=== PATIENT | male | born 1970 | race Caucasian/White ===

== ENCOUNTER 2016-11-17 11:13 | Emergency (ER) | payer MEDICARE, OTHER ==
[~2016-11-17] VITALS: Ht 180.3 cm; Wt 111.0 kg
[~2016-11-17 11:13] MED LIST: AMIT50TA3 PO; CLIN1CAP6 PO; DOLO10TA PO; LACTTAB8 PO; LISI10TA3 PO; LYRI200C PO; NOVO7030P2 SQ; NOVORP2 SQ
[2016-11-17 11:15] VITALS: BP 178/89; PULSE 99; RESP 24; TEMP 98.8; O2SAT 100
[2016-11-17 13:11] VITALS: BP 186/113; PULSE 92; RESP 12; O2SAT 99
[2016-11-17 13:12] VITALS: O2SAT 99
--- NOTE | 2016-11-17 13:39 | PD ---
HPI Chief Complaint: Diabetic Time Seen by Provider: 13:00 Travel History International Travel<30 days: No Contact w/Intl Traveler<30days: No Traveled to known affect area: No History of Present Illness HPI Patient is a 46-year-old male presenting to emergency for evaluation of elevated blood sugars and low-grade fevers. 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 He reports low-grade fevers at the max temp of 100.2 as well as elevated blood glucose readings. Patient states his fasting blood sugar was 200 today he continued to rise over 500. He gave himself 10 units of regular insulin at 10:30 which brought his sugar down to 337 on arrival to the emergency department. Patient is normally on 70/30 twice daily with regular insulin sliding scale as needed. Patient states that he doesn't normally have pain in his stump, and wears a prosthetic leg. He has been unable to wear his prosthesis due to the pain. Patient also reports pain in a right foot ulcer, this is being followed by Dr. Salinas his diabetes trainer. He denies any chest pain, shortness of breath, headache, abdominal pain, nausea , vomiting. PFSH Past Medical History Arthritis: Yes Asthma: No Autoimmune Disease: No Blood Disorders: No Anxiety: No Depression: No Heart Rhythm Problems: No Cancer: No Cardiovascular Problems: No High Cholesterol: No Chemotherapy: No Chest Pain: No Congestive Heart Failure: No COPD: No Cerebrovascular Accident: No Diabetes: Yes (circulatory complication) Patient Takes Glucophage: No Diminished Hearing: No Gastrointestinal Disorders: No GERD: No Glaucoma: No Headaches: No Hepatitis: No Hiatal Hernia: No Heparin Induced Thrombocytopen: No Hypertension: Yes Immune Disorder: No Kidney Stones: No Neurologic: Yes (REFLEX SYMPATHETIC DYSTROPHY, NEUROPATHY) Psychiatric: No Reproductive: No Respiratory: No Integumentary: Yes (HX OF MRSA LEFT FOOT WOUND) Immunizations Current: No Migraines: No Myocardial Infarction: No Radiation Therapy: No Renal Failure: Yes (Acute from vancomycin/resolved) Seizures: No Sickle Cell Disease: No Sleep Apnea: No Thyroid Disease: No Ulcer: No Influenza Vaccination: No PNEUMOCCOCAL Vaccine (Year): 2 Past Surgical History Abdominal Surgery: No AICD: No Appendectomy: No Arteriovenous Shunt: No Body Medical Devices: PINS AND RODS TO LEFT LEG-HARDWARE REMOVED DUE TO MRSA INFECTION Cardiac Surgery: No Cholecystectomy: No Ear Surgery: No Endocrine Surgery: No Eye Surgery: No Genitourinary Surgery: No Gynecologic Surgery: No Insulin Pump: No Joint Replacement: No Neurologic Surgery: No Oral Surgery: No Pacemaker: No Thoracic Surgery: No Other Surgery: Yes (left BKA) Social History Alcohol Use: No Tobacco Use: No Substance Use: No Allergies-Medications (Allergen,Severity, Reaction): Coded Allergies: Vancomycin (Verified Allergy, Severe, ACUTE RENAL FAILURE, 11/17/16) Tigecycline (Verified Adverse Reaction, Severe, NAUSEA AND VOMITING, ) *MDRO Multi-Drug Resistant Organism (Verified Adverse Reaction, Unknown, MRSA, 11/17/16) MRSA (Blood & foot-11/2015); MRSA (foot-06/14/16) Uncoded Allergies: aquacel dressing (Allergy, Severe, Bleeding, 12/29/14) pain regranex (Allergy, Severe, Swelling, 12/29/14) pain on the skin Reported Meds & Prescriptions Reported Meds & Active Scripts Active Amitriptyline (Amitriptyline HCl) 50 Mg Tab 50 Mg PO HS Dolophine (Methadone HCl) 10 Mg Tab 70 Mg PO Q8HR Lyrica (Pregabalin) 200 Mg Cap 200 Mg PO BID Lisinopril 10 Mg Tab 10 Mg PO DAILY Reported Novolin R Inj (Insulin Human Regular) 1,000 Unit/10 Ml Vial 5-25 Units SQ ACHS Max dose at bedtime:(10)units; sugars less than 70,(0) units; sugars 150-199,(5)unit; sugars 200-249,(10)units; sugars 250-299,(15) units; sugars 300-349,(20)units; sugars greater than 349,(25)units Novolin 70-30 Inj (Insulin Human Isoph/Insulin Regular) 1,000 Unit/10 Ml Vial 1 Units SQ BID units in the morning and 16 units at night Review of Systems Except as stated in HPI: all other systems reviewed are Neg General / Constitutional: Positive: Fever HENT: No: Headaches Cardiovascular: No: Chest Pain or Discomfort Respiratory: No: Shortness of Breath Gastrointestinal: No: Nausea, Abdominal Pain Musculoskeletal: Positive: Myalgias, Edema, Pain Endocrine: Positive: Other (elevated blood glucose readings) Physical Exam Narrative GENERAL: Obese, well-developed, alert male. Resting comfortably in no acute distress. SKIN: Focused skin assessment warm/dry. Chronic ulceration to the plantar aspect of right foot, measuring 3 x 3.5 cm. No induration or erythema noted. There is a hyperpigmented, scaling rash to the dorsal aspect of the right foot HEAD: Atraumatic. Normocephalic. EYES: Pupils equal and round. No scleral icterus. No injection or drainage. ENT: No nasal bleeding or discharge. Mucous membranes pink and moist. NECK: Trachea midline. No JVD. CARDIOVASCULAR: Regular rate and rhythm. No murmur appreciated. RESPIRATORY: No accessory muscle use. Clear to auscultation. Breath sounds equal bilaterally. GASTROINTESTINAL: Abdomen soft, non-tender, nondistended. Hepatic and splenic margins not palpable. MUSCULOSKELETAL: Right foot deformity, left BKA. No clubbing. No cyanosis. Mild edema noted to some, no erythema noted. NEUROLOGICAL: Awake and alert. No obvious cranial nerve deficits. Motor grossly within normal limits. Normal speech. PSYCHIATRIC: Appropriate mood and affect; insight and judgment normal. Data Data Last Documented VS Vital Signs Date Time Temp Pulse Resp B/P Pulse Ox O2 Delivery O2 Flow Rate FiO2 11/17/16 17:17 85 16 136/92 99 11/17/16 13:22 Room Air 11/17/16 11:15 98.8 Orders Complete Blood Count With Diff (11/17/16 13:07) Comprehensive Metabolic Panel (11/17/16 13:07) Prothrombin Time / Inr (Pt) (11/17/16 13:07) Act Partial Throm Time (Ptt) (11/17/16 13:07) Lactic Acid Sepsis Protocol (11/17/16 13:07) Magnesium (Mg) (11/17/16 13:07) Urinalysis - C+S If Indicated (11/17/16 13:07) Blood Culture (11/17/16 13:07) Wound Culture And Gram Stain (11/17/16 13:07) Blood Glucose (11/17/16 13:07) Ecg Monitoring (11/17/16 13:07) Iv Access Insert/Monitor (11/17/16 13:07) Oximetry (11/17/16 13:07) Oxygen Administration (11/17/16 13:07) Tibia/Fibula (Ap/Lat) (11/17/16 ) Foot, Complete ([id number]) (11/17/16 ) Morphine Inj (Morphine Inj) (11/17/16 13:45) Urine Culture (11/17/16 14:00) Lactic Acid (11/17/16 15:53) Labs Laboratory Tests Test 11/17/16 11/17/16 11/17/16 11/17/16 13:15 14:00 16:00 16:27 White Blood Count 9.6 TH/MM3 Red Blood Count 4.69 MIL/MM3 Hemoglobin 14.2 GM/DL Hematocrit 40.8 % Mean Corpuscular Volume 86.8 FL Mean Corpuscular Hemoglobin 30.2 PG Mean Corpuscular Hemoglobin 34.8 % Concent Red Cell Distribution Width 14.5 % Platelet Count 182 TH/MM3 Mean Platelet Volume 9.0 FL Neutrophils (%) (Auto) 63.8 % Lymphocytes (%) (Auto) 27.9 % Monocytes (%) (Auto) 5.8 % Eosinophils (%) (Auto) 1.8 % Basophils (%) (Auto) 0.7 % Neutrophils # (Auto) 6.2 TH/MM3 Lymphocytes # (Auto) 2.7 TH/MM3 Monocytes # (Auto) 0.6 TH/MM3 Eosinophils # (Auto) 0.2 TH/MM3 Basophils # (Auto) 0.1 TH/MM3 CBC Comment DIFF FINAL Differential Comment Prothrombin Time 10.5 SEC Prothromb Time International 1.0 RATIO Ratio Activated Partial 25.2 SEC Thromboplast Time Sodium Level 133 MEQ/L Potassium Level 4.8 MEQ/L Chloride Level 97 MEQ/L Carbon Dioxide Level 27.6 MEQ/L Anion Gap 8 MEQ/L Blood Urea Nitrogen 7 MG/DL Creatinine 0.89 MG/DL Estimat Glomerular Filtration 92 ML/MIN Rate Random Glucose 326 MG/DL Lactic Acid Level 2.9 mmol/L 1.2 mmol/L 1.1 mmol/L Calcium Level 9.1 MG/DL Magnesium Level 2.0 MG/DL Total Bilirubin 0.3 MG/DL Aspartate Amino Transf 33 U/L (AST/SGOT) Alanine Aminotransferase 45 U/L (ALT/SGPT) Alkaline Phosphatase 172 U/L Total Protein 7.8 GM/DL Albumin 3.7 GM/DL Urine Color LIGHT-YELLOW Urine Turbidity CLEAR Urine pH 6.5 Urine Specific [place] 1.008 Urine Protein NEG mg/dL Urine Glucose (UA) 1000 mg/dL Urine Ketones NEG mg/dL Urine Occult Blood TRACE Urine Nitrite NEG Urine Bilirubin NEG Urine Urobilinogen LESS THAN 2.0 MG/DL Urine Leukocyte Esterase NEG Urine RBC 1 /hpf Urine WBC 4 /hpf Urine Squamous Epithelial <1 /hpf Cells Urine Bacteria RARE /hpf Microscopic Urinalysis Comment CATH-CULTURE IND MDM Medical Decision Making Medical Screen Exam Complete: Yes Emergency Medical Condition: Yes Medical Record Reviewed: Yes Interpretation(s) Laboratory Tests Test 11/17/16 11/17/16 11/17/16 11/17/16 13:15 14:00 16:00 16:27 White Blood Count 9.6 TH/MM3 Red Blood Count 4.69 MIL/MM3 Hemoglobin 14.2 GM/DL Hematocrit 40.8 % Mean Corpuscular Volume 86.8 FL Mean Corpuscular Hemoglobin 30.2 PG Mean Corpuscular Hemoglobin 34.8 % Concent Red Cell Distribution Width 14.5 % Platelet Count 182 TH/MM3 Mean Platelet Volume 9.0 FL Neutrophils (%) (Auto) 63.8 % Lymphocytes (%) (Auto) 27.9 % Monocytes (%) (Auto) 5.8 % Eosinophils (%) (Auto) 1.8 % Basophils (%) (Auto) 0.7 % Neutrophils # (Auto) 6.2 TH/MM3 Lymphocytes # (Auto) 2.7 TH/MM3 Monocytes # (Auto) 0.6 TH/MM3 Eosinophils # (Auto) 0.2 TH/MM3 Basophils # (Auto) 0.1 TH/MM3 CBC Comment DIFF FINAL Differential Comment Prothrombin Time 10.5 SEC Prothromb Time International 1.0 RATIO Ratio Activated Partial 25.2 SEC Thromboplast Time Sodium Level 133 MEQ/L Potassium Level 4.8 MEQ/L Chloride Level 97 MEQ/L Carbon Dioxide Level 27.6 MEQ/L Anion Gap 8 MEQ/L Blood Urea Nitrogen 7 MG/DL Creatinine 0.89 MG/DL Estimat Glomerular Filtration 92 ML/MIN Rate Random Glucose 326 MG/DL Lactic Acid Level 2.9 mmol/L 1.2 mmol/L 1.1 mmol/L Calcium Level 9.1 MG/DL Magnesium Level 2.0 MG/DL Total Bilirubin 0.3 MG/DL Aspartate Amino Transf 33 U/L (AST/SGOT) Alanine Aminotransferase 45 U/L (ALT/SGPT) Alkaline Phosphatase 172 U/L Total Protein 7.8 GM/DL Albumin 3.7 GM/DL Urine Color LIGHT-YELLOW Urine Turbidity CLEAR Urine pH 6.5 Urine Specific [place] 1.008 Urine Protein NEG mg/dL Urine Glucose (UA) 1000 mg/dL Urine Ketones NEG mg/dL Urine Occult Blood TRACE Urine Nitrite NEG Urine Bilirubin NEG Urine Urobilinogen LESS THAN 2.0 MG/DL Urine Leukocyte Esterase NEG Urine RBC 1 /hpf Urine WBC 4 /hpf Urine Squamous Epithelial <1 /hpf Cells Urine Bacteria RARE /hpf Microscopic Urinalysis Comment CATH-CULTURE IND Vital Signs Date Time Temp Pulse Resp B/P Pulse Ox O2 Delivery O2 Flow Rate FiO2 11/17/16 13:22 99 Room Air 11/17/16 13:12 99 11/17/16 13:11 92 12 186/113 99 Room Air 11/17/16 11:15 98.8 99 24 178/89 100 Room Air Differential Diagnosis Sepsis versus osteomyelitis versus uncontrolled diabetes versus hypertension versus other Narrative Course Patient is a 46-year-old male presenting to emergency Department for evaluation of elevated blood sugar readings and low-grade fevers. Patient is a history of MRSA infection, osteomyelitis. Labs and imaging ordered and pending. Patient is hypertensive on arrival. Patient reports taking his lisinopril 10 mg tablet this morning. Patient placed on telemetry monitoring, continuous pulse oximetry , IV access initiated. Pain medication ordered per my attending physician. CBC is unremarkable Chemistry with a glucose of 326 Initial lactic acid was 2.9, repeated was 1.2 Coags are unremarkable Urinalysis shows 1000 glucose, trace occult blood and rare bacteria, reflex culture pending. X-ray of the right foot shows postoperative changes which are stable. Imaging of the left thumb shows chronic bony changes, there is no acute area of fracture or bony destruction identified. Blood pressure normalized while in the emergency department area patient was encouraged to monitor blood pressure home. He was advised to watch his diet and monitor blood sugar closely. He was encouraged to use sliding scale insulin as needed to keep his blood sugars controlled. He will be placed on antibiotics empirically, he is encouraged to follow up with his primary doctor as well as his diabetes trainer. He is encouraged to return to emergency department for any new or worsening symptoms. Patient is stable for discharge. 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 status Additional Impressions: Stump pain Ulcer of foot Qualified Code: L97.519 - Ulcer of foot, right, with unspecified severity Referrals: Don Salinas DPM [employer] Primary Care Physician Patient Instructions: Diabetic Hyperglycemia (ED), General Instructions Additional Instructions: Follow-up with primary doctor Follow-up with your diabetes trainer Follow-up with paint preparer Monitor blood glucose at home, use sliding scale insulin as previously prescribed Complete full course of antibiotics as directed Return to emergency department for any new or worsening symptoms Med/Other Pt SpecificInfo: Prescription(s) given Scripts Cephalexin (Keflex)500 Mg Lvo385 Mg PO Q8H #30 CAP Ref 0 Prov:Ana Paiz 11/17/16 Disposition: 01 DISCHARGE HOME Condition: Stable Ana Paiz Nov 17, 2016 13:39
[2016-11-17 13:47] LABS: AUTOMATED NEUTROPHIL # 6.2 TH/MM3 (1.8-7.7); BASOPHIL # 0.1 TH/MM3 (0-0.2); BASOPHIL % 0.7 % (0.0-2.0); EOSINOPHIL # 0.2 TH/MM3 (0-0.4); EOSINOPHIL % 1.8 % (0.0-4.0); HEMATOCRIT 40.8 % (39.0-51.0); HEMO FLAGS DIFF FINAL; LYMPH % 27.9 % (9.0-44.0); LYMPHOCYTE # 2.7 TH/MM3 (1.0-4.8); MEAN CELL VOLUME 86.8 FL (80.0-100.0); MEAN CORPUSCULAR HEMOGLOBIN 30.2 PG (27.0-34.0); MEAN CORPUSCULAR HGB CONC 34.8 % (32.0-36.0); MONO % 5.8 % (0.0-8.0); NEUT % 63.8 % (16.0-70.0); PLATELET COUNT 182 TH/MM3 (150-450); RED BLOOD COUNT 4.69 MIL/MM3 (4.50-5.90); RED CELL DISTRIBUTION WIDTH 14.5 % (11.6-17.2); WHITE BLOOD COUNT 9.6 TH/MM3 (4.0-11.0)
[2016-11-17 13:56] LABS: APTT (PATIENT) 25.2 SEC (24.3-30.1); PROTHROMBIN TIME - PATIENT 10.5 SEC (9.8-11.6)
[2016-11-17 14:11] LABS: ALT (GPT) 45 U/L (12-78); ANION GAP 8 MEQ/L (5-15); AST (GOT) 33 U/L (15-37); BICARBONATE 27.6 MEQ/L (21.0-32.0); BLOOD UREA NITROGEN 7 MG/DL (7-18); CHLORIDE 97 MEQ/L (98-107); GLOMERULAR FILTRATION RATE 92 ML/MIN (>89); POTASSIUM 4.8 MEQ/L (3.5-5.1); SODIUM (NA) 133 MEQ/L (136-145)
[2016-11-17 14:13] LABS: ALKALINE PHOSPHATASE 172 U/L (45-117); TOTAL BILIRUBIN ADULT 0.3 MG/DL (0.2-1.0)
[2016-11-17 14:24] LABS: BACTERIA, URINE RARE /hpf; BLOOD, URINE TRACE (NEG); COMMENT (UR) CATH-CULTURE IND; CULTURE IF INDICATED CATH CULTURE IND; GLUCOSE,URINE 1000 mg/dL (NEG); KETONE, URINE NEG (NEG); NITRITE,URINE NEG (NEG); PH, URINE 6.5 (5.0-8.5); SQUAMOUS EPITHELIAL CELL URINE <1 /hpf (0-5); URINE COLOR LIGHT-YELLOW (YELLW/STRAW)
[2016-11-17 14:47] VITALS: BP 153/88; PULSE 90; RESP 16; O2SAT 99
--- NOTE | 2016-11-17 14:47 | RADRPT ---
EXAM DATE/TIME: 11/17/2016 13:35 [facility] COMPARISON: No previous studies available for comparison. INDICATIONS : Pain and inflammation. MEDICAL HISTORY : Diabetes mellitus type II. SURGICAL HISTORY : Mid shaft tib/fib amputation. ENCOUNTER: Initial ACUITY: 1 month PAIN SCORE: 7/10 LOCATION: Left Tib/Fib FINDINGS: The patient is status post below the knee amputation. There appears to be an old fracture deformity at the proximal tibial shaft and fibular shaft regions. These areas appear somewhat irregular. A de finite area of acute fracturing is not clearly seen. Acute appearing periosteal reaction is not seen. There is some chronic periosteal reaction present. There is narrowing of the knee joint, especially laterally. There does appear to be soft-tissue swe lling in the superficial distal aspect of the stump. CONCLUSION: Chronic bony change as described above. An acute area of fracturing or bony destruction is not clear ly identified. Juventino Ballard MD on November 17, 2016 at 14:34 Board Certified Radiologist. This report was verified electronically.
--- NOTE | 2016-11-17 14:50 | RADRPT ---
EXAM DATE/TIME: 11/17/2016 13:37 [facility] COMPARISON: FOOT RIGHT COMPLETE ([id number]), June 11, 2016, 8:59. INDICATIONS : Pain and inflammation. MEDICAL HISTORY : Diabetes mellitus type II. SURGICAL HISTORY : Right mid foot amputation. ENCOUNTER: Initial ACUITY: 1 month PAIN SCORE: 7/10 LOCATION: Right foot FINDINGS: There appears to be absence of the 2nd through 5th mid portions of the metatarsals. One of the middl e toes has been removed. There appear to be four toes remaining. There does appear to be medial and proximal displacement of the medial cuneiform bone and 1st metatarsal. There is medial and proximal subluxation of the 1st MTP joint. There is chronic hypertrophic change throughout the midfoot. The re is collapse of the plantar arch. When compared to the prior examination, significant change is no t clearly seen. An area of acute bony destruction is not seen. CONCLUSION: Postoperative change as described above. These changes appear stable. Some degree of a neuropathic foot needs to be considered, given the dislocation and chronic hypertrophic change at the midfoot. Juventino Ballard MD on November 17, 2016 at 14:35 Board Certified Radiologist. This report was verified electronically.
[2016-11-17 15:26] LABS: LACTIC ACID GHOST NOT REPORTABLE
[2016-11-17] MEDS: MORPHINE SULFATE 4 MG/ML INJ IV PUSH ONE ×2 (15:32→15:35)
[2016-11-17 16:20] VITALS: BP 136/91; PULSE 80; RESP 16; O2SAT 99
[2016-11-17 17:17] VITALS: BP 136/92; PULSE 85; RESP 16; O2SAT 99
[2016-11-17] MEDS ORDERED: CEPH-460 PO (17:31)
[2016-12-07] MEDS ORDERED: OXYC80TA9 PO (10:18)
[2016-12-07] MEDS ORDERED: PERC10TA27 PO (10:18)
[2016-12-10] MEDS ORDERED: OXYC80TA9 PO (10:42)
[2016-12-14] MEDS ORDERED: ZOFR4TAB3 SL (13:11)
[2016-12-20] MEDS ORDERED: METH10TA PO (11:02)
[2017-01-04] MEDS ORDERED: LISI10TA3 PO (10:22)
[2017-01-04] MEDS ORDERED: METH10TA PO (10:22)
[2017-01-16] MEDS ORDERED: METH10TA PO (10:46)
[2017-01-25] MEDS ORDERED: METH10TA PO (11:28)
== END 2016-11-17 17:54 | disposition home or self-care (01) ==
LOC: NEPE 11:13
DX: E11.65 Type 2 diabetes mellitus with hyperglycemia (principal); M79.662 Pain in left lower leg; L97.519 Non-pressure chronic ulcer of other part of right foot with unspecified severity; R82.99 Other abnormal findings in urine; B96.20 Unspecified Escherichia coli [E. coli] as the cause of diseases classified elsewhere; I10 Essential (primary) hypertension; Z79.4 Long term (current) use of insulin; Z89.512 Acquired absence of left leg below knee; Z87.39 Personal history of other diseases of the musculoskeletal system and connective tissue; Z86.69 Personal history of other diseases of the nervous system and sense organs; Z86.14 Personal history of Methicillin resistant Staphylococcus aureus infection
CPT/HCPCS: 73590; 73630; 80053; 81001; 83605; 83735; 85025; 85610; 85730; 86403; 87040; 87070; 87077; 87086; 87186; 96374; 99285; J2270; 87205

== ENCOUNTER → 2017-07-11 | Outpatient (CLI) | payer MEDICARE, OTHER ==
[~2017-07-11] MED LIST changes: +ASPI-516 CHEW; -CLIN1CAP6 PO; -DOLO10TA PO; -LACTTAB8 PO; +METH10TA PO; +NOVOLOGP2 SQ
[2017-07-11 09:08] LABS: AUTOMATED NEUTROPHIL # 7.4 TH/MM3 (1.8-7.7); BASOPHIL # 0.2 TH/MM3 (0-0.2); BASOPHIL % 1.1 % (0.0-2.0); EOSINOPHIL # 0.4 TH/MM3 (0-0.4); EOSINOPHIL % 2.9 % (0.0-4.0); HEMATOCRIT 45.3 % (39.0-51.0); HEMO FLAGS DIFF FINAL; LYMPH % 34.8 % (9.0-44.0); LYMPHOCYTE # 4.7 TH/MM3 (1.0-4.8); MEAN CELL VOLUME 89.2 FL (80.0-100.0); MEAN CORPUSCULAR HEMOGLOBIN 30.4 PG (27.0-34.0); MEAN CORPUSCULAR HGB CONC 34.2 % (32.0-36.0); MONO % 5.8 % (0.0-8.0); NEUT % 55.4 % (16.0-70.0); PLATELET COUNT 248 TH/MM3 (150-450); RED BLOOD COUNT 5.08 MIL/MM3 (4.50-5.90); WHITE BLOOD COUNT 13.4 TH/MM3 (4.0-11.0)
[2017-07-11 10:36] LABS: ALKALINE PHOSPHATASE 199 U/L (45-117); ALT (GPT) 35 U/L (12-78); ANION GAP 7 MEQ/L (5-15); AST (GOT) 39 U/L (15-37); BICARBONATE 27.6 MEQ/L (21.0-32.0); CHLORIDE 94 MEQ/L (98-107); GLOMERULAR FILTRATION RATE 69 ML/MIN (>89); HDL CHOLESTEROL 28.6 MG/DL (40.0-60.0); POTASSIUM 4.4 MEQ/L (3.5-5.1); SODIUM (NA) 129 MEQ/L (136-145); TOTAL BILIRUBIN ADULT 0.5 MG/DL (0.2-1.0)
[2017-07-11 10:39] LABS: BLOOD UREA NITROGEN 14 MG/DL (7-18)
[2017-07-11 10:43] LABS: GLUCOSE,FASTING 476 MG/DL (74-99)
== END ==
LOC: CLAB 08:38
PROVIDERS: ATTEND Physician Assistant Medical
DX: I10 Essential (primary) hypertension (principal); S88.112A Complete traumatic amputation at level between knee and ankle, left lower leg, initial encounter; X58.XXXA Exposure to other specified factors, initial encounter; G89.29 Other chronic pain; Z68.34 Body mass index [BMI] 34.0-34.9, adult
CPT/HCPCS: 36415; 80053; 80061; 82248; 84443; 85025

== ENCOUNTER 2017-09-18 15:38 | Inpatient (IN) | payer MEDICARE, OTHER ==
[~2017-09-18] VITALS: Ht 180.3 cm; Wt 108.8 kg
[~2017-09-18 15:38] MED LIST changes: -AMIT50TA3 PO; +LANTINJ SQ; +ROSU10 PO
[2017-09-18 15:40] VITALS: BP 172/112; PULSE 121; RESP 16; TEMP 98.2; O2SAT 99
[2017-09-18 16:53] LABS: AUTOMATED NEUTROPHIL # 15.7 TH/MM3 (1.8-7.7); BASOPHIL # 0.1 TH/MM3 (0-0.2); BASOPHIL % 0.5 % (0.0-2.0); EOSINOPHIL % 0.2 % (0.0-4.0); HEMATOCRIT 42.9 % (39.0-51.0); HEMOGLOBIN 14.8 GM/DL (13.0-17.0); LYMPH % 19.7 % (9.0-44.0); LYMPHOCYTE # 4.3 TH/MM3 (1.0-4.8); MEAN CELL VOLUME 85.9 FL (80.0-100.0); MEAN CORPUSCULAR HEMOGLOBIN 29.7 PG (27.0-34.0); MEAN CORPUSCULAR HGB CONC 34.6 % (32.0-36.0); MEAN PLATELET VOLUME 8.3 FL (7.0-11.0); MONO % 7.4 % (0.0-8.0); MONOCYTE # 1.6 TH/MM3 (0-0.9); NEUT % 72.2 % (16.0-70.0); PLATELET COUNT 281 TH/MM3 (150-450); RED CELL DISTRIBUTION WIDTH 14.1 % (11.6-17.2); WHITE BLOOD COUNT 21.8 TH/MM3 (4.0-11.0)
--- NOTE | 2017-09-18 16:57 | RADRPT ---
EXAM DATE/TIME: 09/18/2017 16:44 [facility] COMPARISON: FOOT RIGHT COMPLETE ([id number]), November 17, 2016, 13:37. INDICATIONS : Patient states ulcer on his right foot. MEDICAL HISTORY : Diabetes mellitus type II. SURGICAL HISTORY : Right mid foot amputation ENCOUNTER: Initial ACUITY: 2 weeks PAIN SCORE: 9/10 LOCATION: Right Foot FINDINGS: Marked deformity of the osseous structures of the forefoot and midfoot with distal tarsal fusion, izaiah gical removal of one of the toes, absent 2nd through 4th metatarsal bones, enlarged 1st metatarsus, l ateral cuneiform removal, collapse of the plantar arch, chronic hypertrophic changes, and diffuse ost eopenia. The overall appearance of these findings is unchanged when compared to conventional radiogr aphs performed 11/17/16. There is irregularity of the plantar soft tissues with a similar thickness o f the soft tissues were compared to prior conventional radiographs. No focal areas of new bony destr uction. CONCLUSION: Chronic deformity related to prior surgery and neuropathic changes, unchanged in appearance when comp ared to conventional radiographs 11/17/16. No focal areas of new bony destruction seen. Artem Mckeon MD on September 18, 2017 at 16:53 Board Certified Radiologist. This report was verified electronically.
[2017-09-18 17:13] LABS: BICARBONATE 27.1 MEQ/L (21.0-32.0); CALCIUM 9.2 MG/DL (8.5-10.1); CREATININE 0.91 MG/DL (0.60-1.30)
[2017-09-18] MEDS ORDERED: PIPERACIL-TAZO 3.375 GM PREMIX 50 ML IV ONE (18:15)
[2017-09-18] MEDS ORDERED: ONDANSETRON HCL 4 MG/2 ML VIAL IV PUSH ONE (18:15)
[2017-09-18] MEDS ORDERED: MORPHINE SULFATE 2 MG/ML INJ IV PUSH ONE (18:15)
[2017-09-18] MEDS ORDERED: SODIUM CHLORIDE 0.9% FLUSH 10 ML FLUSH IV FLUSH PRN (18:30)
[2017-09-18] MEDS ORDERED: NALOXONE HCL 0.4 MG/ML AMP IV PUSH PRN (18:30)
[2017-09-18] MEDS ORDERED: CLINDAMYCIN 600 MG/NS PREMIX 50 ML IV ONE (18:30)
[2017-09-18] MEDS ORDERED: DEXTROSE 50% IN WATER 50 ML VIAL(D50) IV PUSH PRN (18:45)
[2017-09-18] MEDS ORDERED: GLUCAGON 1 MG/ML VIAL OTHER PRN (18:45)
--- NOTE | 2017-09-18 18:58 | PD ---
HPI Chief Complaint: Injury Time Seen by Provider: 17:54 Travel History International Travel<30 days: No Contact w/Intl Traveler<30days: No Traveled to known affect area: No History of Present Illness HPI 47-year-old male that presents to the ED for evaluation of injury to his right foot. 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 Per patient he went to see his spooler operator automatic Dr. Salinas today for an ulcer that appears to be infected. He was started on Bactrim today and monitor him "per patient when he left the office he accidentally injured his right foot and he was told to come here to get evaluated. Labs and imaging were done in triage. Patient states that he has pain of his right foot. Per patient he has no body aches, fevers chills or sweats. His been having this ulcer for some time and he has wound care done by Dr. Salinas. No urinary or bowel movement issues. History of MRSA. Allergies to different antibiotics. Per patient he has not started the Bactrim as he just got it. He states that the pain of his foot is 8 out of 10. He was brought here to evaluate for possible bony injury. [facility] Past Medical History Arthritis: Yes Asthma: No Autoimmune Disease: No Blood Disorders: No Anxiety: No Depression: No Heart Rhythm Problems: No Cancer: No Cardiovascular Problems: No High Cholesterol: No Chemotherapy: No Chest Pain: No Congestive Heart Failure: No COPD: No Cerebrovascular Accident: No Diabetes: Yes Patient Takes Glucophage: No Diminished Hearing: No Endocrine: Yes (HX DM ) Gastrointestinal Disorders: No GERD: No Glaucoma: No Genitourinary: Yes (HX UTI) Headaches: No Hepatitis: No Hiatal Hernia: No Heparin Induced Thrombocytopen: No Hypertension: Yes Immune Disorder: No Implanted Vascular Access Dvce: Yes (PICC LINE IN PAST) Kidney Stones: No Medical other: Yes (HISTORY PSEDOMONIES) Musculoskeletal: Yes Neurologic: Yes (REFLEX SYMPATHETIC DYSTROPHY, NEUROPATHY) Psychiatric: No Reproductive: No Respiratory: No Integumentary: Yes (HX OF MRSA LEFT FOOT WOUND) Immunizations Current: No Migraines: No Myocardial Infarction: No Radiation Therapy: No Renal Failure: Yes (Acute from vancomycin/resolved) Seizures: No Sickle Cell Disease: No Sleep Apnea: No Thyroid Disease: No Ulcer: No PNEUMOCCOCAL Vaccine (Year): 2 Past Surgical History Abdominal Surgery: No AICD: No Appendectomy: No Arteriovenous Shunt: No Body Medical Devices: PINS AND RODS TO LEFT LEG-HARDWARE REMOVED DUE TO MRSA INFECTION Cardiac Surgery: No Cholecystectomy: No Ear Surgery: No Endocrine Surgery: No Eye Surgery: No Genitourinary Surgery: No Gynecologic Surgery: No Insulin Pump: No Joint Replacement: No Neurologic Surgery: No Oral Surgery: No Pacemaker: No Thoracic Surgery: No Other Surgery: Yes (left BKA) Social History Alcohol Use: No Tobacco Use: Yes Substance Use: No Allergies-Medications (Allergen,Severity, Reaction): Coded Allergies: vancomycin (Unverified Allergy, Severe, ACUTE RENAL FAILURE, 09/18/17) tigecycline (Unverified Adverse Reaction, Severe, NAUSEA AND VOMITING, ) *MDRO Multi-Drug Resistant Organism (Verified Adverse Reaction, Unknown, MRSA, 09/18/17) MRSA (Blood & foot-11/2015); MRSA (foot-06/14/16) Uncoded Allergies: aquacel dressing (Allergy, Severe, Bleeding, 12/29/14) pain regranex (Allergy, Severe, Swelling, 12/29/14) pain on the skin Reported Meds & Prescriptions Reported Meds & Active Scripts Active Crestor (Rosuvastatin Calcium) 10 Mg Tab 10 Mg PO DAILY Lantus Solostar Pen Inj (Insulin Glargine) 300 Unit/3 Ml Pen 10 Units SQ DAILY Lisinopril 10 Mg Tab 10 Mg PO DAILY Reported Lyrica (Pregabalin) 200 Mg Cap 200 Mg PO BID Aspirin 81 Mg Chew 81 Mg CHEW DAILY Review of Systems Except as stated in HPI: all other systems reviewed are Neg Physical Exam Narrative GENERAL: SKIN: Warm and dry. HEAD: Atraumatic. Normocephalic. EYES: Pupils equal and round. No scleral icterus. No injection or drainage. ENT: No nasal bleeding or discharge. Mucous membranes pink and moist. Tongue is midline. No uvula deviation. NECK: Trachea midline. No JVD. CARDIOVASCULAR: Regular rate and rhythm. RESPIRATORY: No accessory muscle use. Clear to auscultation. Breath sounds equal bilaterally. GASTROINTESTINAL: Abdomen soft, non-tender, nondistended. Hepatic and splenic margins not palpable. MUSCULOSKELETAL: Extremities without clubbing, cyanosis, or edema. No obvious deformities. Full range of motion of the upper and lower extremities. Patient has a [id number] amputation on the left lower extremity as well as an ulcer which is about 3 cm in diameter with some purulence and erythema noted on the borders of the ulcer which is about stage 2-3. NEUROLOGICAL: Awake and alert. No obvious cranial nerve deficits. Motor grossly within normal limits. Five out of 5 muscle strength in the arms and legs. Normal speech. PSYCHIATRIC: Appropriate mood and affect; insight and judgment normal. Data Data Last Documented VS Vital Signs Date Time Temp Pulse Resp B/P (MAP) Pulse Ox O2 Delivery O2 Flow Rate FiO2 09/18/17 15:40 98.2 121 16 172/112 (132) 99 Orders Orders Foot, Complete ([id number]) (09/18/17 ) Complete Blood Count With Diff (09/18/17 16:11) Basic Metabolic Panel (Bmp) (09/18/17 16:11) Blood Culture (09/18/17 16:11) C-Reactive Protein (Crp) (09/18/17 18:06) Westergren Sedimentation Rate (09/18/17 18:06) Piperacil-Tazo 3.375 Gm Premix (Zosyn 3. (09/18/17 18:15) Morphine Inj (Morphine Inj) (09/18/17 18:15) Ondansetron Inj (Zofran Inj) (09/18/17 18:15) Place In Observation (09/18/17 ) Vital Signs (Adult) Q4H (09/18/17 18:25) Activity Oob With Assistance (09/18/17 18:25) Computer Forensic Specialist / Telemetry .CONTINUOUS (09/18/17 18:25) Diet 1800 Ada Cons Carb (09/18/17 Dinner) Diet Heart Healthy (09/18/17 Dinner) Sodium Chloride 0.9% Flush (Ns Flush) (09/18/17 18:30) Sodium Chloride 0.9% Flush (Ns Flush) (09/18/17 21:00) Basic Metabolic Panel (Bmp) (09/19/17 06:00) Complete Blood Count With Diff (09/19/17 06:00) Pt Request For Service (09/18/17 18:25) Case Management Consult (09/18/17 18:25) Naloxone Inj (Narcan Inj) (09/18/17 18:30) Wound Culture And Gram Stain (09/18/17 18:26) Clindamycin 600 Mg/Ns Premix (Cleocin 60 (09/18/17 18:30) Admit Order (Ed Use Only) (09/18/17 18:30) Labs Laboratory Tests Test 09/18/17 16:35 White Blood Count 21.8 TH/MM3 Red Blood Count 5.00 MIL/MM3 Hemoglobin 14.8 GM/DL Hematocrit 42.9 % Mean Corpuscular Volume 85.9 FL Mean Corpuscular Hemoglobin 29.7 PG Mean Corpuscular Hemoglobin Concent 34.6 % Red Cell Distribution Width 14.1 % Platelet Count 281 TH/MM3 Mean Platelet Volume 8.3 FL Neutrophils (%) (Auto) 72.2 % Lymphocytes (%) (Auto) 19.7 % Monocytes (%) (Auto) 7.4 % Eosinophils (%) (Auto) 0.2 % Basophils (%) (Auto) 0.5 % Neutrophils # (Auto) 15.7 TH/MM3 Lymphocytes # (Auto) 4.3 TH/MM3 Monocytes # (Auto) 1.6 TH/MM3 Eosinophils # (Auto) 0.0 TH/MM3 Basophils # (Auto) 0.1 TH/MM3 CBC Comment DIFF FINAL Differential Comment Blood Urea Nitrogen 14 MG/DL Creatinine 0.91 MG/DL Random Glucose 329 MG/DL Calcium Level 9.2 MG/DL Sodium Level 130 MEQ/L Potassium Level 4.4 MEQ/L Chloride Level 97 MEQ/L Carbon Dioxide Level 27.1 MEQ/L Anion Gap 6 MEQ/L Estimat Glomerular Filtration Rate 89 ML/MIN C-Reactive Protein 1.80 MG/DL [facility] Medical Decision Making Medical Screen Exam Complete: Yes Emergency Medical Condition: Yes Medical Record Reviewed: Yes Interpretation(s) CBC & BMP Diagram 09/18/17 16:35 Calcium Level 9.2 Last Impressions Foot X-Ray 09/18/17 0000 Signed Impressions: Service Date/Time: Monday, September 18, 2017 16:44 - CONCLUSION: Chronic deformity related to prior surgery and neuropathic changes, unchanged in appearance when compared to conventional radiographs 11/17/16. No focal areas of new bony destruction seen. Artem Mckeon MD Differential Diagnosis Infected foot versus ulcer versus infected ulcer versus fracture versus sepsis Narrative Course 47-year-old male that presents to the ED for evaluation of right foot pain. Patient was properly examined and was found to have signs and symptoms consistent with appears to be infected foot. X-ray was done and did not show any sign of bony injury. Chronic changes noted. Patient did have an elevated white blood cell count of 21. No other source of infection at this time. Patient is diabetic a history of MRSA with significant surgical history of loss of extremities because of this. Recommendation this time is for admission for IV antibiotics. Patient understands and agrees with plan. Case discussed with water pollution control technician agrees to admission. Case was discussed with Dr. Salinas who is in agreement the patient is to be admitted for further eval. She recommends continuing soft and as well as clindamycin and urine culture of the wound. Sepsis Criteria SIRS Criteria (2 or more): Heart rate over 90, WBC > 95677, < 4000 or > 10% bands Sepsis Criteria (SIRS+source): Infect source susp/known Diagnosis Primary Impression: Foot ulcer, right Qualified Codes: L97.512 - Non-pressure chronic ulcer of other part of right foot with fat layer exposed Additional Impression: Sepsis Qualified Codes: A41.9 - Sepsis, unspecified organism Admitting Information Admitting Physician Requests: Admit Reymundo Barba Sep 18, 2017 18:58
[2017-09-18 19:19] VITALS: BP 132/80; PULSE 95; RESP 18; O2SAT 98
[2017-09-18 20:00] VITALS: BP 124/68; PULSE 104; RESP 18; TEMP 98.7; O2SAT 97
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
[2017-09-18] MEDS: PREGABALIN 100 MG CAP PO SCH (22:50)
[2017-09-18] MEDS: INSULIN ASPART SUPPLEMENTAL SCALE SQ SCH (23:02)
[2017-09-18] MEDS: SODIUM CHLORIDE 0.9% FLUSH 10 ML FLUSH IV FLUSH SCH (23:02)
[2017-09-18] MEDS: ACETAMINOPHEN/HYDROcodone 325 MG/5 MG TAB PO PRN (23:34)
[2017-09-19] VITALS (7 sets, daily range): BP systolic 120–161; BP diastolic 62–98; PULSE 76–105; RESP 16–19; TEMP 97–98.6; O2SAT 94–99
[2017-09-19] MEDS: CLINDAMYCIN 600 MG/NS PREMIX 50 ML IV SCH ×4 (00:28→17:40)
[2017-09-19] MEDS: PIPERACIL-TAZO 3.375 GM PREMIX 50 ML IV SCH ×5 (00:28→23:11)
[2017-09-19] MEDS: ACETAMINOPHEN/HYDROcodone 325 MG/5 MG TAB PO PRN ×4 (05:52→20:06)
[2017-09-19 07:23] LABS: AUTOMATED NEUTROPHIL # 9.7 TH/MM3 (1.8-7.7); BASOPHIL # 0.1 TH/MM3 (0-0.2); BASOPHIL % 0.8 % (0.0-2.0); EOSINOPHIL # 0.2 TH/MM3 (0-0.4); EOSINOPHIL % 1.5 % (0.0-4.0); HEMATOCRIT 42.4 % (39.0-51.0); HEMOGLOBIN 14.6 GM/DL (13.0-17.0); LYMPH % 23.5 % (9.0-44.0); LYMPHOCYTE # 3.4 TH/MM3 (1.0-4.8); MEAN CELL VOLUME 86.1 FL (80.0-100.0); MEAN CORPUSCULAR HEMOGLOBIN 29.7 PG (27.0-34.0); MEAN CORPUSCULAR HGB CONC 34.5 % (32.0-36.0); MEAN PLATELET VOLUME 8.4 FL (7.0-11.0); MONO % 6.2 % (0.0-8.0); MONOCYTE # 0.9 TH/MM3 (0-0.9); PLATELET COUNT 259 TH/MM3 (150-450); RED BLOOD COUNT 4.93 MIL/MM3 (4.50-5.90); RED CELL DISTRIBUTION WIDTH 14.2 % (11.6-17.2); WHITE BLOOD COUNT 14.3 TH/MM3 (4.0-11.0)
[2017-09-19 07:41] LABS: BICARBONATE 26.8 MEQ/L (21.0-32.0); CALCIUM 8.9 MG/DL (8.5-10.1); CREATININE 0.95 MG/DL (0.60-1.30)
[2017-09-19] MEDS: INSULIN ASPART SUPPLEMENTAL SCALE SQ SCH ×4 (08:26→20:06)
[2017-09-19] MEDS: ASPIRIN 81 MG CHEW TAB CHEW SCH (08:27)
[2017-09-19] MEDS: ATORVASTATIN 20 MG TAB PO SCH (08:28)
[2017-09-19] MEDS: PREGABALIN 100 MG CAP PO SCH ×2 (08:28→20:06)
[2017-09-19] MEDS: SODIUM CHLORIDE 0.9% FLUSH 10 ML FLUSH IV FLUSH SCH ×2 (08:28→20:08)
[2017-09-19] MEDS ORDERED: ZOLO25TA PO (08:33)
[2017-09-19] MEDS ORDERED: INSULIN DETEMIR 100 UNITS/ML VIAL SQ SCH (09:00)
[2017-09-19] MEDS ORDERED: LISINOPRIL 10 MG TAB PO SCH (09:00)
--- NOTE | 2017-09-19 14:54 | HHI.PR ---
Subjective Remarks c/o pain in foot. Afebrile Denies cp/sob Objective Vitals Vital Signs Date Time Temp Pulse Resp B/P (MAP) Pulse Ox O2 Delivery O2 Flow Rate FiO2 09/19/17 12:00 97.5 103 19 131/85 (100) 98 09/19/17 08:00 98.6 95 17 161/93 (115) 97 09/19/17 04:00 98.1 105 18 123/62 (82) 97 09/19/17 02:30 76 09/19/17 00:39 18 09/19/17 00:38 18 09/19/17 00:00 98.6 102 18 120/62 (81) 94 09/18/17 21:00 09/18/17 20:00 98.7 104 18 124/68 (86) 97 09/18/17 19:37 18 09/18/17 19:19 95 18 132/80 (97) 98 Room Air 09/18/17 15:40 98.2 121 16 172/112 (132) 99 I/O 09/18/17 09/18/17 09/18/17 09/19/17 09/19/17 09/19/17 07:00 15:00 23:00 07:00 15:00 23:00 Intake Total 320 ml 100 ml 100 ml Output Total 300 ml Balance 20 ml 100 ml 100 ml Intake Oral 320 ml 100 ml IV Total 100 ml Output Urine Total 300 ml # Voids 2 # Bowel Movements 0 Result Diagram: 09/19/17 0635 09/19/17 0635 Imaging Last Impressions Foot X-Ray 09/18/17 0000 Signed Impressions: Service Date/Time: Monday, September 18, 2017 16:44 - CONCLUSION: Chronic deformity related to prior surgery and neuropathic changes, unchanged in appearance when compared to conventional radiographs 11/17/16. No focal areas of new bony destruction seen. Artem Mckeon MD Objective Remarks GENERAL: Obese, male lying in bed SKIN: 3 x 3 cm ulceration on the plantar surface of the right foot. Surrounding erythema with purulent material. HEAD: Atraumatic. Normocephalic. No temporal or scalp tenderness. EYES: Pupils equal round and reactive. Extraocular motions intact. No scleral icterus. No injection or drainage. ENT: Nose without bleeding, purulent drainage or septal hematoma. Throat without erythema, tonsillar hypertrophy or exudate. Uvula midline. Airway patent. NECK: Trachea midline. No JVD or lymphadenopathy. Supple, nontender, no meningeal signs. CARDIOVASCULAR: Regular rate and rhythm without murmurs, gallops, or rubs. RESPIRATORY: Clear to auscultation. Breath sounds equal bilaterally. No wheezes , rales, or rhonchi. GASTROINTESTINAL: Abdomen soft, non-tender, nondistended. No hepato-splenomegaly , or palpable masses. No guarding. MUSCULOSKELETAL: Extremities without clubbing, cyanosis, or edema. No joint tenderness, effusion, or edema noted. No calf tenderness. Left BKA. NEUROLOGICAL: Awake and alert. Cranial nerves II through XII intact. Motor and sensory grossly within normal limits. Normal speech. Medications and IVs Current Medications Medications (Trade) Dose Ordered Sig/Gavin Route Start Time Stop Time Status Last Admin (NS Flush) 2 ml UNSCH PRN IV FLUSH 09/18/17 18:30 (NS Flush) 2 ml BID IV FLUSH 09/18/17 21:00 09/19/17 08:28 (Narcan Inj) 0.4 mg UNSCH PRN IV PUSH 09/18/17 18:30 (Aspirin Chew) 81 mg DAILY CHEW 09/19/17 09:00 09/19/17 08:27 (Lyrica) 200 mg BID PO 09/18/17 21:00 09/19/17 20:06 (Levemir Inj) 10 units DAILY SQ 09/19/17 09:00 09/19/17 08:27 (Lipitor) 20 mg DAILY PO 09/19/17 09:00 09/19/17 08:28 (D50w (Vial) Inj) 50 ml UNSCH PRN IV PUSH 09/18/17 18:45 (Glucagon Inj) 1 mg UNSCH PRN OTHER 09/18/17 18:45 (NovoLOG SUPPLEMENTAL SCALE) 1 ACHS SLIDING SCALE SQ 09/18/17 21:00 09/19/17 20:06 Clindamycin/ Sodium Chloride 50 ml @ 100 mls/hr Q6H IV 09/19/17 01:00 09/19/17 17:40 Piperacillin Sod/ Tazobactam Sod 50 ml @ 100 mls/hr Q6H IV 09/19/17 00:00 09/19/17 16:24 (Gleason 5-325 Mg) 1 tab Q4H PRN PO 09/18/17 23:30 09/19/17 20:06 (Prinivil) 10 mg BID PO 09/19/17 23:00 A/P Problem List: (1) Sepsis ICD Code: A41.9 - Sepsis, unspecified organism (2) Diabetic foot infection ICD Code: E11.69 - Type 2 diabetes mellitus with other specified complication; L08.9 - Local infection of the skin and subcutaneous tissue, unspecified (3) Diabetes mellitus with hyperglycemia ICD Code: E11.65 - Type 2 diabetes mellitus with hyperglycemia (4) HTN (hypertension) ICD Code: I10 - Essential (primary) hypertension Status: Chronic Assessment and Plan 1. Infected foot ulcer/sepsis Patient tachycardic with leukocytosis Clindamycin and Zosyn Podiatry consulted, appreciate recommendations Foot x-ray does not suggest osteomyelitis Blood, wound cultures pending Monitor for signs of shock 2. Diabetes mellitus Continue home Lantus SSI Monitor blood glucose 09/19 Blood sugars severely elevated. Will increase levemir to 10 units SQ BID. Continue SSI. Monitor accuchecks. 3. Hypertension/hyperlipidemia Continue home medications BP stable FEN Heart healthy diabetic diet Electrolytes: Monitor and replete when necessary Holding pharmacologic anticoagulation secondary to possible operative intervention Discharge Planning Pending podiatry consultation. Problem Qualifiers (1) HTN (hypertension): Qualified Codes: I10 - Essential (primary) hypertension Ruben Dean MD Sep 19, 2017 14:54
--- NOTE | 2017-09-19 19:28 | MB ---
cc: PETE BOSCH DPM DATE OF CONSULTATION 09/19/17 REASON FOR CONSULTATION Right foot Charcot of arthritis, rule out bone infection. HISTORY OF PRESENT ILLNESS This is a 47-year-old male who I have treated over the years. Actually, I just saw him in my office and he apparently had a hard step in my parking lot and was very concerned about his foot. I recommended he go to the emergency room due to his clinical presentation and workup. Subsequently, I am seeing the patient bedside. He is doing well, minimal pain. He is seen bedside with a friend. He has a history of a left [id number]-hgvj amputation. His right lower extremity has a significant rocker bottom foot type with obvious Charcot that appears to be in a coalesced state. The patient has a past medical history of opioid addiction and he has gone through a process of no longer taking opioids and he was in [place] for while. I have not seen the patient in months up until just yesterday. A deep culture was taken in the office and the wound was debrided and off loaded with the felt to foam pad. The patient is supposed to getting a new prosthesis for his left lower extremity allowing him to get off of his right lower extremity. PAST MEDICAL HISTORY 1. MRSA 2. Osteomyelitis, 3. Hypertension, 4. Hyperlipidemia, 5. Diabetes, 6. Left gmeys-kpd-[id number] amputation MEDICATIONS Outpatient medications. 1. I am not sure if he even took any of the Bactrim. 2. Crestor 3. Lantus 4. Lisinopril 5. Lyrica 6. Aspirin. Inpatient medications 1. Clindamycin 2. Zosyn. Please see complete med list in chart. ALLERGIES - COATED VANCOMYCIN TIGECYCLINE REGRANEX. AQUACEL PHYSICAL EXAMINATION VITAL SIGNS: Temperature 98.0, pulse rate 95, respiratory rate 16, blood pressure 135/87, satting 98% on room air. GENERAL: An alert, oriented man seen bedside exhibiting nonlabored respirations. Left lower extremity has a well-healed zubnd-zgt-neuo amputation. Right lower extremity has a shortened rocker bottom type foot with a borderline full thickness ulcer of the plantar aspect of the calcaneocuboid joint measuring approximately 6 cm x 4 cm with ranging 8-10 mm of depth. There is a mixed fibrotic granular tissue with minimal serosanguineous type drainage. There is no odor. There is no pus. There is no obvious instability of the hind foot or ankle. No soft tissue emphysema. Pulses are palpable. Sensation is decreased below the patient's knee to light touch and deep pressure. LABORATORY FINDINGS White blood cell 28.1, down to 14.3, hemoglobin and hematocrit 14 and 42, platelet count is 259, ESR 17. Chem-7 - sodium is 133, potassium 4.2, chloride 98, CO2 26.8, BUN is 16, creatinine 0.95, random glucose is 280. Microbial findings - blood culture no growth. I will order a wound culture. IMAGING STUDIES No obvious osteomyelitic findings, but there is noted to be collapse of the arch, removal of bones of the toes 1-4, absent second through fourth metatarsal bones, enlarged first metatarsus, large cuneiform removal, collapse of the plantar arch. No gas in tissue. No focal areas of bony destruction. ASSESSMENT/PLAN Right foot Charcot ulcer cellulitis, rule out osteomyelitis. Bone SPECT CT ordered before we recommend any further debridement or bone biopsy. I will order a culture from the nursing staff. Bandage was changed to an absorbent bandage. The patient is recommended bed rest at this point. I will advise pending the patient's clinical improvement versus the bone SPECT CT. JANET Headley/ /5:12 PM /6:57 PM
[2017-09-19] MEDS ORDERED: LISI10TA3 PO (22:12)
[2017-09-19] MEDS: LISINOPRIL 10 MG TAB PO SCH (23:11)
[2017-09-20] VITALS: BP 150/91; PULSE 94; RESP 17; TEMP 97.2; O2SAT 92
[2017-09-20] MEDS: CLINDAMYCIN 600 MG/NS PREMIX 50 ML IV SCH ×2 (00:51→06:16)
[2017-09-20] MEDS: ACETAMINOPHEN/HYDROcodone 325 MG/5 MG TAB PO PRN ×5 (03:23→22:33)
[2017-09-20 04:00] VITALS: BP 150/79; PULSE 82; RESP 17; TEMP 97.1; O2SAT 91
[2017-09-20] MEDS: PIPERACIL-TAZO 3.375 GM PREMIX 50 ML IV SCH ×3 (06:16→17:39)
[2017-09-20 08:00] VITALS: BP 178/104; PULSE 92; RESP 19; TEMP 98.2; O2SAT 98
[2017-09-20] MEDS: INSULIN ASPART SUPPLEMENTAL SCALE SQ SCH ×4 (09:00→22:29)
[2017-09-20] MEDS ORDERED: INSULIN DETEMIR 100 UNITS/ML VIAL SQ SCH (09:00)
[2017-09-20] MEDS: SODIUM CHLORIDE 0.9% FLUSH 10 ML FLUSH IV FLUSH SCH ×2 (09:01→22:34)
[2017-09-20] MEDS: ASPIRIN 81 MG CHEW TAB CHEW SCH (09:01)
[2017-09-20] MEDS: ATORVASTATIN 20 MG TAB PO SCH (09:01)
[2017-09-20] MEDS: LISINOPRIL 10 MG TAB PO SCH ×2 (09:02→22:30)
[2017-09-20] MEDS: PREGABALIN 100 MG CAP PO SCH ×2 (09:03→22:30)
[2017-09-20 13:08] VITALS: BP 179/82; PULSE 107; RESP 19; TEMP 99.3; O2SAT 98
[2017-09-20] MEDS: INSULIN ASPART 1,000 UNITS/10 ML VIAL SQ SCH ×2 (13:38→16:07)
--- NOTE | 2017-09-20 13:39 | RADRPT ---
EXAM DATE/TIME: 09/20/2017 08:14 [facility] COMPARISON: FOOT RIGHT COMPLETE ([id number]), June 11, 2016, 8:59. PRIOR BONE SCANS: Correlative bone scan(s) available for comparison;06/16/2014, 01/05/2015. INDICATIONS : Right foot infection. DOSE: 30.2 mCi Tc99m MDP IV IMAGING: SPECT/CT imaging with fusion was performed. RADIATION DOSE: 2.55 CTDIvol (mGy) MEDICAL HISTORY : Hypertension. Diabetes mellitus type 2. Methicillin-resistant Staphylococcus aureus. SURGICAL HISTORY : Left below the knee amputation. ENCOUNTER: Initial ACUITY: 1 week PAIN SCALE: 3/10 LOCATION: Right Foot. TECHNIQUE: Bone scan was performed in sagittal, axial and coronal planes. Attenuation correction was performed with computed tomography and both the attenuation correction and non-attenuation corrected data sets were reviewed. FINDINGS: There is pronounced MDP uptake at several sites in the right ankle and foot, including very intense u ptake in an os trigonum, and uptake in the region of the first metatarsal head. There is somewhat les s pronounced uptake involving portions of the plantar hindfoot. CONCLUSION: Multifocal abnormal bone tracer uptake in the right ankle and foot. Correlation with tagged white blo od cell scan may be useful to evaluate for active osteomyelitis Juventino Goodman MD on September 20, 2017 at 12:56 Board Certified Radiologist. This report was verified electronically.
[2017-09-20 16:00] VITALS: BP 124/96; PULSE 102; RESP 18; TEMP 97.5; O2SAT 100
[2017-09-20] MEDS ORDERED: ACETAMINOPHEN/HYDROcodone 325 MG/5 MG TAB PO PRN (18:15)
--- NOTE | 2017-09-20 18:24 | HHI.PR ---
Subjective Remarks Patient c/o pain in right foot - 12/05 Denies cp/sob. Afebrile. Denies nausea, vomiting or abdominal pain. Denies diarrhea. Objective Vitals Vital Signs Date Time Temp Pulse Resp B/P (MAP) Pulse Ox O2 Delivery O2 Flow Rate FiO2 09/20/17 16:00 97.5 102 18 124/96 (105) 100 09/20/17 13:08 99.3 107 19 179/82 (114) 98 09/20/17 08:00 98.2 92 19 178/104 (128) 98 09/20/17 04:28 20 09/20/17 04:00 97.1 82 17 150/79 (102) 91 09/20/17 00:00 97.2 94 17 150/91 (110) 92 09/19/17 21:06 18 09/19/17 20:00 97.0 95 17 155/98 (117) 99 I/O 09/19/17 09/19/17 09/19/17 09/20/17 09/20/17 09/20/17 07:00 15:00 23:00 07:00 15:00 23:00 Intake Total 100 ml 100 ml 915 ml 480 ml 100 ml Output Total 625 ml Balance 100 ml 100 ml 290 ml 480 ml 100 ml Intake Oral 100 ml 815 ml 480 ml IV Total 100 ml 100 ml 100 ml Output Urine Total 625 ml # Voids 2 3 2 # Bowel Movements 0 0 0 Result Diagram: 09/19/17 0635 09/19/17 0635 Imaging Last Impressions Bone Scan Nuclear Medicine 09/20/17 0000 Signed Impressions: Service Date/Time: Wednesday, September 20, 2017 08:14 - CONCLUSION: Multifocal abnormal bone tracer uptake in the right ankle and foot. Correlation with tagged white blood cell scan may be useful to evaluate for active osteomyelitis Juventino Goodman MD Foot X-Ray 09/18/17 0000 Signed Impressions: Service Date/Time: Monday, September 18, 2017 16:44 - CONCLUSION: Chronic deformity related to prior surgery and neuropathic changes, unchanged in appearance when compared to conventional radiographs 11/17/16. No focal areas of new bony destruction seen. Artem Mckeon MD Objective Remarks GENERAL: Obese, male lying in bed SKIN: 3 x 3 cm ulceration on the plantar surface of the right foot. Surrounding erythema with purulent material. HEAD: Atraumatic. Normocephalic. No temporal or scalp tenderness. EYES: Pupils equal round and reactive. Extraocular motions intact. No scleral icterus. No injection or drainage. ENT: Nose without bleeding, purulent drainage or septal hematoma. Throat without erythema, tonsillar hypertrophy or exudate. Uvula midline. Airway patent. NECK: Trachea midline. No JVD or lymphadenopathy. Supple, nontender, no meningeal signs. CARDIOVASCULAR: Regular rate and rhythm without murmurs, gallops, or rubs. RESPIRATORY: Clear to auscultation. Breath sounds equal bilaterally. No wheezes , rales, or rhonchi. GASTROINTESTINAL: Abdomen soft, non-tender, nondistended. No hepato-splenomegaly , or palpable masses. No guarding. MUSCULOSKELETAL: Extremities without clubbing, cyanosis, or edema. No joint tenderness, effusion, or edema noted. No calf tenderness. Left BKA. NEUROLOGICAL: Awake and alert. Cranial nerves II through XII intact. Motor and sensory grossly within normal limits. Normal speech. Medications and IVs Current Medications Medications (Trade) Dose Ordered Sig/Gavin Route Start Time Stop Time Status Last Admin (NS Flush) 2 ml UNSCH PRN IV FLUSH 09/18/17 18:30 (NS Flush) 2 ml BID IV FLUSH 09/18/17 21:00 09/20/17 09:01 (Narcan Inj) 0.4 mg UNSCH PRN IV PUSH 09/18/17 18:30 (Aspirin Chew) 81 mg DAILY CHEW 09/19/17 09:00 09/20/17 09:01 (Lyrica) 200 mg BID PO 09/18/17 21:00 09/20/17 09:03 (Lipitor) 20 mg DAILY PO 09/19/17 09:00 09/20/17 09:01 (D50w (Vial) Inj) 50 ml UNSCH PRN IV PUSH 09/18/17 18:45 (Glucagon Inj) 1 mg UNSCH PRN OTHER 09/18/17 18:45 Piperacillin Sod/ Tazobactam Sod 50 ml @ 100 mls/hr Q6H IV 09/19/17 00:00 09/20/17 17:39 ([place] 5-325 Mg) 1 tab Q4H PRN PO 2/21/18 23:30 09/20/17 17:39 (Prinivil) 10 mg BID PO 09/19/17 23:00 09/20/17 09:02 (Levemir Inj) 12 units BID SQ 09/20/17 21:00 (NovoLOG SUPPLEMENTAL SCALE) 1 ACHS SLIDING SCALE SQ 09/20/17 12:00 09/20/17 16:08 (NovoLOG INJ) 8 units TIDAC SQ 09/20/17 12:00 09/20/17 16:07 A/P Problem List: (1) Sepsis ICD Code: A41.9 - Sepsis, unspecified organism (2) Diabetic foot infection ICD Code: E11.69 - Type 2 diabetes mellitus with other specified complication; L08.9 - Local infection of the skin and subcutaneous tissue, unspecified (3) Diabetes mellitus with hyperglycemia ICD Code: E11.65 - Type 2 diabetes mellitus with hyperglycemia (4) HTN (hypertension) ICD Code: I10 - Essential (primary) hypertension Status: Chronic Assessment and Plan 1. Infected Diabetic foot ulcer/sepsis Patient tachycardic with leukocytosis Clindamycin and Zosyn Podiatry consulted, appreciate recommendations Foot x-ray does not suggest osteomyelitis Blood, wound cultures pending Monitor for signs of shock 09/20 DC IV Clindamycin, continue Zosyn, consult ID. Continue pain control with oral [place]. I will place the patient on IV morphine for breakthrough pain. Bone scan done today and shows multifocal abnormal bone tracer uptake in the right ankle and foot. With tagged white blood cell CAT scan was recommended by radiology. White blood cell tagged scan was ordered by Dr. Salinas. Case discussed with Dr. Smith. The patient may need bone biopsy. 2. Diabetes mellitus with hyperglycemia Continue home Lantus SSI Monitor blood glucose 09/19 Blood sugars severely elevated. Will increase levemir to 10 units SQ BID. Continue SSI. Monitor accuchecks. 09/20 blood sugars still severely uncontrolled in the 400s. I will increase Levemir to 12 units subcu twice daily, start prandial NovoLog 8 units 3 times daily before meals and continue SSI with insulin NovoLog but discontinue the low sliding scale and place on the high sliding scale. Continue to monitor Accu -Cheks. 3. Hypertension/hyperlipidemia Continue home medications 09/20 BP severely elevated this a.m. in the 170s. Improved after being started on lisinopril 10 mg p.o. twice daily. Continue to monitor vital signs. I will place on clonidine as needed for systolic blood pressure more than 160. FEN Heart healthy diabetic diet Electrolytes: Monitor and replete when necessary We will place on heparin subcutaneously for DVT prophylaxis. Discharge Planning Pending podiatry consultation. Problem Qualifiers (1) HTN (hypertension): Qualified Codes: I10 - Essential (primary) hypertension Ruben Dean MD Sep 20, 2017 18:24
[2017-09-20 18:47] LABS: AUTOMATED NEUTROPHIL # 9.8 TH/MM3 (1.8-7.7); BASOPHIL # 0.1 TH/MM3 (0-0.2); BASOPHIL % 0.7 % (0.0-2.0); EOSINOPHIL # 0.2 TH/MM3 (0-0.4); EOSINOPHIL % 1.2 % (0.0-4.0); HEMATOCRIT 40.4 % (39.0-51.0); HEMOGLOBIN 14.4 GM/DL (13.0-17.0); MEAN CELL VOLUME 84.7 FL (80.0-100.0); MEAN CORPUSCULAR HEMOGLOBIN 30.3 PG (27.0-34.0); MEAN CORPUSCULAR HGB CONC 35.7 % (32.0-36.0); MEAN PLATELET VOLUME 8.2 FL (7.0-11.0); MONO % 6.6 % (0.0-8.0); MONOCYTE # 1.1 TH/MM3 (0-0.9); NEUT % 60.5 % (16.0-70.0); PLATELET COUNT 283 TH/MM3 (150-450); RED BLOOD COUNT 4.76 MIL/MM3 (4.50-5.90); RED CELL DISTRIBUTION WIDTH 13.9 % (11.6-17.2); WHITE BLOOD COUNT 16.2 TH/MM3 (4.0-11.0)
[2017-09-20 19:06] LABS: ALBUMIN 3.5 GM/DL (3.4-5.0); ALT (GPT) 22 U/L (12-78); AST (GOT) 13 U/L (15-37); BICARBONATE 26.5 MEQ/L (21.0-32.0); BLOOD UREA NITROGEN 12 MG/DL (7-18); CALCIUM 9.4 MG/DL (8.5-10.1); CHLORIDE 98 MEQ/L (98-107); GLOMERULAR FILTRATION RATE 90 ML/MIN (>89); GLUCOSE,RANDOM 67 MG/DL (74-106); SODIUM (NA) 132 MEQ/L (136-145)
[2017-09-20 19:13] LABS: ALKALINE PHOSPHATASE 125 U/L (45-117); TOTAL BILIRUBIN ADULT 0.5 MG/DL (0.2-1.0); TOTAL PROTEIN 7.4 GM/DL (6.4-8.2)
[2017-09-20 20:00] VITALS: BP 156/97; PULSE 107; RESP 18; TEMP 97.9; O2SAT 98
[2017-09-20] MEDS: INSULIN DETEMIR 100 UNITS/ML VIAL SQ SCH (22:29)
[2017-09-21] VITALS: BP 150/92; PULSE 105; RESP 18; TEMP 98.6; O2SAT 92
[2017-09-21] MEDS: PIPERACIL-TAZO 3.375 GM PREMIX 50 ML IV SCH ×4 (00:59→17:38)
[2017-09-21 04:00] VITALS: BP 150/62; PULSE 100; RESP 18; TEMP 98.6; O2SAT 94
[2017-09-21] MEDS: ACETAMINOPHEN/HYDROcodone 325 MG/5 MG TAB PO PRN ×5 (04:47→21:56)
[2017-09-21 08:00] VITALS: BP 127/84; PULSE 99; RESP 19; TEMP 98.4; O2SAT 95
[2017-09-21] MEDS: ASPIRIN 81 MG CHEW TAB CHEW SCH (08:28)
[2017-09-21] MEDS: PREGABALIN 100 MG CAP PO SCH ×2 (08:29→20:26)
[2017-09-21] MEDS: LISINOPRIL 10 MG TAB PO SCH ×2 (08:29→20:26)
[2017-09-21] MEDS: ATORVASTATIN 20 MG TAB PO SCH (08:29)
[2017-09-21] MEDS: SODIUM CHLORIDE 0.9% FLUSH 10 ML FLUSH IV FLUSH SCH ×2 (08:30→20:25)
[2017-09-21] MEDS: INSULIN DETEMIR 100 UNITS/ML VIAL SQ SCH ×2 (08:30→20:26)
[2017-09-21] MEDS: INSULIN ASPART 1,000 UNITS/10 ML VIAL SQ SCH ×3 (08:40→17:34)
[2017-09-21] MEDS: INSULIN ASPART SUPPLEMENTAL SCALE SQ SCH ×4 (08:41→20:34)
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
[2017-09-21 12:00] VITALS: BP 159/96; PULSE 103; RESP 19; TEMP 95.5; O2SAT 98
[2017-09-21 14:37] LABS: HEMOGLOBIN A1C 9.9 % (4.3-6.0)
[2017-09-21 16:00] VITALS: BP 142/84; PULSE 90; RESP 17; TEMP 98.2; O2SAT 97
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
--- NOTE | 2017-09-21 19:38 | HHI.PR ---
Subjective Remarks Deferred entry, patient seen earlier at 11:30 AM. Patient states pain is controlled. Afebrile. Denies cp/sob. Objective Vitals Vital Signs Date Time Temp Pulse Resp B/P (MAP) Pulse Ox O2 Delivery O2 Flow Rate FiO2 09/21/17 16:00 98.2 90 17 142/84 (103) 97 09/21/17 12:00 95.5 103 19 159/96 (117) 98 09/21/17 08:00 98.4 99 19 127/84 (98) 95 09/21/17 04:00 98.6 100 18 150/62 (91) 94 09/21/17 00:00 98.6 105 18 150/92 (111) 92 09/20/17 20:00 97.9 107 18 156/97 (116) 98 I/O 09/20/17 09/20/17 09/20/17 09/21/17 09/21/17 09/21/17 07:00 15:00 23:00 07:00 15:00 23:00 Intake Total 480 ml 100 ml 1850 ml 550 ml 100 ml 1850 ml Balance 480 ml 100 ml 1850 ml 550 ml 100 ml 1850 ml Intake Oral 480 ml 1800 ml 500 ml 1800 ml IV Total 100 ml 50 ml 50 ml 100 ml 50 ml # Voids 2 4 3 4 # Bowel Movements 0 1 1 Result Diagram: 09/20/17 1800 09/20/17 1800 Imaging Last Impressions Bone Scan Nuclear Medicine 09/20/17 0000 Signed Impressions: Service Date/Time: Wednesday, September 20, 2017 08:14 - CONCLUSION: Multifocal abnormal bone tracer uptake in the right ankle and foot. Correlation with tagged white blood cell scan may be useful to evaluate for active osteomyelitis Juventino Goodman MD Foot X-Ray 09/18/17 0000 Signed Impressions: Service Date/Time: Monday, September 18, 2017 16:44 - CONCLUSION: Chronic deformity related to prior surgery and neuropathic changes, unchanged in appearance when compared to conventional radiographs 11/17/16. No focal areas of new bony destruction seen. Artem Mckeon MD Objective Remarks GENERAL: Obese, male lying in bed SKIN: 3 x 3 cm ulceration on the plantar surface of the right foot. Surrounding erythema with purulent material. HEAD: Atraumatic. Normocephalic. No temporal or scalp tenderness. EYES: Pupils equal round and reactive. Extraocular motions intact. No scleral icterus. No injection or drainage. ENT: Nose without bleeding, purulent drainage or septal hematoma. Throat without erythema, tonsillar hypertrophy or exudate. Uvula midline. Airway patent. NECK: Trachea midline. No JVD or lymphadenopathy. Supple, nontender, no meningeal signs. CARDIOVASCULAR: Regular rate and rhythm without murmurs, gallops, or rubs. RESPIRATORY: Clear to auscultation. Breath sounds equal bilaterally. No wheezes , rales, or rhonchi. GASTROINTESTINAL: Abdomen soft, non-tender, nondistended. No hepato-splenomegaly , or palpable masses. No guarding. MUSCULOSKELETAL: Extremities without clubbing, cyanosis, or edema. No joint tenderness, effusion, or edema noted. No calf tenderness. Left BKA. NEUROLOGICAL: Awake and alert. Cranial nerves II through XII intact. Motor and sensory grossly within normal limits. Normal speech. Medications and IVs Current Medications Medications (Trade) Dose Ordered Sig/[facility] Route Start Time Stop Time Status Last Admin (NS Flush) 2 ml UNSCH PRN IV FLUSH 09/18/17 18:30 09/21/17 00:59 (NS Flush) 2 ml BID IV FLUSH 09/18/17 21:00 09/21/17 08:30 (Narcan Inj) 0.4 mg UNSCH PRN IV PUSH 09/18/17 18:30 (Aspirin Chew) 81 mg DAILY CHEW 09/19/17 09:00 09/21/17 08:28 (Lyrica) 200 mg BID PO 09/18/17 21:00 09/21/17 08:29 (Lipitor) 20 mg DAILY PO 09/19/17 09:00 09/21/17 08:29 (D50w (Vial) Inj) 50 ml UNSCH PRN IV PUSH 09/18/17 18:45 (Glucagon Inj) 1 mg UNSCH PRN OTHER 09/18/17 18:45 Piperacillin Sod/ Tazobactam Sod 50 ml @ 100 mls/hr Q6H IV 09/19/17 00:00 09/21/17 17:38 (Prinivil) 10 mg BID PO 09/19/17 23:00 09/21/17 08:29 (Levemir Inj) 12 units BID SQ 09/20/17 21:00 09/21/17 08:30 (NovoLOG INJ) 8 units TIDAC SQ 09/20/17 12:00 09/21/17 17:34 ([place] 5-325 Mg) 1 tab Q4H PRN PO 09/20/17 18:15 ([place] 5-325 Mg) 2 tab Q4H PRN PO 09/20/17 18:15 09/21/17 17:34 (Morphine Inj) 4 mg Q3H PRN IV PUSH 09/20/17 18:15 (NovoLOG SUPPLEMENTAL SCALE) 1 ACHS SLIDING SCALE SQ 09/21/17 12:00 09/21/17 17:35 A/P Problem List: (1) Sepsis ICD Code: A41.9 - Sepsis, unspecified organism (2) Diabetic foot infection ICD Code: E11.69 - Type 2 diabetes mellitus with other specified complication; L08.9 - Local infection of the skin and subcutaneous tissue, unspecified (3) Diabetes mellitus with hyperglycemia ICD Code: E11.65 - Type 2 diabetes mellitus with hyperglycemia (4) HTN (hypertension) ICD Code: I10 - Essential (primary) hypertension Status: Chronic Assessment and Plan 1. Infected Diabetic foot ulcer/sepsis Patient tachycardic with leukocytosis Clindamycin and Zosyn Podiatry consulted, appreciate recommendations Foot x-ray does not suggest osteomyelitis Blood, wound cultures pending Monitor for signs of shock 09/20 DC IV Clindamycin, continue Zosyn, consult ID. Continue pain control with oral [place]. I will place the patient on IV morphine for breakthrough pain. Bone scan done today and shows multifocal abnormal bone tracer uptake in the right ankle and foot. With tagged white blood cell CAT scan was recommended by radiology. White blood cell tagged scan was ordered by Dr. Salinas. Case discussed with Dr. Ortega The patient may need bone biopsy. 09/21 discussed the case with orthopedic surgery. Dr. Salinas plans on a bedside debridement tomorrow. Awaiting repeat [facility] white blood cell labeled scan before proceeding with possible bone biopsies. 2. Diabetes mellitus with hyperglycemia Continue home Lantus SSI Monitor blood glucose 09/19 Blood sugars severely elevated. Will increase levemir to 10 units SQ BID. Continue SSI. Monitor accuchecks. 09/20 blood sugars still severely uncontrolled in the 400s. I will increase Levemir to 12 units subcu twice daily, start prandial NovoLog 8 units 3 times daily before meals and continue SSI with insulin NovoLog but discontinue the low sliding scale and place on the high sliding scale. Continue to monitor Accu -Cheks. 09/21 blood sugar control is still severely elevated in the mid 200s range. I will adjust the dose of the insulin Levemir and NovoLog and continue to monitor Accu-Cheks. 3. Hypertension/hyperlipidemia Continue home medications 09/20 BP severely elevated this a.m. in the 170s. Improved after being started on lisinopril 10 mg p.o. twice daily. Continue to monitor vital signs. I will place on clonidine as needed for systolic blood pressure more than 160. 09/21 for BP control much improved, however BP still elevated in the 150s. I will increase lisinopril dose from 10 mg by mouth daily to 20 mg by mouth daily. 4. Hyponatremia Plan treatment symptomatic chronic. Sodium stable in the 130s. Continue to monitor sodium. FEN Heart healthy diabetic diet Electrolytes: Monitor and replete when necessary We will place on heparin subcutaneously for DVT prophylaxis. Discharge Planning Pending podiatry consultation. Problem Qualifiers (1) HTN (hypertension): Qualified Codes: I10 - Essential (primary) hypertension Ruben Dean MD Sep 21, 2017 19:38
[2017-09-21 20:00] VITALS: BP 148/98; PULSE 95; RESP 20; TEMP 97.3; O2SAT 98
[2017-09-21] MEDS ORDERED: ZOLPIDEM TARTRATE 5 MG TAB PO ONE (21:45)
[2017-09-22] VITALS: BP 123/91; PULSE 89; RESP 18; TEMP 96.9; O2SAT 94
[2017-09-22] MEDS: PIPERACIL-TAZO 3.375 GM PREMIX 50 ML IV SCH ×5 (00:04→23:10)
[2017-09-22] MEDS: ACETAMINOPHEN/HYDROcodone 325 MG/5 MG TAB PO PRN ×5 (01:58→20:54)
[2017-09-22 06:01] LABS: AUTOMATED NEUTROPHIL # 5.9 TH/MM3 (1.8-7.7); BASOPHIL # 0.1 TH/MM3 (0-0.2); EOSINOPHIL # 0.2 TH/MM3 (0-0.4); HEMATOCRIT 39.5 % (39.0-51.0); HEMOGLOBIN 13.9 GM/DL (13.0-17.0); LYMPH % 36.8 % (9.0-44.0); MEAN CORPUSCULAR HEMOGLOBIN 29.9 PG (27.0-34.0); MEAN CORPUSCULAR HGB CONC 35.2 % (32.0-36.0); MEAN PLATELET VOLUME 7.8 FL (7.0-11.0); MONOCYTE # 0.7 TH/MM3 (0-0.9); NEUT % 54.2 % (16.0-70.0); PLATELET COUNT 222 TH/MM3 (150-450); RED BLOOD COUNT 4.65 MIL/MM3 (4.50-5.90); RED CELL DISTRIBUTION WIDTH 14.7 % (11.6-17.2)
[2017-09-22] MEDS ORDERED: MELO15TA20 PO (06:07)
[2017-09-22 06:31] LABS: BICARBONATE 27.4 MEQ/L (21.0-32.0); CREATININE 0.69 MG/DL (0.60-1.30)
[2017-09-22 08:00] VITALS: BP 152/85; PULSE 93; RESP 18; TEMP 99; O2SAT 98
[2017-09-22] MEDS: ASPIRIN 81 MG CHEW TAB CHEW SCH (08:06)
[2017-09-22] MEDS: LISINOPRIL 10 MG TAB PO SCH ×2 (08:06→20:54)
[2017-09-22] MEDS: INSULIN DETEMIR 100 UNITS/ML VIAL SQ SCH ×2 (08:07→20:55)
[2017-09-22] MEDS: ATORVASTATIN 20 MG TAB PO SCH (08:07)
[2017-09-22] MEDS: PREGABALIN 100 MG CAP PO SCH ×2 (08:07→20:54)
[2017-09-22] MEDS: SODIUM CHLORIDE 0.9% FLUSH 10 ML FLUSH IV FLUSH SCH ×2 (08:08→20:55)
[2017-09-22] MEDS: INSULIN ASPART 1,000 UNITS/10 ML VIAL SQ SCH ×3 (08:15→17:26)
[2017-09-22] MEDS: INSULIN ASPART SUPPLEMENTAL SCALE SQ SCH ×4 (08:16→20:55)
[2017-09-22 12:00] VITALS: BP 146/88; PULSE 99; RESP 18; TEMP 98.6; O2SAT 98
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
--- NOTE | 2017-09-22 13:43 | HHI.PR ---
Subjective Remarks Pain controlled. Denies chest pain or shortness of breath. Patient is afebrile. Objective Vitals Vital Signs Date Time Temp Pulse Resp B/P (MAP) Pulse Ox O2 Delivery O2 Flow Rate FiO2 09/22/17 12:00 98.6 99 18 146/88 (107) 98 09/22/17 08:00 99.0 93 18 152/85 (107) 98 09/22/17 00:00 96.9 89 18 123/91 (102) 94 09/21/17 20:00 97.3 95 20 148/98 (115) 98 09/21/17 16:00 98.2 90 17 142/84 (103) 97 I/O 09/21/17 09/21/17 09/21/17 09/22/17 09/22/17 09/22/17 07:00 15:00 23:00 07:00 15:00 23:00 Intake Total 550 ml 100 ml 1850 ml Balance 550 ml 100 ml 1850 ml Intake Oral 500 ml 1800 ml IV Total 50 ml 100 ml 50 ml # Voids 3 4 1 # Bowel Movements 1 Result Diagram: 09/22/17 0538 09/22/17 0538 Imaging Last Impressions Bone Scan Nuclear Medicine 09/20/17 0000 Signed Impressions: Service Date/Time: Wednesday, September 20, 2017 08:14 - CONCLUSION: Multifocal abnormal bone tracer uptake in the right ankle and foot. Correlation with tagged white blood cell scan may be useful to evaluate for active osteomyelitis Juventino Goodmna MD Foot X-Ray 09/18/17 0000 Signed Impressions: Service Date/Time: Monday, September 18, 2017 16:44 - CONCLUSION: Chronic deformity related to prior surgery and neuropathic changes, unchanged in appearance when compared to conventional radiographs 11/17/16. No focal areas of new bony destruction seen. Artem Mckeon MD Objective Remarks GENERAL: Obese, male lying in bed SKIN: 3 x 3 cm ulceration on the plantar surface of the right foot. Surrounding erythema with purulent material. HEAD: Atraumatic. Normocephalic. No temporal or scalp tenderness. EYES: Pupils equal round and reactive. Extraocular motions intact. No scleral icterus. No injection or drainage. ENT: Nose without bleeding, purulent drainage or septal hematoma. Throat without erythema, tonsillar hypertrophy or exudate. Uvula midline. Airway patent. NECK: Trachea midline. No JVD or lymphadenopathy. Supple, nontender, no meningeal signs. CARDIOVASCULAR: Regular rate and rhythm without murmurs, gallops, or rubs. RESPIRATORY: Clear to auscultation. Breath sounds equal bilaterally. No wheezes , rales, or rhonchi. GASTROINTESTINAL: Abdomen soft, non-tender, nondistended. No hepato-splenomegaly , or palpable masses. No guarding. MUSCULOSKELETAL: Extremities without clubbing, cyanosis, or edema. No joint tenderness, effusion, or edema noted. No calf tenderness. Left BKA. NEUROLOGICAL: Awake and alert. Cranial nerves II through XII intact. Motor and sensory grossly within normal limits. Normal speech. Medications and IVs Current Medications Medications (Trade) Dose Ordered Sig/Gavin Route Start Time Stop Time Status Last Admin (NS Flush) 2 ml UNSCH PRN IV FLUSH 09/18/17 18:30 09/21/17 00:59 (NS Flush) 2 ml BID IV FLUSH 09/18/17 21:00 09/22/17 08:08 (Narcan Inj) 0.4 mg UNSCH PRN IV PUSH 09/18/17 18:30 (Aspirin Chew) 81 mg DAILY CHEW 09/19/17 09:00 09/22/17 08:06 (Lyrica) 200 mg BID PO 09/18/17 21:00 09/22/17 08:07 (Lipitor) 20 mg DAILY PO 09/19/17 09:00 09/22/17 08:07 (D50w (Vial) Inj) 50 ml UNSCH PRN IV PUSH 09/18/17 18:45 (Glucagon Inj) 1 mg UNSCH PRN OTHER 09/18/17 18:45 Piperacillin Sod/ Tazobactam Sod 50 ml @ 100 mls/hr Q6H IV 09/19/17 00:00 09/22/17 11:28 (Coamo 5-325 Mg) 1 tab Q4H PRN PO 09/20/17 18:15 (Coamo 5-325 Mg) 2 tab Q4H PRN PO 09/20/17 18:15 09/22/17 11:22 (Morphine Inj) 4 mg Q3H PRN IV PUSH 09/20/17 18:15 (NovoLOG SUPPLEMENTAL SCALE) 1 ACHS SLIDING SCALE SQ 09/21/17 12:00 2/25/18 12:17 (NovoLOG INJ) 10 units TIDAC SQ 09/22/17 08:00 09/22/17 12:16 (Levemir Inj) 15 units BID SQ 09/21/17 21:00 09/22/17 08:07 (Prinivil) 20 mg BID PO 09/21/17 21:00 09/22/17 08:06 A/P Problem List: (1) Sepsis ICD Code: A41.9 - Sepsis, unspecified organism (2) Diabetic foot infection ICD Code: E11.69 - Type 2 diabetes mellitus with other specified complication; L08.9 - Local infection of the skin and subcutaneous tissue, unspecified (3) Diabetes mellitus with hyperglycemia ICD Code: E11.65 - Type 2 diabetes mellitus with hyperglycemia (4) HTN (hypertension) ICD Code: I10 - Essential (primary) hypertension Status: Chronic Assessment and Plan 1. Infected Diabetic foot ulcer/sepsis Patient tachycardic with leukocytosis Clindamycin and Zosyn Podiatry consulted, appreciate recommendations Foot x-ray does not suggest osteomyelitis Blood, wound cultures pending Monitor for signs of shock 09/20 DC IV Clindamycin, continue Zosyn, consult ID. Continue pain control with oral [place]. I will place the patient on IV morphine for breakthrough pain. Bone scan done today and shows multifocal abnormal bone tracer uptake in the right ankle and foot. With tagged white blood cell CAT scan was recommended by radiology. White blood cell tagged scan was ordered by Dr. Salinas. Case discussed with Dr. Ortega The patient may need bone biopsy. discussed the case with orthopedic surgery. Dr. Salinas plans on a bedside debridement tomorrow. Awaiting repeat [facility] white blood cell labeled scan before proceeding with possible bone biopsies. Wound cultures are growing Citrobacter koseri and group D enterococcus. Antibiotics as per ID. The patient currently on IV Zosyn. 2. Diabetes mellitus with hyperglycemia Continue home Lantus SSI Monitor blood glucose 09/19 Blood sugars severely elevated. Will increase levemir to 10 units SQ BID. Continue SSI. Monitor accuchecks. 09/20 blood sugars still severely uncontrolled in the 400s. I will increase Levemir to 12 units subcu twice daily, start prandial NovoLog 8 units 3 times daily before meals and continue SSI with insulin NovoLog but discontinue the low sliding scale and place on the high sliding scale. Continue to monitor Accu -Cheks. 09/21 blood sugar control is still severely elevated in the mid 200s range. 09/22 blood sugar still severely elevated in the 200-300 range. I will adjust the dose of the insulin Levemir and NovoLog and continue to monitor Accu-Cheks. BS goal <180. 3. Hypertension/hyperlipidemia Continue home medications 09/20 BP severely elevated this a.m. in the 170s. Improved after being started on lisinopril 10 mg p.o. twice daily. Continue to monitor vital signs. I will place on clonidine as needed for systolic blood pressure more than 160. 09/21 for BP control much improved, however BP still elevated in the 150s. I will increase lisinopril dose from 10 mg by mouth daily to 20 mg by mouth daily. 09/22 BP much improved. Continue lisinopril at same dose. 4. Hyponatremia Plan treatment symptomatic chronic. Sodium stable in the 130s. Continue to monitor sodium. 09/22 Sodium slightly better from 132 to 133. FEN Heart healthy diabetic diet Electrolytes: Monitor and replete when necessary We will place on heparin subcutaneously for DVT prophylaxis. Discharge Planning Awaiting Cerete study. Problem Qualifiers (1) HTN (hypertension): Qualified Codes: I10 - Essential (primary) hypertension Ruben Dean MD Sep 22, 2017 13:43
[2017-09-22 16:00] VITALS: BP 127/84; PULSE 92; RESP 18; TEMP 99.4; O2SAT 98
[2017-09-22] MEDS: HEPARIN SODIUM - SQ 10,000 UNITS/ML VIAL SQ SCH ×2 (16:30→23:09)
[2017-09-22 20:00] VITALS: BP 119/80; PULSE 89; RESP 18; TEMP 97; O2SAT 99
[2017-09-23] VITALS: BP 110/65; PULSE 80; RESP 18; TEMP 96.9; O2SAT 92
[2017-09-23] MEDS ORDERED: ZOLPIDEM TARTRATE 5 MG TAB PO ONE (00:45)
[2017-09-23] MEDS: PIPERACIL-TAZO 3.375 GM PREMIX 50 ML IV SCH ×4 (05:23→23:20)
[2017-09-23] MEDS: HEPARIN SODIUM - SQ 10,000 UNITS/ML VIAL SQ SCH ×3 (05:23→21:48)
[2017-09-23] MEDS: ACETAMINOPHEN/HYDROcodone 325 MG/5 MG TAB PO PRN ×4 (05:55→21:56)
[2017-09-23 08:00] VITALS: BP 141/107; PULSE 107; RESP 17; TEMP 97.8; O2SAT 99
[2017-09-23] MEDS: PREGABALIN 100 MG CAP PO SCH ×2 (10:23→21:46)
[2017-09-23] MEDS: SODIUM CHLORIDE 0.9% FLUSH 10 ML FLUSH IV FLUSH SCH ×2 (10:23→21:46)
[2017-09-23] MEDS: ATORVASTATIN 20 MG TAB PO SCH (10:23)
[2017-09-23] MEDS: ASPIRIN 81 MG CHEW TAB CHEW SCH (10:23)
[2017-09-23] MEDS: LISINOPRIL 10 MG TAB PO SCH ×2 (10:24→21:46)
[2017-09-23] MEDS: INSULIN ASPART 1,000 UNITS/10 ML VIAL SQ SCH ×3 (10:25→17:20)
[2017-09-23] MEDS: INSULIN ASPART SUPPLEMENTAL SCALE SQ SCH ×4 (10:25→21:00)
[2017-09-23] MEDS: INSULIN DETEMIR 100 UNITS/ML VIAL SQ SCH ×2 (10:25→21:00)
--- NOTE | 2017-09-23 10:40 | RADRPT ---
EXAM DATE/TIME: 09/22/2017 14:49 [place] COMPARISON: No previous studies available for comparison. INDICATIONS : Right foot abcess. DOSE: 21 mCi Tc99m Ceretec labeled white blood cells IV SPECT IMAGIN hrs, 20 hrs IMAGNG: SPECT/CT imaging with fusion was performed. RADIATION DOSE: 5.10 CTDIvol (mGy) ; Multiple Day Study MEDICAL HISTORY : Hypertension. Diabetes mellitus type 2. SURGICAL HISTORY : Left below the knee amputation. ENCOUNTER: Initial ACUITY: >1 yr PAIN SCALE: 0/10 LOCATION: Right foot, TECHNIQUE: Following the in vitro labeling of autologous white cells and reinjection, whole body scan was perfor med at the specified times. SPECT imaging was performed at the specified time in sagittal, axial and coronal planes. Attenuation correction was performed with the computed tomography and both the atten uation correction and non-attenuation corrected data sets were reviewed. FINDINGS: There is intense white cell accumulation correlating with an ulcer noted in the superficial soft tiss ues along the plantar aspect of the hindfoot. There is no significant accumulation of white cells in bony sites to suggest concomitant osteomyelitis. CONCLUSION: No evidence of osteomyelitis Juventino Goodman MD on September 23, 2017 at 10:37 Board Certified Radiologist. This report was verified electronically.
[2017-09-23] MEDS: MORPHINE SULFATE 4 MG/ML INJ IV PUSH PRN ×3 (11:55→23:20)
[2017-09-23 12:00] VITALS: BP 116/88; PULSE 116; RESP 17; TEMP 98.1; O2SAT 99
[2017-09-23] MEDS ORDERED: ZOLPIDEM TARTRATE 10 MG TAB PO PRN (12:00)
[2017-09-23 16:00] VITALS: BP 130/71; PULSE 99; RESP 17; TEMP 97.4; O2SAT 99
--- NOTE | 2017-09-23 18:48 | HHI.PR ---
Subjective Remarks Patient seen earlier at 11:45 AM. No major overnight events. Denies chest pain or shortness of breath. States has difficulty sleeping. Objective Vitals Vital Signs Date Time Temp Pulse Resp B/P (MAP) Pulse Ox O2 Delivery O2 Flow Rate FiO2 09/23/17 16:00 97.4 99 17 130/71 (90) 99 09/23/17 12:00 98.1 116 17 116/88 (97) 99 09/23/17 08:00 97.8 107 17 141/107 (118) 99 09/23/17 00:00 96.9 80 18 110/65 (80) 92 09/22/17 20:00 97.0 89 18 119/80 (93) 99 I/O 09/22/17 09/22/17 09/22/17 09/23/17 09/23/17 09/23/17 07:00 15:00 23:00 07:00 15:00 23:00 Intake Total 900 ml 100 ml 2000 ml Balance 900 ml 100 ml 2000 ml Intake Oral 900 ml 2000 ml IV Total 100 ml # Voids 1 4 1 4 # Bowel Movements 0 1 Result Diagram: 09/22/17 0538 09/22/17 0538 Imaging Last Impressions Tumor Localization 09/22/17 0000 Signed Impressions: Service Date/Time: Friday, September 22, 2017 14:49 - CONCLUSION: No evidence of osteomyelitis Juventino Goodman MD Bone Scan Nuclear Medicine 09/20/17 0000 Signed Impressions: Service Date/Time: Wednesday, September 20, 2017 08:14 - CONCLUSION: Multifocal abnormal bone tracer uptake in the right ankle and foot. Correlation with tagged white blood cell scan may be useful to evaluate for active osteomyelitis Juventino Goodman MD Foot X-Ray 09/18/17 0000 Signed Impressions: Service Date/Time: Monday, September 18, 2017 16:44 - CONCLUSION: Chronic deformity related to prior surgery and neuropathic changes, unchanged in appearance when compared to conventional radiographs 11/17/16. No focal areas of new bony destruction seen. Artem Mckeon MD Objective Remarks GENERAL: Obese, male lying in bed SKIN: 3 x 3 cm ulceration on the plantar surface of the right foot. Surrounding erythema with purulent material. HEAD: Atraumatic. Normocephalic. No temporal or scalp tenderness. EYES: Pupils equal round and reactive. Extraocular motions intact. No scleral icterus. No injection or drainage. ENT: Nose without bleeding, purulent drainage or septal hematoma. Throat without erythema, tonsillar hypertrophy or exudate. Uvula midline. Airway patent. NECK: Trachea midline. No JVD or lymphadenopathy. Supple, nontender, no meningeal signs. CARDIOVASCULAR: Regular rate and rhythm without murmurs, gallops, or rubs. RESPIRATORY: Clear to auscultation. Breath sounds equal bilaterally. No wheezes , rales, or rhonchi. GASTROINTESTINAL: Abdomen soft, non-tender, nondistended. No hepato-splenomegaly , or palpable masses. No guarding. MUSCULOSKELETAL: Extremities without clubbing, cyanosis, or edema. No joint tenderness, effusion, or edema noted. No calf tenderness. Left BKA. NEUROLOGICAL: Awake and alert. Cranial nerves II through XII intact. Motor and sensory grossly within normal limits. Normal speech. Medications and IVs Current Medications Medications (Trade) Dose Ordered Sig/Gavin Route Start Time Stop Time Status Last Admin (NS Flush) 2 ml UNSCH PRN IV FLUSH 09/18/17 18:30 09/21/17 00:59 (NS Flush) 2 ml BID IV FLUSH 09/18/17 21:00 09/23/17 10:23 (Narcan Inj) 0.4 mg UNSCH PRN IV PUSH 09/18/17 18:30 (Aspirin Chew) 81 mg DAILY CHEW 09/19/17 09:00 09/23/17 10:23 (Lyrica) 200 mg BID PO 09/18/17 21:00 09/23/17 10:23 (Lipitor) 20 mg DAILY PO 09/19/17 09:00 09/23/17 10:23 (D50w (Vial) Inj) 50 ml UNSCH PRN IV PUSH 09/18/17 18:45 (Glucagon Inj) 1 mg UNSCH PRN OTHER 09/18/17 18:45 Piperacillin Sod/ Tazobactam Sod 50 ml @ 100 mls/hr Q6H IV 09/19/17 00:00 09/23/17 17:19 (Hiram 5-325 Mg) 1 tab Q4H PRN PO 09/20/17 18:15 (Hiram 5-325 Mg) 2 tab Q4H PRN PO 09/20/17 18:15 09/23/17 17:19 (Morphine Inj) 4 mg Q3H PRN IV PUSH 09/20/17 18:15 09/23/17 18:30 (NovoLOG SUPPLEMENTAL SCALE) 1 ACHS SLIDING SCALE SQ 09/21/17 12:00 09/23/17 17:20 (Prinivil) 20 mg BID PO 09/21/17 21:00 09/23/17 10:24 (Heparin Inj) 5,000 units Q8HR SQ 09/22/17 14:00 09/23/17 11:55 (NovoLOG INJ) 15 units TIDAC SQ 09/22/17 17:00 09/23/17 17:20 (Levemir Inj) 20 units BID SQ 09/22/17 21:00 09/23/17 10:25 (Ambien) 10 mg HS PRN PO 09/23/17 12:00 A/P Problem List: (1) Sepsis ICD Code: A41.9 - Sepsis, unspecified organism (2) Diabetic foot infection ICD Code: E11.69 - Type 2 diabetes mellitus with other specified complication; L08.9 - Local infection of the skin and subcutaneous tissue, unspecified (3) Diabetes mellitus with hyperglycemia ICD Code: E11.65 - Type 2 diabetes mellitus with hyperglycemia (4) HTN (hypertension) ICD Code: I10 - Essential (primary) hypertension Status: Chronic (5) Insomnia ICD Code: G47.00 - Insomnia, unspecified Plan: Will Rx Ambien. Assessment and Plan 1. Infected Diabetic foot ulcer/sepsis Patient tachycardic with leukocytosis Clindamycin and Zosyn Podiatry consulted, appreciate recommendations Foot x-ray does not suggest osteomyelitis Blood, wound cultures pending Monitor for signs of shock 09/20 DC IV Clindamycin, continue Zosyn, consult ID. Continue pain control with oral [place]. I will place the patient on IV morphine for breakthrough pain. Bone scan done today and shows multifocal abnormal bone tracer uptake in the right ankle and foot. With tagged white blood cell CAT scan was recommended by radiology. White blood cell tagged scan was ordered by Dr. Salinas. Case discussed with Dr. Ortega The patient may need bone biopsy. discussed the case with orthopedic surgery. Dr. Salinas plans on a bedside debridement tomorrow. Awaiting repeat [facility] white blood cell labeled scan before proceeding with possible bone biopsies. Wound cultures are growing Citrobacter koseri and group D enterococcus. Antibiotics as per ID. The patient currently on IV Zosyn. 2. Diabetes mellitus with hyperglycemia Continue home Lantus SSI Monitor blood glucose 09/19 Blood sugars severely elevated. Will increase levemir to 10 units SQ BID. Continue SSI. Monitor accuchecks. 09/20 blood sugars still severely uncontrolled in the 400s. I will increase Levemir to 12 units subcu twice daily, start prandial NovoLog 8 units 3 times daily before meals and continue SSI with insulin NovoLog but discontinue the low sliding scale and place on the high sliding scale. Continue to monitor Accu -Cheks. 09/21 blood sugar control is still severely elevated in the mid 200s range. 09/23 blood sugar still severely elevated in the 200-300 range. I will adjust the dose of the insulin Levemir and NovoLog and continue to monitor Accu-Cheks. BS goal <180. 3. Hypertension/hyperlipidemia Continue home medications 09/20 BP severely elevated this a.m. in the 170s. Improved after being started on lisinopril 10 mg p.o. twice daily. Continue to monitor vital signs. I will place on clonidine as needed for systolic blood pressure more than 160. 09/21 for BP control much improved, however BP still elevated in the 150s. I will increase lisinopril dose from 10 mg by mouth daily to 20 mg by mouth daily. BP much improved. Continue lisinopril at same dose. 4. Hyponatremia Plan treatment symptomatic chronic. Sodium stable in the 130s. Continue to monitor sodium. odium slightly better from 132 to 133. FEN Heart healthy diabetic diet Electrolytes: Monitor and replete when necessary We will place on heparin subcutaneously for DVT prophylaxis. [facility] Problem Qualifiers (1) HTN (hypertension): Qualified Codes: I10 - Essential (primary) hypertension (2) Insomnia: Qualified Codes: F51.01 - Primary insomnia Ruben Dean MD Sep 23, 2017 18:48
[2017-09-23 20:00] VITALS: BP 113/67; PULSE 102; RESP 18; TEMP 96.6; O2SAT 98
[2017-09-24] VITALS: BP 117/74; PULSE 87; RESP 20; TEMP 96.1; O2SAT 98
[2017-09-24] MEDS: HEPARIN SODIUM - SQ 10,000 UNITS/ML VIAL SQ SCH ×3 (05:32→20:11)
[2017-09-24] MEDS: PIPERACIL-TAZO 3.375 GM PREMIX 50 ML IV SCH ×3 (05:32→16:50)
[2017-09-24] MEDS: ACETAMINOPHEN/HYDROcodone 325 MG/5 MG TAB PO PRN ×4 (05:32→21:32)
[2017-09-24] MEDS: MORPHINE SULFATE 4 MG/ML INJ IV PUSH PRN ×4 (06:18→22:50)
[2017-09-24 08:00] VITALS: BP 150/89; PULSE 94; RESP 18; TEMP 98.5; O2SAT 95
[2017-09-24] MEDS: LISINOPRIL 10 MG TAB PO SCH ×2 (08:51→21:33)
[2017-09-24] MEDS: PREGABALIN 100 MG CAP PO SCH ×2 (08:51→21:33)
[2017-09-24] MEDS: SODIUM CHLORIDE 0.9% FLUSH 10 ML FLUSH IV FLUSH SCH ×2 (08:52→21:00)
[2017-09-24] MEDS: INSULIN ASPART 1,000 UNITS/10 ML VIAL SQ SCH ×3 (08:52→16:49)
[2017-09-24] MEDS: ASPIRIN 81 MG CHEW TAB CHEW SCH (08:52)
[2017-09-24] MEDS: ATORVASTATIN 20 MG TAB PO SCH (08:52)
[2017-09-24] MEDS: INSULIN DETEMIR 100 UNITS/ML VIAL SQ SCH ×2 (08:53→21:00)
[2017-09-24] MEDS: INSULIN ASPART SUPPLEMENTAL SCALE SQ SCH ×4 (08:53→21:00)
[2017-09-24 12:00] VITALS: BP 104/74; PULSE 98; RESP 18; TEMP 97.3; O2SAT 96
--- NOTE | 2017-09-24 15:47 | HHI.PR ---
Subjective Remarks pain controlled patient afebrile states blood sugars are finally improving. Objective Vitals Vital Signs Date Time Temp Pulse Resp B/P (MAP) Pulse Ox O2 Delivery O2 Flow Rate FiO2 09/24/17 08:00 98.5 94 18 150/89 (109) 95 09/24/17 00:00 96.1 87 20 117/74 (88) 98 09/23/17 20:00 96.6 102 18 113/67 (82) 98 09/23/17 16:00 97.4 99 17 130/71 (90) 99 I/O 09/23/17 09/23/17 09/23/17 09/24/17 09/24/17 09/24/17 07:00 15:00 23:00 07:00 15:00 23:00 Intake Total 100 ml 2100 ml 760 ml Balance 100 ml 2100 ml 760 ml Intake Oral 2000 ml 760 ml IV Total 100 ml 100 ml # Voids 1 4 3 # Bowel Movements 1 Result Diagram: 09/22/17 0538 09/22/17 0538 Imaging Last Impressions Tumor Localization 09/22/17 0000 Signed Impressions: Service Date/Time: Friday, September 22, 2017 14:49 - CONCLUSION: No evidence of osteomyelitis Juventino Goodman MD Bone Scan Nuclear Medicine 09/20/17 0000 Signed Impressions: Service Date/Time: Wednesday, September 20, 2017 08:14 - CONCLUSION: Multifocal abnormal bone tracer uptake in the right ankle and foot. Correlation with tagged white blood cell scan may be useful to evaluate for active osteomyelitis Juventino Goodman MD Foot X-Ray 09/18/17 0000 Signed Impressions: Service Date/Time: Monday, September 18, 2017 16:44 - CONCLUSION: Chronic deformity related to prior surgery and neuropathic changes, unchanged in appearance when compared to conventional radiographs 11/17/16. No focal areas of new bony destruction seen. Artem Mckeon MD Objective Remarks GENERAL: Obese, male lying in bed SKIN: 3 x 3 cm ulceration on the plantar surface of the right foot. Surrounding erythema with purulent material. HEAD: Atraumatic. Normocephalic. No temporal or scalp tenderness. EYES: Pupils equal round and reactive. Extraocular motions intact. No scleral icterus. No injection or drainage. ENT: Nose without bleeding, purulent drainage or septal hematoma. Throat without erythema, tonsillar hypertrophy or exudate. Uvula midline. Airway patent. NECK: Trachea midline. No JVD or lymphadenopathy. Supple, nontender, no meningeal signs. CARDIOVASCULAR: Regular rate and rhythm without murmurs, gallops, or rubs. RESPIRATORY: Clear to auscultation. Breath sounds equal bilaterally. No wheezes , rales, or rhonchi. GASTROINTESTINAL: Abdomen soft, non-tender, nondistended. No hepato-splenomegaly , or palpable masses. No guarding. MUSCULOSKELETAL: Extremities without clubbing, cyanosis, or edema. No joint tenderness, effusion, or edema noted. No calf tenderness. Left BKA. NEUROLOGICAL: Awake and alert. Cranial nerves II through XII intact. Motor and sensory grossly within normal limits. Normal speech. A/P Problem List: (1) Sepsis ICD Code: A41.9 - Sepsis, unspecified organism (2) Diabetic foot infection ICD Code: E11.69 - Type 2 diabetes mellitus with other specified complication; L08.9 - Local infection of the skin and subcutaneous tissue, unspecified (3) Diabetes mellitus with hyperglycemia ICD Code: E11.65 - Type 2 diabetes mellitus with hyperglycemia (4) HTN (hypertension) ICD Code: I10 - Essential (primary) hypertension Status: Chronic (5) Insomnia ICD Code: G47.00 - Insomnia, unspecified Plan: On Ambien Assessment and Plan 1. Infected Diabetic foot ulcer/sepsis Patient tachycardic with leukocytosis Clindamycin and Zosyn Podiatry consulted, appreciate recommendations Foot x-ray does not suggest osteomyelitis Blood, wound cultures pending Monitor for signs of shock 09/20 DC IV Clindamycin, continue Zosyn, consult ID. Continue pain control with oral [place]. I will place the patient on IV morphine for breakthrough pain. Bone scan done today and shows multifocal abnormal bone tracer uptake in the right ankle and foot. With tagged white blood cell CAT scan was recommended by radiology. White blood cell tagged scan was ordered by Dr. Salinas. Case discussed with Dr. Ortega The patient may need bone biopsy. discussed the case with orthopedic surgery. Dr. Salinas plans on a bedside debridement tomorrow. Awaiting repeat Ceretec white blood cell labeled scan before proceeding with possible bone biopsies. Wound cultures are growing Citrobacter koseri and group D enterococcus. Antibiotics as per ID. The patient currently on IV Zosyn. 09/24 Ceretec without evidence of osteomyelitis. await podiatry recommendations. 2. Diabetes mellitus with hyperglycemia Continue home Lantus SSI Monitor blood glucose 09/19 Blood sugars severely elevated. Will increase levemir to 10 units SQ BID. Continue SSI. Monitor accuchecks. 09/20 blood sugars still severely uncontrolled in the 400s. I will increase Levemir to 12 units subcu twice daily, start prandial NovoLog 8 units 3 times daily before meals and continue SSI with insulin NovoLog but discontinue the low sliding scale and place on the high sliding scale. Continue to monitor Accu -Cheks. 09/21 blood sugar control is still severely elevated in the mid 200s range. 09/23 blood sugar still severely elevated in the 200-300 range. I will adjust the dose of the insulin Levemir and NovoLog and continue to monitor Accu-Cheks. BS goal <180. 09/24 Blood sugars improving. Continue management as above. 3. Hypertension/hyperlipidemia Continue home medications 09/20 BP severely elevated this a.m. in the 170s. Improved after being started on lisinopril 10 mg p.o. twice daily. Continue to monitor vital signs. I will place on clonidine as needed for systolic blood pressure more than 160. 09/21 for BP control much improved, however BP still elevated in the 150s. I will increase lisinopril dose from 10 mg by mouth daily to 20 mg by mouth daily. BP much improved. Continue lisinopril at same dose. 4. Hyponatremia Plan treatment symptomatic chronic. Sodium stable in the 130s. Continue to monitor sodium. Sodium slightly better from 132 to 133. 09/24 check bmp in am. FEN Heart healthy diabetic diet Electrolytes: Monitor and replete when necessary We will place on heparin subcutaneously for DVT prophylaxis. Discharge Planning Awaiting further podiatry recommendations - Dc pending podiatry clearance. Problem Qualifiers (1) HTN (hypertension): Qualified Codes: I10 - Essential (primary) hypertension (2) Insomnia: Qualified Codes: F51.01 - Primary insomnia Ruben Dean MD Sep 24, 2017 15:47
[2017-09-24 16:00] VITALS: BP 96/69; PULSE 94; RESP 18; TEMP 98.1; O2SAT 95
--- NOTE | 2017-09-24 19:42 | HHI.PR ---
Subjective Remarks Patient seen bedside this evening. Denies nausea, vomiting, fevers, or chills. Denies calf pain. Resting comfortably. Objective Vital Signs Date Time Temp Pulse Resp B/P (MAP) Pulse Ox O2 Delivery O2 Flow Rate FiO2 09/24/17 16:00 98.1 94 18 96/69 (78) 95 09/24/17 12:00 97.3 98 18 104/74 (84) 96 09/24/17 08:00 98.5 94 18 150/89 (109) 95 09/24/17 00:00 96.1 87 20 117/74 (88) 98 09/23/17 20:00 96.6 102 18 113/67 (82) 98 I/O 09/23/17 09/23/17 09/23/17 09/24/17 09/24/17 09/24/17 07:00 15:00 23:00 07:00 15:00 23:00 Intake Total 100 ml 2100 ml 760 ml 1060 ml Output Total 600 ml Balance 100 ml 2100 ml 760 ml 460 ml Intake Oral 2000 ml 760 ml 960 ml IV Total 100 ml 100 ml 100 ml Output Urine Total 600 ml # Voids 1 4 3 # Bowel Movements 1 1 Result Diagram: 09/22/17 0538 09/22/17 0538 Imaging Last Impressions Tumor Localization 09/22/17 0000 Signed Impressions: Service Date/Time: Friday, September 22, 2017 14:49 - CONCLUSION: No evidence of osteomyelitis Juventino Goodman MD Bone Scan Nuclear Medicine 09/20/17 0000 Signed Impressions: Service Date/Time: Wednesday, September 20, 2017 08:14 - CONCLUSION: Multifocal abnormal bone tracer uptake in the right ankle and foot. Correlation with tagged white blood cell scan may be useful to evaluate for active osteomyelitis Juventino Goodman MD Foot X-Ray 09/18/17 0000 Signed Impressions: Service Date/Time: Monday, September 18, 2017 16:44 - CONCLUSION: Chronic deformity related to prior surgery and neuropathic changes, unchanged in appearance when compared to conventional radiographs 11/17/16. No focal areas of new bony destruction seen. Artem Mckeon MD Other Results Microbiology Date/Time Source Procedure Growth Status 09/18/17 16:35 Blood Peripheral Aerobic Blood Culture - Final NO GROWTH IN 5 DAYS Complete 2/21/18 16:35 Blood Peripheral Anaerobic Blood Culture - Final NO GROWTH IN 5 DAYS Complete 09/20/17 15:00 Wound Foot Gram Stain - Final Complete 09/20/17 15:00 Wound Culture - Final Citrobacter Koseri Enterococcus Faecalis Complete Objective Remarks Lower extremity physical exam: Vascular: Dorsalis pedis palpable, posterior tibial diminished. Capillary refill time within normal limits to digits present to right foot. Edema present right foot and ankle Neuro: Gross sensation intact to bilateral lower extremity. Pinpoint sensation deep. No hyperalgesia noted to bilateral lower extremity Dermatology: Normal temperature and turgor to bilateral lower extremity. Plantar foot ulcer noted measuring approximately 4 cm x 3 cm with 1 cm of probing; tunneling deep to bone, malodor noted, hyperkeratotic wound edges, probe to bone, no purulent drainage upon compression, mild surrounding erythema. Musculoskeletal: Rocker-bottom deformity noted to right foot, left below the knee amputation noted. Medications and IVs Current Medications Medications (Trade) Dose Ordered Sig/Gavin Route Start Time Stop Time Status Last Admin (NS Flush) 2 ml UNSCH PRN IV FLUSH 09/18/17 18:30 09/21/17 00:59 (NS Flush) 2 ml BID IV FLUSH 09/18/17 21:00 09/24/17 08:52 (Narcan Inj) 0.4 mg UNSCH PRN IV PUSH 09/18/17 18:30 (Aspirin Chew) 81 mg DAILY CHEW 09/19/17 09:00 09/24/17 08:52 (Lyrica) 200 mg BID PO 09/18/17 21:00 09/24/17 08:51 (Lipitor) 20 mg DAILY PO 09/19/17 09:00 09/24/17 08:52 (D50w (Vial) Inj) 50 ml UNSCH PRN IV PUSH 09/18/17 18:45 (Glucagon Inj) 1 mg UNSCH PRN OTHER 09/18/17 18:45 Piperacillin Sod/ Tazobactam Sod 50 ml @ 100 mls/hr Q6H IV 09/19/17 00:00 09/24/17 16:50 ([place] 5-325 Mg) 1 tab Q4H PRN PO 09/20/17 18:15 ([place] 5-325 Mg) 2 tab Q4H PRN PO 09/20/17 18:15 09/24/17 16:49 (Morphine Inj) 4 mg Q3H PRN IV PUSH 09/20/17 18:15 09/24/17 18:22 (NovoLOG SUPPLEMENTAL SCALE) 1 ACHS SLIDING SCALE SQ 09/21/17 12:00 09/24/17 16:49 (Prinivil) 20 mg BID PO 09/21/17 21:00 09/24/17 08:51 (Heparin Inj) 5,000 units Q8HR SQ 09/22/17 14:00 09/24/17 13:02 (Ambien) 10 mg HS PRN PO 09/23/17 12:00 (NovoLOG INJ) 20 units TIDAC SQ 09/24/17 08:00 09/24/17 16:49 (Levemir Inj) 25 units BID SQ 09/23/17 21:00 09/24/17 08:53 Assessment and Plan Assessment and Plan 56-year-old male with right plantar ulcer Patient examined and evaluated with all questions answered Discussed WBC scan with radiologist, no evidence of osteomyelitis soft tissue infection noted Patient to OR tomorrow for debridement and irrigation of plantar foot wound and probable wound VAC placement N.p.o. after midnight, okay for clear liquids in a.m. for breakfast Will remove wound VAC in 48 hours and evaluate for possible discharge Heel weightbearing to right lower extremity Nitza Wesley DPM Sep 24, 2017 19:42
[2017-09-24 20:25] VITALS: BP 110/67; PULSE 76; RESP 20; TEMP 99.4; O2SAT 98
[2017-09-25] VITALS: BP 110/72; PULSE 82; RESP 18; TEMP 96.7; O2SAT 97
[2017-09-25] MEDS ORDERED: POVIDONE IODINE 5% (ANTISEPSIS KIT) 4 APPLICATIONS EACH NARE PRN (00:45)
[2017-09-25] MEDS ORDERED: LACTATED RINGER'S 1000 ML IV PRN (00:45)
[2017-09-25] MEDS ORDERED: CHLORHEXIDINE GLUCONATE 2 % 1 PACK (2 CLOTHS) TOPICAL PRN (00:45)
[2017-09-25] MEDS ORDERED: SODIUM CHLORID 0.9% 500 ML IV PRN (00:45)
[2017-09-25] MEDS: PIPERACIL-TAZO 3.375 GM PREMIX 50 ML IV SCH ×5 (00:46→23:17)
[2017-09-25] MEDS: ACETAMINOPHEN/HYDROcodone 325 MG/5 MG TAB PO PRN ×4 (05:30→21:50)
[2017-09-25] MEDS: MORPHINE SULFATE 4 MG/ML INJ IV PUSH PRN ×3 (06:27→23:17)
[2017-09-25 08:00] VITALS: BP 126/76; PULSE 97; RESP 15; TEMP 98.7; O2SAT 97
[2017-09-25] MEDS: INSULIN ASPART 1,000 UNITS/10 ML VIAL SQ SCH ×3 (08:00→16:22)
[2017-09-25] MEDS: INSULIN ASPART SUPPLEMENTAL SCALE SQ SCH ×4 (08:00→21:44)
[2017-09-25] MEDS: PREGABALIN 100 MG CAP PO SCH ×2 (08:47→21:31)
[2017-09-25] MEDS: ATORVASTATIN 20 MG TAB PO SCH (08:47)
[2017-09-25] MEDS: ASPIRIN 81 MG CHEW TAB CHEW SCH (08:47)
[2017-09-25] MEDS: LISINOPRIL 10 MG TAB PO SCH ×2 (08:47→21:30)
[2017-09-25] MEDS: SODIUM CHLORIDE 0.9% FLUSH 10 ML FLUSH IV FLUSH SCH ×2 (08:48→21:31)
[2017-09-25] MEDS: INSULIN DETEMIR 100 UNITS/ML VIAL SQ SCH ×2 (08:48→21:44)
[2017-09-25 12:00] VITALS: BP 132/93; PULSE 104; RESP 16; TEMP 97.9; O2SAT 98
[2017-09-25] MEDS ORDERED: ONDANSETRON HCL 4 MG/2 ML VIAL IV ONE (12:00)
[2017-09-25] MEDS ORDERED: LIDOCAINE HCL 1% PF 5 ML SYRINGE OTHER ONE (12:00)
[2017-09-25] MEDS ORDERED: PHENYLEPH/NS 1000 MCG/10 ML SYR IV ONE (12:00)
[2017-09-25] MEDS ORDERED: DEXAMETHASONE SOD PHOS 4 MG/ML VIAL IV ONE (12:00)
[2017-09-25] MEDS ORDERED: ePHEDrine/NS 25 MG/5 ML SYRINGE IV ONE (12:00)
[2017-09-25] MEDS ORDERED: PROPOFOL 200 MG/20 ML AMP IV ONE (12:00)
--- NOTE | 2017-09-25 12:28 | EKG ---
Date Performed: 09/25/2017 Time Performed: 07:23:47 PTAGE: 47 years EKG: Sinus rhythm NORMAL ECG PREVIOUS TRACING : 06/11/2016 21.37 Since the prior tracing, there has been no significant waite DOCTOR: Dimitry Talbert Interpretating Date/Time 09/25/2017 12:28:10
[2017-09-25] MEDS: HEPARIN SODIUM - SQ 10,000 UNITS/ML VIAL SQ SCH ×2 (14:00→21:31)
[2017-09-25 16:00] VITALS: BP 114/73; PULSE 96; RESP 15; TEMP 97; O2SAT 97
--- NOTE | 2017-09-25 16:07 | HHI.PR ---
Subjective Remarks The first entry, the patient was seen earlier at 11 AM. The patient is requesting his Zoloft and meloxicam to be restarted. Denies any chest pain or shortness of breath A febrile. Pain is controlled in foot. Blood sugars are improving. Objective Vitals Vital Signs Date Time Temp Pulse Resp B/P (MAP) Pulse Ox O2 Delivery O2 Flow Rate FiO2 09/25/17 12:00 97.9 104 16 132/93 (106) 98 09/25/17 08:00 98.7 97 15 126/76 (93) 97 09/25/17 00:00 96.7 82 18 110/72 (85) 97 09/24/17 20:25 99.4 76 20 110/67 (81) 98 I/O 09/24/17 09/24/17 09/24/17 09/25/17 09/25/17 09/25/17 07:00 15:00 23:00 07:00 15:00 23:00 Intake Total 760 ml 1060 ml 780 ml Output Total 600 ml Balance 760 ml 460 ml 780 ml Intake Oral 760 ml 960 ml 780 ml IV Total 100 ml Output Urine Total 600 ml # Voids 3 3 # Bowel Movements 1 Result Diagram: 09/22/17 0538 09/22/17 0538 Imaging Last Impressions Tumor Localization 09/22/17 0000 Signed Impressions: Service Date/Time: Friday, September 22, 2017 14:49 - CONCLUSION: No evidence of osteomyelitis Juventino Goodman MD Bone Scan Nuclear Medicine 09/20/17 0000 Signed Impressions: Service Date/Time: Wednesday, September 20, 2017 08:14 - CONCLUSION: Multifocal abnormal bone tracer uptake in the right ankle and foot. Correlation with tagged white blood cell scan may be useful to evaluate for active osteomyelitis Juventino Goodman MD Foot X-Ray 09/18/17 0000 Signed Impressions: Service Date/Time: Monday, September 18, 2017 16:44 - CONCLUSION: Chronic deformity related to prior surgery and neuropathic changes, unchanged in appearance when compared to conventional radiographs 11/17/16. No focal areas of new bony destruction seen. Artem Mckeon MD Objective Remarks GENERAL: Obese, male lying in bed SKIN: 3 x 3 cm ulceration on the plantar surface of the right foot. Surrounding erythema with purulent material. HEAD: Atraumatic. Normocephalic. No temporal or scalp tenderness. EYES: Pupils equal round and reactive. Extraocular motions intact. No scleral icterus. No injection or drainage. ENT: Nose without bleeding, purulent drainage or septal hematoma. Throat without erythema, tonsillar hypertrophy or exudate. Uvula midline. Airway patent. NECK: Trachea midline. No JVD or lymphadenopathy. Supple, nontender, no meningeal signs. CARDIOVASCULAR: Regular rate and rhythm without murmurs, gallops, or rubs. RESPIRATORY: Clear to auscultation. Breath sounds equal bilaterally. No wheezes , rales, or rhonchi. GASTROINTESTINAL: Abdomen soft, non-tender, nondistended. No hepato-splenomegaly , or palpable masses. No guarding. MUSCULOSKELETAL: Extremities without clubbing, cyanosis, or edema. No joint tenderness, effusion, or edema noted. No calf tenderness. Left BKA. NEUROLOGICAL: Awake and alert. Cranial nerves II through XII intact. Motor and sensory grossly within normal limits. Normal speech. Medications and IVs Current Medications Medications (Trade) Dose Ordered Sig/Gavin Route Start Time Stop Time Status Last Admin (NS Flush) 2 ml UNSCH PRN IV FLUSH 09/18/17 18:30 09/21/17 00:59 (NS Flush) 2 ml BID IV FLUSH 09/18/17 21:00 09/25/17 08:48 (Narcan Inj) 0.4 mg UNSCH PRN IV PUSH 09/18/17 18:30 (Aspirin Chew) 81 mg DAILY CHEW 09/19/17 09:00 09/25/17 08:47 (Lyrica) 200 mg BID PO 09/18/17 21:00 09/25/17 08:47 (Lipitor) 20 mg DAILY PO 09/19/17 09:00 09/25/17 08:47 (D50w (Vial) Inj) 50 ml UNSCH PRN IV PUSH 09/18/17 18:45 (Glucagon Inj) 1 mg UNSCH PRN OTHER 09/18/17 18:45 Piperacillin Sod/ Tazobactam Sod 50 ml @ 100 mls/hr Q6H IV 09/19/17 00:00 09/25/17 13:24 ([place] 5-325 Mg) 1 tab Q4H PRN PO 09/20/17 18:15 ([place] 5-325 Mg) 2 tab Q4H PRN PO 09/20/17 18:15 09/25/17 10:11 (Morphine Inj) 4 mg Q3H PRN IV PUSH 09/20/17 18:15 09/25/17 11:19 (NovoLOG SUPPLEMENTAL SCALE) 1 ACHS SLIDING SCALE SQ 09/21/17 12:00 09/25/17 08:00 (Prinivil) 20 mg BID PO 09/21/17 21:00 09/25/17 08:47 (Heparin Inj) 5,000 units Q8HR SQ 09/22/17 14:00 09/24/17 13:02 (Ambien) 10 mg HS PRN PO 09/23/17 12:00 (NovoLOG INJ) 20 units TIDAC SQ 09/24/17 08:00 09/24/17 16:49 (Levemir Inj) 25 units BID SQ 09/23/17 21:00 09/25/17 08:48 Lactated Ringer's 1,000 ml @ 30 mls/hr Q24H PRN IV 09/25/17 00:45 09/28/17 00:44 Sodium Chloride 500 ml @ 30 mls/hr [id number] PRN IV 09/25/17 00:45 09/28/17 00:44 (Betadine 5% Antisepsis Kit) 1 applic PBX MANAGER PRN EACH NARE 09/25/17 00:45 09/28/17 00:44 (Chlorhexidine 2% Cloth) 3 pack PBX MANAGER PRN TOPICAL 09/25/17 00:45 09/28/17 00:44 A/P Problem List: (1) Sepsis ICD Code: A41.9 - Sepsis, unspecified organism (2) Diabetic foot infection ICD Code: E11.69 - Type 2 diabetes mellitus with other specified complication; L08.9 - Local infection of the skin and subcutaneous tissue, unspecified (3) Diabetes mellitus with hyperglycemia ICD Code: E11.65 - Type 2 diabetes mellitus with hyperglycemia (4) HTN (hypertension) ICD Code: I10 - Essential (primary) hypertension Status: Chronic (5) Insomnia ICD Code: G47.00 - Insomnia, unspecified Plan: On Ambien Assessment and Plan 1. Infected Diabetic foot ulcer/sepsis Patient tachycardic with leukocytosis Clindamycin and Zosyn Podiatry consulted, appreciate recommendations Foot x-ray does not suggest osteomyelitis Blood, wound cultures pending Monitor for signs of shock 09/20 DC IV Clindamycin, continue Zosyn, consult ID. Continue pain control with oral [place]. I will place the patient on IV morphine for breakthrough pain. Bone scan done today and shows multifocal abnormal bone tracer uptake in the right ankle and foot. With tagged white blood cell CAT scan was recommended by radiology. White blood cell tagged scan was ordered by Dr. Salinas. Case discussed with Dr. Ortega The patient may need bone biopsy. discussed the case with orthopedic surgery. Dr. Salinas plans on a bedside debridement tomorrow. Awaiting repeat Ceretec white blood cell labeled scan before proceeding with possible bone biopsies. Wound cultures are growing Citrobacter koseri and group D enterococcus. Antibiotics as per ID. The patient currently on IV Zosyn. 09/24 Ceretec without evidence of osteomyelitis. await podiatry recommendations. 09/25 as per orthopedic surgery for wound VAC placement today. 2. Diabetes mellitus with hyperglycemia Continue home Lantus SSI Monitor blood glucose 09/19 Blood sugars severely elevated. Will increase levemir to 10 units SQ BID. Continue SSI. Monitor accuchecks. 09/20 blood sugars still severely uncontrolled in the 400s. I will increase Levemir to 12 units subcu twice daily, start prandial NovoLog 8 units 3 times daily before meals and continue SSI with insulin NovoLog but discontinue the low sliding scale and place on the high sliding scale. Continue to monitor Accu -Cheks. 09/21 blood sugar control is still severely elevated in the mid 200s range. 09/23 blood sugar still severely elevated in the 200-300 range. I will adjust the dose of the insulin Levemir and NovoLog and continue to monitor Accu-Cheks. BS goal <180. 09/24 Blood sugars improving. Continue management as above. 3. Hypertension/hyperlipidemia Continue home medications 09/20 BP severely elevated this a.m. in the 170s. Improved after being started on lisinopril 10 mg p.o. twice daily. Continue to monitor vital signs. I will place on clonidine as needed for systolic blood pressure more than 160. 09/21 for BP control much improved, however BP still elevated in the 150s. I will increase lisinopril dose from 10 mg by mouth daily to 20 mg by mouth daily. BP much improved. Continue lisinopril at same dose. 4. Hyponatremia Plan treatment symptomatic chronic. Sodium stable in the 130s. Continue to monitor sodium. Sodium slightly better from 132 to 133. Continue to monitor BMP. 5. Osteoarthritis Resume meloxicam. 6. Depression. I will resume Zoloft 25 mg p.o. daily. FEN Heart healthy diabetic diet Electrolytes: Monitor and replete when necessary We will place on heparin subcutaneously for DVT prophylaxis. Discharge Planning Awaiting further podiatry recommendations - Dc pending podiatry clearance. Problem Qualifiers (1) HTN (hypertension): Qualified Codes: I10 - Essential (primary) hypertension (2) Insomnia: Qualified Codes: F51.01 - Primary insomnia Ruben Dean MD Sep 25, 2017 16:07
[2017-09-25] MEDS: SERTRALINE HCL 50 MG TAB PO SCH (16:15)
[2017-09-25] MEDS: MELOXICAM 15 MG TAB PO SCH (16:15)
[2017-09-25] MEDS ORDERED: ACETAMINOPHEN 1000 MG/100 ML 100 ML IV ONE (18:43)
[2017-09-25] MEDS ORDERED: BUPIVACAINE HCL PF 0.5% 30 ML VIAL ONE (18:51)
[2017-09-25] MEDS ORDERED: MIDAZOLAM HCL 2 MG/2 ML VIAL ONE (18:58)
[2017-09-25] MEDS ORDERED: fentaNYL CITRATE 250 MCG/5 ML AMP ONE (18:59)
[2017-09-25] MEDS ORDERED: KETAMINE HCL 500 MG/5 ML VIAL ONE (19:00)
--- NOTE | 2017-09-25 19:06 | HHI.PR ---
Subjective Remarks Patient seen bedside in preop. Agrees with surgical intervention. No reports of infectious symptoms such as N,V,F,Ch. Objective Vital Signs Date Time Temp Pulse Resp B/P (MAP) Pulse Ox O2 Delivery O2 Flow Rate FiO2 09/25/17 16:00 97.0 96 15 114/73 (87) 97 09/25/17 12:00 97.9 104 16 132/93 (106) 98 09/25/17 08:00 98.7 97 15 126/76 (93) 97 09/25/17 00:00 96.7 82 18 110/72 (85) 97 09/24/17 20:25 99.4 76 20 110/67 (81) 98 I/O 09/24/17 09/24/17 09/24/17 09/25/17 09/25/17 09/25/17 07:00 15:00 23:00 07:00 15:00 23:00 Intake Total 760 ml 1060 ml 780 ml 0 ml Output Total 600 ml Balance 760 ml 460 ml 780 ml 0 ml Intake Oral 760 ml 960 ml 780 ml 0 ml IV Total 100 ml Output Urine Total 600 ml # Voids 3 3 3 # Bowel Movements 1 0 Result Diagram: 09/22/17 0538 09/22/17 0538 Imaging Last Impressions Tumor Localization 09/22/17 0000 Signed Impressions: Service Date/Time: Friday, September 22, 2017 14:49 - CONCLUSION: No evidence of osteomyelitis Juventino Goodman MD Bone Scan Nuclear Medicine 09/20/17 0000 Signed Impressions: Service Date/Time: Wednesday, September 20, 2017 08:14 - CONCLUSION: Multifocal abnormal bone tracer uptake in the right ankle and foot. Correlation with tagged white blood cell scan may be useful to evaluate for active osteomyelitis Juventino Goodman MD Foot X-Ray 09/18/17 0000 Signed Impressions: Service Date/Time: Monday, September 18, 2017 16:44 - CONCLUSION: Chronic deformity related to prior surgery and neuropathic changes, unchanged in appearance when compared to conventional radiographs 11/17/16. No focal areas of new bony destruction seen. Artem Mckeon MD Objective Remarks Lower extremity physical exam: Dressing intact to right LE. No change in physical exam from 09/24/17 Vascular: Dorsalis pedis palpable, posterior tibial diminished. Capillary refill time within normal limits to digits present to right foot. Edema present right foot and ankle Neuro: Gross sensation intact to bilateral lower extremity. Pinpoint sensation deep. No hyperalgesia noted to bilateral lower extremity Dermatology: Normal temperature and turgor to bilateral lower extremity. Plantar foot ulcer noted measuring approximately 4 cm x 3 cm with 1 cm of probing; tunneling deep to bone, malodor noted, hyperkeratotic wound edges, probe to bone, no purulent drainage upon compression, mild surrounding erythema. Musculoskeletal: Rocker-bottom deformity noted to right foot, left below the knee amputation noted. Medications and IVs Current Medications Medications (Trade) Dose Ordered Sig/Gavin Route Start Time Stop Time Status Last Admin (NS Flush) 2 ml UNSCH PRN IV FLUSH 09/18/17 18:30 09/21/17 00:59 (NS Flush) 2 ml BID IV FLUSH 09/18/17 21:00 09/25/17 08:48 (Narcan Inj) 0.4 mg UNSCH PRN IV PUSH 09/18/17 18:30 (Aspirin Chew) 81 mg DAILY CHEW 09/19/17 09:00 09/25/17 08:47 (Lyrica) 200 mg BID PO 09/18/17 21:00 09/25/17 08:47 (Lipitor) 20 mg DAILY PO 09/19/17 09:00 09/25/17 08:47 (D50w (Vial) Inj) 50 ml UNSCH PRN IV PUSH 09/18/17 18:45 (Glucagon Inj) 1 mg UNSCH PRN OTHER 09/18/17 18:45 Piperacillin Sod/ Tazobactam Sod 50 ml @ 100 mls/hr Q6H IV 09/19/17 00:00 09/25/17 17:22 ([place] 5-325 Mg) 1 tab Q4H PRN PO 09/20/17 18:15 ([place] 5-325 Mg) 2 tab Q4H PRN PO 09/20/17 18:15 09/25/17 16:18 (Morphine Inj) 4 mg Q3H PRN IV PUSH 09/20/17 18:15 09/25/17 11:19 (NovoLOG SUPPLEMENTAL SCALE) 1 ACHS SLIDING SCALE SQ 09/21/17 12:00 09/25/17 08:00 (Prinivil) 20 mg BID PO 09/21/17 21:00 09/25/17 08:47 (Heparin Inj) 5,000 units Q8HR SQ 09/22/17 14:00 09/24/17 13:02 (Ambien) 10 mg HS PRN PO 09/23/17 12:00 (NovoLOG INJ) 20 units TIDAC SQ 09/24/17 08:00 09/24/17 16:49 (Levemir Inj) 25 units BID SQ 09/23/17 21:00 09/25/17 08:48 Lactated Ringer's 1,000 ml @ 30 mls/hr Q24H PRN IV 09/25/17 00:45 09/28/17 00:44 Sodium Chloride 500 ml @ 30 mls/hr [id number] PRN IV 09/25/17 00:45 09/28/17 00:44 (Betadine 5% Antisepsis Kit) 1 applic THREAD GRINDER PRN EACH NARE 09/25/17 00:45 09/28/17 00:44 (Chlorhexidine 2% Cloth) 3 pack THREAD GRINDER PRN TOPICAL 09/25/17 00:45 09/28/17 00:44 (Mobic) 15 mg DAILY PO 09/25/17 16:15 (Zoloft) 25 mg DAILY PO 09/25/17 16:15 Assessment and Plan Assessment and Plan 56-year-old male with right plantar ulcer Patient examined and evaluated with all questions answered Discussed WBC scan with radiologist, no evidence of osteomyelitis soft tissue infection noted therefore will not move forward with bone biopsy Patient to OR today for Debridement and Irrigation of plantar foot ulcer and wound vac placement RLE Patient has remained NPO Consent signed and discussed with patient; RLE marked Will remove wound VAC in 48 hours and evaluate for possible discharge; possible graft placement as outpatient Heel weightbearing to right lower extremity in surgical shoe Nitza Wesley DPM Sep 25, 2017 19:05
--- NOTE | 2017-09-25 19:56 | HHI.PR ---
Immediate Post Op Note Procedure Date: Sep 25, 2017 Pre Op Diagnosis: Right foot plantar ulcer Post Op Diagnosis: Right foot plantar ulcer Surgeon: Nitza Wesley Dog Bather(s): None Procedure: Right foot plantar ulcer debridement and irrigation with wound VAC placement Findings: None Additional Information: None Specimen(s) removed: Deep culture taken right foot Estimated blood loss: Less than 5 cc Anesthesia: General Drains: None Patient to: PACU Patient Condition: Good Nitza Wesley DPM Sep 25, 2017 19:56
[2017-09-25] MEDS ORDERED: DO NOT ADM ANY ANTICOAGULANT DRUGS PRN (20:00)
[2017-09-25] MEDS ORDERED: Post-op Orders (for Pharmacy) XX ONE (20:00)
[2017-09-25] MEDS ORDERED: *morphine SULFATE 4 MG/ML PERIprocedure ONLY ONE ×2 (20:16→20:28)
[2017-09-25 21:00] VITALS: BP 110/70; PULSE 91; RESP 17; TEMP 95.6; O2SAT 96
--- NOTE | 2017-09-25 21:09 | MP ---
cc: Nitza Wesley DPM DATE OF OPERATION: SURGEON: Nitza Wesley DPM CONTACT LENS POLISHER: None. PREOPERATIVE DIAGNOSIS: Right foot plantar ulcer. POSTOPERATIVE DIAGNOSIS: Right foot plantar ulcer. PROCEDURE: Right foot plantar ulcer debridement and irrigation with wound VAC placement. ANESTHESIA: General. HEMOSTASIS: None. ESTIMATED BLOOD LOSS: Less than 5. MATERIALS: None. INJECTABLES: None. COMPLICATIONS: None. INDICATIONS FOR PROCEDURE: The patient is a 47-year-old male with history of a left [id number] amputation who was admitted for right foot infection with ulcer that probed to bone. There was suspicion for osteomyelitis so patient underwent a 3-phase bone scan as well as white blood cell Ceretec scan. Spoke with radiologist personally and he stated there was no bone infection and just noted uptake in soft tissues. At this time, decision has been made to move forward with debridement and irrigation of right foot ulcer with wound VAC. There will be no bone biopsy as to not introduce a ____ bacteria to penetrate. Patient understands alternatives, benefits, complications associated with the procedure. He would like to proceed with right foot debridement and irrigation with wound VAC placement. DESCRIPTION OF PROCEDURE: The patient was brought to the operating room, placed on the operating room table in the supine position. General anesthesia was then induced. Local infiltrate of 10 mL of 0.5% Marcaine plain was infiltrated about the right foot. The right foot was then prepped and draped in the usual sterile fashion. A 15-blade was utilized to remove all necrotic nonviable tissue from the wound. Hyperkeratotic wound borders were debrided sharply with 15-blade. ____ was then used to remove ____ nonviable necrotic tissue. Copious irrigation was performed to right foot plantar ulcer and a wound VAC was placed with white and black foam. Cast padding and Ber[place]ane were then placed to the right foot. Patient tolerated procedure and anesthesia well. He will be sent back to the floor. Wound VAC will be removed in 48 hours and we will evaluate wound. JANET Iglesias/ADEOLA/moe , 08:03 PM , 08:34 PM
[2017-09-26] VITALS: BP 105/59; PULSE 74; RESP 17; TEMP 97.1; O2SAT 96
[2017-09-26 04:00] VITALS: BP 107/60; PULSE 71; RESP 17; TEMP 96.8; O2SAT 96
[2017-09-26] MEDS: ACETAMINOPHEN/HYDROcodone 325 MG/5 MG TAB PO PRN ×5 (05:29→22:17)
[2017-09-26] MEDS: PIPERACIL-TAZO 3.375 GM PREMIX 50 ML IV SCH ×4 (05:29→23:59)
[2017-09-26] MEDS: HEPARIN SODIUM - SQ 10,000 UNITS/ML VIAL SQ SCH ×3 (05:32→20:55)
[2017-09-26] MEDS: MORPHINE SULFATE 4 MG/ML INJ IV PUSH PRN ×5 (06:32→23:40)
[2017-09-26 07:13] LABS: BICARBONATE 24.1 MEQ/L (21.0-32.0); CALCIUM 9.3 MG/DL (8.5-10.1); CREATININE 0.95 MG/DL (0.60-1.30)
[2017-09-26 07:17] LABS: HEMATOCRIT 39.9 % (39.0-51.0); HEMOGLOBIN 13.9 GM/DL (13.0-17.0); MEAN CELL VOLUME 86.8 FL (80.0-100.0); MEAN CORPUSCULAR HEMOGLOBIN 30.1 PG (27.0-34.0); MEAN CORPUSCULAR HGB CONC 34.7 % (32.0-36.0); MEAN PLATELET VOLUME 8.1 FL (7.0-11.0); PLATELET COUNT 238 TH/MM3 (150-450); RED CELL DISTRIBUTION WIDTH 14.2 % (11.6-17.2); WHITE BLOOD COUNT 9.6 TH/MM3 (4.0-11.0)
[2017-09-26 08:00] VITALS: BP 121/78; PULSE 96; RESP 19; TEMP 98; O2SAT 98
[2017-09-26] MEDS: INSULIN ASPART 1,000 UNITS/10 ML VIAL SQ SCH ×3 (08:00→17:00)
[2017-09-26] MEDS: INSULIN ASPART SUPPLEMENTAL SCALE SQ SCH ×4 (08:00→21:00)
[2017-09-26] MEDS: SODIUM CHLORIDE 0.9% FLUSH 10 ML FLUSH IV FLUSH SCH ×2 (08:28→20:54)
[2017-09-26] MEDS: ASPIRIN 81 MG CHEW TAB CHEW SCH (08:29)
[2017-09-26] MEDS: LISINOPRIL 10 MG TAB PO SCH ×2 (08:29→20:53)
[2017-09-26] MEDS: SERTRALINE HCL 50 MG TAB PO SCH (08:29)
[2017-09-26] MEDS: ATORVASTATIN 20 MG TAB PO SCH (08:30)
[2017-09-26] MEDS: INSULIN DETEMIR 100 UNITS/ML VIAL SQ SCH ×2 (08:30→21:00)
[2017-09-26] MEDS: PREGABALIN 100 MG CAP PO SCH ×2 (08:30→20:53)
[2017-09-26] MEDS: MELOXICAM 15 MG TAB PO SCH (10:42)
[2017-09-26 12:00] VITALS: BP 127/89; PULSE 102; RESP 19; TEMP 97.3; O2SAT 98
[2017-09-26 16:00] VITALS: BP 110/72; PULSE 100; RESP 19; TEMP 97.8; O2SAT 97
--- NOTE | 2017-09-26 17:48 | HHI.PR ---
Subjective Remarks Deferred entry, the patient was seen earlier at 12:15 PM. The patient states that the pain is very elevated and uncontrolled after the patient had the wound VAC placed. The patient denies otherwise any chest pain or shortness of breath. Afebrile. Objective Vitals Vital Signs Date Time Temp Pulse Resp B/P (MAP) Pulse Ox O2 Delivery O2 Flow Rate FiO2 09/26/17 16:00 97.8 100 19 110/72 (85) 97 09/26/17 12:00 97.3 102 19 127/89 (102) 98 09/26/17 08:00 98.0 96 19 121/78 (92) 98 09/26/17 04:00 96.8 71 17 107/60 (76) 96 09/26/17 00:00 97.1 74 17 105/59 (74) 96 09/25/17 21:00 95.6 91 17 110/70 (83) 96 09/25/17 20:33 16 09/25/17 20:30 88 14 107/65 (79) 95 Room Air 09/25/17 20:21 16 09/25/17 20:15 87 14 90/57 (68) 95 Room Air 09/25/17 19:57 98.2 89 14 99/61 (74) 97 Nasal Cannula 2 I/O 09/25/17 09/25/17 09/25/17 09/26/17 09/26/17 09/26/17 07:00 15:00 23:00 07:00 15:00 23:00 Intake Total 780 ml 800 ml 440 ml 240 ml 100 ml Output Total 1 ml 2000 ml 1000 ml Balance 780 ml 799 ml -1560 ml 240 ml -900 ml Intake Oral 780 ml 0 ml 240 ml 240 ml 100 ml IV Total 200 ml Other 800 ml Output Urine Total 2000 ml 1000 ml Estimated Blood Loss 1 ml # Voids 3 3 # Bowel Movements 0 1 Result Diagram: 09/26/1762709/26/17627 Imaging Last Impressions Tumor Localization 09/22/17 0000 Signed Impressions: Service Date/Time: Friday, September 22, 2017 14:49 - CONCLUSION: No evidence of osteomyelitis Juventino Goodman MD Bone Scan Nuclear Medicine 09/20/17 0000 Signed Impressions: Service Date/Time: Wednesday, September 20, 2017 08:14 - CONCLUSION: Multifocal abnormal bone tracer uptake in the right ankle and foot. Correlation with tagged white blood cell scan may be useful to evaluate for active osteomyelitis Juventino Goodman MD Foot X-Ray 09/18/17 0000 Signed Impressions: Service Date/Time: Monday, September 18, 2017 16:44 - CONCLUSION: Chronic deformity related to prior surgery and neuropathic changes, unchanged in appearance when compared to conventional radiographs 11/17/16. No focal areas of new bony destruction seen. Artem Mckeon MD Objective Remarks GENERAL: Obese, male lying in bed SKIN: 3 x 3 cm ulceration on the plantar surface of the right foot. Surrounding erythema with purulent material. HEAD: Atraumatic. Normocephalic. No temporal or scalp tenderness. EYES: Pupils equal round and reactive. Extraocular motions intact. No scleral icterus. No injection or drainage. ENT: Nose without bleeding, purulent drainage or septal hematoma. Throat without erythema, tonsillar hypertrophy or exudate. Uvula midline. Airway patent. NECK: Trachea midline. No JVD or lymphadenopathy. Supple, nontender, no meningeal signs. CARDIOVASCULAR: Regular rate and rhythm without murmurs, gallops, or rubs. RESPIRATORY: Clear to auscultation. Breath sounds equal bilaterally. No wheezes , rales, or rhonchi. GASTROINTESTINAL: Abdomen soft, non-tender, nondistended. No hepato-splenomegaly , or palpable masses. No guarding. MUSCULOSKELETAL: Extremities without clubbing, cyanosis, or edema. No joint tenderness, effusion, or edema noted. No calf tenderness. Left BKA. NEUROLOGICAL: Awake and alert. Cranial nerves II through XII intact. Motor and sensory grossly within normal limits. Normal speech. Medications and IVs Current Medications Medications (Trade) Dose Ordered Sig/Gavin Route Start Time Stop Time Status Last Admin (NS Flush) 2 ml UNSCH PRN IV FLUSH 09/18/17 18:30 09/21/17 00:59 (NS Flush) 2 ml BID IV FLUSH 09/18/17 21:00 09/26/17 08:28 (Narcan Inj) 0.4 mg UNSCH PRN IV PUSH 09/18/17 18:30 (Aspirin Chew) 81 mg DAILY CHEW 09/19/17 09:00 09/26/17 08:29 (Lyrica) 200 mg BID PO 09/18/17 21:00 3/1/18 08:30 (Lipitor) 20 mg DAILY PO 09/19/17 09:00 09/26/17 08:30 (D50w (Vial) Inj) 50 ml UNSCH PRN IV PUSH 09/18/17 18:45 (Glucagon Inj) 1 mg UNSCH PRN OTHER 09/18/17 18:45 Piperacillin Sod/ Tazobactam Sod 50 ml @ 100 mls/hr Q6H IV 09/19/17 00:00 09/26/17 13:55 ([place] 5-325 Mg) 1 tab Q4H PRN PO 09/20/17 18:15 ([place] 5-325 Mg) 2 tab Q4H PRN PO 09/20/17 18:15 09/26/17 13:55 (Morphine Inj) 4 mg Q3H PRN IV PUSH 09/20/17 18:15 09/26/17 15:00 (NovoLOG SUPPLEMENTAL SCALE) 1 ACHS SLIDING SCALE SQ 09/21/17 12:00 09/26/17 12:00 (Prinivil) 20 mg BID PO 09/21/17 21:00 09/26/17 08:29 (Heparin Inj) 5,000 units Q8HR SQ 09/22/17 14:00 09/26/17 05:32 (Ambien) 10 mg HS PRN PO 09/23/17 12:00 (NovoLOG INJ) 20 units TIDAC SQ 09/24/17 08:00 09/26/17 12:00 (Levemir Inj) 25 units BID SQ 09/23/17 21:00 09/26/17 08:30 Lactated Ringer's 1,000 ml @ 30 mls/hr Q24H PRN IV 09/25/17 00:45 09/28/17 00:44 Sodium Chloride 500 ml @ 30 mls/hr [id number] PRN IV 09/25/17 00:45 09/28/17 00:44 (Betadine 5% Antisepsis Kit) 1 applic POWER LINEMAN PRN EACH NARE 09/25/17 00:45 09/28/17 00:44 (Chlorhexidine 2% Cloth) 3 pack POWER LINEMAN PRN TOPICAL 09/25/17 00:45 09/28/17 00:44 (Mobic) 15 mg DAILY PO 09/25/17 16:15 09/26/17 10:42 (Zoloft) 25 mg DAILY PO 09/25/17 16:15 09/26/17 08:29 Miscellaneous Information ALL NURSING DEPARTME... UNSCH PRN .XX 09/25/17 20:00 09/26/17 19:59 (Oramorph Sr) 15 mg Q12HR PO 09/26/17 21:00 A/P Problem List: (1) Sepsis ICD Code: A41.9 - Sepsis, unspecified organism (2) Diabetic foot infection ICD Code: E11.69 - Type 2 diabetes mellitus with other specified complication; L08.9 - Local infection of the skin and subcutaneous tissue, unspecified (3) Diabetes mellitus with hyperglycemia ICD Code: E11.65 - Type 2 diabetes mellitus with hyperglycemia (4) HTN (hypertension) ICD Code: I10 - Essential (primary) hypertension Status: Chronic (5) Insomnia ICD Code: G47.00 - Insomnia, unspecified Assessment and Plan 1. Infected Diabetic foot ulcer/sepsis Patient tachycardic with leukocytosis Clindamycin and Zosyn Podiatry consulted, appreciate recommendations Foot x-ray does not suggest osteomyelitis Blood, wound cultures pending Monitor for signs of shock 09/20 DC IV Clindamycin, continue Zosyn, consult ID. Continue pain control with oral [place]. I will place the patient on IV morphine for breakthrough pain. Bone scan done today and shows multifocal abnormal bone tracer uptake in the right ankle and foot. With tagged white blood cell CAT scan was recommended by radiology. White blood cell tagged scan was ordered by Dr. Salinas. Case discussed with Dr. Ortega The patient may need bone biopsy. discussed the case with orthopedic surgery. Dr. Salinas plans on a bedside debridement tomorrow. Awaiting repeat Ceretec white blood cell labeled scan before proceeding with possible bone biopsies. Wound cultures are growing Citrobacter koseri and group D enterococcus. Antibiotics as per ID. The patient currently on IV Zosyn. 09/24 Ceretec without evidence of osteomyelitis. await podiatry recommendations. 09/25 as per orthopedic surgery for wound VAC placement today. 09/26 status post wound VAC placement. Patient with increased pain. I will start Oramorph 50 mg p.o. twice daily. Continue with oral [place]. 2. Diabetes mellitus with hyperglycemia Continue home Lantus SSI Monitor blood glucose 09/19 Blood sugars severely elevated. Will increase levemir to 10 units SQ BID. Continue SSI. Monitor accuchecks. 09/20 blood sugars still severely uncontrolled in the 400s. I will increase Levemir to 12 units subcu twice daily, start prandial NovoLog 8 units 3 times daily before meals and continue SSI with insulin NovoLog but discontinue the low sliding scale and place on the high sliding scale. Continue to monitor Accu -Cheks. 09/21 blood sugar control is still severely elevated in the mid 200s range. 09/23 blood sugar still severely elevated in the 200-300 range. I will adjust the dose of the insulin Levemir and NovoLog and continue to monitor Accu-Cheks. BS goal <180. 09/26 Blood sugars elevated this a.m. Likely secondary to pain. Continue basal bolus therapy with insulin Levemir and NovoLog at same dose. 3. Hypertension/hyperlipidemia Continue home medications 09/20 BP severely elevated this a.m. in the 170s. Improved after being started on lisinopril 10 mg p.o. twice daily. Continue to monitor vital signs. I will place on clonidine as needed for systolic blood pressure more than 160. 09/21 for BP control much improved, however BP still elevated in the 150s. I will increase lisinopril dose from 10 mg by mouth daily to 20 mg by mouth daily. BP much improved. Continue lisinopril at same dose. 4. Hyponatremia Plan treatment symptomatic chronic. Sodium stable in the 130s. Continue to monitor sodium. Sodium slightly better from 132 to 133. Continue to monitor BMP. 5. Osteoarthritis Continue meloxicam. 6. Depression. Zoloft 25 mg p.o. daily. Seems to be stable. FEN Heart healthy diabetic diet Electrolytes: Monitor and replete when necessary We will place on heparin subcutaneously for DVT prophylaxis. Discharge Planning Awaiting further podiatry recommendations - Dc pending podiatry clearance. Problem Qualifiers (1) HTN (hypertension): Qualified Codes: I10 - Essential (primary) hypertension (2) Insomnia: Qualified Codes: F51.01 - Primary insomnia Ruben Dean MD Sep 26, 2017 17:48
--- NOTE | 2017-09-26 18:35 | HHI.PR ---
Addendum to Inpatient Note Additional Information pt seen around 1800 full note to follow Geovanna Timmons MD Sep 26, 2017 18:35
[2017-09-26 20:00] VITALS: BP 118/70; PULSE 86; RESP 20; TEMP 97.6; O2SAT 97
[2017-09-26] MEDS: MORPHINE SULFATE 15 MG CONTROLLED RELEASE TAB PO SCH (20:52)
--- NOTE | 2017-09-26 23:27 | HHI.IDPN ---
Subjective Subjective Remarks Nuclear scan negative for osteo sp Right foot plantar ulcer debridement and irrigation with wound VAC placement 09/[address] Wesley Doing well Afebrile no new issues Antibiotics zosyn Allergies: Coded Allergies: vancomycin (Unverified Allergy, Severe, ACUTE RENAL FAILURE, 10/06/17) tigecycline (Unverified Adverse Reaction, Severe, NAUSEA AND VOMITING, 06/15) Uncoded Allergies: aquacel dressing (Allergy, Severe, Bleeding, 12/29/14) pain regranex (Allergy, Severe, Swelling, 12/29/14) pain on the skin Objective . Vital Signs Date Time Temp Pulse Resp B/P (MAP) Pulse Ox O2 Delivery O2 Flow Rate FiO2 09/26/17 20:00 97.6 86 20 118/70 (86) 97 09/26/17 16:00 97.8 100 19 110/72 (85) 97 09/26/17 12:00 97.3 102 19 127/89 (102) 98 09/26/17 08:00 98.0 96 19 121/78 (92) 98 09/26/17 04:00 96.8 71 17 107/60 (76) 96 09/26/17 00:00 97.1 74 17 105/59 (74) 96 09/26/17 09/26/17 09/27/17 15:00 23:00 07:00 Intake Total 240 ml 100 ml Output Total 1000 ml Balance 240 ml -900 ml Intake Oral 240 ml 100 ml Output Urine Total 1000 ml # Bowel Movements 1 . Laboratory Tests Test 09/26/17 06:28 White Blood Count 9.6 TH/MM3 Red Blood Count 4.60 MIL/MM3 Hemoglobin 13.9 GM/DL Hematocrit 39.9 % Mean Corpuscular Volume 86.8 FL Mean Corpuscular Hemoglobin 30.1 PG Mean Corpuscular Hemoglobin Concent 34.7 % Red Cell Distribution Width 14.2 % Platelet Count 238 TH/MM3 Mean Platelet Volume 8.1 FL Laboratory Tests Test 09/26/17 06:28 Blood Urea Nitrogen 18 MG/DL Creatinine 0.95 MG/DL Random Glucose 272 MG/DL Calcium Level 9.3 MG/DL Sodium Level 132 MEQ/L Potassium Level 4.7 MEQ/L Chloride Level 99 MEQ/L Carbon Dioxide Level 24.1 MEQ/L Anion Gap 9 MEQ/L Estimat Glomerular Filtration Rate 85 ML/MIN Microbiology Date/Time Source Procedure Growth Status 09/25/17 19:26 Wound Foot Fungal Smear - Final NO FUNGAL ELEMENTS SEEN. Resulted 09/25/17 19:26 Wound Foot Fungal Culture Pending Resulted 09/25/17 19:26 Wound Foot Acid Fast Stain Pending Received 09/25/17 19:26 Wound Foot Mycobacterial Culture Pending Received 09/25/17 19:26 Wound Foot Gram Stain - Final Resulted 09/25/17 19:26 Wound Foot Wound Culture - Preliminary NO GROWTH IN 24 HOURS. Resulted Imaging Last Impressions Tumor Localization 09/22/17 0000 Signed Impressions: Service Date/Time: Friday, September 22, 2017 14:49 - CONCLUSION: No evidence of osteomyelitis Juventino Goodman MD Bone Scan Nuclear Medicine 09/20/17 0000 Signed Impressions: Service Date/Time: Wednesday, September 20, 2017 08:14 - CONCLUSION: Multifocal abnormal bone tracer uptake in the right ankle and foot. Correlation with tagged white blood cell scan may be useful to evaluate for active osteomyelitis Juventino Goodman MD Foot X-Ray 09/18/17 0000 Signed Impressions: Service Date/Time: Monday, September 18, 2017 16:44 - CONCLUSION: Chronic deformity related to prior surgery and neuropathic changes, unchanged in appearance when compared to conventional radiographs 11/17/16. No focal areas of new bony destruction seen. Artem Mckeon MD Physical Exam NAD R foot : dressing in place VAC in place with serosang d/c Assessment & Plan Remarks R foot DFI, polimicrobial (citorbacter, enterococcus) No e/o osteo cont zosyn fu op clx final rec's per op clx Geovanna Timmons MD Sep 26, 2017 23:27
[2017-09-27] VITALS: BP 112/69; PULSE 74; RESP 18; TEMP 97; O2SAT 98
--- NOTE | 2017-09-27 00:11 | HHI.PR ---
Subjective Remarks Patient seen bedside this evening. Denies nausea, vomiting, fevers, or chills. Reports right calf pain. Resting comfortably. Objective Vital Signs Date Time Temp Pulse Resp B/P (MAP) Pulse Ox O2 Delivery O2 Flow Rate FiO2 09/26/17 20:00 97.6 86 20 118/70 (86) 97 09/26/17 16:00 97.8 100 19 110/72 (85) 97 09/26/17 12:00 97.3 102 19 127/89 (102) 98 09/26/17 08:00 98.0 96 19 121/78 (92) 98 09/26/17 04:00 96.8 71 17 107/60 (76) 96 I/O 09/26/17 09/26/17 09/26/17 09/27/17 09/27/17 09/27/17 06:59 14:59 22:59 06:59 14:59 22:59 Intake Total 440 ml 240 ml 100 ml Output Total 2000 ml 1000 ml Balance -1560 ml 240 ml -900 ml Intake Oral 240 ml 240 ml 100 ml IV Total 200 ml Output Urine Total 2000 ml 1000 ml # Bowel Movements 1 Result Diagram: 09/26/17 0628 09/26/17 0628 Imaging Last Impressions Tumor Localization 09/22/17 0000 Signed Impressions: Service Date/Time: Friday, September 22, 2017 14:49 - CONCLUSION: No evidence of osteomyelitis Juventino Goodman MD Bone Scan Nuclear Medicine 09/20/17 0000 Signed Impressions: Service Date/Time: Wednesday, September 20, 2017 08:14 - CONCLUSION: Multifocal abnormal bone tracer uptake in the right ankle and foot. Correlation with tagged white blood cell scan may be useful to evaluate for active osteomyelitis Juventino Goodman MD Foot X-Ray 09/18/17 0000 Signed Impressions: Service Date/Time: Monday, September 18, 2017 16:44 - CONCLUSION: Chronic deformity related to prior surgery and neuropathic changes, unchanged in appearance when compared to conventional radiographs 11/17/16. No focal areas of new bony destruction seen. Artem Mckeon MD Procedures Postop day 1 Patient is status post right foot plantar ulcer debridement and irrigation with wound VAC placement Other Results Microbiology Date/Time Source Procedure Growth Status 09/18/17 16:35 Blood Peripheral Aerobic Blood Culture - Final NO GROWTH IN 5 DAYS Complete 09/18/17 16:35 Blood Peripheral Anaerobic Blood Culture - Final NO GROWTH IN 5 DAYS Complete 09/25/17 19:26 Wound Foot Fungal Smear - Final NO FUNGAL ELEMENTS SEEN. Resulted 09/25/17 19:26 Wound Foot Fungal Culture Pending Resulted Objective Remarks Right lower extremity with wound VAC in place functioning at 125 mm per mercury with appropriate seal. Capillary refill time within normal limits #3 seconds to digits present. No ascending erythema noted into ankle. Medications and IVs Current Medications Medications (Trade) Dose Ordered Sig/Gavin Route Start Time Stop Time Status Last Admin (NS Flush) 2 ml UNSCH PRN IV FLUSH 09/18/17 18:30 09/21/17 00:59 (NS Flush) 2 ml BID IV FLUSH 09/18/17 21:00 09/26/17 20:54 (Narcan Inj) 0.4 mg UNSCH PRN IV PUSH 09/18/17 18:30 (Aspirin Chew) 81 mg DAILY CHEW 09/19/17 09:00 09/26/17 08:29 (Lyrica) 200 mg BID PO 09/18/17 21:00 09/26/17 20:53 (Lipitor) 20 mg DAILY PO 09/19/17 09:00 09/26/17 08:30 (D50w (Vial) Inj) 50 ml UNSCH PRN IV PUSH 09/18/17 18:45 (Glucagon Inj) 1 mg UNSCH PRN OTHER 09/18/17 18:45 Piperacillin Sod/ Tazobactam Sod 50 ml @ 100 mls/hr Q6H IV 09/19/17 00:00 09/26/17 23:59 ([place] 5-325 Mg) 1 tab Q4H PRN PO 09/20/17 18:15 ([place] 5-325 Mg) 2 tab Q4H PRN PO 09/20/17 18:15 09/26/17 22:17 (Morphine Inj) 4 mg Q3H PRN IV PUSH 09/20/17 18:15 09/26/17 23:40 (NovoLOG SUPPLEMENTAL SCALE) 1 ACHS SLIDING SCALE SQ 09/21/17 12:00 09/26/17 17:00 (Prinivil) 20 mg BID PO 09/21/17 21:00 09/26/17 20:53 (Heparin Inj) 5,000 units Q8HR SQ 09/22/17 14:00 09/26/17 20:55 (Ambien) 10 mg HS PRN PO 09/23/17 12:00 (NovoLOG INJ) 20 units TIDAC SQ 09/24/17 08:00 09/26/17 17:00 (Levemir Inj) 25 units BID SQ 09/23/17 21:00 09/26/17 08:30 Lactated Ringer's 1,000 ml @ 30 mls/hr Q24H PRN IV 09/25/17 00:45 09/28/17 00:44 Sodium Chloride 500 ml @ 30 mls/hr [id number] PRN IV 09/25/17 00:45 09/28/17 00:44 (Betadine 5% Antisepsis Kit) 1 applic [employer]ANCE APPRAISER PRN EACH NARE 09/25/17 00:45 09/28/17 00:44 (Chlorhexidine 2% Cloth) 3 pack [employer] APPRAISER PRN TOPICAL 09/25/17 00:45 09/28/17 00:44 (Mobic) 15 mg DAILY PO 09/25/17 16:15 09/26/17 10:42 (Zoloft) 25 mg DAILY PO 09/25/17 16:15 09/26/17 08:29 (Oramorph Sr) 15 mg Q12HR PO 09/26/17 21:00 09/26/17 20:52 Assessment and Plan Assessment and Plan 56-year-old male with right plantar ulcer postop day 1 status post debridement and irrigation of right foot plantar ulcer with wound VAC placement Patient examined and evaluated with all questions answered Will remove wound VAC tomorrow and evaluate for possible discharge Patient will need to be discharged on wound VAC and will need home health care Will await OR culture prior to discharge, if infection is resolved possible graft placement as aggressive limb salvage is being attempted Recommend patient be discharged on IV antibiotics secondary to severity of infection Nitza Wesley DPM Sep 27, 2017 00:11
[2017-09-27] MEDS: PIPERACIL-TAZO 3.375 GM PREMIX 50 ML IV SCH ×3 (05:18→19:04)
[2017-09-27] MEDS: ACETAMINOPHEN/HYDROcodone 325 MG/5 MG TAB PO PRN ×4 (05:18→19:04)
[2017-09-27] MEDS: HEPARIN SODIUM - SQ 10,000 UNITS/ML VIAL SQ SCH ×3 (05:23→21:27)
[2017-09-27] MEDS: MORPHINE SULFATE 4 MG/ML INJ IV PUSH PRN ×5 (06:29→23:43)
[2017-09-27 08:00] VITALS: BP 149/87; PULSE 89; RESP 19; TEMP 98.1; O2SAT 98
[2017-09-27] MEDS: MELOXICAM 15 MG TAB PO SCH (09:37)
[2017-09-27] MEDS: ATORVASTATIN 20 MG TAB PO SCH (09:38)
[2017-09-27] MEDS: PREGABALIN 100 MG CAP PO SCH ×2 (09:38→21:27)
[2017-09-27] MEDS: ASPIRIN 81 MG CHEW TAB CHEW SCH (09:38)
[2017-09-27] MEDS: MORPHINE SULFATE 15 MG CONTROLLED RELEASE TAB PO SCH ×2 (09:38→21:27)
[2017-09-27] MEDS: LISINOPRIL 10 MG TAB PO SCH ×2 (09:38→21:27)
[2017-09-27] MEDS: SERTRALINE HCL 50 MG TAB PO SCH (09:38)
[2017-09-27] MEDS: INSULIN ASPART SUPPLEMENTAL SCALE SQ SCH ×4 (09:39→20:43)
[2017-09-27] MEDS: INSULIN ASPART 1,000 UNITS/10 ML VIAL SQ SCH ×3 (09:39→19:03)
[2017-09-27] MEDS: INSULIN DETEMIR 100 UNITS/ML VIAL SQ SCH ×2 (09:40→21:00)
[2017-09-27] MEDS: SODIUM CHLORIDE 0.9% FLUSH 10 ML FLUSH IV FLUSH SCH ×2 (09:40→20:39)
--- NOTE | 2017-09-27 09:47 | RADRPT ---
EXAM DATE/TIME: 09/27/2017 09:04 [facility] COMPARISON: No previous studies available for comparison. INDICATIONS : Right leg pain. MEDICAL HISTORY : Renal failure, acute. Hypertension. Arthritis. Neuropathy. Mumps. Left leg fracture. Diabetes. [place] sles. Blood transfusion. Osteomyelitis. MRSA. SURGICAL HISTORY : Left below the knee amputation. Right foot debridement. ENCOUNTER: Initial ACUITY: 1 day PAIN SCORE: 1/10 LOCATION: Right leg. TECHNIQUE: Venous ultrasound of the leg was performed from the inguinal ligament to the proximal calf. Real-connie e, color Doppler and spectral tracing, compression and augmentation techniques were used. FINDINGS: There is normal compressibility of the deep venous system from the inguinal region to the proximal ca lf. No echogenic clot is seen in the lumen of the common femoral, femoral, popliteal, and posterior tibial veins. There is a normal response of the venous system to proximal and distal augmentation an d respiration. CONCLUSION: 1. No sonographic evidence for right lower extremity DVT. Rey Lazo MD on September 27, 2017 at 9:46 Board Certified Radiologist. This report was verified electronically.
[2017-09-27 12:00] VITALS: BP 114/83; PULSE 95; RESP 19; TEMP 97.4; O2SAT 98
--- NOTE | 2017-09-27 13:54 | HHI.PR ---
Subjective Remarks Deferred entry, the patient was seen earlier at 10:40 AM. The patient denies chest pain or shortness of breath. A febrile. Pain controlled. Objective Vitals Vital Signs Date Time Temp Pulse Resp B/P (MAP) Pulse Ox O2 Delivery O2 Flow Rate FiO2 09/27/17 12:00 97.4 95 19 114/83 (93) 98 09/27/17 08:00 98.1 89 19 149/87 (107) 98 09/27/17 00:00 97.0 74 18 112/69 (83) 98 09/26/17 20:00 97.6 86 20 118/70 (86) 97 09/26/17 16:00 97.8 100 19 110/72 (85) 97 I/O 09/26/17 09/26/17 09/26/17 09/27/17 09/27/17 09/27/17 07:00 15:00 23:00 07:00 15:00 23:00 Intake Total 440 ml 240 ml 100 ml 340 ml 240 ml Output Total 2000 ml 1000 ml 550 ml Balance -1560 ml 240 ml -900 ml -210 ml 240 ml Intake Oral 240 ml 240 ml 100 ml 240 ml 240 ml IV Total 200 ml 100 ml Output Urine Total 2000 ml 1000 ml 550 ml # Voids 2 # Bowel Movements 1 Result Diagram: 09/26/1728 09/26/17627 Imaging Last Impressions Lower Extremity Ultrasound 09/27/17 0000 Signed Impressions: Service Date/Time: Wednesday, September 27, 2017 09:04 - CONCLUSION: 1. No sonographic evidence for right lower extremity DVT. Rey Lazo MD Tumor Localization 09/22/17 0000 Signed Impressions: Service Date/Time: Friday, September 22, 2017 14:49 - CONCLUSION: No evidence of osteomyelitis Juventino Goodman MD Bone Scan Nuclear Medicine 09/20/17 0000 Signed Impressions: Service Date/Time: Wednesday, September 20, 2017 08:14 - CONCLUSION: Multifocal abnormal bone tracer uptake in the right ankle and foot. Correlation with tagged white blood cell scan may be useful to evaluate for active osteomyelitis Juventino Goodman MD Foot X-Ray 09/18/17 0000 Signed Impressions: Service Date/Time: Monday, September 18, 2017 16:44 - CONCLUSION: Chronic deformity related to prior surgery and neuropathic changes, unchanged in appearance when compared to conventional radiographs 11/17/16. No focal areas of new bony destruction seen. Artem Mckeon MD Objective Remarks GENERAL: Obese, male lying in bed SKIN: 3 x 3 cm ulceration on the plantar surface of the right foot. Surrounding erythema with purulent material. HEAD: Atraumatic. Normocephalic. No temporal or scalp tenderness. EYES: Pupils equal round and reactive. Extraocular motions intact. No scleral icterus. No injection or drainage. ENT: Nose without bleeding, purulent drainage or septal hematoma. Throat without erythema, tonsillar hypertrophy or exudate. Uvula midline. Airway patent. NECK: Trachea midline. No JVD or lymphadenopathy. Supple, nontender, no meningeal signs. CARDIOVASCULAR: Regular rate and rhythm without murmurs, gallops, or rubs. RESPIRATORY: Clear to auscultation. Breath sounds equal bilaterally. No wheezes , rales, or rhonchi. GASTROINTESTINAL: Abdomen soft, non-tender, nondistended. No hepato-splenomegaly , or palpable masses. No guarding. MUSCULOSKELETAL: Extremities without clubbing, cyanosis, or edema. No joint tenderness, effusion, or edema noted. No calf tenderness. Left BKA. NEUROLOGICAL: Awake and alert. Cranial nerves II through XII intact. Motor and sensory grossly within normal limits. Normal speech. Procedures Right foot plantar ulcer debridement and irrigation with wound VAC placement on 09/25/16. Right foot excisional debridement with wound VAC placement on 09/27/17. Medications and IVs Current Medications Medications (Trade) Dose Ordered Sig/Gavin Route Start Time Stop Time Status Last Admin (NS Flush) 2 ml UNSCH PRN IV FLUSH 09/18/17 18:30 09/21/17 00:59 (NS Flush) 2 ml BID IV FLUSH 09/18/17 21:00 09/27/17 09:40 (Narcan Inj) 0.4 mg UNSCH PRN IV PUSH 09/18/17 18:30 (Aspirin Chew) 81 mg DAILY CHEW 09/19/17 09:00 09/27/17 09:38 (Lyrica) 200 mg BID PO 09/18/17 21:00 09/27/17 09:38 (Lipitor) 20 mg DAILY PO 09/19/17 09:00 3/2/18 09:38 (D50w (Vial) Inj) 50 ml UNSCH PRN IV PUSH 09/18/17 18:45 (Glucagon Inj) 1 mg UNSCH PRN OTHER 09/18/17 18:45 Piperacillin Sod/ Tazobactam Sod 50 ml @ 100 mls/hr Q6H IV 09/19/17 00:00 09/27/17 13:03 ([place] 5-325 Mg) 1 tab Q4H PRN PO 09/20/17 18:15 ([place] 5-325 Mg) 2 tab Q4H PRN PO 09/20/17 18:15 09/27/17 09:37 (Morphine Inj) 4 mg Q3H PRN IV PUSH 09/20/17 18:15 09/27/17 10:43 (NovoLOG SUPPLEMENTAL SCALE) 1 ACHS SLIDING SCALE SQ 09/21/17 12:00 09/27/17 13:04 (Prinivil) 20 mg BID PO 09/21/17 21:00 09/27/17 09:38 (Heparin Inj) 5,000 units Q8HR SQ 09/22/17 14:00 09/27/17 05:23 (Ambien) 10 mg HS PRN PO 09/23/17 12:00 (NovoLOG INJ) 20 units TIDAC SQ 09/24/17 08:00 09/27/17 13:03 (Levemir Inj) 25 units BID SQ 09/23/17 21:00 09/27/17 09:40 Lactated Ringer's 1,000 ml @ 30 mls/hr Q24H PRN IV 09/25/17 00:45 09/28/17 00:44 Sodium Chloride 500 ml @ 30 mls/hr [id number] PRN IV 09/25/17 00:45 09/28/17 00:44 (Betadine 5% Antisepsis Kit) 1 applic COMPOUNDING TECHNICIAN PRN EACH NARE 09/25/17 00:45 09/28/17 00:44 (Chlorhexidine 2% Cloth) 3 pack COMPOUNDING TECHNICIAN PRN TOPICAL 09/25/17 00:45 09/28/17 00:44 (Mobic) 15 mg DAILY PO 09/25/17 16:15 09/27/17 09:37 (Zoloft) 25 mg DAILY PO 09/25/17 16:15 09/27/17 09:38 (Oramorph Sr) 15 mg Q12HR PO 09/26/17 21:00 09/27/17 09:38 A/P Problem List: (1) Sepsis ICD Code: A41.9 - Sepsis, unspecified organism (2) Diabetic foot infection ICD Code: E11.69 - Type 2 diabetes mellitus with other specified complication; L08.9 - Local infection of the skin and subcutaneous tissue, unspecified (3) Diabetes mellitus with hyperglycemia ICD Code: E11.65 - Type 2 diabetes mellitus with hyperglycemia (4) HTN (hypertension) ICD Code: I10 - Essential (primary) hypertension Status: Chronic (5) Insomnia ICD Code: G47.00 - Insomnia, unspecified Assessment and Plan 1. Infected Diabetic foot ulcer/sepsis Patient tachycardic with leukocytosis Clindamycin and Zosyn Podiatry consulted, appreciate recommendations Foot x-ray does not suggest osteomyelitis Blood, wound cultures pending Monitor for signs of shock 09/20 DC IV Clindamycin, continue Zosyn, consult ID. Continue pain control with oral [place]. I will place the patient on IV morphine for breakthrough pain. Bone scan done today and shows multifocal abnormal bone tracer uptake in the right ankle and foot. With tagged white blood cell CAT scan was recommended by radiology. White blood cell tagged scan was ordered by Dr. Salinas. Case discussed with Dr. Ortega The patient may need bone biopsy. discussed the case with orthopedic surgery. Dr. Salinas plans on a bedside debridement tomorrow. Awaiting repeat Ceretec white blood cell labeled scan before proceeding with possible bone biopsies. Wound cultures are growing Citrobacter koseri and group D enterococcus. Antibiotics as per ID. The patient currently on IV Zosyn. 09/24 Ceretec without evidence of osteomyelitis. await podiatry recommendations. 09/25 as per orthopedic surgery for wound VAC placement today. 09/26 status post wound VAC placement. Patient with increased pain. I will start Oramorph 50 mg p.o. twice daily. Continue with oral [place]. 3 10/28 as per orthopedic surgery, wound VAC will be removed tomorrow and the patient will be evaluated for discharge. Patient will be discharged on wound VAC will need home health care. Wound cultures obtained on 09/26 still pending. Antibiotics per ID. Currently Zosyn. Continue pain control as above. 2. Diabetes mellitus with hyperglycemia Continue home Lantus SSI Monitor blood glucose 09/19 Blood sugars severely elevated. Will increase levemir to 10 units SQ BID. Continue SSI. Monitor accuchecks. 09/20 blood sugars still severely uncontrolled in the 400s. I will increase Levemir to 12 units subcu twice daily, start prandial NovoLog 8 units 3 times daily before meals and continue SSI with insulin NovoLog but discontinue the low sliding scale and place on the high sliding scale. Continue to monitor Accu -Cheks. 09/21 blood sugar control is still severely elevated in the mid 200s range. 09/23 blood sugar still severely elevated in the 200-300 range. I will adjust the dose of the insulin Levemir and NovoLog and continue to monitor Accu-Cheks. BS goal <180. 09/26 Blood sugars elevated this a.m. Likely secondary to pain. Continue basal bolus therapy with insulin Levemir and NovoLog at same dose. 09/27 blood sugars were better controlled. Will monitor. Continue basal bolus therapy with insulin Levemir and NovoLog at same dose. 3. Hypertension/hyperlipidemia Continue home medications 09/20 BP severely elevated this a.m. in the 170s. Improved after being started on lisinopril 10 mg p.o. twice daily. Continue to monitor vital signs. I will place on clonidine as needed for systolic blood pressure more than 160. 09/21 for BP control much improved, however BP still elevated in the 150s. I will increase lisinopril dose from 10 mg by mouth daily to 20 mg by mouth daily. BP much improved. Continue lisinopril at same dose. 4. Hyponatremia Plan treatment symptomatic chronic. Sodium stable in the 130s. Continue to monitor sodium. Sodium stable at 132. Continue to monitor BMP. 5. Osteoarthritis Continue meloxicam. 6. Depression. Zoloft 25 mg p.o. daily. Seems to be stable. FEN Heart healthy diabetic diet Electrolytes: Monitor and replete when necessary We will place on heparin subcutaneously for DVT prophylaxis. Discharge Planning Awaiting further podiatry recommendations - Dc pending podiatry clearance. Will need home health care. Problem Qualifiers (1) HTN (hypertension): Qualified Codes: I10 - Essential (primary) hypertension (2) Insomnia: Qualified Codes: F51.01 - Primary insomnia Ruben Dean MD Sep 27, 2017 13:54
[2017-09-27 16:00] VITALS: BP 128/76; PULSE 110; RESP 19; TEMP 96.9; O2SAT 99
[2017-09-27 20:00] VITALS: BP 104/63; PULSE 89; RESP 18; TEMP 97; O2SAT 99
--- NOTE | 2017-09-27 20:37 | HHI.PR ---
Subjective Remarks Patient seen bedside this afternoon. Denies nausea, vomiting, fevers, or chills. Denies calf pain. Resting comfortably. States he needs to take care of personal business in [place]. Objective Vital Signs Date Time Temp Pulse Resp B/P (MAP) Pulse Ox O2 Delivery O2 Flow Rate FiO2 09/27/17 16:00 96.9 110 19 128/76 (93) 99 09/27/17 12:00 97.4 95 19 114/83 (93) 98 09/27/17 08:00 98.1 89 19 149/87 (107) 98 09/27/17 00:00 97.0 74 18 112/69 (83) 98 I/O 09/26/17 09/26/17 09/26/17 09/27/17 09/27/17 09/27/17 07:00 15:00 23:00 07:00 15:00 23:00 Intake Total 440 ml 240 ml 100 ml 340 ml 240 ml 1200 ml Output Total 2000 ml 1000 ml 550 ml 1000 ml Balance -1560 ml 240 ml -900 ml -210 ml 240 ml 200 ml Intake Oral 240 ml 240 ml 100 ml 240 ml 240 ml 1200 ml IV Total 200 ml 100 ml Output Urine Total 2000 ml 1000 ml 550 ml 1000 ml # Voids 2 # Bowel Movements 1 1 Result Diagram: 09/26/1728 09/26/17627 Imaging Last Impressions Lower Extremity Ultrasound 09/27/17 0000 Signed Impressions: Service Date/Time: Wednesday, September 27, 2017 09:04 - CONCLUSION: 1. No sonographic evidence for right lower extremity DVT. Rey Lazo MD Tumor Localization 09/22/17 0000 Signed Impressions: Service Date/Time: Friday, September 22, 2017 14:49 - CONCLUSION: No evidence of osteomyelitis Juventino Goodman MD Bone Scan Nuclear Medicine 09/20/17 0000 Signed Impressions: Service Date/Time: Wednesday, September 20, 2017 08:14 - CONCLUSION: Multifocal abnormal bone tracer uptake in the right ankle and foot. Correlation with tagged white blood cell scan may be useful to evaluate for active osteomyelitis Juventino Goodman MD Foot X-Ray 09/18/17 0000 Signed Impressions: Service Date/Time: Monday, September 18, 2017 16:44 - CONCLUSION: Chronic deformity related to prior surgery and neuropathic changes, unchanged in appearance when compared to conventional radiographs 11/17/16. No focal areas of new bony destruction seen. Artem Mckeon MD Procedures Postop day 2 Patient is status post right foot plantar ulcer debridement and irrigation with wound VAC placement Other Results Microbiology Date/Time Source Procedure Growth Status 09/18/17 16:35 Blood Peripheral Aerobic Blood Culture - Final NO GROWTH IN 5 DAYS Complete 09/18/17 16:35 Blood Peripheral Anaerobic Blood Culture - Final NO GROWTH IN 5 DAYS Complete 09/25/17 19:26 Wound Foot Fungal Smear - Final NO FUNGAL ELEMENTS SEEN. Resulted 09/25/17 19:26 Wound Foot Fungal Culture Pending Resulted Objective Remarks Lower extremity physical exam: Vascular: Dorsalis pedis palpable, posterior tibial diminished. Capillary refill time within normal limits to digits present to right foot. Edema present right foot and ankle Neuro: Gross sensation intact to bilateral lower extremity. Pinpoint sensation deep. No hyperalgesia noted to bilateral lower extremity Dermatology: Normal temperature and turgor to bilateral lower extremity. Plantar foot ulcer noted measuring approximately 4 cm x 3 cm with 1 cm of probing; tunneling deep to bone, with no malodor noted, no hyperkeratotic skin edges, and red granulation tissue noted. Musculoskeletal: Rocker-bottom deformity noted to right foot, left below the knee amputation noted. Medications and IVs Current Medications Medications (Trade) Dose Ordered Sig/Gavin Route Start Time Stop Time Status Last Admin (NS Flush) 2 ml UNSCH PRN IV FLUSH 09/18/17 18:30 09/21/17 00:59 (NS Flush) 2 ml BID IV FLUSH 09/18/17 21:00 09/27/17 09:40 (Narcan Inj) 0.4 mg UNSCH PRN IV PUSH 09/18/17 18:30 (Aspirin Chew) 81 mg DAILY CHEW 09/19/17 09:00 09/27/17 09:38 (Lyrica) 200 mg BID PO 09/18/17 21:00 09/27/17 09:38 (Lipitor) 20 mg DAILY PO 09/19/17 09:00 09/27/17 09:38 (D50w (Vial) Inj) 50 ml UNSCH PRN IV PUSH 09/18/17 18:45 (Glucagon Inj) 1 mg UNSCH PRN OTHER 09/18/17 18:45 Piperacillin Sod/ Tazobactam Sod 50 ml @ 100 mls/hr Q6H IV 09/19/17 00:00 09/27/17 19:04 ([place] 5-325 Mg) 1 tab Q4H PRN PO 09/20/17 18:15 ([place] 5-325 Mg) 2 tab Q4H PRN PO 09/20/17 18:15 09/27/17 19:04 (Morphine Inj) 4 mg Q3H PRN IV PUSH 09/20/17 18:15 09/27/17 15:52 (NovoLOG SUPPLEMENTAL SCALE) 1 ACHS SLIDING SCALE SQ 09/21/17 12:00 09/27/17 17:00 (Prinivil) 20 mg BID PO 09/21/17 21:00 09/27/17 09:38 (Heparin Inj) 5,000 units Q8HR SQ 09/22/17 14:00 09/27/17 14:30 (Ambien) 10 mg HS PRN PO 09/23/17 12:00 (NovoLOG INJ) 20 units TIDAC SQ 09/24/17 08:00 09/27/17 19:03 (Levemir Inj) 25 units BID SQ 09/23/17 21:00 09/27/17 09:40 Lactated Ringer's 1,000 ml @ 30 mls/hr Q24H PRN IV 09/25/17 00:45 09/28/17 00:44 Sodium Chloride 500 ml @ 30 mls/hr [id number] PRN IV 09/25/17 00:45 09/28/17 00:44 (Betadine 5% Antisepsis Kit) 1 applic SENIOR MECHANICAL TECHNICIAN PRN EACH NARE 09/25/17 00:45 09/28/17 00:44 (Chlorhexidine 2% Cloth) 3 pack SENIOR MECHANICAL TECHNICIAN PRN TOPICAL 09/25/17 00:45 09/28/17 00:44 (Mobic) 15 mg DAILY PO 09/25/17 16:15 09/27/17 09:37 (Zoloft) 25 mg DAILY PO 09/25/17 16:15 09/27/17 09:38 (Oramorph Sr) 15 mg Q12HR PO 09/26/17 21:00 09/27/17 09:38 Assessment and Plan Assessment and Plan 56-year-old male with right plantar ulcer postop day 1 status post debridement and irrigation of right foot plantar ulcer with wound VAC placement Patient examined and evaluated with all questions answered Patient okay to discharge per podiatry Discussed case with Dr. Timmons patient will be discharged on IV antibiotics Patient will need to be discharged on wound VAC with home health care Patient would like [facility] home health care Continued aggressive wound salvage Wound VAC to be placed please change every 48 hours until discharge Nitza Wesley DPM Sep 27, 2017 20:37
--- NOTE | 2017-09-27 20:47 | HHI.PR ---
Addendum to Inpatient Note Additional Information Seen around 11 am - full note to follow Geovanna Timmons MD Sep 27, 2017 20:47
--- NOTE | 2017-09-27 20:50 | HHI.FF ---
Face to Face Verification Diagnosis: (1) MRSA (methicillin resistant staph aureus) culture positive (2) Foot ulcer, right Home Health Nursing Order: Wound care and dressing changes Instructions: Please perform wound VAC changes every 48 hours with black foam. I have seen patient Juventino Weller on 09/27/17. My clinical findings support the need for the requested home health care services because: Limited ability to care for self High risk of falls Infection w/ risk of complications I certify that my clinical findings support that this patient is homebound because: Post-op weakness Unsteady gait/balance Nitza Wesley DPM Sep 27, 2017 20:50
--- NOTE | 2017-09-27 23:01 | HHI.IDPN ---
Subjective Subjective Remarks sp Right foot plantar ulcer debridement and irrigation with wound VAC placement 09/[address] Wesley Doing well Afebrile no new issues Antibiotics zosyn Allergies: Coded Allergies: vancomycin (Unverified Allergy, Severe, ACUTE RENAL FAILURE, 09/18/17) tigecycline (Unverified Adverse Reaction, Severe, NAUSEA AND VOMITING, ) Uncoded Allergies: aquacel dressing (Allergy, Severe, Bleeding, 12/29/14) pain regranex (Allergy, Severe, Swelling, 12/29/14) pain on the skin Objective . Vital Signs Date Time Temp Pulse Resp B/P (MAP) Pulse Ox O2 Delivery O2 Flow Rate FiO2 09/27/17 20:44 18 09/27/17 20:00 97.0 89 18 104/63 (77) 99 09/27/17 16:00 96.9 110 19 128/76 (93) 99 09/27/17 12:00 97.4 95 19 114/83 (93) 98 09/27/17 08:00 98.1 89 19 149/87 (107) 98 09/27/17 00:00 97.0 74 18 112/69 (83) 98 09/27/17 09/27/17 09/28/17 15:00 23:00 07:00 Intake Total 240 ml 1200 ml Output Total 1000 ml Balance 240 ml 200 ml Intake Oral 240 ml 1200 ml Output Urine Total 1000 ml # Bowel Movements 1 . Laboratory Tests Test 09/26/17 06:28 White Blood Count 9.6 TH/MM3 Red Blood Count 4.60 MIL/MM3 Hemoglobin 13.9 GM/DL Hematocrit 39.9 % Mean Corpuscular Volume 86.8 FL Mean Corpuscular Hemoglobin 30.1 PG Mean Corpuscular Hemoglobin Concent 34.7 % Red Cell Distribution Width 14.2 % Platelet Count 238 TH/MM3 Mean Platelet Volume 8.1 FL Laboratory Tests Test 09/26/17 06:28 Blood Urea Nitrogen 18 MG/DL Creatinine 0.95 MG/DL Random Glucose 272 MG/DL Calcium Level 9.3 MG/DL Sodium Level 132 MEQ/L Potassium Level 4.7 MEQ/L Chloride Level 99 MEQ/L Carbon Dioxide Level 24.1 MEQ/L Anion Gap 9 MEQ/L Estimat Glomerular Filtration Rate 85 ML/MIN Microbiology Date/Time Source Procedure Growth Status 09/25/17 19:26 Wound Foot Fungal Smear - Final NO FUNGAL ELEMENTS SEEN. Resulted 09/25/17 19:26 Wound Foot Fungal Culture Pending Resulted 09/25/17 19:26 Wound Foot Acid Fast Stain - Final NO ACID FAST BACILLI SEEN Resulted 09/25/17 19:26 Wound Foot Mycobacterial Culture Pending Resulted 09/25/17 19:26 Wound Foot Gram Stain - Final Resulted 09/25/17 19:26 Wound Foot Wound Culture - Preliminary NO GROWTH IN 48 HOURS. Resulted Imaging Last Impressions Tumor Localization 09/22/17 0000 Signed Impressions: Service Date/Time: Friday, September 22, 2017 14:49 - CONCLUSION: No evidence of osteomyelitis Juventino Goodman MD Bone Scan Nuclear Medicine 09/20/17 0000 Signed Impressions: Service Date/Time: Wednesday, September 20, 2017 08:14 - CONCLUSION: Multifocal abnormal bone tracer uptake in the right ankle and foot. Correlation with tagged white blood cell scan may be useful to evaluate for active osteomyelitis Juventino Goodman MD Foot X-Ray 09/18/17 0000 Signed Impressions: Service Date/Time: Monday, September 18, 2017 16:44 - CONCLUSION: Chronic deformity related to prior surgery and neuropathic changes, unchanged in appearance when compared to conventional radiographs 11/17/16. No focal areas of new bony destruction seen. Artem Mckeon MD Physical Exam NAD R foot : dressing in place VAC in place with serosang d/c Assessment & Plan Remarks DFI, polimicrobial (citorbacter, enterococcus) No e/o osteo dc zosyn switch to Unasyn would prefer IV abx (Unasyn) for 2 weeks followed by 2 weeks oral dw Geovanna Gilliland MD Sep 27, 2017 23:01
[2017-09-27] MEDS: AMPICILLIN-SULBACTAM INJ 3 GM in SODIUM CHLORIDE 0.9% INJ 100 ML IV SCH (23:43)
[2017-09-28] VITALS: BP 135/84; PULSE 80; RESP 18; TEMP 96.4; O2SAT 98
[2017-09-28] MEDS: AMPICILLIN-SULBACTAM INJ 3 GM in SODIUM CHLORIDE 0.9% INJ 100 ML IV SCH ×4 (05:14→21:08)
[2017-09-28] MEDS: HEPARIN SODIUM - SQ 10,000 UNITS/ML VIAL SQ SCH ×3 (05:14→21:07)
[2017-09-28] MEDS: MORPHINE SULFATE 4 MG/ML INJ IV PUSH PRN ×5 (05:14→21:20)
[2017-09-28 08:00] VITALS: BP 149/81; PULSE 95; RESP 18; TEMP 97.7; O2SAT 98
[2017-09-28] MEDS: MELOXICAM 15 MG TAB PO SCH (08:35)
[2017-09-28] MEDS: MORPHINE SULFATE 15 MG CONTROLLED RELEASE TAB PO SCH ×2 (08:35→21:08)
[2017-09-28] MEDS: PREGABALIN 100 MG CAP PO SCH ×2 (08:35→21:08)
[2017-09-28] MEDS: SERTRALINE HCL 50 MG TAB PO SCH (08:36)
[2017-09-28] MEDS: ASPIRIN 81 MG CHEW TAB CHEW SCH (08:36)
[2017-09-28] MEDS: ACETAMINOPHEN/HYDROcodone 325 MG/5 MG TAB PO PRN ×3 (08:36→16:27)
[2017-09-28] MEDS: LISINOPRIL 10 MG TAB PO SCH ×2 (08:36→21:08)
[2017-09-28] MEDS: ATORVASTATIN 20 MG TAB PO SCH (08:36)
[2017-09-28] MEDS: INSULIN ASPART 1,000 UNITS/10 ML VIAL SQ SCH ×3 (08:38→17:26)
[2017-09-28] MEDS: INSULIN ASPART SUPPLEMENTAL SCALE SQ SCH ×4 (08:39→21:06)
[2017-09-28] MEDS: SODIUM CHLORIDE 0.9% FLUSH 10 ML FLUSH IV FLUSH SCH ×2 (08:39→21:09)
[2017-09-28] MEDS: INSULIN DETEMIR 100 UNITS/ML VIAL SQ SCH ×2 (08:39→21:06)
[2017-09-28 12:00] VITALS: BP 146/93; PULSE 105; RESP 19; TEMP 97.8; O2SAT 98
--- NOTE | 2017-09-28 12:25 | HHI.PR ---
Subjective Remarks Patient states he refused insulin coverage last night because his sugars were on the lower side, in the 70s as per patient however these has not been recorded. The patient states pain is controlled. Denies chest pain or shortness of breath. A febrile. Objective Vitals Vital Signs Date Time Temp Pulse Resp B/P (MAP) Pulse Ox O2 Delivery O2 Flow Rate FiO2 09/28/17 12:00 97.8 105 19 146/93 (110) 98 09/28/17 08:00 97.7 95 18 149/81 (103) 98 09/28/17 05:19 18 09/28/17 00:00 96.4 80 18 135/84 (101) 98 09/27/17 20:00 97.0 89 18 104/63 (77) 99 09/27/17 16:00 96.9 110 19 128/76 (93) 99 I/O 09/27/17 09/27/17 09/27/17 09/28/17 09/28/17 09/28/17 07:00 15:00 23:00 07:00 15:00 23:00 Intake Total 340 ml 240 ml 1250 ml 200 ml Output Total 550 ml 1000 ml Balance -210 ml 240 ml 250 ml 200 ml Intake Oral 240 ml 240 ml 1200 ml IV Total 100 ml 50 ml 200 ml Output Urine Total 550 ml 1000 ml # Voids 2 # Bowel Movements 1 Result Diagram: 09/26/1728 09/26/17627 Imaging Last Impressions Lower Extremity Ultrasound 09/27/17 0000 Signed Impressions: Service Date/Time: Wednesday, September 27, 2017 09:04 - CONCLUSION: 1. No sonographic evidence for right lower extremity DVT. Rey Lazo MD Tumor Localization 09/22/17 0000 Signed Impressions: Service Date/Time: Friday, September 22, 2017 14:49 - CONCLUSION: No evidence of osteomyelitis Juventino Goodman MD Bone Scan Nuclear Medicine 09/20/17 0000 Signed Impressions: Service Date/Time: Wednesday, September 20, 2017 08:14 - CONCLUSION: Multifocal abnormal bone tracer uptake in the right ankle and foot. Correlation with tagged white blood cell scan may be useful to evaluate for active osteomyelitis Juventino Goodman MD Foot X-Ray 09/18/17 0000 Signed Impressions: Service Date/Time: Monday, September 18, 2017 16:44 - CONCLUSION: Chronic deformity related to prior surgery and neuropathic changes, unchanged in appearance when compared to conventional radiographs 11/17/16. No focal areas of new bony destruction seen. Artem Mckeon MD Objective Remarks GENERAL: Obese, male lying in bed SKIN: 3 x 3 cm ulceration on the plantar surface of the right foot. Right foot is dressed with wound VAC present. HEAD: Atraumatic. Normocephalic. No temporal or scalp tenderness. EYES: Pupils equal round and reactive. Extraocular motions intact. No scleral icterus. No injection or drainage. ENT: Nose without bleeding, purulent drainage or septal hematoma. Throat without erythema, tonsillar hypertrophy or exudate. Uvula midline. Airway patent. NECK: Trachea midline. No JVD or lymphadenopathy. Supple, nontender, no meningeal signs. CARDIOVASCULAR: Regular rate and rhythm without murmurs, gallops, or rubs. RESPIRATORY: Clear to auscultation. Breath sounds equal bilaterally. No wheezes , rales, or rhonchi. GASTROINTESTINAL: Abdomen soft, non-tender, nondistended. No hepato-splenomegaly , or palpable masses. No guarding. MUSCULOSKELETAL: Extremities without clubbing, cyanosis, or edema. No joint tenderness, effusion, or edema noted. No calf tenderness. Left BKA. NEUROLOGICAL: Awake and alert. Cranial nerves II through XII intact. Motor and sensory grossly within normal limits. Normal speech. Procedures Right foot plantar ulcer debridement and irrigation with wound VAC placement on 09/25/16. Right foot excisional debridement with wound VAC placement on 09/27/17. Medications and IVs Current Medications Medications (Trade) Dose Ordered Sig/Gavin Route Start Time Stop Time Status Last Admin (NS Flush) 2 ml UNSCH PRN IV FLUSH 09/18/17 18:30 09/21/17 00:59 (NS Flush) 2 ml BID IV FLUSH 09/18/17 21:00 09/28/17 08:39 (Narcan Inj) 0.4 mg UNSCH PRN IV PUSH 09/18/17 18:30 (Aspirin Chew) 81 mg DAILY CHEW 09/19/17 09:00 09/28/17 08:36 (Lyrica) 200 mg BID PO 09/18/17 21:00 09/28/17 08:35 (Lipitor) 20 mg DAILY PO 09/19/17 09:00 09/28/17 08:36 (D50w (Vial) Inj) 50 ml UNSCH PRN IV PUSH 09/18/17 18:45 (Glucagon Inj) 1 mg UNSCH PRN OTHER 09/18/17 18:45 ([place] 5-325 Mg) 1 tab Q4H PRN PO 09/20/17 18:15 ([place] 5-325 Mg) 2 tab Q4H PRN PO 09/20/17 18:15 09/28/17 08:36 (Morphine Inj) 4 mg Q3H PRN IV PUSH 09/20/17 18:15 09/28/17 09:45 (NovoLOG SUPPLEMENTAL SCALE) 1 ACHS SLIDING SCALE SQ 09/21/17 12:00 09/28/17 08:39 (Prinivil) 20 mg BID PO 09/21/17 21:00 09/28/17 08:36 (Heparin Inj) 5,000 units Q8HR SQ 09/22/17 14:00 09/28/17 05:14 (Ambien) 10 mg HS PRN PO 09/23/17 12:00 (NovoLOG INJ) 20 units TIDAC SQ 09/24/17 08:00 09/28/17 08:38 (Levemir Inj) 25 units BID SQ 09/23/17 21:00 09/28/17 08:39 (Mobic) 15 mg DAILY PO 09/25/17 16:15 09/28/17 08:35 (Zoloft) 25 mg DAILY PO 09/25/17 16:15 09/28/17 08:36 (Oramorph Sr) 15 mg Q12HR PO 09/26/17 21:00 09/28/17 08:35 Ampicillin Sodium/ Sulbactam Sodium 3 gm/Sodium Chloride 100 ml @ 200 mls/hr Q6H IV 09/27/17 23:15 09/28/17 09:46 A/P Problem List: (1) Sepsis ICD Code: A41.9 - Sepsis, unspecified organism (2) Diabetic foot infection ICD Code: E11.69 - Type 2 diabetes mellitus with other specified complication; L08.9 - Local infection of the skin and subcutaneous tissue, unspecified (3) Diabetes mellitus with hyperglycemia ICD Code: E11.65 - Type 2 diabetes mellitus with hyperglycemia (4) HTN (hypertension) ICD Code: I10 - Essential (primary) hypertension Status: Chronic (5) Insomnia ICD Code: G47.00 - Insomnia, unspecified Assessment and Plan 1. Infected Diabetic foot ulcer/sepsis Patient tachycardic with leukocytosis Clindamycin and Zosyn Podiatry consulted, appreciate recommendations Foot x-ray does not suggest osteomyelitis Blood, wound cultures pending Monitor for signs of shock 09/20 DC IV Clindamycin, continue Zosyn, consult ID. Continue pain control with oral [place]. I will place the patient on IV morphine for breakthrough pain. Bone scan done today and shows multifocal abnormal bone tracer uptake in the right ankle and foot. With tagged white blood cell CAT scan was recommended by radiology. White blood cell tagged scan was ordered by Dr. Salinas. Case discussed with Dr. Ortega The patient may need bone biopsy. discussed the case with orthopedic surgery. Dr. Salinas plans on a bedside debridement tomorrow. Awaiting repeat Ceretec white blood cell labeled scan before proceeding with possible bone biopsies. Wound cultures are growing Citrobacter koseri and group D enterococcus. Antibiotics as per ID. The patient currently on IV Zosyn. 09/24 Ceretec without evidence of osteomyelitis. await podiatry recommendations. 09/25 as per orthopedic surgery for wound VAC placement today. 09/26 status post wound VAC placement. Patient with increased pain. I will start Oramorph 50 mg p.o. twice daily. Continue with oral [place]. as per orthopedic surgery, wound VAC will be removed tomorrow and the patient will be evaluated for discharge. Patient will be discharged on wound VAC will need home health care. Wound cultures obtained on 09/26 still pending. Antibiotics per ID. Currently Zosyn. Continue pain control as above. 2. Diabetes mellitus with hyperglycemia Continue home Lantus SSI Monitor blood glucose 09/19 Blood sugars severely elevated. Will increase levemir to 10 units SQ BID. Continue SSI. Monitor accuchecks. 09/20 blood sugars still severely uncontrolled in the 400s. I will increase Levemir to 12 units subcu twice daily, start prandial NovoLog 8 units 3 times daily before meals and continue SSI with insulin NovoLog but discontinue the low sliding scale and place on the high sliding scale. Continue to monitor Accu -Cheks. 09/21 blood sugar control is still severely elevated in the mid 200s range. 09/23 blood sugar still severely elevated in the 200-300 range. I will adjust the dose of the insulin Levemir and NovoLog and continue to monitor Accu-Cheks. BS goal <180. 09/26 Blood sugars elevated this a.m. Likely secondary to pain. Continue basal bolus therapy with insulin Levemir and NovoLog at same dose. 09/27 blood sugars were better controlled. Will monitor. Continue basal bolus therapy with insulin Levemir and NovoLog at same dose. 09/28 will decrease insulin Levemir down to 20 units subcu twice daily and continue same prandial dose of NovoLog. Continue SSI with insulin NovoLog. Continue to monitor Accu-Cheks. 3. Hypertension/hyperlipidemia Continue home medications 09/20 BP severely elevated this a.m. in the 170s. Improved after being started on lisinopril 10 mg p.o. twice daily. Continue to monitor vital signs. I will place on clonidine as needed for systolic blood pressure more than 160. 09/21 for BP control much improved, however BP still elevated in the 150s. I will increase lisinopril dose from 10 mg by mouth daily to 20 mg by mouth daily. BP much improved. Continue lisinopril at same dose. 4. Hyponatremia Plan treatment symptomatic chronic. Sodium stable in the 130s. Continue to monitor sodium. Sodium stable at 132. Continue to monitor BMP. 5. Osteoarthritis Continue meloxicam. 6. Depression. Zoloft 25 mg p.o. daily. Seems to be stable. FEN Heart healthy diabetic diet Electrolytes: Monitor and replete when necessary We will place on heparin subcutaneously for DVT prophylaxis. Discharge Planning Awaiting further podiatry recommendations - Dc pending podiatry clearance. Will need home health care. Problem Qualifiers (1) HTN (hypertension): Qualified Codes: I10 - Essential (primary) hypertension (2) Insomnia: Qualified Codes: F51.01 - Primary insomnia Ruben Dean MD Sep 28, 2017 12:25
[2017-09-28 16:00] VITALS: BP 144/89; PULSE 93; RESP 17; TEMP 98; O2SAT 99
[2017-09-28 20:00] VITALS: BP 117/74; PULSE 93; RESP 20; TEMP 97.7; O2SAT 98
[2017-09-29] VITALS: BP 155/85; PULSE 80; RESP 20; TEMP 95.8; O2SAT 99
[2017-09-29] MEDS: MORPHINE SULFATE 4 MG/ML INJ IV PUSH PRN ×7 (02:17→23:43)
[2017-09-29] MEDS: AMPICILLIN-SULBACTAM INJ 3 GM in SODIUM CHLORIDE 0.9% INJ 100 ML IV SCH ×4 (04:31→20:15)
[2017-09-29] MEDS: HEPARIN SODIUM - SQ 10,000 UNITS/ML VIAL SQ SCH ×3 (04:32→20:14)
[2017-09-29] MEDS: ACETAMINOPHEN/HYDROcodone 325 MG/5 MG TAB PO PRN ×4 (06:28→19:07)
[2017-09-29 08:00] VITALS: BP 142/90; PULSE 89; RESP 18; TEMP 98.3; O2SAT 98
[2017-09-29] MEDS: MELOXICAM 15 MG TAB PO SCH (09:00)
[2017-09-29] MEDS: SODIUM CHLORIDE 0.9% FLUSH 10 ML FLUSH IV FLUSH SCH ×2 (09:00→20:15)
[2017-09-29] MEDS: PREGABALIN 100 MG CAP PO SCH ×2 (09:32→20:14)
[2017-09-29] MEDS: LISINOPRIL 10 MG TAB PO SCH ×2 (09:32→20:14)
[2017-09-29] MEDS: MORPHINE SULFATE 15 MG CONTROLLED RELEASE TAB PO SCH ×2 (09:33→20:14)
[2017-09-29] MEDS: ASPIRIN 81 MG CHEW TAB CHEW SCH (09:33)
[2017-09-29] MEDS: SERTRALINE HCL 50 MG TAB PO SCH (09:33)
[2017-09-29] MEDS: ATORVASTATIN 20 MG TAB PO SCH (09:33)
[2017-09-29] MEDS: INSULIN ASPART 1,000 UNITS/10 ML VIAL SQ SCH ×3 (09:35→16:32)
[2017-09-29] MEDS: INSULIN ASPART SUPPLEMENTAL SCALE SQ SCH ×4 (09:36→20:12)
[2017-09-29] MEDS: INSULIN DETEMIR 100 UNITS/ML VIAL SQ SCH ×2 (09:36→20:13)
--- NOTE | 2017-09-29 11:31 | HHI.FF ---
Infusion Therapy Location of Infusion Therapy: Home Health Care IV Infusion Order Patient Information Patient Weight 108.8 kg Diagnosis: Coded Allergies: vancomycin (Unverified Allergy, Severe, ACUTE RENAL FAILURE, 09/18/17) tigecycline (Unverified Adverse Reaction, Severe, NAUSEA AND VOMITING, ) Uncoded Allergies: aquacel dressing (Allergy, Severe, Bleeding, 12/29/14) pain regranex (Allergy, Severe, Swelling, 12/29/14) pain on the skin Administer Medication Unasyn 3 gm IV q 6 hrs Start Treatment: Sep 29, 2017 Stop Treatment: Oct 10, 2017 Additional Information Venous access: Other (midline) Additional Instructions [x] Peripheral flush and dressing changes per protocol [x] Implanted port and central cupola liner: * Implanted port: 10 ml Normal Saline followed by 5 ml Heparin 100 units/ml Heparin flush after each use and monthly to maintain. [] May leave port accessed during therapy. [] May leave peripheral site accessed for duration of therapy. [x] If patient has SOB or respiratory distress, check oxygen saturation. If less than 90% or clinical signs of respiratory distress, administer oxygen at 2 L/min. via nasal cannula and notify physician. [x] Anaphylaxis/Reaction orders: * Stop infusion. * Keep IV line open with saline flush. * Notify physician. * Monitor vital signs every 15 minutes until symptoms resolve. * Check Oxygen saturation; Oxygen at 2 L/min. via nasal cannula if less than 90% or clinical signs of respiratory distress. * Administer diphenhydramine (Benadryl) 25 mg IV STAT, (unless patient has received as pre-med). May repeat once, if necessary. * Solu-Cortef 250 mg IVP over 30-60 seconds, use 100 mg vials for each dissolution. * Epinephrine (1mg/1 ml) 0.3 mg subcutaneously or IVP now with any signs of respiratory distress. * Check with physician for new additional pre-med orders if patient is re- challenged or re-treated. [x] May remove PICC line when treatment complete, after confirming with Physician. [x] If the patient is admitted to the hospital, the ED, or transferred via [facility] , complete transfer form including medication reconciliation order sheet. Laboratory Tests Weekly Labs: CBC w/diff, Creatinine, LFT's (Hepatic function test) Geovanna Timmons MD Sep 29, 2017 11:31
[2017-09-29 12:00] VITALS: BP 138/87; PULSE 85; RESP 18; TEMP 97.8; O2SAT 99
[2017-09-29] MEDS ORDERED: INSU1MIS15 (12:30)
[2017-09-29] MEDS ORDERED: LEVEMIR SQ (12:30)
[2017-09-29] MEDS ORDERED: ROSU10 PO (12:30)
[2017-09-29] MEDS ORDERED: ZOLO25TA PO (12:30)
[2017-09-29] MEDS ORDERED: LISI10TA3 PO (12:30)
[2017-09-29] MEDS ORDERED: GLUCKIT15 (12:30)
[2017-09-29] MEDS ORDERED: BIOM30MI (12:30)
[2017-09-29] MEDS ORDERED: LANCETS1 MI1 (12:30)
[2017-09-29] MEDS ORDERED: LYRI200C PO (12:30)
[2017-09-29] MEDS ORDERED: NOVOLOGP2 SQ ×2 (12:30)
[2017-09-29] MEDS ORDERED: GLUCTES12 (12:30)
[2017-09-29] MEDS ORDERED: NORC5TAB PO (12:36)
[2017-09-29] MEDS ORDERED: AUGM875T3 PO (12:36)
--- NOTE | 2017-09-29 12:40 | HHI.DCPOC ---
Discharge Care Plan Diagnosis: (1) Diabetic foot ulcer associated with type 2 diabetes mellitus (2) Enterococcus faecalis infection (3) Status post transmetatarsal amputation of left foot (4) HTN (hypertension) (5) Insomnia (6) Diabetic foot infection (7) Sepsis (8) Diabetes mellitus with hyperglycemia Goals to Promote Your Health * To prevent worsening of your condition and complications * To maintain your health at the optimal level Directions to Meet Your Goals Take your medications as prescribed Follow your dietary instruction Follow activity as directed Keep your appointments as scheduled Take your immunizations and boosters as scheduled If your symptoms worsen call your PCP, if no PCP go to Urgent Care Center or Emergency Room Smoking is Dangerous to Your Health. Avoid second hand smoke Call the 24-hour hour crisis hotline for domestic abuse at Ruben Dean MD Sep 29, 2017 12:39
--- NOTE | 2017-09-29 12:42 | HHI.FF ---
Face to Face Verification Diagnosis: (1) Infection caused by Enterobacter cloacae (2) History of left below knee amputation (3) Hyperglycemia due to type 2 diabetes mellitus (4) Foot ulcer, right (5) Sepsis (6) Diabetic foot infection (7) Insomnia (8) Bacteremia (9) Leukocytosis (10) Ulcer of foot (11) Diabetic foot ulcer associated with type 2 diabetes mellitus (12) Enterococcus faecalis infection (13) Status post transmetatarsal amputation of left foot Home Health Nursing Order: Nursing assessment with vital signs IV medication administration I have seen patient Juventino Weller on 09/29/17. My clinical findings support the need for the requested home health care services because: Limited ability to care for self High risk of falls Infection w/ risk of complications I certify that my clinical findings support that this patient is homebound because: Unsafe to leave home unassisted [id number] bed/chair Unable to use public transportation Ruben Dean MD Sep 29, 2017 12:42
--- NOTE | 2017-09-29 12:56 | HHI.PR ---
Subjective Remarks Pain controlled. Patient is afebrile. Patient denies chest pain or shortness of breath. Blood sugar more stable. Objective Vitals Vital Signs Date Time Temp Pulse Resp B/P (MAP) Pulse Ox O2 Delivery O2 Flow Rate FiO2 09/29/17 12:00 97.8 85 18 138/87 (104) 99 09/29/17 08:00 98.3 89 18 142/90 (107) 98 09/29/17 00:00 95.8 80 20 155/85 (108) 99 09/28/17 20:00 97.7 93 20 117/74 (88) 98 09/28/17 16:00 98.0 93 17 144/89 (107) 99 I/O 09/28/17 09/28/17 09/28/17 09/29/17 09/29/17 09/29/17 07:00 15:00 23:00 07:00 15:00 23:00 Intake Total 200 ml 680 ml 1180 ml Output Total 705 ml Balance 200 ml -25 ml 1180 ml Intake Oral 480 ml 1080 ml IV Total 200 ml 200 ml 100 ml Output Urine Total 700 ml Drainage Total 5 ml # Voids 6 # Bowel Movements 0 0 Result Diagram: 09/26/17 0628 09/26/17 0628 Imaging Last Impressions Lower Extremity Ultrasound 09/27/17 0000 Signed Impressions: Service Date/Time: Wednesday, September 27, 2017 09:04 - CONCLUSION: 1. No sonographic evidence for right lower extremity DVT. Rey Lazo MD Tumor Localization 09/22/17 0000 Signed Impressions: Service Date/Time: Friday, September 22, 2017 14:49 - CONCLUSION: No evidence of osteomyelitis Juventino Goodman MD Bone Scan Nuclear Medicine 09/20/17 0000 Signed Impressions: Service Date/Time: Wednesday, September 20, 2017 08:14 - CONCLUSION: Multifocal abnormal bone tracer uptake in the right ankle and foot. Correlation with tagged white blood cell scan may be useful to evaluate for active osteomyelitis Juventino Goodman MD Foot X-Ray 09/18/17 0000 Signed Impressions: Service Date/Time: Monday, September 18, 2017 16:44 - CONCLUSION: Chronic deformity related to prior surgery and neuropathic changes, unchanged in appearance when compared to conventional radiographs 11/17/16. No focal areas of new bony destruction seen. Artem Mckeon MD Objective Remarks GENERAL: Obese, male lying in bed SKIN: 3 x 3 cm ulceration on the plantar surface of the right foot. Right foot is dressed with wound VAC present. HEAD: Atraumatic. Normocephalic. No temporal or scalp tenderness. EYES: Pupils equal round and reactive. Extraocular motions intact. No scleral icterus. No injection or drainage. ENT: Nose without bleeding, purulent drainage or septal hematoma. Throat without erythema, tonsillar hypertrophy or exudate. Uvula midline. Airway patent. NECK: Trachea midline. No JVD or lymphadenopathy. Supple, nontender, no meningeal signs. CARDIOVASCULAR: Regular rate and rhythm without murmurs, gallops, or rubs. RESPIRATORY: Clear to auscultation. Breath sounds equal bilaterally. No wheezes , rales, or rhonchi. GASTROINTESTINAL: Abdomen soft, non-tender, nondistended. No hepato-splenomegaly , or palpable masses. No guarding. MUSCULOSKELETAL: Extremities without clubbing, cyanosis, or edema. No joint tenderness, effusion, or edema noted. No calf tenderness. Left BKA. NEUROLOGICAL: Awake and alert. Cranial nerves II through XII intact. Motor and sensory grossly within normal limits. Normal speech. Procedures Right foot plantar ulcer debridement and irrigation with wound VAC placement on 09/25/16. Right foot excisional debridement with wound VAC placement on 09/27/17. Medications and IVs Current Medications Medications (Trade) Dose Ordered Sig/Gavin Route Start Time Stop Time Status Last Admin (NS Flush) 2 ml UNSCH PRN IV FLUSH 09/18/17 18:30 09/21/17 00:59 (NS Flush) 2 ml BID IV FLUSH 09/18/17 21:00 09/29/17 09:00 (Narcan Inj) 0.4 mg UNSCH PRN IV PUSH 09/18/17 18:30 (Aspirin Chew) 81 mg DAILY CHEW 09/19/17 09:00 09/29/17 09:33 (Lyrica) 200 mg BID PO 09/18/17 21:00 09/29/17 09:32 (Lipitor) 20 mg DAILY PO 09/19/17 09:00 09/29/17 09:33 (D50w (Vial) Inj) 50 ml UNSCH PRN IV PUSH 09/18/17 18:45 (Glucagon Inj) 1 mg UNSCH PRN OTHER 09/18/17 18:45 ([place] 5-325 Mg) 1 tab Q4H PRN PO 09/20/17 18:15 ([place] 5-325 Mg) 2 tab Q4H PRN PO 09/20/17 18:15 09/29/17 10:31 (Morphine Inj) 4 mg Q3H PRN IV PUSH 09/20/17 18:15 09/29/17 09:44 (NovoLOG SUPPLEMENTAL SCALE) 1 ACHS SLIDING SCALE SQ 09/21/17 12:00 09/29/17 09:36 (Prinivil) 20 mg BID PO 09/21/17 21:00 09/29/17 09:32 (Heparin Inj) 5,000 units Q8HR SQ 09/22/17 14:00 09/29/17 04:32 (Ambien) 10 mg HS PRN PO 09/23/17 12:00 (NovoLOG INJ) 20 units TIDAC SQ 09/24/17 08:00 09/29/17 09:35 (Mobic) 15 mg DAILY PO 09/25/17 16:15 09/28/17 08:35 (Zoloft) 25 mg DAILY PO 09/25/17 16:15 09/29/17 09:33 (Oramorph Sr) 15 mg Q12HR PO 09/26/17 21:00 09/29/17 09:33 Ampicillin Sodium/ Sulbactam Sodium 3 gm/Sodium Chloride 100 ml @ 200 mls/hr Q6H IV 09/27/17 23:15 09/29/17 09:44 (Levemir Inj) 20 units BID SQ 09/28/17 21:00 09/29/17 09:36 A/P Problem List: (1) Sepsis ICD Code: A41.9 - Sepsis, unspecified organism Status: Resolved (2) Diabetic foot infection ICD Code: E11.69 - Type 2 diabetes mellitus with other specified complication; L08.9 - Local infection of the skin and subcutaneous tissue, unspecified Status: Acute (3) Diabetes mellitus with hyperglycemia ICD Code: E11.65 - Type 2 diabetes mellitus with hyperglycemia Status: Acute (4) HTN (hypertension) ICD Code: I10 - Essential (primary) hypertension Status: Chronic (5) Insomnia ICD Code: G47.00 - Insomnia, unspecified Status: Resolved Assessment and Plan 1. Infected Diabetic foot ulcer/sepsis The patient met sepsis criteria with tachycardia and leukocytosis. The patient was started initially on IV clindamycin IV Zosyn. Foot x-ray did not show suggested osteomyelitis. Podiatry was consulted. Clindamycin was discontinued the day after the patient was admitted. ID consulted. Pain control provided with [place]. Podiatry recommended bone scan which showed multifocal abnormal bone tracer uptake in the right ankle of the foot. A wet tagged white blood cell CT scan was recommended. This was negative for osteomyelitis. The patient had a wound VAC placed. Orthopedic surgery did wound VAC changes at bedside. Patient has been cleared by orthopedic surgery. ID recommended outpatient IV Unasyn for 2 weeks and 2 weeks of Augmentin posteriorly. 2. Diabetes mellitus with hyperglycemia Initially blood sugars were severely elevated in the 400s range. The patient was started on basal bolus therapy with insulin Levemir insulin NovoLog as well as SSI with insulin NovoLog. The insulin was increased and adjusted to keep a blood sugar of less than 180. The patient was discharged on insulin Levemir 20 units subcutaneously twice a day and NovoLog 20 units subcu 3 times daily before meals. Blood sugars more stable prior to discharge. 3. Hypertension/hyperlipidemia Home medications were continued. Initially blood pressure severely elevated in the 170s. Patient was started on lisinopril 10 minutes p.o. twice a day, however blood pressure still continue to be elevated although improved. Lisinopril dose was increased to 20 mg p.o. twice daily after which blood pressure remained stable. Continue to monitor vital signs. 4. Hyponatremia Chronic. BMP monitored throughout hospital stay. Sodium remained stable in the 132-133 range during hospitalization. Continue to monitor BMP. 5. Osteoarthritis Stable managed with meloxicam. 6. Depression. Zoloft 25 mg p.o. daily. Remained stable. FEN Heart healthy diabetic diet Electrolytes: Monitor and replete when necessary Habits with a tendency for DVT prophylaxis. Discharge Planning Awaiting further podiatry recommendations - Dc pending podiatry clearance. Will need home health care. 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
[2017-09-29] MEDS ORDERED: SODIUM CHLORIDE 0.9% FLUSH 10 ML FLUSH IV FLUSH PRN (14:45)
--- NOTE | 2017-09-29 15:19 | RADRPT ---
EXAM DATE/TIME: 09/29/2017 14:58 [facility] COMPARISON: CHEST SINGLE AP, June 11, 2016, 8:57. INDICATIONS : Right sided PICC placement. MEDICAL HISTORY : Renal failure, acute. Hypertension. Arthritis. Neuropathy. Mumps. Left leg fracture. Diabetes. Measle s. Blood transfusion. Osteomyelitis. MRSA. SURGICAL HISTORY : Left below the knee amputation. Right foot debridement. ENCOUNTER: Initial ACUITY: 1 day PAIN SCORE: 0/10 LOCATION: Bilateral chest FINDINGS: A single view of the chest demonstrates the lungs to be symmetrically aerated without evidence of mas s, infiltrate or effusion. The cardiomediastinal contours are unremarkable. Osseous structures are intact. Right PICC line is present and the distal tip overlies the SVC. CONCLUSION: Clear lungs. PICC line placement. Rom Gardner MD on September 29, 2017 at 15:17 Board Certified Radiologist. This report was verified electronically.
[2017-09-29 16:00] VITALS: BP 145/88; PULSE 88; RESP 18; TEMP 98; O2SAT 99
[2017-09-29 20:00] VITALS: BP 118/81; PULSE 94; RESP 20; TEMP 96.2; O2SAT 97
[2017-09-30] VITALS: BP 136/78; PULSE 75; RESP 18; TEMP 95.9; O2SAT 99
[2017-09-30] MEDS: ACETAMINOPHEN/HYDROcodone 325 MG/5 MG TAB PO PRN ×4 (00:23→15:47)
[2017-09-30] MEDS: AMPICILLIN-SULBACTAM INJ 3 GM in SODIUM CHLORIDE 0.9% INJ 100 ML IV SCH ×3 (04:12→15:47)
[2017-09-30] MEDS: HEPARIN SODIUM - SQ 10,000 UNITS/ML VIAL SQ SCH ×2 (04:12→12:28)
[2017-09-30] MEDS: MORPHINE SULFATE 4 MG/ML INJ IV PUSH PRN ×4 (04:34→17:14)
[2017-09-30 08:00] VITALS: BP 141/86; PULSE 102; RESP 19; TEMP 98.1; O2SAT 99
[2017-09-30] MEDS: INSULIN ASPART 1,000 UNITS/10 ML VIAL SQ SCH ×3 (08:00→15:50)
--- NOTE | 2017-09-30 08:32 | HHI.PR ---
Subjective Remarks no pain complains states good hypoglycemic awareness we are waiting for VAC to be delivered to his room Objective Vitals Vital Signs Date Time Temp Pulse Resp B/P (MAP) Pulse Ox O2 Delivery O2 Flow Rate FiO2 09/30/17 08:00 98.1 102 19 141/86 (104) 99 09/30/17 00:00 95.9 75 18 136/78 (97) 99 09/29/17 20:00 96.2 94 20 118/81 (93) 97 09/29/17 16:00 98.0 88 18 145/88 (107) 99 09/29/17 12:00 97.8 85 18 138/87 (104) 99 I/O 09/29/17 09/29/17 09/29/17 09/30/17 09/30/17 09/30/17 07:00 15:00 23:00 07:00 15:00 23:00 Intake Total 1180 ml 800 ml 720 ml Output Total 0 ml Balance 1180 ml 800 ml 720 ml Intake Oral 1080 ml 600 ml 720 ml IV Total 100 ml 200 ml Drainage Total 0 ml # Voids 6 6 3 # Bowel Movements 0 1 0 Result Diagram: 09/26/17 0628 09/26/17 0628 Imaging Last Impressions Chest X-Ray 09/29/17 0000 Signed Impressions: Service Date/Time: Friday, September 29, 2017 14:58 - CONCLUSION: Clear lungs. PICC line placement. Rom Gardner MD Lower Extremity Ultrasound 09/27/17 0000 Signed Impressions: Service Date/Time: Wednesday, September 27, 2017 09:04 - CONCLUSION: 1. No sonographic evidence for right lower extremity DVT. Rey Lazo MD Tumor Localization 09/22/17 0000 Signed Impressions: Service Date/Time: Friday, September 22, 2017 14:49 - CONCLUSION: No evidence of osteomyelitis Juventino Goodman MD Bone Scan Nuclear Medicine 09/20/17 0000 Signed Impressions: Service Date/Time: Wednesday, September 20, 2017 08:14 - CONCLUSION: Multifocal abnormal bone tracer uptake in the right ankle and foot. Correlation with tagged white blood cell scan may be useful to evaluate for active osteomyelitis Juventino Goodman MD Foot X-Ray 09/18/17 0000 Signed Impressions: Service Date/Time: Monday, September 18, 2017 16:44 - CONCLUSION: Chronic deformity related to prior surgery and neuropathic changes, unchanged in appearance when compared to conventional radiographs 11/17/16. No focal areas of new bony destruction seen. Artem Mckeon MD Objective Remarks awake and alert, oriented x 3, no distress anicteric no nuchal rigidity lungs- clear regular rhythm abdomen- soft, nontender RUE- PICC in place- no sings of infection right foot- wound VAC in palce left BKA- Procedures Right foot plantar ulcer debridement and irrigation with wound VAC placement on 09/25/16. Right foot excisional debridement with wound VAC placement on 09/27/17. PICC placement - RUE A/P Problem List: (1) Sepsis ICD Code: A41.9 - Sepsis, unspecified organism Status: Resolved (2) Diabetic foot infection ICD Code: E11.69 - Type 2 diabetes mellitus with other specified complication; L08.9 - Local infection of the skin and subcutaneous tissue, unspecified Status: Acute (3) Diabetes mellitus with hyperglycemia ICD Code: E11.65 - Type 2 diabetes mellitus with hyperglycemia Status: Acute (4) HTN (hypertension) ICD Code: I10 - Essential (primary) hypertension Status: Chronic (5) Insomnia ICD Code: G47.00 - Insomnia, unspecified Status: Resolved Assessment and Plan 47 years old male 1. Infected Diabetic foot ulcer/sepsis The patient met sepsis criteria with tachycardia and leukocytosis. The patient was started initially on IV clindamycin IV Zosyn. Foot x-ray did not show suggested osteomyelitis. Podiatry was consulted. Clindamycin was discontinued the day after the patient was admitted. ID consulted. Pain control provided with [place]. Podiatry recommended bone scan which showed multifocal abnormal bone tracer uptake in the right ankle of the foot. A wet tagged white blood cell CT scan was recommended. This was negative for osteomyelitis. The patient had a wound VAC placed. Orthopedic surgery did wound VAC changes at bedside. Patient has been cleared by orthopedic surgery. ID recommended outpatient IV Unasyn for 2 weeks and 2 weeks of Augmentin posteriorly. 2. Diabetes mellitus with hyperglycemia Initially blood sugars were severely elevated in the 400s range. The patient was started on basal bolus therapy with insulin Levemir insulin NovoLog as well as SSI with insulin NovoLog. The insulin was increased and adjusted to keep a blood sugar of less than 180. The patient was discharged on insulin Levemir 20 units subcutaneously twice a day and NovoLog 20 units subcu 3 times daily before meals. Blood sugars more stable prior to discharge. 3. Hypertension/hyperlipidemia Home medications were continued. Initially blood pressure severely elevated in the 170s. Patient was started on lisinopril 10 minutes p.o. twice a day, however blood pressure still continue to be elevated although improved. Lisinopril dose was increased to 20 mg p.o. twice daily after which blood pressure remained stable. Continue to monitor vital signs. 4. Hyponatremia Chronic. asymptoamtic 5. Osteoarthritis Stable managed with meloxicam. 6. Depression. Zoloft 25 mg p.o. daily. Remained stable. requesting for ambien 5 mg hs- prn- will write for some till he gets to see his PCP- Dr. Gill Jo FEN Heart healthy diabetic diet Electrolytes: Monitor and replete when necessary Habits with a tendency for DVT prophylaxis. Home with home health care FF up with Podiatry and PCP- as OP Problem Qualifiers (1) Diabetes mellitus with hyperglycemia: Qualified Codes: E11.65 - Type 2 diabetes mellitus with hyperglycemia; Z79.4 - [facility] (current) use of insulin (2) Insomnia: Qualified Codes: F51.01 - Primary insomnia Faisal Sanchez MD Sep 30, 2017 08:32
[2017-09-30] MEDS ORDERED: ZOLP5TAB3 PO (08:36)
[2017-09-30] MEDS: MORPHINE SULFATE 15 MG CONTROLLED RELEASE TAB PO SCH (08:59)
[2017-09-30] MEDS: PREGABALIN 100 MG CAP PO SCH (08:59)
[2017-09-30] MEDS: ATORVASTATIN 20 MG TAB PO SCH (08:59)
[2017-09-30] MEDS: SERTRALINE HCL 50 MG TAB PO SCH (09:00)
[2017-09-30] MEDS: SODIUM CHLORIDE 0.9% FLUSH 10 ML FLUSH IV FLUSH SCH (09:00)
[2017-09-30] MEDS: MELOXICAM 15 MG TAB PO SCH (09:00)
[2017-09-30] MEDS: ASPIRIN 81 MG CHEW TAB CHEW SCH (09:00)
[2017-09-30] MEDS: LISINOPRIL 10 MG TAB PO SCH (09:00)
[2017-09-30] MEDS ORDERED: SODIUM CHLORIDE 0.9% FLUSH 10 ML FLUSH IV FLUSH SCH (09:00)
[2017-09-30] MEDS: INSULIN DETEMIR 100 UNITS/ML VIAL SQ SCH (09:14)
[2017-09-30] MEDS: INSULIN ASPART SUPPLEMENTAL SCALE SQ SCH ×3 (09:15→15:48)
[2017-09-30 12:00] VITALS: BP 138/64; PULSE 100; RESP 19; TEMP 96.6; O2SAT 99
[2017-09-30 16:00] VITALS: BP 117/72; PULSE 96; RESP 19; TEMP 97.2; O2SAT 98
--- NOTE | 2017-09-30 17:52 | HHI.DS ---
Discharge Summary Admission Date Sep 19, 2017 at 23:19 Discharge Date: Sep 30, 2017 Admitting Diagnosis right foot ulcer, infected, history of MRSA (1) Sepsis ICD Code: A41.9 - Sepsis, unspecified organism Diagnosis: Principal Status: Resolved (2) Diabetic foot infection ICD Code: E11.69 - Type 2 diabetes mellitus with other specified complication; L08.9 - Local infection of the skin and subcutaneous tissue, unspecified Diagnosis: Principal Status: Acute (3) Diabetes mellitus with hyperglycemia ICD Code: E11.65 - Type 2 diabetes mellitus with hyperglycemia Diagnosis: Secondary Status: Acute (4) HTN (hypertension) ICD Code: I10 - Essential (primary) hypertension Diagnosis: Secondary Status: Chronic (5) Insomnia ICD Code: G47.00 - Insomnia, unspecified Diagnosis: Secondary Status: Resolved Procedures Right foot plantar ulcer debridement and irrigation with wound VAC placement on 09/25/16. Right foot excisional debridement with wound VAC placement on 09/27/17. 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 The patient has a chronic, nonhealing diabetic ulcer on the entire surface of his right foot. He is being managed by Dr. Salinas who started him on Bactrim today after seeing him in the office. The patient reports he was in the parking lot getting into his car when he slipped and fell placing the entire fleet of his body on his foot. He immediately noted a sharp shooting pain and called the digital printer's office who recommended further evaluation in the emergency department. The patient denies any fever/chills. No chest pain or shortness of breath. No nausea/vomiting/diarrhea. CBC/BMP: 09/26/17 0628 09/26/17 0628 Imaging Last Impressions Chest X-Ray 09/29/17 0000 Signed Impressions: Service Date/Time: Friday, September 29, 2017 14:58 - CONCLUSION: Clear lungs. PICC line placement. Rom Gardner MD Lower Extremity Ultrasound 09/27/17 0000 Signed Impressions: Service Date/Time: Wednesday, September 27, 2017 09:04 - CONCLUSION: 1. No sonographic evidence for right lower extremity DVT. Rey Lazo MD Tumor Localization 09/22/17 0000 Signed Impressions: Service Date/Time: Friday, September 22, 2017 14:49 - CONCLUSION: No evidence of osteomyelitis Juventino Goodman MD Bone Scan Nuclear Medicine 09/20/17 0000 Signed Impressions: Service Date/Time: Wednesday, September 20, 2017 08:14 - CONCLUSION: Multifocal abnormal bone tracer uptake in the right ankle and foot. Correlation with tagged white blood cell scan may be useful to evaluate for active osteomyelitis Juventino Goodman MD Foot X-Ray 09/18/17 0000 Signed Impressions: Service Date/Time: Monday, September 18, 2017 16:44 - CONCLUSION: Chronic deformity related to prior surgery and neuropathic changes, unchanged in appearance when compared to conventional radiographs 11/17/16. No focal areas of new bony destruction seen. Artem Mckeon MD PE at Discharge awake and alert, oriented x 3, no distress anicteric no nuchal rigidity lungs- clear regular rhythm abdomen- soft, nontender RUE- PICC in place- no sings of infection right foot- wound VAC in palce left BKA- Pt update on day of discharge afebrile no pain complaint looking forward to going home Hospital Course 47 years old male 1. Infected Diabetic foot ulcer/sepsis The patient met sepsis criteria with tachycardia and leukocytosis. The patient was started initially on IV clindamycin IV Zosyn. Foot x-ray did not show suggested osteomyelitis. Podiatry was consulted. Clindamycin was discontinued the day after the patient was admitted. ID consulted. Pain control provided with [place]. Podiatry recommended bone scan which showed multifocal abnormal bone tracer uptake in the right ankle of the foot. A wet tagged white blood cell CT scan was recommended. This was negative for osteomyelitis. The patient had a wound VAC placed. Orthopedic surgery did wound VAC changes at bedside. Patient has been cleared by orthopedic surgery. ID recommended outpatient IV Unasyn for 2 weeks and 2 weeks of Augmentin posteriorly. 2. Diabetes mellitus with hyperglycemia Initially blood sugars were severely elevated in the 400s range. The patient was started on basal bolus therapy with insulin Levemir insulin NovoLog as well as SSI with insulin NovoLog. The insulin was increased and adjusted to keep a blood sugar of less than 180. The patient was discharged on insulin Levemir 20 units subcutaneously twice a day and NovoLog 20 units subcu 3 times daily before meals. Blood sugars more stable prior to discharge. 3. Hypertension/hyperlipidemia Home medications were continued. Initially blood pressure severely elevated in the 170s. Patient was started on lisinopril 10 minutes p.o. twice a day, however blood pressure still continue to be elevated although improved. Lisinopril dose was increased to 20 mg p.o. twice daily after which blood pressure remained stable. Continue to monitor vital signs. 4. Hyponatremia Chronic. asymptoamtic 5. Osteoarthritis Stable managed with meloxicam. 6. Depression. Zoloft 25 mg p.o. daily. Remained stable. requesting for ambien 5 mg hs- prn- will write for some till he gets to see his PCP- Dr. Gill Jo FEN Heart healthy diabetic diet Electrolytes: Monitor and replete when necessary Habits with a tendency for DVT prophylaxis. Home with home health care FF up with Podiatry and PCP- as OP Pt Condition on Discharge: Stable Discharge Disposition: Disch w/ Home Health Serv Discharge Time: > 30 minutes Discharge Instructions DIET: Follow Instructions for: Diabetic Diet Activities you can perform: Regular-No Restrictions Other Activity Instructions: ambulate with crutches Follow up Referrals: PCP Follow-up - 10/02/17 with [facility] - 1 Week @ [facility] with Don Salinas DPM New Medications: Amoxicillin-Clavulanate (Augmentin) 875-125 Mg Tab 1 TAB PO BID for Infection, #28 TAB 0 Refills Start taking on october 11 after finishing IV antibiotics for 2 weeks Blood Glucose Monitoring W/Device (Glucocom Blood Glucose Mo W/Device) 1 Kit Kit KIT .XX DIRECTED for Blood Sugar Management, #1 Glucocom Test Strips (Glucocom Test Strips) 1 Martha Martha EA .XX DIRECTED for Blood Sugar Management, #1 Hydrocodone-Acetaminophen ([place]) 5 Mg-325 Mg Tab 1 TAB PO Q4H PRN for PAIN, #31 TAB 0 Refills Insulin Aspart Inj (Novolog Inj) 1,000 Unit/10 Ml Vial 1-9 UNITS SQ ACHS for Blood Sugar Management, #10 ML 0 Refills Max dose at bedtime:(10 )units; sugars less than 70,(0)units; sugars 150-199,(1) unit; sugars 200-249,(3) units; sugars 250-299,(5) units; sugars 300-349,(7) units; sugars greater than 349,(9) units Insulin Syringe/U-100/31G X 5/16" 1 ml (Insulin Syringe/U-100/31G X 5/16" 1 ml) 31 Gauge X 5/16" Mis EA .XX DIRECTED for Blood Sugar Management, #1 0 Refills Lancets (Lancets) 1 Mis Mis EA .XX DIRECTED for Blood Sugar Management, #1 0 Refills Parenteral Therapy Supplies (Sharpsafety Sharps Contai) 1 Mis Mis EA .XX DIRECTED, #1 0 Refills Zolpidem (Zolpidem) 5 Mg Tab 5 MG PO HS PRN for INSOMNIA for 3 Days, TAB 0 Refills Insulin Aspart Inj (Novolog Inj) 1,000 Unit/10 Ml Vial 20 UNITS SQ TIDAC for Blood Sugar Management, #1 VIAL Insulin Detemir Inj (Levemir Inj) 1,000 unit/ 10 ML Vial 20 UNITS SQ BID for Blood Sugar Management, #1 VIAL Do not mix with any other Insulin. Lisinopril (Lisinopril) 10 Mg Tab 20 MG PO BID for Blood Pressure Management, #62 TAB Continued Medications: Aspirin (Aspirin) 81 Mg Chew 81 MG CHEW DAILY, TAB 0 Refills Meloxicam (Meloxicam) 15 Mg Tab 15 MG PO DAILY for Arthritis Pain, #30 TAB 0 Refills Pregabalin (Lyrica) 200 Mg Cap 200 MG PO BID for neuropathy, #60 CAP 0 Refills (This prescription has been renewed) Rosuvastatin (Crestor) 10 Mg Tab 10 MG PO DAILY for Cholesterol Management, #30 TAB 2 Refills (This prescription has been renewed) Sertraline (Zoloft) 25 Mg Tab 25 MG PO DAILY for Depression Control, #30 TAB 0 Refills (This prescription has been renewed) Discontinued Medications: Insulin Glargine Inj (Lantus Solostar Pen Inj) 300 Unit/3 Ml Pen 10 UNITS SQ DAILY for Blood Sugar Management, #15 PEN 0 Refills Lisinopril (Lisinopril) 10 Mg Tab 10 MG PO DAILY, #30 TAB 3 Refills Lisinopril (Lisinopril) 10 Mg Tab 10 MG PO BID, #30 TAB 0 Refills Faisal Sanchez MD Sep 30, 2017 17:52
[2017-10-01 08:00] VITALS: BP 175/74; PULSE 66; RESP 19; TEMP 97.9; O2SAT 94
== END 2017-09-30 18:51 | disposition home health service (06) | DRG 854 ==
LOC: NEPE 15:38 → INTOOBSV 18:32 → NEDA 18:32 → N07A 21:10 → OBSVTOIN 09-19 23:19
PROVIDERS: ADMIT Internal Medicine; ATTEND Internal Medicine
PROC: 0KBV0ZZ Excision of Right Foot Muscle, Open Approach (ICD-10-PCS; 2017-09-25)
PROC: 0QBN0ZZ Excision of Right Metatarsal, Open Approach (ICD-10-PCS; principal; 2017-09-25 19:06)
DX: A41.9 Sepsis, unspecified organism (principal); G90.50 Complex regional pain syndrome I, unspecified; E11.621 Type 2 diabetes mellitus with foot ulcer; G62.9 Polyneuropathy, unspecified; E11.610 Type 2 diabetes mellitus with diabetic neuropathic arthropathy; L03.115 Cellulitis of right lower limb; E87.1 Hypo-osmolality and hyponatremia; E11.65 Type 2 diabetes mellitus with hyperglycemia; L97.512 Non-pressure chronic ulcer of other part of right foot with fat layer exposed; E11.628 Type 2 diabetes mellitus with other skin complications; L08.9 Local infection of the skin and subcutaneous tissue, unspecified; Z86.14 Personal history of Methicillin resistant Staphylococcus aureus infection; M19.90 Unspecified osteoarthritis, unspecified site; Z89.512 Acquired absence of left leg below knee; F17.210 Nicotine dependence, cigarettes, uncomplicated; W01.0XXA Fall on same level from slipping, tripping and stumbling without subsequent striking against object, initial encounter; Y92.481 Parking lot as the place of occurrence of the external cause; E78.5 Hyperlipidemia, unspecified; I10 Essential (primary) hypertension; F40.240 Claustrophobia; F51.01 Primary insomnia; F32.9 Major depressive disorder, single episode, unspecified; Z79.4 Long term (current) use of insulin; G98.0 Neurogenic arthritis, not elsewhere classified; Z86.19 Personal history of other infectious and parasitic diseases; Z89.439 Acquired absence of unspecified foot
CPT/HCPCS: 36569; 71045; 73630; 76937; 78320; 78399; 78807; 78999; 80048; 80053; 82948; 83036; 85025; 85027; 85652; 86140; 87015; 87040; 87070; 87077; 87102; 87116; 87186; 87205; 87206; 93005; 93971; 94150; A9503; A9569; J0131; J0295; J1100; J1642; J1644; J1815; J2250; J2270; J2370; J2405; J2543; J3010

== ENCOUNTER 2017-10-06 08:39 | Emergency (ER) | payer MEDICARE, OTHER ==
[~2017-10-06] VITALS: Ht 177.8 cm; Wt 105.0 kg
[~2017-10-06 08:39] MED LIST changes: +AUGM875T3 PO; +BIOM30MI; +GLUCKIT15; +GLUCTES12; +INSU1MIS15; +LANCETS1 MI1; -LANTINJ SQ; +LEVEMIR SQ; +MELO15TA20 PO; -METH10TA PO; +NORC5TAB PO; -NOVO7030P2 SQ; -NOVORP2 SQ; +ZOLO25TA PO; +ZOLP5TAB3 PO
[2017-10-06 08:45] VITALS: BP 197/94; PULSE 92; RESP 16; TEMP 99.7; O2SAT 100
[2017-10-06] MEDS ORDERED: SODIUM CHLOR 0.9% 1000 ML INJ 1,000 ML IV ONE ×2 (09:43→09:45)
[2017-10-06] MEDS ORDERED: MORPHINE SULFATE 4 MG/ML INJ IV PUSH ONE (09:45)
[2017-10-06] MEDS ORDERED: PROCHLORPERAZINE INJ 10 MG/2 ML VIAL IV PUSH ONE (09:45)
[2017-10-06] MEDS ORDERED: SODIUM CHLORIDE 0.9% FLUSH 10 ML FLUSH IVF PRN (09:45)
[2017-10-06] MEDS ORDERED: diphenhydrAMINE HCL 50 MG/ML VIAL IV PUSH ONE (09:45)
[2017-10-06 10:13] LABS: AUTOMATED NEUTROPHIL # 8.1 TH/MM3 (1.8-7.7); BASOPHIL # 0.3 TH/MM3 (0-0.2); BASOPHIL % 2.9 % (0.0-2.0); EOSINOPHIL % 0.1 % (0.0-4.0); HEMATOCRIT 39.2 % (39.0-51.0); HEMOGLOBIN 13.7 GM/DL (13.0-17.0); LYMPH % 10.8 % (9.0-44.0); MEAN CELL VOLUME 87.5 FL (80.0-100.0); MEAN CORPUSCULAR HEMOGLOBIN 30.5 PG (27.0-34.0); MEAN CORPUSCULAR HGB CONC 34.9 % (32.0-36.0); MEAN PLATELET VOLUME 8.2 FL (7.0-11.0); MONO % 2.4 % (0.0-8.0); MONOCYTE # 0.2 TH/MM3 (0-0.9); NEUT % 83.8 % (16.0-70.0); PLATELET COUNT 181 TH/MM3 (150-450); RED BLOOD COUNT 4.48 MIL/MM3 (4.50-5.90); WHITE BLOOD COUNT 9.7 TH/MM3 (4.0-11.0)
[2017-10-06 10:28] LABS: CALCIUM 9.5 MG/DL (8.5-10.1); CREATININE 0.72 MG/DL (0.60-1.30)
--- NOTE | 2017-10-06 10:31 | PD ---
HPI . Vomiting Chief Complaint: GI Complaint Time Seen by Provider: 09:22 Travel History International Travel<30 days: No Contact w/Intl Traveler<30days: No Traveled to known affect area: No History of Present Illness HPI Patient presents with chief complaint of nausea and vomiting associated with a poor appetite. Onset was yesterday. Symptoms have been the same since yesterday. He states that they are persistent. He reports 3 episodes of emesis yesterday and 2 episodes today. He has had 2 loose stools. He has had Zofran with very little relief. Associated symptoms include diaphoresis and decreased urinary output. This patient is currently receiving IV antibiotics for an infected diabetic foot. Unasyn was started on about 09/25. [facility] Past Medical History Arthritis: Yes Asthma: No Autoimmune Disease: No Blood Disorders: No Anxiety: No Depression: No Heart Rhythm Problems: No Cancer: No Cardiovascular Problems: No High Cholesterol: No Chemotherapy: No Chest Pain: No Congestive Heart Failure: No COPD: No Cerebrovascular Accident: No Diabetes: Yes Patient Takes Glucophage: No Diminished Hearing: No Endocrine: Yes (HX DM ) Gastrointestinal Disorders: No GERD: No Glaucoma: No Genitourinary: Yes (HX UTI) Headaches: No Hepatitis: No Hiatal Hernia: No Heparin Induced Thrombocytopen: No Hypertension: Yes Immune Disorder: No Implanted Vascular Access Dvce: Yes (PICC LINE IN PAST) Kidney Stones: No Medical other: Yes (HISTORY PSEDOMONIES) Musculoskeletal: Yes Neurologic: Yes (REFLEX SYMPATHETIC DYSTROPHY, NEUROPATHY) Psychiatric: No Reproductive: No Respiratory: No Integumentary: Yes (HX OF MRSA LEFT FOOT WOUND) Immunizations Current: No Migraines: No Myocardial Infarction: No Radiation Therapy: No Renal Failure: Yes (Acute from vancomycin/resolved) Seizures: No Sickle Cell Disease: No Sleep Apnea: No Thyroid Disease: No Ulcer: No PNEUMOCCOCAL Vaccine (Year): 2 Past Surgical History Abdominal Surgery: No AICD: No Appendectomy: No Arteriovenous Shunt: No Body Medical Devices: PINS AND RODS TO LEFT LEG-HARDWARE REMOVED DUE TO MRSA INFECTION Cardiac Surgery: No Cholecystectomy: No Ear Surgery: No Endocrine Surgery: No Eye Surgery: No Genitourinary Surgery: No Gynecologic Surgery: No Insulin Pump: No Joint Replacement: No Neurologic Surgery: No Oral Surgery: No Pacemaker: No Thoracic Surgery: No Other Surgery: Yes (left BKA) Social History Alcohol Use: No Tobacco Use: Yes Substance Use: No Allergies-Medications (Allergen,Severity, Reaction): Coded Allergies: vancomycin (Unverified Allergy, Severe, ACUTE RENAL FAILURE, 10/06/17) tigecycline (Unverified Adverse Reaction, Severe, NAUSEA AND VOMITING, 06/15) Uncoded Allergies: aquacel dressing (Allergy, Severe, Bleeding, 12/29/14) pain regranex (Allergy, Severe, Swelling, 12/29/14) pain on the skin Reported Meds & Prescriptions Reported Meds & Active Scripts Active Zolpidem (Zolpidem Tartrate) 5 Mg Tab 5 Mg PO HS PRN 3 Days Augmentin (Amoxicillin-Clavulanate) 875-125 Mg Tab 1 Tab PO BID Start taking on october 11 after finishing IV antibiotics for 2 weeks [place] (Hydrocodone-Acetaminophen) 5 Mg-325 Mg Tab 1 Tab PO Q4H PRN Novolog Inj (Insulin Aspart) 1,000 Unit/10 Ml Vial 1-9 Units SQ ACHS Max dose at bedtime:(10 )units; sugars less than 70,(0)units; sugars 150-199,(1) unit; sugars 200-249,(3) units; sugars 250-299,(5) units; sugars 300-349,(7) units; sugars greater than 349,(9) units Sharpsafety Sharps Contai (Parenteral Therapy Supplies) 1 Mis Mis Ea .XX DIRECTED Glucocom Test Strips (Blood Glucose Test Strips) 1 Martha Martha Ea .XX DIRECTED Lancets 1 Mis Mis Ea .XX DIRECTED Insulin Syringe/U-100/31G X 5/16" 1 ml 31 Gauge X 5/16" Mis Ea .XX DIRECTED Glucocom Blood Glucose Mo W/Device (Device) 1 Kit Kit Kit .XX DIRECTED Levemir Inj (Insulin Detemir) 1,000 unit/ 10 ML Vial 20 Units SQ BID Do not mix with any other Insulin. Novolog Inj (Insulin Aspart) 1,000 Unit/10 Ml Vial 20 Units SQ TIDAC Lisinopril 10 Mg Tab 20 Mg PO BID Zoloft (Sertraline HCl) 25 Mg Tab 25 Mg PO DAILY Crestor (Rosuvastatin Calcium) 10 Mg Tab 10 Mg PO DAILY Lyrica (Pregabalin) 200 Mg Cap 200 Mg PO BID Reported Meloxicam 15 Mg Tab 15 Mg PO DAILY Aspirin 81 Mg Chew 81 Mg CHEW DAILY Review of Systems Except as stated in HPI: all other systems reviewed are Neg General / Constitutional: Positive: Other (Diaphoresis), No: Fever, Chills Gastrointestinal: Positive: Nausea, Vomiting, Diarrhea, Abdominal Pain Genitourinary: Positive: Decreased Urinary Output Physical Exam Narrative GENERAL: Awake and alert. SKIN: warm/dry. Normal color and turgor. HEAD: Normocephalic. Atraumatic. EYES: Pupils equal and round. No scleral icterus. No injection or drainage. ENT: No nasal bleeding or discharge. Mucous membranes pink and moist. NECK: Trachea midline. Full range of motion without pain.. CARDIOVASCULAR: Regular rate and rhythm. Heart sounds normal. RESPIRATORY: No accessory muscle use. Clear to auscultation. Breath sounds equal bilaterally. GASTROINTESTINAL: Abdomen soft. Nontender. Bowel sounds present. Nondistended. Delayed MUSCULOSKELETAL: Previous left BKA. NEUROLOGICAL: Awake and alert. No obvious cranial nerve deficits. Motor grossly within normal limits. Normal speech. PSYCHIATRIC: Appropriate mood and affect; insight and judgment normal. Data Data Last Documented VS Vital Signs Date Time Temp Pulse Resp B/P (MAP) Pulse Ox O2 Delivery O2 Flow Rate FiO2 10/06/17 11:08 88 18 164/74 (104) 100 Room Air 10/06/17 08:45 99.7 Orders Orders Isolation 08,20 (10/06/17 09:14) Complete Blood Count With Diff (10/06/17 09:43) Basic Metabolic Panel (Bmp) (10/06/17 09:43) Iv Access Insert/Monitor (10/06/17 09:43) Morphine Inj (Morphine Inj) (10/06/17 09:45) Sodium Chlor 0.9% 1000 Ml Inj (Ns 1000 M (10/06/17 09:43) Sodium Chloride 0.9% Flush (Ns Flush) (10/06/17 09:45) C Diff Toxin Pcr (10/06/17 09:43) Enteric Path (Stool) (10/06/17 09:43) Prochlorperazine Inj (Compazine Inj) (10/06/17 09:45) Diphenhydramine Inj (Benadryl Inj) (10/06/17 09:45) Sodium Chlor 0.9% 1000 Ml Inj (Ns 1000 M (10/06/17 09:45) Labs Laboratory Tests Test 10/06/17 10:04 White Blood Count 9.7 TH/MM3 Red Blood Count 4.48 MIL/MM3 Hemoglobin 13.7 GM/DL Hematocrit 39.2 % Mean Corpuscular Volume 87.5 FL Mean Corpuscular Hemoglobin 30.5 PG Mean Corpuscular Hemoglobin Concent 34.9 % Red Cell Distribution Width 15.0 % Platelet Count 181 TH/MM3 Mean Platelet Volume 8.2 FL Neutrophils (%) (Auto) 83.8 % Lymphocytes (%) (Auto) 10.8 % Monocytes (%) (Auto) 2.4 % Eosinophils (%) (Auto) 0.1 % Basophils (%) (Auto) 2.9 % Neutrophils # (Auto) 8.1 TH/MM3 Lymphocytes # (Auto) 1.0 TH/MM3 Monocytes # (Auto) 0.2 TH/MM3 Eosinophils # (Auto) 0.0 TH/MM3 Basophils # (Auto) 0.3 TH/MM3 CBC Comment DIFF FINAL Differential Comment Blood Urea Nitrogen 11 MG/DL Creatinine 0.72 MG/DL Random Glucose 266 MG/DL Calcium Level 9.5 MG/DL Sodium Level 135 MEQ/L Potassium Level 3.9 MEQ/L Chloride Level 103 MEQ/L Carbon Dioxide Level 23.0 MEQ/L Anion Gap 9 MEQ/L Estimat Glomerular Filtration Rate 117 ML/MIN MDM Medical Decision Making Medical Screen Exam Complete: Yes Emergency Medical Condition: Yes Medical Record Reviewed: Yes (Patient was admitted here in late August for sepsis related to an infected diabetic foot. Podiatry was consulted and he was taken to the operating room a couple of times for debridement and placement of a wound VAC. He was eventually discharged home with a PICC line in place with orders for IV Unasyn 2 weeks followed by oral Augmentin.) Differential Diagnosis Differential diagnosis includes but is not limited to viral gastritis, food poisoning, pancreatitis, pneumonia, hepatitis, acute coronary syndrome, Narrative Course This patient presents with nausea, vomiting and diarrhea. He is currently receiving IV antibiotics for an infected diabetic foot ulcer. His diarrhea has been minimal but I have ordered a C. difficile toxin as well as stool culture. He may or may not produce a stool while here. If not, the studies will be canceled. He is being treated with IV fluids. Zofran was not helpful to him at home so I am giving him Compazine and Benadryl. He will also be given a dose of morphine for his abdominal pain. He will be reassessed following complete min of his treatment and results of his workup. CBC & BMP Diagram 10/06/17 10:04 Calcium Level 9.5 This patient has not produced a stool sample. Therefore, the diarrhea is insignificant. Diagnosis Primary Impression: Vomiting and diarrhea Additional Impression: Abdominal pain Qualified Codes: R10.84 - Generalized abdominal pain Patient Instructions: Acute Nausea and Vomiting (DC), General Instructions Disposition: 01 DISCHARGE HOME Condition: Stable Ermelinda Becerril MD Oct 06, 2017 10:31
[2017-10-06 11:08] VITALS: BP 164/74; PULSE 88; RESP 18; O2SAT 100
[2017-10-06] MEDS ORDERED: KETOROLAC TROMETHAMINE 30 MG/ML (IVP) VIAL IV PUSH ONE (13:00)
--- NOTE | 2017-10-06 14:48 | RADRPT ---
EXAM DATE/TIME: 10/06/2017 14:08 [place] COMPARISON: No previous studies available for comparison. INDICATIONS : Trauma. Fall. MEDICAL HISTORY : Renal failure, acute. Hypertension. Arthritis. Neuropathy. Mumps. Left leg fracture. Diabetes. Measle s. Blood transfusion. Osteomyelitis. MRSA. SURGICAL HISTORY : Left below the knee amputation. Right foot debridement. ENCOUNTER: Initial ACUITY: 1 day PAIN SCORE: 0/10 LOCATION: Pelvis FINDINGS: A single frontal view of the pelvis demonstrates remote fractures of the pubic rami pubic bone and pr oximal left femur with extensive callus formation. No definite acute fracture identified. Mild osteoa rthritis of the hips. CONCLUSION: 1. Remote fractures of the pubic rami and pubic bones and proximal left femur with extensive callus. No definite acute fracture. Alexei Hull MD on October 06, 2017 at 14:43 Board Certified Radiologist. This report was verified electronically.
--- NOTE | 2017-10-06 15:02 | RADRPT ---
EXAM DATE/TIME: 10/06/2017 14:10 [facility] COMPARISON: No previous studies available for comparison. INDICATIONS : Trauma. Fall. MEDICAL HISTORY : Renal failure, acute. Hypertension. Arthritis. Neuropathy. Mumps. Left leg fracture. Diabetes. Measle s. Blood transfusion. Osteomyelitis. MRSA. SURGICAL HISTORY : Left below the knee amputation. Right foot debridement. ENCOUNTER: Initial ACUITY: 1 day PAIN SCORE: 9/10 LOCATION: Lumbar spine. FINDINGS: Mild rotatory dextroscoliosis. No acute fracture. No spondylolisthesis. No destructive changes. CONCLUSION: 1. Minimal scoliosis. No acute findings. Alexei Hull MD on October 06, 2017 at 14:59 Board Certified Radiologist. This report was verified electronically.
== END 2017-10-06 15:59 | disposition home or self-care (01) ==
LOC: NEPC 08:39
DX: R11.2 Nausea with vomiting, unspecified (principal); R19.7 Diarrhea, unspecified; R10.84 Generalized abdominal pain; E11.621 Type 2 diabetes mellitus with foot ulcer; L97.509 Non-pressure chronic ulcer of other part of unspecified foot with unspecified severity; S32.502A Unspecified fracture of left pubis, initial encounter for closed fracture; W19.XXXA Unspecified fall, initial encounter; Z79.4 Long term (current) use of insulin
CPT/HCPCS: 72100; 72170; 80048; 85025; 96361; 96374; 96375; 99284; J0780; J1200; J1885; J2270; J7030

== ENCOUNTER 2017-10-08 17:21 | Emergency (ER) | payer MEDICARE, OTHER ==
[~2017-10-08] VITALS: Ht 177.8 cm; Wt 109.0 kg
[2017-10-08 17:23] VITALS: BP 221/108; PULSE 74; RESP 16; TEMP 99; O2SAT 98
[2017-10-08] MEDS ORDERED: SODIUM CHLOR 0.9% 1000 ML INJ 1,000 ML IV SCH (18:54)
[2017-10-08] MEDS ORDERED: ONDANSETRON HCL 4 MG/2 ML VIAL IVP ONE (19:00)
[2017-10-08] MEDS ORDERED: SODIUM CHLORIDE 0.9% FLUSH 10 ML FLUSH IV FLUSH PRN (19:00)
[2017-10-08] MEDS ORDERED: ACETAMINOPHEN 500 MG CPLT PO ONE (19:00)
[2017-10-08 19:14] VITALS: O2SAT 98
[2017-10-08 19:49] VITALS: BP 182/86; PULSE 70; RESP 18; O2SAT 98
[2017-10-08 19:51] LABS: AUTOMATED NEUTROPHIL # 9.9 TH/MM3 (1.8-7.7); BASOPHIL # 0.1 TH/MM3 (0-0.2); BASOPHIL % 0.5 % (0.0-2.0); EOSINOPHIL % 0.2 % (0.0-4.0); HEMATOCRIT 37.3 % (39.0-51.0); HEMOGLOBIN 12.9 GM/DL (13.0-17.0); LYMPH % 19.6 % (9.0-44.0); LYMPHOCYTE # 2.5 TH/MM3 (1.0-4.8); MEAN CELL VOLUME 86.2 FL (80.0-100.0); MEAN CORPUSCULAR HEMOGLOBIN 29.7 PG (27.0-34.0); MEAN CORPUSCULAR HGB CONC 34.5 % (32.0-36.0); MEAN PLATELET VOLUME 7.8 FL (7.0-11.0); MONOCYTE # 0.4 TH/MM3 (0-0.9); NEUT % 76.7 % (16.0-70.0); PLATELET COUNT 219 TH/MM3 (150-450); RED BLOOD COUNT 4.33 MIL/MM3 (4.50-5.90); RED CELL DISTRIBUTION WIDTH 13.9 % (11.6-17.2); WHITE BLOOD COUNT 12.9 TH/MM3 (4.0-11.0)
[2017-10-08 19:54] LABS: CHLORIDE 101 MEQ/L (98-107); SODIUM (NA) 134 MEQ/L (136-145)
--- NOTE | 2017-10-08 19:55 | RADRPT ---
EXAM DATE/TIME: 10/08/2017 19:18 [facility] COMPARISON: FOOT RIGHT COMPLETE ([id number]), September 18, 2017, 16:44. INDICATIONS : Right foot pain post fall. MEDICAL HISTORY : Diabetes mellitus type II. Osteoarthritis. Right foot wound vac. SURGICAL HISTORY : Left BKA. ENCOUNTER: Initial ACUITY: 1 day PAIN SCORE: 4/10 LOCATION: Right foot. FINDINGS: Chronic morphology and remodeling changes are seen diffusely of the bones of the right foot and witho ut significant change from the prior x-ray. The soft tissue ulceration plantar to the midfoot/hindfoo t appears less severe in the antrum. A wound VAC is present. No definite acute bone destruction is se en. CONCLUSION: Markedly abnormal bones of the right foot but all appearing chronic. No perceptible acute fracture or acute bony destruction. Juventino Rees MD on October 08, 2017 at 19:52 Board Certified Radiologist. This report was verified electronically.
[2017-10-08 19:57] LABS: ALBUMIN 3.3 GM/DL (3.4-5.0); BICARBONATE 25.3 MEQ/L (21.0-32.0)
[2017-10-08 19:58] LABS: BLOOD UREA NITROGEN 13 MG/DL (7-18); GLUCOSE,RANDOM 225 MG/DL (74-106)
[2017-10-08 20:00] LABS: ALT (GPT) 23 U/L (12-78); AST (GOT) 10 U/L (15-37)
[2017-10-08 20:01] LABS: CREATININE 0.65 MG/DL (0.60-1.30); GLOMERULAR FILTRATION RATE 132 ML/MIN (>89)
[2017-10-08 20:02] LABS: TOTAL BILIRUBIN ADULT 0.7 MG/DL (0.2-1.0)
[2017-10-08 20:03] LABS: ALKALINE PHOSPHATASE 114 U/L (45-117)
--- NOTE | 2017-10-08 20:03 | PD ---
HPI Chief Complaint: Injury Time Seen by Provider: 18:48 Travel History International Travel<30 days: No Contact w/Intl Traveler<30days: No Traveled to known affect area: No PFSH Past Medical History Hx Anticoagulant Therapy: No Arthritis: Yes Asthma: No Autoimmune Disease: No Blood Disorders: No Anxiety: No Depression: No Heart Rhythm Problems: No Cancer: No Cardiovascular Problems: Yes (HTN, CHOL) High Cholesterol: No Chemotherapy: No Chest Pain: No Congestive Heart Failure: No COPD: No Cerebrovascular Accident: No Diabetes: Yes Patient Takes Glucophage: No Diminished Hearing: No Endocrine: Yes (HX DM ) Gastrointestinal Disorders: No GERD: No Glaucoma: No Genitourinary: Yes (HX UTI) Headaches: No Hepatitis: No Hiatal Hernia: No Heparin Induced Thrombocytopen: No Hypertension: Yes Immune Disorder: No Implanted Vascular Access Dvce: Yes (PICC LINE IN PAST) Kidney Stones: No Medical other: Yes (HISTORY PSEDOMONIES) Musculoskeletal: Yes Neurologic: Yes (REFLEX SYMPATHETIC DYSTROPHY, NEUROPATHY) Psychiatric: No Reproductive: No Respiratory: No Integumentary: Yes (HX OF MRSA LEFT FOOT WOUND) Immunizations Current: No Migraines: No Myocardial Infarction: No Radiation Therapy: No Renal Failure: Yes (Acute from vancomycin/resolved) Seizures: No Sickle Cell Disease: No Sleep Apnea: No Thyroid Disease: No Ulcer: No Tetanus Vaccination: < 5 Years Influenza Vaccination: No PNEUMOCCOCAL Vaccine (Year): 2 Past Surgical History Abdominal Surgery: No AICD: No Appendectomy: No Arteriovenous Shunt: No Body Medical Devices: PINS AND RODS TO LEFT LEG-HARDWARE REMOVED DUE TO MRSA INFECTION Cardiac Surgery: No Cholecystectomy: No Ear Surgery: No Endocrine Surgery: No Eye Surgery: No Genitourinary Surgery: No Gynecologic Surgery: No Insulin Pump: No Joint Replacement: No Neurologic Surgery: No Oral Surgery: No Pacemaker: No Thoracic Surgery: No Other Surgery: Yes (left BKA) Social History Alcohol Use: No Tobacco Use: Yes Substance Use: No Allergies-Medications (Allergen,Severity, Reaction): Coded Allergies: vancomycin (Unverified Allergy, Severe, ACUTE RENAL FAILURE, 10/08/17) tigecycline (Unverified Adverse Reaction, Severe, NAUSEA AND VOMITING, ) Uncoded Allergies: aquacel dressing (Allergy, Severe, Bleeding, 12/29/14) pain regranex (Allergy, Severe, Swelling, 12/29/14) pain on the skin Reported Meds & Prescriptions Reported Meds & Active Scripts Active Phenergan Supp (Promethazine HCl) 25 Mg Supp 25 Mg RECTAL Q6H PRN Zolpidem (Zolpidem Tartrate) 5 Mg Tab 5 Mg PO HS PRN 3 Days Novolog Inj (Insulin Aspart) 1,000 Unit/10 Ml Vial 1-9 Units SQ ACHS Max dose at bedtime:(10 )units; sugars less than 70,(0)units; sugars 150-199,(1) unit; sugars 200-249,(3) units; sugars 250-299,(5) units; sugars 300-349,(7) units; sugars greater than 349,(9) units Sharpsafety Sharps Contai (Parenteral Therapy Supplies) 1 Mis Mis Ea .XX DIRECTED Glucocom Test Strips (Blood Glucose Test Strips) 1 Martha Martha Ea .XX DIRECTED Lancets 1 Mis Mis Ea .XX DIRECTED Insulin Syringe/U-100/31G X 5/16" 1 ml 31 Gauge X 5/16" Mis Ea .XX DIRECTED Glucocom Blood Glucose Mo W/Device (Device) 1 Kit Kit Kit .XX DIRECTED Levemir Inj (Insulin Detemir) 1,000 unit/ 10 ML Vial 20 Units SQ BID Do not mix with any other Insulin. Novolog Inj (Insulin Aspart) 1,000 Unit/10 Ml Vial 20 Units SQ TIDAC Lisinopril 10 Mg Tab 20 Mg PO BID Zoloft (Sertraline HCl) 25 Mg Tab 25 Mg PO DAILY Crestor (Rosuvastatin Calcium) 10 Mg Tab 10 Mg PO DAILY Lyrica (Pregabalin) 200 Mg Cap 200 Mg PO BID Reported Meloxicam 15 Mg Tab 15 Mg PO DAILY Aspirin 81 Mg Chew 81 Mg CHEW DAILY Data Data Last Documented VS Vital Signs Date Time Temp Pulse Resp B/P (MAP) Pulse Ox O2 Delivery O2 Flow Rate FiO2 10/09/17 01:06 78 18 97 10/09/17 00:13 Room Air 10/08/17 17:23 99.0 Orders Orders Complete Blood Count With Diff (10/08/17 18:54) Comprehensive Metabolic Panel (10/08/17 18:54) Lipase (10/08/17 18:54) Iv Access Insert/Monitor (10/08/17 18:54) Ecg Monitoring (10/08/17 18:54) Oximetry (10/08/17 18:54) Ondansetron Inj (Zofran Inj) (10/08/17 19:00) Sodium Chlor 0.9% 1000 Ml Inj (Ns 1000 M (10/08/17 18:54) Sodium Chloride 0.9% Flush (Ns Flush) (10/08/17 19:00) Acetaminophen (Tylenol) (10/08/17 19:00) Foot, Complete ([id number]) (10/08/17 ) Chest, Single Ap (10/08/17 ) Humerus (Min 2vws) (10/08/17 ) Promethazine Inj (Phenergan Inj) (10/08/17 20:30) Ed Discharge Order (10/08/17 23:03) Labs Laboratory Tests Test 10/08/17 19:35 White Blood Count 12.9 TH/MM3 Red Blood Count 4.33 MIL/MM3 Hemoglobin 12.9 GM/DL Hematocrit 37.3 % Mean Corpuscular Volume 86.2 FL Mean Corpuscular Hemoglobin 29.7 PG Mean Corpuscular Hemoglobin Concent 34.5 % Red Cell Distribution Width 13.9 % Platelet Count 219 TH/MM3 Mean Platelet Volume 7.8 FL Neutrophils (%) (Auto) 76.7 % Lymphocytes (%) (Auto) 19.6 % Monocytes (%) (Auto) 3.0 % Eosinophils (%) (Auto) 0.2 % Basophils (%) (Auto) 0.5 % Neutrophils # (Auto) 9.9 TH/MM3 Lymphocytes # (Auto) 2.5 TH/MM3 Monocytes # (Auto) 0.4 TH/MM3 Eosinophils # (Auto) 0.0 TH/MM3 Basophils # (Auto) 0.1 TH/MM3 CBC Comment DIFF FINAL Differential Comment Blood Urea Nitrogen 13 MG/DL Creatinine 0.65 MG/DL Random Glucose 225 MG/DL Total Protein 7.0 GM/DL Albumin 3.3 GM/DL Calcium Level 9.0 MG/DL Alkaline Phosphatase 114 U/L Aspartate Amino Transf (AST/SGOT) 10 U/L Alanine Aminotransferase (ALT/SGPT) 23 U/L Total Bilirubin 0.7 MG/DL Sodium Level 134 MEQ/L Potassium Level 3.4 MEQ/L Chloride Level 101 MEQ/L Carbon Dioxide Level 25.3 MEQ/L Anion Gap 8 MEQ/L Estimat Glomerular Filtration Rate 132 ML/MIN Lipase 140 U/L MDM Scripts Promethazine Supp (Phenergan Supp) 25 Mg Supp 25 MG RECTAL Q6H Y for NAUSEA OR VOMITING, #20 SUPP 0 Refills Prov: Gentry Melvin MD 10/08/17 Gentry Melvin MD Oct 08, 2017 20:03
--- NOTE | 2017-10-08 20:04 | RADRPT ---
EXAM DATE/TIME: 10/08/2017 19:21 [facility] COMPARISON: CHEST SINGLE AP, September 29, 2017, 14:58. INDICATIONS : Evaluate PICC line placement. MEDICAL HISTORY : Hypertension. Diabetes mellitus type II. Renal failure, acute. SURGICAL HISTORY : PICC line. ENCOUNTER: Initial ACUITY: 1 day PAIN SCORE: 0/10 LOCATION: Bilateral chest FINDINGS: A right arm PICC is again seen. Tip is at the atriocaval junction and does not appear appreciably humberto nged. No infiltrate, effusion or pneumothorax. Heart size stable, normal. CONCLUSION: Right arm PICC with tip at atriocaval junction. No acute cardiopulmonary disease demonstrated. Juventino Rees MD on October 08, 2017 at 20:01 Board Certified Radiologist. This report was verified electronically.
--- NOTE | 2017-10-08 20:05 | RADRPT ---
EXAM DATE/TIME: 10/08/2017 19:21 [facility] COMPARISON: No previous studies available for comparison. INDICATIONS : Right arm PICC line possible kink. MEDICAL HISTORY : Diabetes mellitus type II. Osteoarthritis. SURGICAL HISTORY : Left BKA. ENCOUNTER: Initial ACUITY: 1 day PAIN SCORE: 0/10 LOCATION: Right humerus. FINDINGS: Right PICC has a smooth course. No kinks or disruptions are demonstrated. CONCLUSION: No acute abnormality demonstrated of the right arm PICC. Juventino Rees MD on October 08, 2017 at 20:02 Board Certified Radiologist. This report was verified electronically.
[2017-10-08] MEDS ORDERED: PROMETHAZINE INJ 25 MG/ML VIAL IM ONE (20:30)
[2017-10-08] MEDS ORDERED: PROM1SUP7 RECTAL (23:05)
--- NOTE | 2017-10-08 23:05 | PD ---
HPI Chief Complaint: Injury Time Seen by Provider: 18:48 Travel History International Travel<30 days: No Contact w/Intl Traveler<30days: No Traveled to known affect area: No History of Present Illness HPI Patient is a 47-year-old male currently undergoing treatment with IV antibiotics by right brachial PICC line for osteomyelitis presents emergency department for nausea vomiting diarrhea. Patient states the nausea has been so severe that he has not taken antibiotics in the past 2 days. Patient states that he was seen by another physician 2 days ago at our hospital and was told that his blood work all looked fine and was discharged home with some antiemetics. He has been trying antiemetics with no relief. 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 States symptoms are severe, constant, context as above, not associate with any abdominal pain. Patient states that it was so severe that he tripped and fell over his wound VAC tubing the other day and twisted his right ankle and then saw some blood in the wound VAC. PFSH Past Medical History Hx Anticoagulant Therapy: No Arthritis: Yes Asthma: No Autoimmune Disease: No Blood Disorders: No Anxiety: No Depression: No Heart Rhythm Problems: No Cancer: No Cardiovascular Problems: Yes (HTN, CHOL) High Cholesterol: No Chemotherapy: No Chest Pain: No Congestive Heart Failure: No COPD: No Cerebrovascular Accident: No Diabetes: Yes Patient Takes Glucophage: No Diminished Hearing: No Endocrine: Yes (HX DM ) Gastrointestinal Disorders: No GERD: No Glaucoma: No Genitourinary: Yes (HX UTI) Headaches: No Hepatitis: No Hiatal Hernia: No Heparin Induced Thrombocytopen: No Hypertension: Yes Immune Disorder: No Implanted Vascular Access Dvce: Yes (PICC LINE IN PAST) Kidney Stones: No Medical other: Yes (HISTORY PSEDOMONIES) Musculoskeletal: Yes Neurologic: Yes (REFLEX SYMPATHETIC DYSTROPHY, NEUROPATHY) Psychiatric: No Reproductive: No Respiratory: No Integumentary: Yes (HX OF MRSA LEFT FOOT WOUND) Immunizations Current: No Migraines: No Myocardial Infarction: No Radiation Therapy: No Renal Failure: Yes (Acute from vancomycin/resolved) Seizures: No Sickle Cell Disease: No Sleep Apnea: No Thyroid Disease: No Ulcer: No Tetanus Vaccination: < 5 Years Influenza Vaccination: No PNEUMOCCOCAL Vaccine (Year): 2 Past Surgical History Abdominal Surgery: No AICD: No Appendectomy: No Arteriovenous Shunt: No Body Medical Devices: PINS AND RODS TO LEFT LEG-HARDWARE REMOVED DUE TO MRSA INFECTION Cardiac Surgery: No Cholecystectomy: No Ear Surgery: No Endocrine Surgery: No Eye Surgery: No Genitourinary Surgery: No Gynecologic Surgery: No Insulin Pump: No Joint Replacement: No Neurologic Surgery: No Oral Surgery: No Pacemaker: No Thoracic Surgery: No Other Surgery: Yes (left BKA) Social History Alcohol Use: No Tobacco Use: Yes Substance Use: No Allergies-Medications (Allergen,Severity, Reaction): Coded Allergies: vancomycin (Unverified Allergy, Severe, ACUTE RENAL FAILURE, 10/08/17) tigecycline (Unverified Adverse Reaction, Severe, NAUSEA AND VOMITING, ) Uncoded Allergies: aquacel dressing (Allergy, Severe, Bleeding, 12/29/14) pain regranex (Allergy, Severe, Swelling, 12/29/14) pain on the skin Reported Meds & Prescriptions Reported Meds & Active Scripts Active Phenergan Supp (Promethazine HCl) 25 Mg Supp 25 Mg RECTAL Q6H PRN Zolpidem (Zolpidem Tartrate) 5 Mg Tab 5 Mg PO HS PRN 3 Days Novolog Inj (Insulin Aspart) 1,000 Unit/10 Ml Vial 1-9 Units SQ ACHS Max dose at bedtime:(10 )units; sugars less than 70,(0)units; sugars 150-199,(1) unit; sugars 200-249,(3) units; sugars 250-299,(5) units; sugars 300-349,(7) units; sugars greater than 349,(9) units Sharpsafety Sharps Contai (Parenteral Therapy Supplies) 1 Mis Mis Ea .XX DIRECTED Glucocom Test Strips (Blood Glucose Test Strips) 1 Martha Martha Ea .XX DIRECTED Lancets 1 Mis Mis Ea .XX DIRECTED Insulin Syringe/U-100/31G X 16" 1 ml 31 Gauge X /16" Mis Ea .XX DIRECTED Glucocom Blood Glucose Mo W/Device (Device) 1 Kit Kit Kit .XX DIRECTED Levemir Inj (Insulin Detemir) 1,000 unit/ 10 ML Vial 20 Units SQ BID Do not mix with any other Insulin. Novolog Inj (Insulin Aspart) 1,000 Unit/10 Ml Vial 20 Units SQ TIDAC Lisinopril 10 Mg Tab 20 Mg PO BID Zoloft (Sertraline HCl) 25 Mg Tab 25 Mg PO DAILY Crestor (Rosuvastatin Calcium) 10 Mg Tab 10 Mg PO DAILY Lyrica (Pregabalin) 200 Mg Cap 200 Mg PO BID Reported Meloxicam 15 Mg Tab 15 Mg PO DAILY Aspirin 81 Mg Chew 81 Mg CHEW DAILY Review of Systems Except as stated in HPI: all other systems reviewed are Neg Physical Exam Narrative GENERAL: Well-developed well-nourished no obvious distress. SKIN: Focused skin assessment warm/dry. HEAD: Atraumatic. Normocephalic. EYES: Pupils equal and round. No scleral icterus. No injection or drainage. ENT: No nasal bleeding or discharge. Mucous membranes pink and moist. NECK: Trachea midline. No JVD. CARDIOVASCULAR: Regular rate and rhythm. No murmur appreciated. RESPIRATORY: No accessory muscle use. Clear to auscultation. Breath sounds equal bilaterally. GASTROINTESTINAL: Abdomen soft, non-tender, nondistended. Hepatic and splenic margins not palpable. MUSCULOSKELETAL: No clubbing. No cyanosis. No edema. Patient has wound VAC to his right foot which was not removed, he has evidence of DKA on the left which was removed and well-healed. There is no erythema proximal to the ankle. NEUROLOGICAL: Awake and alert. No obvious cranial nerve deficits. Motor grossly within normal limits. Normal speech. PSYCHIATRIC: Appropriate mood and affect; insight and judgment normal. Data Data Last Documented VS Vital Signs Date Time Temp Pulse Resp B/P (MAP) Pulse Ox O2 Delivery O2 Flow Rate FiO2 10/09/17 01:06 78 18 97 10/09/17 00:13 Room Air 10/08/17 17:23 99.0 Orders Orders Complete Blood Count With Diff (10/08/17 18:54) Comprehensive Metabolic Panel (10/08/17 18:54) Lipase (10/08/17 18:54) Iv Access Insert/Monitor (10/08/17 18:54) Ecg Monitoring (10/08/17 18:54) Oximetry (10/08/17 18:54) Ondansetron Inj (Zofran Inj) (10/08/17 19:00) Sodium Chlor 0.9% 1000 Ml Inj (Ns 1000 M (10/08/17 18:54) Sodium Chloride 0.9% Flush (Ns Flush) (10/08/17 19:00) Acetaminophen (Tylenol) (10/08/17 19:00) Foot, Complete ([id number]) (10/08/17 ) Chest, Single Ap (10/08/17 ) Humerus (Min 2vws) (10/08/17 ) Promethazine Inj (Phenergan Inj) (10/08/17 20:30) Ed Discharge Order (10/08/17 23:03) Labs Laboratory Tests Test 10/08/17 19:35 White Blood Count 12.9 TH/MM3 Red Blood Count 4.33 MIL/MM3 Hemoglobin 12.9 GM/DL Hematocrit 37.3 % Mean Corpuscular Volume 86.2 FL Mean Corpuscular Hemoglobin 29.7 PG Mean Corpuscular Hemoglobin Concent 34.5 % Red Cell Distribution Width 13.9 % Platelet Count 219 TH/MM3 Mean Platelet Volume 7.8 FL Neutrophils (%) (Auto) 76.7 % Lymphocytes (%) (Auto) 19.6 % Monocytes (%) (Auto) 3.0 % Eosinophils (%) (Auto) 0.2 % Basophils (%) (Auto) 0.5 % Neutrophils # (Auto) 9.9 TH/MM3 Lymphocytes # (Auto) 2.5 TH/MM3 Monocytes # (Auto) 0.4 TH/MM3 Eosinophils # (Auto) 0.0 TH/MM3 Basophils # (Auto) 0.1 TH/MM3 CBC Comment DIFF FINAL Differential Comment Blood Urea Nitrogen 13 MG/DL Creatinine 0.65 MG/DL Random Glucose 225 MG/DL Total Protein 7.0 GM/DL Albumin 3.3 GM/DL Calcium Level 9.0 MG/DL Alkaline Phosphatase 114 U/L Aspartate Amino Transf (AST/SGOT) 10 U/L Alanine Aminotransferase (ALT/SGPT) 23 U/L Total Bilirubin 0.7 MG/DL Sodium Level 134 MEQ/L Potassium Level 3.4 MEQ/L Chloride Level 101 MEQ/L Carbon Dioxide Level 25.3 MEQ/L Anion Gap 8 MEQ/L Estimat Glomerular Filtration Rate 132 ML/MIN Lipase 140 U/L MDM Medical Decision Making Medical Screen Exam Complete: Yes Emergency Medical Condition: Yes Differential Diagnosis Dehydration, adverse reaction antibiotics, C. difficile, electrolyte abnormality , chronic osteomyelitis. Narrative Course Patient was room to the emergency department, he appears well and well hydrated. PICC line site in the right arm appears clean dry and intact. Patient was given antiemetics, was informed by nursing that he did state that he had one episode of emesis, examined the bag and there was no output in the bag itself. Given normal saline his labs are reassuring, mild hyperglycemia. X -rays obtained of his ankle which does show that he has had significant bony destruction. Last 24 hours Impressions Humerus X-Ray 10/08/17 0000 Signed Impressions: Service Date/Time: Sunday, October 08, 2017 19:21 - CONCLUSION: No acute abnormality demonstrated of the right arm PICC. Juventino Rees MD Foot X-Ray 10/08/17 0000 Signed Impressions: Service Date/Time: Sunday, October 08, 2017 19:18 - CONCLUSION: Markedly abnormal bones of the right foot but all appearing chronic. No perceptible acute fracture or acute bony destruction. Juventino Rees MD Chest X-Ray 10/08/17 0000 Signed Impressions: Service Date/Time: Sunday, October 08, 2017 19:21 - CONCLUSION: Right arm PICC with tip at atriocaval junction. No acute cardiopulmonary disease demonstrated. Juventino Rees MD The patient was reassured, I offered him prescription for rectal Phenergan and discussed that he needs to take his antibiotics and follow-up with his infectious disease office or as soon as possible. He verbalized understanding and agreement. He is stable for discharge at this time As in his previous encounter I did order a C. difficile testing but the patient was unable to stool in the emergency department. Diagnosis Primary Impression: Nausea & vomiting Additional Impression: Diarrhea Additional Instructions: call Dr. Timmons's office tomorrow, call Dr. Salinas's office tomorrow for further instruction. Take your antibiotics as prescribed. Med/Other Pt SpecificInfo: Prescription(s) given Scripts Promethazine Supp (Phenergan Supp) 25 Mg Supp 25 MG RECTAL Q6H Y for NAUSEA OR VOMITING, #20 SUPP 0 Refills Prov: Gentry Melvin MD 10/08/17 Disposition: 01 DISCHARGE HOME Condition: Stable Gentry Melvin MD Oct 08, 2017 23:05
[2017-10-09 00:13] VITALS: BP 176/84; PULSE 72; RESP 18; O2SAT 97
== END 2017-10-09 01:08 | disposition home or self-care (01) ==
LOC: PHED 17:21
DX: R11.2 Nausea with vomiting, unspecified (principal); R19.7 Diarrhea, unspecified; M19.90 Unspecified osteoarthritis, unspecified site; I10 Essential (primary) hypertension; G90.50 Complex regional pain syndrome I, unspecified; G62.9 Polyneuropathy, unspecified; E11.9 Type 2 diabetes mellitus without complications; Z79.4 Long term (current) use of insulin; Z88.1 Allergy status to other antibiotic agents; Z86.14 Personal history of Methicillin resistant Staphylococcus aureus infection; Z72.0 Tobacco use; Z87.440 Personal history of urinary (tract) infections
CPT/HCPCS: 71045; 73060; 73630; 80053; 83690; 85025; 96361; 96372; 96374; 99284; J2405; J2550; J7030

== ENCOUNTER 2017-12-13 12:20 | Emergency (ER) | payer MEDICARE, OTHER ==
[~2017-12-13] VITALS: Ht 180.3 cm; Wt 103.0 kg
[~2017-12-13 12:20] MED LIST changes: -AUGM875T3 PO; -NORC5TAB PO; +PROM1SUP7 RECTAL
[2017-12-13 12:29] VITALS: BP 176/102; PULSE 107; RESP 18; TEMP 99.1; O2SAT 97
--- NOTE | 2017-12-13 13:14 | PD ---
HPI Chief Complaint: Diabetic Time Seen by Provider: 13:14 Travel History International Travel<30 days: No Contact w/Intl Traveler<30days: No Traveled to known affect area: No History of Present Illness HPI 47-year-old male with history of diabetes, hypertension, chronic right foot wound, left BKA, right third toe amputation, presents emergency department for evaluation of right foot pain and drainage from a plantar surface wound. Patient states he has had the wound for multiple years. He has been followed by Dr. Salinas for this. He last saw him 2 weeks ago prior to going on vacation. He was advised that if he started to have any pain or drainage to go immediately to emergency department. Patient states about a week ago he began having pain in his right foot with drainage. He states it has a foul smelling odor. He states he has been nauseous as well. He has not had any fever or chills. He denies any chest pain or tightness. He reports no injury. He states that he changed his flight home to an earlier time so he could come to the emergency department. Patient has not recently been on antibiotic for this wound. He has no other symptoms to report at this time. PFSH Past Medical History Hx Anticoagulant Therapy: No Arthritis: Yes Asthma: No Autoimmune Disease: No Blood Disorders: No Anxiety: No Depression: No Heart Rhythm Problems: No Cancer: No Cardiovascular Problems: Yes (HTN) High Cholesterol: No Chemotherapy: No Chest Pain: No Congestive Heart Failure: No COPD: No Cerebrovascular Accident: No Diabetes: Yes Diminished Hearing: No Endocrine: Yes (HX DM ) Gastrointestinal Disorders: No GERD: No Glaucoma: No Genitourinary: Yes (HX UTI) Headaches: No Hepatitis: No Hiatal Hernia: No Heparin Induced Thrombocytopen: No Hypertension: Yes Immune Disorder: No Implanted Vascular Access Dvce: Yes (PICC LINE IN PAST) Kidney Stones: No Musculoskeletal: Yes Neurologic: Yes (REFLEX SYMPATHETIC DYSTROPHY, NEUROPATHY) Psychiatric: No Reproductive: No Respiratory: No Integumentary: Yes (HX OF MRSA LEFT FOOT WOUND) Immunizations Current: No Migraines: No Myocardial Infarction: No Radiation Therapy: No Renal Failure: Yes (Acute from vancomycin/resolved) Seizures: No Sickle Cell Disease: No Sleep Apnea: No Thyroid Disease: No Ulcer: No PNEUMOCCOCAL Vaccine (Year): 2 Past Surgical History Abdominal Surgery: No AICD: No Appendectomy: No Arteriovenous Shunt: No Body Medical Devices: PINS AND RODS TO LEFT LEG-HARDWARE REMOVED DUE TO MRSA INFECTION Cardiac Surgery: No Cholecystectomy: No Ear Surgery: No Endocrine Surgery: No Eye Surgery: No Genitourinary Surgery: No Gynecologic Surgery: No Insulin Pump: No Joint Replacement: No Neurologic Surgery: No Oral Surgery: No Pacemaker: No Thoracic Surgery: No Other Surgery: Yes (left BKA) Social History Alcohol Use: No Tobacco Use: Yes Substance Use: No Allergies-Medications (Allergen,Severity, Reaction): Coded Allergies: vancomycin (Unverified Allergy, Severe, ACUTE RENAL FAILURE, 12/13/17) tigecycline (Unverified Adverse Reaction, Severe, NAUSEA AND VOMITING, ) Tetracyclines (Verified Adverse Reaction, Unknown, 12/13/17) NAUSEA Uncoded Allergies: aquacel dressing (Allergy, Severe, Bleeding, 12/29/14) pain regranex (Allergy, Severe, Swelling, 12/29/14) pain on the skin Reported Meds & Prescriptions Reported Meds & Active Scripts Active Novolog Inj (Insulin Aspart) 1,000 Unit/10 Ml Vial 1-9 Units SQ ACHS Max dose at bedtime:(10 )units; sugars less than 70,(0)units; sugars 150-199,(1) unit; sugars 200-249,(3) units; sugars 250-299,(5) units; sugars 300-349,(7) units; sugars greater than 349,(9) units Sharpsafety Sharps Contai (Parenteral Therapy Supplies) 1 Mis Mis Ea .XX DIRECTED Glucocom Test Strips (Blood Glucose Test Strips) 1 Martha Martha Ea .XX DIRECTED Lancets 1 Mis Mis Ea .XX DIRECTED Insulin Syringe/U-100/31G X 12/11" 1 ml 31 Gauge X 12/11" Mis Ea .XX DIRECTED Glucocom Blood Glucose Mo W/Device (Device) 1 Kit Kit Kit .XX DIRECTED Levemir Inj (Insulin Detemir) 1,000 unit/ 10 ML Vial 20 Units SQ BID Do not mix with any other Insulin. Lisinopril 10 Mg Tab 20 Mg PO BID Zoloft (Sertraline HCl) 25 Mg Tab 25 Mg PO DAILY Crestor (Rosuvastatin Calcium) 10 Mg Tab 10 Mg PO DAILY Lyrica (Pregabalin) 200 Mg Cap 200 Mg PO BID Reported Novolog Inj (Insulin Aspart) 1,000 Unit/10 Ml Vial 10 Units SQ TIDAC Aspirin 81 Mg Chew 81 Mg CHEW DAILY Review of Systems Except as stated in HPI: all other systems reviewed are Neg Physical Exam Narrative GENERAL: Well-nourished male patient, lying in bed in no acute distress SKIN: Focused skin assessment warm/dry. 5 cm X3 centimeter ulcerative lesion on the plantar surface of the right foot. No yellow slough. No necrotic tissue. Small amount of a serous drainage.. HEAD: Atraumatic. Normocephalic. EYES: Pupils equal and round. No scleral icterus. No injection or drainage. ENT: No nasal bleeding or discharge. Mucous membranes pink and moist. NECK: Trachea midline. No JVD. CARDIOVASCULAR: Mildly tachycardic rate and rhythm. RESPIRATORY: No accessory muscle use. Clear to auscultation. Breath sounds equal bilaterally. GASTROINTESTINAL: Abdomen soft, non-tender, nondistended. Hepatic and splenic margins not palpable. MUSCULOSKELETAL: No obvious deformities. No clubbing. No cyanosis. No edema. Left BKA. Right third toe amputation, deformity of the right foot. Distal pulses are palpable. Cap refills within normal limits. NEUROLOGICAL: Awake and alert. No obvious cranial nerve deficits. Motor grossly within normal limits. Normal speech. Data Data Last Documented VS Vital Signs Date Time Temp Pulse Resp B/P (MAP) Pulse Ox O2 Delivery O2 Flow Rate FiO2 12/13/17 13:44 16 99 Room Air 12/13/17 13:44 2.00 12/13/17 12:29 99.1 107 176/102 (126) Orders Orders Sepsis Workup Initiated (12/13/17 ) Complete Blood Count With Diff (12/13/17 13:23) Comprehensive Metabolic Panel (12/13/17 13:23) Lactic Acid Sepsis Protocol (12/13/17 13:23) Blood Culture (12/13/17 13:23) Blood Glucose (12/13/17 13:23) Ecg Monitoring (12/13/17 13:23) Iv Access Insert/Monitor (12/13/17 13:23) Oximetry (12/13/17 13:23) Oxygen Administration (12/13/17 13:23) Ibuprofen (Motrin) (12/13/17 13:30) Sodium Chlor 0.9% 1000 Ml Inj (Ns 1000 M (12/13/17 13:23) Sodium Chlor 0.9% 1000 Ml Inj (Ns 1000 M (12/13/17 13:23) Sodium Chlor 0.9% 1000 Ml Inj (Ns 1000 M (12/13/17 13:23) Foot, Complete (Inh0eag) (12/13/17 ) Ketorolac Inj (Toradol Inj) (12/13/17 15:00) Wound Culture And Gram Stain (12/13/17 15:51) Ed Discharge Order (12/13/17 16:01) Labs Laboratory Tests Test 12/13/17 13:30 12/13/17 13:35 White Blood Count 11.3 TH/MM3 Red Blood Count 5.07 MIL/MM3 Hemoglobin 14.8 GM/DL Hematocrit 43.9 % Mean Corpuscular Volume 86.5 FL Mean Corpuscular Hemoglobin 29.3 PG Mean Corpuscular Hemoglobin Concent 33.8 % Red Cell Distribution Width 13.9 % Platelet Count 300 TH/MM3 Mean Platelet Volume 8.2 FL Neutrophils (%) (Auto) 74.8 % Lymphocytes (%) (Auto) 19.5 % Monocytes (%) (Auto) 4.7 % Eosinophils (%) (Auto) 0.1 % Basophils (%) (Auto) 0.9 % Neutrophils # (Auto) 8.5 TH/MM3 Lymphocytes # (Auto) 2.2 TH/MM3 Monocytes # (Auto) 0.5 TH/MM3 Eosinophils # (Auto) 0.0 TH/MM3 Basophils # (Auto) 0.1 TH/MM3 CBC Comment DIFF FINAL Differential Comment Blood Urea Nitrogen 10 MG/DL Creatinine 0.69 MG/DL Random Glucose 367 MG/DL Total Protein 7.1 GM/DL Albumin 3.2 GM/DL Calcium Level 9.5 MG/DL Alkaline Phosphatase 150 U/L Aspartate Amino Transf (AST/SGOT) 10 U/L Alanine Aminotransferase (ALT/SGPT) 14 U/L Total Bilirubin 1.2 MG/DL Sodium Level 137 MEQ/L Potassium Level 3.7 MEQ/L Chloride Level 102 MEQ/L Carbon Dioxide Level 23.3 MEQ/L Anion Gap 12 MEQ/L Estimat Glomerular Filtration Rate 123 ML/MIN Lactic Acid Level 1.2 mmol/L MDM Medical Decision Making Medical Screen Exam Complete: Yes Emergency Medical Condition: Yes Medical Record Reviewed: Yes Differential Diagnosis Acute on chronic wound versus osteomyelitis versus cellulitis versus sepsis Narrative Course 47-year-old male presents emergency department for evaluation of a right foot wound with associated pain and drainage. Patient appears without distress. Vital signs are stable. He does have a low-grade temperature mildly tachycardic. Laboratory Tests Test 12/13/17 13:30 12/13/17 13:35 White Blood Count 11.3 TH/MM3 Red Blood Count 5.07 MIL/MM3 Hemoglobin 14.8 GM/DL Hematocrit 43.9 % Mean Corpuscular Volume 86.5 FL Mean Corpuscular Hemoglobin 29.3 PG Mean Corpuscular Hemoglobin Concent 33.8 % Red Cell Distribution Width 13.9 % Platelet Count 300 TH/MM3 Mean Platelet Volume 8.2 FL Neutrophils (%) (Auto) 74.8 % Lymphocytes (%) (Auto) 19.5 % Monocytes (%) (Auto) 4.7 % Eosinophils (%) (Auto) 0.1 % Basophils (%) (Auto) 0.9 % Neutrophils # (Auto) 8.5 TH/MM3 Lymphocytes # (Auto) 2.2 TH/MM3 Monocytes # (Auto) 0.5 TH/MM3 Eosinophils # (Auto) 0.0 TH/MM3 Basophils # (Auto) 0.1 TH/MM3 CBC Comment DIFF FINAL Differential Comment Blood Urea Nitrogen 10 MG/DL Creatinine 0.69 MG/DL Random Glucose 367 MG/DL Total Protein 7.1 GM/DL Albumin 3.2 GM/DL Calcium Level 9.5 MG/DL Alkaline Phosphatase 150 U/L Aspartate Amino Transf (AST/SGOT) 10 U/L Alanine Aminotransferase (ALT/SGPT) 14 U/L Total Bilirubin 1.2 MG/DL Sodium Level 137 MEQ/L Potassium Level 3.7 MEQ/L Chloride Level 102 MEQ/L Carbon Dioxide Level 23.3 MEQ/L Anion Gap 12 MEQ/L Estimat Glomerular Filtration Rate 123 ML/MIN Lactic Acid Level 1.2 mmol/L Last Impressions Foot X-Ray 12/13/17 0000 Signed Impressions: Service Date/Time: Wednesday, December 13, 2017 13:31 - CONCLUSION: Plantar soft tissue ulceration without evidence for acute osteomyelitis. Rom Gardner MD I discussed the patient with Dr. Salinas who will come and evaluate the patient. 1600 Dr. Salinas has evaluated the patient. He requests a blood culture and patient to be discharged home with p.o. Bactrim to follow-up in his office this week. Plan is discussed with the patient. He is in agreement with this plan of care. Diagnosis Primary Impression: Diabetic foot ulcer associated with type 2 diabetes mellitus Qualified Codes: E11.621 - Type 2 diabetes mellitus with foot ulcer; L97.412 - Non-pressure chronic ulcer of right heel and midfoot with fat layer exposed Referrals: Don Salinas DPM Patient Instructions: Chronic Wound Care (GEN), General Instructions Additional Instructions: Follow-up with Dr. Salinas. contact his office for an appointment Start your antibiotic today and take it until it is all gone Return immediately with acute worsening of symptoms Med/Other Pt SpecificInfo: Prescription(s) given Scripts Sulfamethoxazole-Trimethoprim (Bactrim DS) 800-160 Mg Tab 1 TAB PO BID for Infection, #20 TAB 0 Refills Prov: Maria De Jesus Cooley 12/13/17 Disposition: 01 DISCHARGE HOME Condition: Stable Maria De Jesus Cooley December 13, 2017 13:14
[2017-12-13] MEDS ORDERED: SODIUM CHLOR 0.9% 1000 ML INJ 100 ML IV ONE (13:23)
[2017-12-13] MEDS ORDERED: SODIUM CHLOR 0.9% 1000 ML INJ 1,000 ML IV ONE ×2 (13:23)
[2017-12-13] MEDS ORDERED: IBUPROFEN 800 MG TAB PO ONE (13:30)
[2017-12-13 13:44] VITALS: RESP 16; O2SAT 98
[2017-12-13 13:55] LABS: AUTOMATED NEUTROPHIL # 8.5 TH/MM3 (1.8-7.7); BASOPHIL # 0.1 TH/MM3 (0-0.2); BASOPHIL % 0.9 % (0.0-2.0); EOSINOPHIL % 0.1 % (0.0-4.0); HEMATOCRIT 43.9 % (39.0-51.0); HEMOGLOBIN 14.8 GM/DL (13.0-17.0); LYMPH % 19.5 % (9.0-44.0); LYMPHOCYTE # 2.2 TH/MM3 (1.0-4.8); MEAN CELL VOLUME 86.5 FL (80.0-100.0); MEAN CORPUSCULAR HEMOGLOBIN 29.3 PG (27.0-34.0); MEAN CORPUSCULAR HGB CONC 33.8 % (32.0-36.0); MEAN PLATELET VOLUME 8.2 FL (7.0-11.0); MONO % 4.7 % (0.0-8.0); MONOCYTE # 0.5 TH/MM3 (0-0.9); NEUT % 74.8 % (16.0-70.0); PLATELET COUNT 300 TH/MM3 (150-450); RED BLOOD COUNT 5.07 MIL/MM3 (4.50-5.90); RED CELL DISTRIBUTION WIDTH 13.9 % (11.6-17.2); WHITE BLOOD COUNT 11.3 TH/MM3 (4.0-11.0)
[2017-12-13] MEDS ORDERED: NOVOLOGP2 SQ (13:56)
--- NOTE | 2017-12-13 14:01 | RADRPT ---
EXAM DATE/TIME: 12/13/2017 13:31 [facility] COMPARISON: FOOT RIGHT COMPLETE ([id number]), October 08, 2017, 19:18. INDICATIONS : Right foot pain. MEDICAL HISTORY : Diabetes mellitus type II. Osteoarthritis. Right foot wound vac. SURGICAL HISTORY : Left BKA ENCOUNTER: Initial ACUITY: 2 days PAIN SCORE: 9/10 LOCATION: Right foot FINDINGS: One is normal. There is significant deformity of the foot from previous surgery no changes. There is some ulceration seen at the plantar aspect of the foot posteriorly. There is no subcutaneous air. Und erlying bone is unchanged with no definite evidence for acute osteomyelitis. CONCLUSION: Plantar soft tissue ulceration without evidence for acute osteomyelitis. Rom Gardner MD on December 13, 2017 at 13:58 Board Certified Radiologist. This report was verified electronically.
[2017-12-13 14:21] LABS: ALBUMIN 3.2 GM/DL (3.4-5.0); AST (GOT) 10 U/L (15-37); BICARBONATE 23.3 MEQ/L (21.0-32.0); BLOOD UREA NITROGEN 10 MG/DL (7-18); CALCIUM 9.5 MG/DL (8.5-10.1); CHLORIDE 102 MEQ/L (98-107); CREATININE 0.69 MG/DL (0.60-1.30); GLOMERULAR FILTRATION RATE 123 ML/MIN (>89); GLUCOSE,RANDOM 367 MG/DL (74-106); SODIUM (NA) 137 MEQ/L (136-145)
[2017-12-13 14:25] LABS: ALKALINE PHOSPHATASE 150 U/L (45-117); ALT (GPT) 14 U/L (12-78); TOTAL BILIRUBIN ADULT 1.2 MG/DL (0.2-1.0); TOTAL PROTEIN 7.1 GM/DL (6.4-8.2)
[2017-12-13] MEDS ORDERED: KETOROLAC TROMETHAMINE 30 MG/ML (IVP) VIAL IV PUSH ONE (15:00)
[2017-12-13 16:05] VITALS: RESP 14
[2017-12-13] MEDS ORDERED: BACT800T5 PO (16:07)
== END 2017-12-13 16:20 | disposition home or self-care (01) ==
LOC: NEPC 12:20
DX: E11.621 Type 2 diabetes mellitus with foot ulcer (principal); L97.412 Non-pressure chronic ulcer of right heel and midfoot with fat layer exposed; I10 Essential (primary) hypertension; Z72.0 Tobacco use; Z79.4 Long term (current) use of insulin
CPT/HCPCS: 73630; 80053; 83605; 85025; 87040; 87070; 96361; 96374; 99284; J1885; J7030; 87205

== ENCOUNTER 2018-02-25 10:18 | Inpatient (IN) ==
[2018-02-25] MEDS ORDERED: Clindamycin 600 mg/NS Premix 600 MG/50 ML PIGGYBACK IV.SIG STA (10:53)
[2018-02-25] MEDS ORDERED: Piperacil/Tazo 3.375 GM Premix 50 ML IV.SIG ONE (10:53)
[2018-02-25] MEDS ORDERED: Sod Chloride 0.9% Inj 1,000 ML IV.SIG ONE ×2 (10:55→11:43)
[2018-02-25] MEDS ORDERED: Acetaminophen 325 MG Tablet PO ONE (10:55)
--- NOTE | 2018-02-25 11:07 | XR ---
EXAM DATE: 02/25/2018 11:05 AM EDT AGE/SEX: 47 years / Male INDICATIONS: Shortness of breath. CLINICAL DATA: This is the patient's initial encounter. Patient reports that signs and symptoms have been present for 1 day and indicates a pain score of 10/10. MEDICAL/SURGICAL HISTORY: Diabetes mellitus type II. Osteoarthritis. . Partial amputation of r ight foot. COMPARISON: [facility], CHEST SINGLE AP, 10/08/2017. . FINDINGS: No new focal pleural or parenchymal opacities. The cardiomediastinal contours are unremarkable. Osse ous structures are intact. CONCLUSION: 1. No acute abnormality or significant interval change. Electronically signed by: Rey Lazo MD 02/25/2018 11:06 AM EDT
--- NOTE | 2018-02-25 11:10 | XR ---
EXAM DATE: 02/25/2018 11:06 AM EDT AGE/SEX: 47 years / Male INDICATIONS: Right foot pain, ulcer on bottom of foot. CLINICAL DATA: This is the patient's initial encounter. Patient reports that signs and symptoms have been present for 1 day and indicates a pain score of 10/10. MEDICAL/SURGICAL HISTORY: Diabetes mellitus type II. Osteoarthritis. . Partial amputation of r ight foot. COMPARISON: [facility], FOOT RIGHT COMPLETE ([id number]), 12/13/2017. . FINDINGS: Redemonstration of significant deformity of the right foot and prior postsurgical changes. Osseous st ructures appear overall stable. No evidence for new fracture or definitive new destructive bony robledo e. Soft tissue prominence and ulceration along the plantar mid to hindfoot. No radiopaque foreign bod ies or significant subcutaneous emphysema. CONCLUSION: 1. Stable extensive right foot deformity. 2. Plantar soft tissue swelling/laceration without definitive evidence for acute osteomyelitis. Electronically signed by: Rey Lazo MD 02/25/2018 11:09 AM EDT
[2018-02-25 11:15] LABS: Baso # (Auto) 0.1 th/mm3 (0.0-0.2); Baso % (Auto) 0.9 % (0.0-2.0); Eos # (Auto) 0.1 th/mm3 (0.0-0.4); Eos % (Auto) 0.9 % (0.0-4.0); Hematocrit 46.6 % (39.0-51.0); Hemoglobin 15.7 gm/dL (13.0-17.0); Lymph # (Auto) 2.4 th/mm3 (1.0-4.8); Lymph % (Auto) 19.1 % (9.0-44.0); Mean Corpuscular HGB Conc 33.7 % (32.0-36.0); Mean Corpuscular Hemoglobin 29.4 pg (27.0-34.0); Mean Corpuscular Volume 87.2 fL (80.0-100.0); Mean Platelet Volume 8.7 fL (7.0-11.0); Mono # (Auto) 0.4 th/mm3 (0.0-0.9); Mono % (Auto) 3.5 % (0.0-8.0); Neut # (Auto) 9.5 th/mm3 (1.8-7.7); Neut % (Auto) 75.6 % (16.0-70.0); Platelet Count 333 th/mm3 (150-450); Red Blood Count 5.35 mil/mm3 (4.50-5.90); Red Cell Distribution Width 13.9 % (11.6-17.2); White Blood Count 12.6 th/mm3 (4.0-11.0)
--- NOTE | 2018-02-25 11:18 | ED ---
HPI General Chief complaint: Skin/Abscess/Foreign Body Stated complaint: Right foot pain Time Seen by Provider: 02/25/18 10:45 Source: patient Mode of arrival: ambulatory Limitations: no limitations History of Present Illness HPI narrative: 47-year-old male notes uncontrolled blood sugars over the past week with pain in his foot over the past couple of days. He states he has had the area on his foot for about a year and a half. MD complaint: lesion Onset (ago): day(s) Location: RLE Severity: moderate Quality: burning Pain Consistency: constant Relieving factors: none Exacerbating factors: movement Associated symptoms: other (Uncontrollable sugars) Treatments prior to arrival: none Related Data Home Medications Medication Instructions Recorded Confirmed aspirin [Aspir-81] 81 mg PO DAILY 02/25/18 02/25/18 ibuprofen 800 mg PO Q4H PRN 02/25/18 02/25/18 insulin aspart U-100 [Novolog 1 sliding scale dose SUB-Q UD 02/25/18 02/25/18 U-100 Insulin aspart] insulin aspart U-100 [Novolog 10 unit SUB-Q BIDAC 02/25/18 02/25/18 U-100 Insulin aspart] insulin detemir U-100 [Levemir 25 unit SUB-Q BID 02/25/18 02/25/18 U-100 Insulin] lisinopril 20 mg PO BID 02/25/18 02/25/18 loratadine [Claritin] 10 mg PO DAILY 02/25/18 02/25/18 oxycodone 10 mg PO Q4-6H PRN 02/25/18 02/25/18 rosuvastatin [Crestor] 20 mg PO DAILY 02/25/18 02/25/18 sertraline [Zoloft] 25 mg PO DAILY 02/25/18 02/25/18 Allergies Allergy/AdvReac Type Severity Reaction Status Date / Time vancomycin Allergy Severe ACUTE Verified 02/25/18 10:34 RENAL FAILURE tigecycline AdvReac Severe NAUSEA AND Verified 02/25/18 10:34 VOMITING Tetracyclines AdvReac Unknown Gastrointestinal Verified 02/25/18 10:34 Upset aquacel dressing Allergy Severe Bleeding Uncoded 12/29/14 14:35 regranex Allergy Severe Swelling Uncoded 12/29/14 14:35 Review of Systems Except as stated in HPI: all other systems reviewed are negative PMFSH History History Provided By: Patient (Diabetic) Social History Social History Substance History: No History of Abuse Second Hand Smoke Exposure: Yes Smoking Status: Current every day smoker Tobacco Type: Cigarettes How Often Do You Have a Drink Containing Alcohol: Never Recent Travel in [place] within the Last 8 Weeks: No Recent Out of Country Travel within the Last 8 Weeks: No Immunization History Tetanus Immunization: Unsure Hx Influenza Vaccine This Season: No Exam Narrative Exam Narrative: GENERAL: 47-year-old male in no apparent distress SKIN: Large open area noted to plantar aspect of right foot that patient notes intermittent green drainage from that is currently not draining but culture obtained, areas foul-smelling HEAD: Atraumatic. Normocephalic. EYES: Pupils equal and round. No scleral icterus. No injection or drainage. ENT: No nasal bleeding or discharge. Mucous membranes pink and moist. NECK: Trachea midline. No JVD. CARDIOVASCULAR: Regular rate and rhythm. No murmur appreciated. RESPIRATORY: No accessory muscle use. Clear to auscultation. Breath sounds equal bilaterally. MUSCULOSKELETAL: No obvious deformities. Pain with right foot, neurovascularly intact, no crepitus NEUROLOGICAL: Awake and alert. No obvious cranial nerve deficits. Motor grossly within normal limits. Normal speech. PSYCHIATRIC: Appropriate mood and affect; insight and judgment normal. Course Reevaluation(s) Reevaluation #1: patient agrees to admit Consultations Consultation #1: dr salazar agrees to admit Initial Documented Vital Signs Temperature 98.7 F 02/25/18 10:25 Pulse Rate 123 H 02/25/18 10:25 Respiratory Rate 16 02/25/18 10:25 Blood Pressure 150/91 H 02/25/18 10:25 Pulse Oximetry 98 02/25/18 10:25 Last Documented Vital Signs Temperature 98.7 F 02/25/18 10:25 Pulse Rate 123 H 02/25/18 10:25 Respiratory Rate 16 02/25/18 10:25 Blood Pressure 150/91 H 02/25/18 10:25 Pulse Oximetry 99 02/25/18 10:48 Medical Decision Making [facility] Narrative Medical decision making narrative: Will check blood work, imaging and place on Zosyn and clindamycin given allergies will dosing with IV fluids and reevaluate Differential Diagnosis Differential Diagnosis: Sepsis, osteomyelitis, arthritic, DKA Lab Data Lab results reviewed: Yes I reviewed the patient's lab results. Result diagrams: 02/25/18 10:50 02/25/18 10:50 Lab Results 02/25/18 02/25/18 02/25/18 Range/Units 10:50 10:50 10:50 WBC 12.6 H (4.0-11.0) th/mm3 RBC 5.35 (4.50-5.90) mil/mm3 Hgb 15.7 (13.0-17.0) gm/dL Hct 46.6 (39.0-51.0) % MCV 87.2 (80.0-100.0) fL MCH 29.4 (27.0-34.0) pg MCHC 33.7 (32.0-36.0) % RDW 13.9 (11.6-17.2) % Plt Count 333 (150-450) th/mm3 MPV 8.7 (7.0-11.0) fL Neut % (Auto) 75.6 H (16.0-70.0) % Lymph % (Auto) 19.1 (9.0-44.0) % [place] % (Auto) 3.5 (0.0-8.0) % Eos % (Auto) 0.9 (0.0-4.0) % Baso % (Auto) 0.9 (0.0-2.0) % Neut # (Auto) 9.5 H (1.8-7.7) th/mm3 Lymph # (Auto) 2.4 (1.0-4.8) th/mm3 [place] # (Auto) 0.4 (0.0-0.9) th/mm3 Eos # (Auto) 0.1 (0.0-0.4) th/mm3 Baso # (Auto) 0.1 (0.0-0.2) th/mm3 WBC Differential . Differential Comment Auto diff final PT 10.0 (9.8-11.6) sec INR 1.0 Ratio APTT 22.0 L (24.3-30.1) sec Sodium (136-145) meq/L Potassium (3.5-5.1) meq/L Chloride (98-107) meq/L Carbon Dioxide (21.0-32.0) meq/L Anion Gap (5-15) meq/L BUN (7-18) mg/dL Creatinine (0.60-1.30) mg/dL Estimated GFR (>89) mL/min POC Glucose (68-110) mg/dl Random Glucose (74-106) mg/dL Lactic Acid (0.4-2.0) mmol/L Calcium (8.5-10.1) mg/dL Magnesium 1.9 (1.5-2.5) mg/dL Total Bilirubin (0.2-1.0) mg/dL AST (15-37) U/L ALT (12-78) U/L Alkaline Phosphatase (45-117) U/L Total Protein (6.4-8.2) g/dL Albumin (3.4-5.0) g/dL 02/25/18 02/25/18 02/25/18 Range/Units 10:50 10:50 10:51 WBC (4.0-11.0) th/mm3 RBC (4.50-5.90) mil/mm3 Hgb (13.0-17.0) gm/dL Hct (39.0-51.0) % MCV (80.0-100.0) fL MCH (27.0-34.0) pg MCHC (32.0-36.0) % RDW (11.6-17.2) % Plt Count (150-450) th/mm3 MPV (7.0-11.0) fL Neut % (Auto) (16.0-70.0) % Lymph % (Auto) (9.0-44.0) % [place] % (Auto) (0.0-8.0) % Eos % (Auto) (0.0-4.0) % Baso % (Auto) (0.0-2.0) % Neut # (Auto) (1.8-7.7) th/mm3 Lymph # (Auto) (1.0-4.8) th/mm3 [place] # (Auto) (0.0-0.9) th/mm3 Eos # (Auto) (0.0-0.4) th/mm3 Baso # (Auto) (0.0-0.2) th/mm3 WBC Differential Differential Comment PT (9.8-11.6) sec INR Ratio APTT (24.3-30.1) sec Sodium 131 L (136-145) meq/L Potassium 4.5 (3.5-5.1) meq/L Chloride 100 (98-107) meq/L Carbon Dioxide 23.2 (21.0-32.0) meq/L Anion Gap 8 (5-15) meq/L BUN 16 (7-18) mg/dL Creatinine 0.96 (0.60-1.30) mg/dL Estimated GFR 84 L (>89) mL/min POC Glucose 405 H (68-110) mg/dl Random Glucose 441 H (74-106) mg/dL Lactic Acid 1.2 (0.4-2.0) mmol/L Calcium 9.4 (8.5-10.1) mg/dL Magnesium (1.5-2.5) mg/dL Total Bilirubin 0.9 (0.2-1.0) mg/dL AST 22 (15-37) U/L ALT 22 (12-78) U/L Alkaline Phosphatase 153 H (45-117) U/L Total Protein 7.8 (6.4-8.2) g/dL Albumin 3.7 (3.4-5.0) g/dL Imaging Data Attestation: I personally reviewed and interpreted this imaging study as follows : Radiologist's impression: Chest X-Ray 02/25/18 10:46 CONCLUSION: 1. No acute abnormality or significant interval change. Foot X-Ray 02/25/18 10:49 CONCLUSION: 1. Stable extensive right foot deformity. 2. Plantar soft tissue swelling/laceration without definitive evidence for acute osteomyelitis. Discharge Plan Discharge Disposition Patient Disposition: 30 Still Patient Discharge Condition Condition: Stable Discharge Details Diagnosis: Sepsis, Diabetic foot infection Physicians Team ED Provider: Maggi Woods Primary Care Provider: Gill Jo Attending Provider: Yoselin Salazar Discharge Interventions Interventions: Vital Signs Last Done: 02/25/18 10:29 Status ED Status: Admitted Patient
[2018-02-25 11:47] LABS: Alanine Aminotransferase 22 U/L (12-78); Albumin 3.7 g/dL (3.4-5.0); Alkaline Phosphatase 153 U/L (45-117); Anion Gap 8 meq/L (5-15); Aspartate Aminotransferase 22 U/L (15-37); Blood Urea Nitrogen 16 mg/dL (7-18); Calcium 9.4 mg/dL (8.5-10.1); Carbon Dioxide 23.2 meq/L (21.0-32.0); Chloride 100 meq/L (98-107); Glomerular Filtration Rate 84 mL/min (>89); Glucose,Random 441 mg/dL (74-106); Sodium 131 meq/L (136-145); Total Protein 7.8 g/dL (6.4-8.2)
[2018-02-25 11:48] LABS: Potassium 4.5 meq/L (3.5-5.1)
[2018-02-25] MEDS ORDERED: Bisacodyl 10 MG Supp RECTAL PRN (13:11)
[2018-02-25] MEDS ORDERED: Acetaminophen 325 MG Tablet PO PRN (13:12)
[2018-02-25] MEDS ORDERED: Prochlorperazine 25 MG Supp RECTAL PRN (13:12)
[2018-02-25] MEDS ORDERED: Clindamycin 900 mg/NS Premix 900 MG/50 ML PIGGYBACK IV.SIG SCH (13:15)
[2018-02-25] MEDS ORDERED: Piperacil/Tazo 4.5 GM Premix 4.5 GM/100 ML BAG IV.SIG SCH (13:30)
[2018-02-25] MEDS: Sod Chloride 0.9% Inj 1,000 ML IV.CONT SCH (15:14)
[2018-02-25] MEDS: Enoxaparin Inj 40 MG/0.4 ML Syringe SQ SCH (15:15)
--- NOTE | 2018-02-25 15:35 | P.CON ---
History of Present Illness Service: Foot and ankle surgery/podiatry Consult date: 02/25/18 Primary Care Provider: SHANE Ko Chief Complaint: Right foot plantar ulceration History of Present Illness: Podiatry consulted for this 47-year-old male plantar foot wound. with diabetes and reported uncontrolled blood sugars over the past week with increasing pain to patient was seen in the hospital in September at which time bone biopsy was performed and was negative for osteomyelitis patient was discharged with wound VAC and he has been following up with Dr. Salinas in office. Recently he switched podiatrists and is in wound care. Review of Systems Constitutional: Reports chills, Denies anorexia, Denies body ache(s), Denies fever(s) Eyes: Denies blind spots Ears, Nose, Mouth, and Throat: Denies abnormal hearing Cardiovascular: Reports foot swelling, Reports leg swelling, Denies chest pain Gastrointestinal: Denies abdominal pain PMFSH - History History Provided By: Patient (Diabetic) - Tobacco History Second Hand Smoke Exposure: Yes Tobacco Use In Past 30 Days: Yes Smoking Status: Current every day smoker Tobacco Type: Cigarettes - Alcohol History How Often Do You Have a Drink Containing Alcohol: Never - Substance Use History Substance History: No History of Abuse - Travel History Recent Travel in the [place] Within the Last 8 Weeks: No Recent Travel Out of the Country Within the Last 8 Weeks: No - Immunization History Tetanus Immunization: Unsure Hx Influenza Vaccine This Season: No Medications and Allergies Active Medications: Active Medications Acetaminophen (Tylenol) 650 mg PO Q4H PRN PRN Reason: Temp > 100.4 Al Hydroxide/Mg Hydroxide (Milk Of Magnchris Liq) 30 ml PO Q12H PRN PRN Reason: Mild Constipation Aspirin (Ecotrin) 81 mg PO DAILY [facility] Atorvastatin Calcium (Lipitor) 40 mg PO DAILY [facility] Bisacodyl (Dulcolax Supp) 10 mg RECTAL DAILY PRN PRN Reason: SEVERE CONSITIPATION Enoxaparin Sodium (Lovenox Inj) 40 mg SQ Q24H [facility] Last Admin: 02/25/18 15:15 Dose: 40 mg Sodium Chloride (Ns Inj) 1,000 mls @ 84 mls/hr IV.CONT .[id number] [facility] Last Admin: 02/25/18 15:14 Dose: 84 mls/hr Clindamycin/Sodium Chloride (Cleocin 900 Mg/Ns Premix) 900 mg in 50 mls @ 100 mls/hr IV.SIG Q8H [facility] Piperacillin/Tazobactam/Dextrose (Zosyn 4.5 Gm Premix) 4.5 gm in 100 mls @ 200 mls/hr IV.SIG Q8H [facility] Ibuprofen (Motrin) 800 mg PO Q4H PRN PRN Reason: Pain 1-5 Last Admin: 02/25/18 15:14 Dose: 800 mg Insulin Aspart (Novolog Insulin Correctional Sugar Inj) 10 unit SQ BIDAC [facility] Insulin Aspart (Novolog Insulin Correctional Sugar Inj) 0 unit SQ ACHS [facility]; Protocol Insulin Detemir (Levemir Inj) 25 unit SQ BID [facility] Lactulose (Lactulose Liq) 30 ml PO DAILY PRN PRN Reason: SEVERE CONSITIPATION Lisinopril (Prinivil) 20 mg PO BID [facility] Loratadine (Claritin) 10 mg PO DAILY [facility] Metoclopramide HCl (Reglan Inj) 5 mg IV.PUSH Q6HR PRN; Protocol PRN Reason: Nausea Or Vomiting mod to pam Miscellaneous (Pill Splitter) 1 each OTHER UNSCH [facility] Oxycodone HCl (Roxicodone) 10 mg PO Q4H PRN PRN Reason: Pain 6-10 Prochlorperazine (Compazine Supp) 25 mg RECTAL Q12HR PRN PRN Reason: NAUSEA OR VOMITING Senna/Docusate Sodium (Lena-Colace) 1 tab PO BID [facility] Sennosides (Senokot) 17.2 mg PO Q12H PRN PRN Reason: Moderate Constipation Sertraline HCl (Zoloft) 25 mg PO DAILY [facility] Temazepam (Restoril) 15 mg PO HS PRN PRN Reason: INSOMNIA Allergies Allergy/AdvReac Type Severity Reaction Status Date / Time vancomycin Allergy Severe ACUTE Verified 02/25/18 10:34 RENAL FAILURE tigecycline AdvReac Severe NAUSEA AND Verified 02/25/18 10:34 VOMITING Tetracyclines AdvReac Unknown Gastrointestinal Verified 02/25/18 10:34 Upset aquacel dressing Allergy Severe Bleeding Uncoded 12/29/14 14:35 regranex Allergy Severe Swelling Uncoded 12/29/14 14:35 Home Medications Medication Instructions Recorded Confirmed Type aspirin [Aspir-81] 81 mg PO DAILY 02/25/18 02/25/18 History ibuprofen 800 mg PO Q4H PRN 02/25/18 02/25/18 History insulin aspart U-100 [Novolog 1 sliding scale dose SUB-Q UD 02/25/18 02/25/18 History U-100 Insulin aspart] insulin aspart U-100 [Novolog 10 unit SUB-Q BIDAC 02/25/18 02/25/18 History U-100 Insulin aspart] insulin detemir U-100 [Levemir 25 unit SUB-Q BID 02/25/18 02/25/18 History U-100 Insulin] lisinopril 20 mg PO BID 02/25/18 02/25/18 History loratadine [Claritin] 10 mg PO DAILY 02/25/18 02/25/18 History oxycodone 10 mg PO Q4-6H PRN 02/25/18 02/25/18 History rosuvastatin [Crestor] 20 mg PO DAILY 02/25/18 02/25/18 History sertraline [Zoloft] 25 mg PO DAILY 02/25/18 02/25/18 History Physical Exam Vital signs: Vital Signs 02/25/18 10:25 02/25/18 10:48 02/25/18 13:52 Temperature 98.7 F Pulse Rate 123 H 94 H Respiratory Rate 16 12 Blood Pressure 150/91 H 117/70 Pulse Oximetry 98 99 Intake & Output 02/24/18 02/25/18 02/25/18 18:59 06:59 18:59 Intake Total 2099 Balance 2099 Weight 90.718 kg Intake: IV 2099 Cleocin 600 mg/NS Premix 600 mg 50 / 50 In 50 ml @ 100 mls/hr IV.SIG STAT STA Rx#:[id number] Zosyn 3.375 GM Premix 50 ML @ 50 / 50 100 mls/hr IV.SIG ONCE ONE Rx#: [id number] NS Inj 1,000 ML @ Wide Open IV. 1999 SIG BOLUS ONE Rx#:[id number] Narrative: GENERAL: This is a well-nourished, well-developed patient, in no apparent distress. SKIN: Right foot plantar wound HEAD: Atraumatic. EYES: Pupils equal round and reactive. ENT: Airway patent. NECK: Trachea midline. RESPIRATORY: Nonlabored breathing. MUSCULOSKELETAL:. Negative Homans sign bilaterally. NEUROLOGICAL: Awake and alert. Normal speech. Lower extremity physical exam: Vascular: Dorsalis pedis palpable, posterior tibial palpable. Capillary refill time within normal limits to digits 5 bilateral foot. Edema present to right foot and ankle. Neuro: Gross sensation intact to bilateral lower extremity. Pinpoint sensation decreased. No hyperalgesia noted to bilateral lower extremity Dermatology: Normal temperature and turgor to bilateral lower extremity. Right foot plantar ulceration noted measuring a proximal by 2 cm with no probe to bone , granular base with no hyperkeratotic borders, maceration noted mildly periwound. No fluctuance, no crepitus, no purulent drainage upon compression. 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 Right foot Charcot deformity noted. Assessment and Plan - Plan 47-year-old male with right plantar foot wound Patient evaluated and examined all questions answered Will place wound care orders X-rays reviewed, no osteomyelitis noted, Charcot foot deformity noted MRI right foot rule out osteomyelitis Will follow patient while in-house
[2018-02-25] MEDS ORDERED: Gadobutrol PF 10 MMOL/10 ML Vial (for RAD) IV.SIG ONE (18:18)
--- NOTE | 2018-02-25 18:31 | ECG ---
Date Performed: 02/25/2018 Time Performed: 11:32:06 PTAGE: 47 years EKG: SINUS TACHYCARDIA POSSIBLE LEFT ATRIAL ENLARGEMENT POSSIBLE ANTERIOR MYOCARDIAL INFARCTION ABNORMAL ECG PREVIOUS TRACING : 09/25/2017 07.23 Compared to prior tracing, sinus rate is faster. R-wave pro gression is most likely due to lead placement differences DOCTOR: Adrián Pedro Interpretating Date/Time 02/25/2018 18:53:14
--- NOTE | 2018-02-25 18:45 | MR ---
EXAM DATE: 02/25/2018 6:29 PM EDT AGE/SEX: 47 years / Male INDICATIONS: Osteomyelitis. CLINICAL DATA: This is the patient's initial encounter. Patient reports that signs and symptoms have been present for 1 month and indicates a pain score of 9/10. MEDICAL/SURGICAL HISTORY: Hypertension. Diabetes mellitus type II. . BKA Left ankle sx. COMPARISON: [facility] [place], MRI FOOT RIGHT W & W/O CONTRAST, 06/12/2016. . TECHNIQUE: Multiplanar, multisequence MRI examination was performed without contrast and after th e intravenous administration of 9 ml Gadavist (gadobutrol) single exam dose. FINDINGS: Comparison is 2016. Again seen are chronic deformities of the right foot including amputations of the second, third and fourth metatarsals. There is a small residual cuboid which appears to be partially fused to the fifth metatarsal. The cuneiform bones are fused at the lateral and intermediate cuneifo german. Great toe is partially dislocated laterally. There is focal marrow edema and marrow enhancement on the lateral plantar aspect of the foot at the f used residual cuboid and proximal fifth metatarsal. There is a small amount of fluid in the surroundi ng soft tissues and some soft tissue edema. There appears to be an ulceration on the plantar aspect o f the foot with a possible small sinus tract extending laterally towards the area of suspected osteom yelitis. CONCLUSION: 1. Marrow edema and enhancement on the lateral aspect of the foot around the fused residual cuboid a nd fifth metatarsal with surrounding edema and nonloculated fluid. There is an ulceration on the plan tar aspect of the foot with a questionable sinus tract extending towards the area of suspected osteom yelitis. There is rocker-bottom deformity and numerous chronic deformities as listed above. Electronically signed by: Alexei Hull MD 02/25/2018 6:44 PM EDT
[2018-02-25] MEDS ORDERED: Temazepam 15 MG Capsule PO PRN (21:00)
--- NOTE | 2018-02-25 21:04 | P.HP ---
History of Present Illness Primary Care Physician: SHANE Ko Chief Complaint: Right foot plantar ulceration History of Present Illness: Pleasant 47-year-old male with PMH of previous osteo with BKA left leg, uncontrolled IDDM, came for evaluation of plantar foot wound. Patient with diabetes and reported uncontrolled blood sugars over the past week with increasing pain to patient was seen in the hospital in September at which time bone biopsy was performed and was negative for osteomyelitis Patient was discharged with wound VAC and he has been following up with Dr. Salinas in office. Recently he switched podiatrists and is in wound care. Patient reports associated nausea fever chills diarrhea on admission' Says he has meen on antibiotics 1 month prior. No h/o C diff however has a h/o MRSa left leg No uronary omplaints. no cp, sob He is noted tachycardic - Diagnosis (1) Sepsis (2) Diabetic foot infection Inpatient Certification: I certify that the inpatient services were ordered in accordance with Medicare regulations governing the order. This includes certification that hospital inpatient services are reasonable and necessary and in the case of services not specified as inpatient-only under 42 CFR 419.22(n), that they are appropriately provided as inpatient services in accordance to with the 2-midnight benchmark under 43 CFR 412.3(e) Estimated Total Length of Stay (Days): 4 Plans for Post Hospital Care: Not yet determined Review of Systems All other systems reviewed negative except as stated in [facility] - History History Provided By: Patient (Diabetic) - Medical History Medical History: Medical History (Last Updated 02/25/18 @ 22:42 by Yoselin Urrutai MD) Diabetes mellitus Osteomyelitis - Surgical History Surgical History: Surgical History (Last Updated 02/25/18 @ 22:43 by Yoselin Urrutia MD) History of left below knee amputation (Acute) - Family History Family History: Family History (Last Updated 02/25/18 @ 22:41 by Yoselin Urrutia MD) Other Diabetes - Tobacco History Second Hand Smoke Exposure: Yes Tobacco Use In Past 30 Days: Yes Smoking Status: Current every day smoker Tobacco Type: Cigarettes - Alcohol History How Often Do You Have a Drink Containing Alcohol: Never - Substance Use History Substance History: No History of Abuse - Travel History Recent Travel in the [place] Within the Last 8 Weeks: No Recent Travel Out of the Country Within the Last 8 Weeks: No - Immunization History Tetanus Immunization: Unsure Hx Influenza Vaccine This Season: No Medications and Allergies Active Medications: Active Medications Acetaminophen (Tylenol) 650 mg PO Q4H PRN PRN Reason: Temp > 100.4 Al Hydroxide/Mg Hydroxide (Milk Of Magnesia Liq) 30 ml PO Q12H PRN PRN Reason: Mild Constipation Aspirin (Ecotrin) 81 mg PO DAILY [facility] Atorvastatin Calcium (Lipitor) 40 mg PO DAILY [facility] Bisacodyl (Dulcolax Supp) 10 mg RECTAL DAILY PRN PRN Reason: SEVERE CONSITIPATION Enoxaparin Sodium (Lovenox Inj) 40 mg SQ Q24H [facility] Last Admin: 02/25/18 15:15 Dose: 40 mg Sodium Chloride (Ns Inj) 1,000 mls @ 84 mls/hr IV.CONT .[id number] [facility] Last Admin: 02/25/18 15:14 Dose: 84 mls/hr Clindamycin/Sodium Chloride (Cleocin 900 Mg/Ns Premix) 900 mg in 50 mls @ 100 mls/hr IV.SIG Q8H [facility] Piperacillin/Tazobactam/Dextrose (Zosyn 4.5 Gm Premix) 4.5 gm in 100 mls @ 200 mls/hr IV.SIG Q8H [facility] Ibuprofen (Motrin) 800 mg PO Q4H PRN PRN Reason: Pain 1-5 Last Admin: 02/25/18 15:14 Dose: 800 mg Insulin Aspart (Novolog Insulin Correctional Sugar Inj) 10 unit SQ BIDAC [facility] Insulin Aspart (Novolog Insulin Correctional Sugar Inj) 0 unit SQ ACHS [facility]; Protocol Insulin Detemir (Levemir Inj) 25 unit SQ BID [facility] Lactulose (Lactulose Liq) 30 ml PO DAILY PRN PRN Reason: SEVERE CONSITIPATION Lisinopril (Prinivil) 20 mg PO BID [facility] Loratadine (Claritin) 10 mg PO DAILY [facility] Metoclopramide HCl (Reglan Inj) 5 mg IV.PUSH Q6HR PRN; Protocol PRN Reason: Nausea Or Vomiting mod to pam Miscellaneous (Pill Splitter) 1 each OTHER UNSCH [facility] Oxycodone HCl (Roxicodone) 10 mg PO Q4H PRN PRN Reason: Pain 6-10 Last Admin: 02/25/18 16:05 Dose: 10 mg Prochlorperazine (Compazine Supp) 25 mg RECTAL Q12HR PRN PRN Reason: NAUSEA OR VOMITING Senna/Docusate Sodium (Lena-Colace) 1 tab PO BID [facility] Sennosides (Senokot) 17.2 mg PO Q12H PRN PRN Reason: Moderate Constipation Sertraline HCl (Zoloft) 25 mg PO DAILY [facility] Temazepam (Restoril) 15 mg PO HS PRN PRN Reason: INSOMNIA Allergies Allergy/AdvReac Type Severity Reaction Status Date / Time vancomycin Allergy Severe ACUTE Verified 02/25/18 10:34 RENAL FAILURE tigecycline AdvReac Severe NAUSEA AND Verified 02/25/18 10:34 VOMITING Tetracyclines AdvReac Unknown Gastrointestinal Verified 02/25/18 10:34 Upset aquacel dressing Allergy Severe Bleeding Uncoded 12/29/14 14:35 regranex Allergy Severe Swelling Uncoded 12/29/14 14:35 Home Medications Medication Instructions Recorded Confirmed Type aspirin [Aspir-81] 81 mg PO DAILY 02/25/18 02/25/18 History ibuprofen 800 mg PO Q4H PRN 02/25/18 02/25/18 History insulin aspart U-100 [Novolog 1 sliding scale dose SUB-Q UD 02/25/18 02/25/18 History U-100 Insulin aspart] insulin aspart U-100 [Novolog 10 unit SUB-Q BIDAC 02/25/18 02/25/18 History U-100 Insulin aspart] insulin detemir U-100 [Levemir 25 unit SUB-Q BID 02/25/18 02/25/18 History U-100 Insulin] lisinopril 20 mg PO BID 02/25/18 02/25/18 History loratadine [Claritin] 10 mg PO DAILY 02/25/18 02/25/18 History oxycodone 10 mg PO Q4-6H PRN 02/25/18 02/25/18 History rosuvastatin [Crestor] 20 mg PO DAILY 02/25/18 02/25/18 History sertraline [Zoloft] 25 mg PO DAILY 02/25/18 02/25/18 History Exam Vital signs: Vital Signs 02/25/18 10:25 02/25/18 10:48 02/25/18 13:52 Temperature 98.7 F Pulse Rate 123 H 94 H Respiratory Rate 16 12 Blood Pressure 150/91 H 117/70 Pulse Oximetry 98 99 02/25/18 16:31 02/25/18 20:34 Temperature 98.8 F Pulse Rate 95 H 95 H Respiratory Rate 19 18 Blood Pressure 130/84 134/87 Pulse Oximetry 97 98 Intake & Output 02/25/18 02/25/18 02/26/18 06:59 18:59 06:59 Intake Total 2099 Balance 2099 Weight 90.718 kg Intake: IV 2099 Cleocin 600 mg/NS Premix 600 mg 50 / 50 In 50 ml @ 100 mls/hr IV.SIG STAT STA Rx#:[id number] Zosyn 3.375 GM Premix 50 ML @ 50 / 50 100 mls/hr IV.SIG ONCE ONE Rx#: [id number] NS Inj 1,000 ML @ Wide Open IV. 1999 SIG BOLUS ONE Rx#:[id number] Narrative: GENERAL: Pleasant 47 yo male, in bed appears in nad at this time SKIN: Warm and dry. HEAD: Atraumatic. Normocephalic. EYES: Pupils equal and round. No scleral icterus. No injection or drainage. ENT: No nasal bleeding or discharge. Mucous membranes pink and moist. NECK: Trachea midline. No JVD. CARDIOVASCULAR: Regular rate and rhythm. RESPIRATORY: No accessory muscle use. Clear to auscultation. Breath sounds equal bilaterally. GASTROINTESTINAL: Abdomen soft, non-tender, nondistended. Hepatic and splenic margins not palpable. MUSCULOSKELETAL: Left BKA .Right foot plantar ulceration noted measuring a proximal by 2 cm with no probe to bone, granular base with no hyperkeratotic borders, maceration noted mildly periwound. No fluctuance, no crepitus, no purulent drainage upon compression. Right foot Charcot deformity noted. NEUROLOGICAL: Awake and alert. No obvious cranial nerve deficits. Motor grossly within normal limits. Five out of 5 muscle strength in the arms and right leg. Left BKA. Normal speech. PSYCHIATRIC: Appropriate mood and affect; insight and judgment normal. Results - Labs CBC & Chem 7: 02/25/18 10:50 02/25/18 10:50 Labs: Laboratory Results - last 24 hr 02/25/18 02/25/18 02/25/18 10:50 10:50 10:50 WBC 12.6 H RBC 5.35 Hgb 15.7 Hct 46.6 MCV 87.2 MCH 29.4 MCHC 33.7 RDW 13.9 Plt Count 333 MPV 8.7 Neut % (Auto) 75.6 H Lymph % (Auto) 19.1 Cassia % (Auto) 3.5 Eos % (Auto) 0.9 Baso % (Auto) 0.9 Neut # (Auto) 9.5 H Lymph # (Auto) 2.4 Cassia # (Auto) 0.4 Eos # (Auto) 0.1 Baso # (Auto) 0.1 WBC Differential . Differential Comment Auto diff final PT 10.0 INR 1.0 APTT 22.0 L Sodium Potassium Chloride Carbon Dioxide Anion Gap BUN Creatinine Estimated GFR POC Glucose Random Glucose Lactic Acid Calcium Magnesium 1.9 Total Bilirubin AST ALT Alkaline Phosphatase Total Protein Albumin 02/25/18 02/25/18 02/25/18 10:50 10:50 10:51 WBC RBC Hgb Hct MCV MCH MCHC RDW Plt Count MPV Neut % (Auto) Lymph % (Auto) Cassia % (Auto) Eos % (Auto) Baso % (Auto) Neut # (Auto) Lymph # (Auto) Cassia # (Auto) Eos # (Auto) Baso # (Auto) WBC Differential Differential Comment PT INR APTT Sodium 131 L Potassium 4.5 Chloride 100 Carbon Dioxide 23.2 Anion Gap 8 BUN 16 Creatinine 0.96 Estimated GFR 84 L POC Glucose 405 H Random Glucose 441 H Lactic Acid 1.2 Calcium 9.4 Magnesium Total Bilirubin 0.9 AST 22 ALT 22 Alkaline Phosphatase 153 H Total Protein 7.8 Albumin 3.7 02/25/18 20:14 WBC RBC Hgb Hct MCV MCH MCHC RDW Plt Count MPV Neut % (Auto) Lymph % (Auto) Cassia % (Auto) Eos % (Auto) Baso % (Auto) Neut # (Auto) Lymph # (Auto) Cassia # (Auto) Eos # (Auto) Baso # (Auto) WBC Differential Differential Comment PT INR APTT Sodium Potassium Chloride Carbon Dioxide Anion Gap BUN Creatinine Estimated GFR POC Glucose 412 H Random Glucose Lactic Acid Calcium Magnesium Total Bilirubin AST ALT Alkaline Phosphatase Total Protein Albumin - Imaging Impressions Foot MRI 02/25/18 00:00 CONCLUSION: 1. Marrow edema and enhancement on the lateral aspect of the foot around the fused residual cuboid and fifth metatarsal with surrounding edema and nonloculated fluid. There is an ulceration on the plantar aspect of the foot with a questionable sinus tract extending towards the area of suspected osteomyelitis. There is rocker-bottom deformity and numerous chronic deformities as listed above. Chest X-Ray 02/25/18 10:46 CONCLUSION: 1. No acute abnormality or significant interval change. Foot X-Ray 02/25/18 10:49 CONCLUSION: 1. Stable extensive right foot deformity. 2. Plantar soft tissue swelling/laceration without definitive evidence for acute osteomyelitis. Caprini VTE Risk Assessment Caprini VTE Risk Assessment: Moderate/High Risk (score >= 2) Caprini Risk Assessment Model: Point Value = 1 Point Value = 2 Point Value = 3 Point Value = 5 Age 41-60 Minor surgery BMI > 25 kg/m2 Swollen legs Varicose veins or History of unexplained or recurrent spontaneous Oral contraceptives or hormone replacement Sepsis (< 1 month) Serious lung disease, including pneumonia (< 1 month) Abnormal pulmonary function Acute myocardial infarction Congestive heart failure (< 1 month) History of inflammatory bowel disease Medical patient at bed rest Age 61-74 Arthroscopic surgery Major open surgery (> 45 min) Laparoscopic surgery (> 45 min) Malignancy Confined to bed (> 72 hours) Immobilizing plaster cast Central venous access Age >= 75 History of VTE Family history of VTE Factor V Leiden Prothrombin [id number] Lupus anticoagulant Anticardiolipin antibodies Elevated serum homocysteine Heparin-induced thrombocytopenia Other congenital or acquired thrombophilia Stroke (< 1 month) Elective arthroplasty Hip, pelvis, or leg fracture Acute spinal cord injury (< 1 month) Prophylaxis Regimen: Total Risk Factor Score Risk Level Prophylaxis Regimen 0-1 Low Early ambulation 2 Moderate Order ONE of the following: *Sequential Compression Device (SCD) *Heparin 5000 units SQ BID 3-4 Higher Order ONE of the following medications: *Heparin 5000 units SQ TID *Enoxaparin/Lovenox 40 mg SQ daily (WT < 150 kg, CrCl > 30 mL/min) *Enoxaparin/Lovenox 30 mg SQ daily (WT < 150 kg, CrCl > 10-29 mL/min) *Enoxaparin/Lovenox 30 mg SQ BID (WT < 150 kg, CrCl > 30 mL/min) AND/OR *Sequential Compression Device (SCD) 5 or more Highest Order ONE of the following medications: *Heparin 5000 units SQ TID (Preferred with Epidurals) *Enoxaparin/Lovenox 40 mg SQ daily (WT < 150 kg, CrCl > 30 mL/min) *Enoxaparin/Lovenox 30 mg SQ daily (WT < 150 kg, CrCl > 10-29 mL/min) *Enoxaparin/Lovenox 30 mg SQ BID (WT < 150 kg, CrCl > 30 mL/min) AND *Sequential Compression Device (SCD) Assessment and Plan - Assessment (1) Sepsis Code(s): A41.9 - Sepsis, unspecified organism Status: Acute (2) Diabetic foot infection Code(s): E11.628 - Type 2 diabetes mellitus with other skin complications; L08.9 - Local infection of the skin and subcutaneous tissue, unspecified Status: Acute - Plan 1. Infected foot ulcer/sepsis on admission - tachycardia leukocytosis source infected left leg ) Patient tachycardic with leukocytosis Clindamycin and Zosyn Podiatry consulted, appreciate recommendations Foot x-ray does not suggest osteomyelitis. Seen by Dr Wesley, plan for mRI Blood, wound cultures pending Monitor for signs of shock 2. Diabetes mellitus Continue home Lantus SSI Monitor blood glucose 3. Hypertension/hyperlipidemia Continue home medications FEN Heart healthy diabetic diet Electrolytes: Monitor and replete when necessary Holding pharmacologic anticoagulation secondary to possible operative intervention Code Status: full code (1) Sepsis Qualifiers: Sepsis type: sepsis due to unspecified organism Qualified Code(s): A41.9 - Sepsis, unspecified organism
[2018-02-25] MEDS: Lisinopril 20 MG Tablet PO SCH (21:12)
[2018-02-25] MEDS: Insulin Detemir Inj 1,000 UNIT/10 ML Vial SQ SCH (21:13)
[2018-02-25] MEDS: Insulin NovoLOG Aspart Correctional Sugar Inj SQ SCH (21:13)
[2018-02-25] MEDS: Senna/Docusate Sodium 8.6/50 MG Tablet PO SCH (21:14)
[2018-02-25] MEDS: Piperacil/Tazo 4.5 GM Premix 4.5 GM/100 ML BAG IV.SIG SCH (21:41)
[2018-02-25] MEDS: Clindamycin 900 mg/NS Premix 900 MG/50 ML PIGGYBACK IV.SIG SCH (21:41)
[2018-02-26] MEDS: Piperacil/Tazo 4.5 GM Premix 4.5 GM/100 ML BAG IV.SIG SCH ×3 (04:20→21:19)
[2018-02-26] MEDS: Clindamycin 900 mg/NS Premix 900 MG/50 ML PIGGYBACK IV.SIG SCH ×3 (05:10→21:19)
[2018-02-26] MEDS: Insulin NovoLOG Aspart Correctional Sugar Inj SQ SCH ×8 (07:17→21:20)
[2018-02-26] MEDS: Sod Chloride 0.9% Inj 1,000 ML IV.CONT SCH ×3 (08:09→23:05)
[2018-02-26] MEDS: Insulin Detemir Inj 1,000 UNIT/10 ML Vial SQ SCH ×2 (08:10→21:20)
[2018-02-26] MEDS: Morphine Inj 4 MG/ML Vial IV.PUSH PRN ×4 (08:13→23:05)
[2018-02-26] MEDS: Loratadine 10 MG Tablet PO SCH (08:15)
[2018-02-26] MEDS: Lisinopril 20 MG Tablet PO SCH ×2 (08:15→21:21)
[2018-02-26] MEDS: Senna/Docusate Sodium 8.6/50 MG Tablet PO SCH ×2 (08:16→21:20)
[2018-02-26] MEDS: Sertraline 50 MG Tablet PO SCH (08:16)
[2018-02-26 08:49] LABS: Baso # (Auto) 0.1 th/mm3 (0.0-0.2); Baso % (Auto) 1.1 % (0.0-2.0); Eos # (Auto) 0.2 th/mm3 (0.0-0.4); Eos % (Auto) 3.1 % (0.0-4.0); Hematocrit 40.8 % (39.0-51.0); Hemoglobin 13.7 gm/dL (13.0-17.0); Lymph # (Auto) 2.1 th/mm3 (1.0-4.8); Lymph % (Auto) 27.5 % (9.0-44.0); Mean Corpuscular HGB Conc 33.6 % (32.0-36.0); Mean Corpuscular Hemoglobin 29.5 pg (27.0-34.0); Mean Platelet Volume 7.9 fL (7.0-11.0); Mono # (Auto) 0.4 th/mm3 (0.0-0.9); Mono % (Auto) 5.3 % (0.0-8.0); Neut # (Auto) 4.9 th/mm3 (1.8-7.7); Platelet Count 237 th/mm3 (150-450); Red Blood Count 4.64 mil/mm3 (4.50-5.90); Red Cell Distribution Width 13.9 % (11.6-17.2); White Blood Count 7.7 th/mm3 (4.0-11.0)
[2018-02-26 09:22] LABS: Anion Gap 5 meq/L (5-15); Blood Urea Nitrogen 13 mg/dL (7-18); Calcium 8.9 mg/dL (8.5-10.1); Carbon Dioxide 27.8 meq/L (21.0-32.0); Chloride 104 meq/L (98-107); Glomerular Filtration Rate Greater Than 89 mL/min (>89); Glucose,Random 237 mg/dL (74-106); Potassium 4.4 meq/L (3.5-5.1); Sodium 137 meq/L (136-145)
[2018-02-26] MEDS: Enoxaparin Inj 40 MG/0.4 ML Syringe SQ SCH (16:23)
--- NOTE | 2018-02-26 16:28 | P.PN ---
Subjective Interval history: Nursing denies any deterioration since last night. Patient reports having no nausea today. No worsening symptoms today. Physical Exam Vital signs: Vital Signs 02/25/18 16:31 02/25/18 20:00 02/25/18 20:34 Temperature 98.8 F Pulse Rate 95 H 95 H Respiratory Rate 19 18 18 Blood Pressure 130/84 134/87 Pulse Oximetry 97 98 02/26/18 00:38 02/26/18 04:13 02/26/18 08:00 Temperature 97.7 F 97.4 F L 98.1 F Pulse Rate 84 75 87 Respiratory Rate 18 18 19 Blood Pressure 137/85 131/79 147/89 H Pulse Oximetry 98 97 98 02/26/18 12:00 Temperature 97.6 F Pulse Rate 91 H Respiratory Rate 17 Blood Pressure 144/87 H Pulse Oximetry 98 Intake & Output 02/25/18 02/26/18 02/26/18 18:59 06:59 18:59 Intake Total 2100 / 2100 1930 / 1930 300 / 300 Balance 2100 / 2100 1930 / 1930 300 / 300 Weight 90.718 kg 90.7 kg Intake: IV 2100 / 2100 1150 / 1150 300 / 300 NS Inj 1,000 ML @ 84 mls/hr IV. 1000 / 1000 CONT .[id number] [facility] Rx#:[id number] Cleocin 600 mg/NS Premix 600 mg 50 / 50 In 50 ml @ 100 mls/hr IV.SIG STAT STA Rx#:[id number] Cleocin 900 mg/NS Premix 900 mg 50 / 50 100 / 100 In 50 ml @ 100 mls/hr IV.SIG Q8H [facility] Rx#:[id number] Zosyn 3.375 GM Premix 50 ML @ 50 / 50 100 mls/hr IV.SIG ONCE ONE Rx#: [id number] Zosyn 4.5 GM Premix 4.5 gm In 100 / 100 200 / 200 100 ml @ 200 mls/hr IV.SIG Q8H [facility] Rx#:[id number] NS Inj 1,000 ML @ Wide Open IV. 1999 SIG BOLUS ONE Rx#:[id number] Oral 780 / 780 Other: # Voids 2 Narrative: Right foot has a plantar ulcer that is evident today. No drainage noted today. Otherwise the foot appears unremarkable apart from his chronic deformities likely secondary to multiple operations Results - Labs CBC & Chem 7: 08/01/18 07:36 02/26/18 07:36 Laboratory Results - last 24 hr 02/25/18 02/26/18 02/26/18 20:14 05:14 07:36 WBC 7.7 RBC 4.64 Hgb 13.7 D Hct 40.8 MCV 88.0 MCH 29.5 MCHC 33.6 RDW 13.9 Plt Count 237 MPV 7.9 Neut % (Auto) 63.0 Lymph % (Auto) 27.5 [place] % (Auto) 5.3 Eos % (Auto) 3.1 Baso % (Auto) 1.1 Neut # (Auto) 4.9 Lymph # (Auto) 2.1 [place] # (Auto) 0.4 Eos # (Auto) 0.2 Baso # (Auto) 0.1 WBC Differential . Differential Comment Auto diff final ESR Sodium Potassium Chloride Carbon Dioxide Anion Gap BUN Creatinine Estimated GFR POC Glucose 412 H 253 H Random Glucose Calcium C-Reactive Protein 02/26/18 02/26/18 02/26/18 07:36 07:53 11:40 WBC RBC Hgb Hct MCV MCH MCHC RDW Plt Count MPV Neut % (Auto) Lymph % (Auto) [place] % (Auto) Eos % (Auto) Baso % (Auto) Neut # (Auto) Lymph # (Auto) [place] # (Auto) Eos # (Auto) Baso # (Auto) WBC Differential Differential Comment ESR Sodium 137 Potassium 4.4 Chloride 104 Carbon Dioxide 27.8 Anion Gap 5 BUN 13 Creatinine 0.88 Estimated GFR Greater than 89 POC Glucose 262 H Random Glucose 237 H D Calcium 8.9 C-Reactive Protein Less than 0.29 02/26/18 02/26/18 11:40 11:46 WBC RBC Hgb Hct MCV MCH MCHC RDW Plt Count MPV Neut % (Auto) Lymph % (Auto) [place] % (Auto) Eos % (Auto) Baso % (Auto) Neut # (Auto) Lymph # (Auto) [place] # (Auto) Eos # (Auto) Baso # (Auto) WBC Differential Differential Comment ESR 31 H Sodium Potassium Chloride Carbon Dioxide Anion Gap BUN Creatinine Estimated GFR POC Glucose 259 H Random Glucose Calcium C-Reactive Protein Microbiology 02/25/18 10:53 Wound - Foot Gram Stain - Final 02/25/18 10:53 Wound - Foot Wound Culture - Preliminary gram negative rods Staphylococcus species 02/25/18 10:55 Blood - Peripheral Aerobic Blood Culture - Preliminary No growth in 1 day 02/25/18 10:55 Blood - Peripheral Anaerobic Blood Culture - Preliminary No growth in 1 day 02/25/18 10:50 Blood - Peripheral Aerobic Blood Culture - Preliminary No growth in 1 day 02/25/18 10:50 Blood - Peripheral Anaerobic Blood Culture - Preliminary No growth in 1 day - Imaging Impressions Foot MRI 02/25/18 00:00 CONCLUSION: 1. Marrow edema and enhancement on the lateral aspect of the foot around the fused residual cuboid and fifth metatarsal with surrounding edema and nonloculated fluid. There is an ulceration on the plantar aspect of the foot with a questionable sinus tract extending towards the area of suspected osteomyelitis. There is rocker-bottom deformity and numerous chronic deformities as listed above. Assessment and Plan - Assessment (1) Sepsis Code(s): A41.9 - Sepsis, unspecified organism Status: Acute (2) Diabetic foot infection Code(s): E11.628 - Type 2 diabetes mellitus with other skin complications; L08.9 - Local infection of the skin and subcutaneous tissue, unspecified Status: Acute - Plan Sepsis -Blood cultures pending MRI suspicious for osteomyelitis --Consulting infectious disease, continue current antibiotics Podiatry following Diabetes mellitus Continue home Lantus SSI Monitor blood glucose Hypertension/hyperlipidemia Continue home medications holding pharmacologic anticoagulation secondary to possible operative intervention (1) Sepsis Qualifiers: Sepsis type: sepsis due to unspecified organism Qualified Code(s): A41.9 - Sepsis, unspecified organism
--- NOTE | 2018-02-26 22:08 | P.PNPOD ---
Subjective Interval history: Patient seen bedside. He states he is not having nausea because he was given Zofran. Is resting comfortably with no concerns. Physical Exam Vital signs: Vital Signs 02/26/18 00:38 02/26/18 04:13 02/26/18 08:00 Temperature 97.7 F 97.4 F L 98.1 F Pulse Rate 84 75 87 Respiratory Rate 18 18 19 Blood Pressure 137/85 131/79 147/89 H Pulse Oximetry 98 97 98 02/26/18 12:00 02/26/18 16:00 Temperature 97.6 F 97.9 F Pulse Rate 91 H 80 Respiratory Rate 17 18 Blood Pressure 144/87 H 163/96 H Pulse Oximetry 98 99 Intake & Output 02/26/18 02/26/18 02/27/18 06:59 18:59 06:59 Intake Total 1930 / 1930 995 / 995 Balance 193 / 1930 995 / 995 Weight 90.7 kg Intake: IV 1150 / 1150 300 / 300 NS Inj 1,000 ML @ 84 mls/hr IV. 1000 / 1000 CONT .[id number] [facility] Rx#:[id number] Cleocin 900 mg/NS Premix 900 mg 50 / 50 100 / 100 In 50 ml @ 100 mls/hr IV.SIG Q8H [facility] Rx#:[id number] Zosyn 4.5 GM Premix 4.5 gm In 100 / 100 200 / 200 100 ml @ 200 mls/hr IV.SIG Q8H [facility] Rx#:[id number] Oral 780 / 780 695 / 695 Other: # Voids 2 5 Date of Last Bowel Movement 02/25/18 # Bowel Movements 0 Narrative: Dressing intact to right foot. 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 Medications and Allergies Active Medications: Active Medications Acetaminophen (Tylenol) 650 mg PO Q4H PRN PRN Reason: Temp > 100.4 Al Hydroxide/Mg Hydroxide (Milk Of Magnesia Liq) 30 ml PO Q12H PRN PRN Reason: Mild Constipation Aspirin (Ecotrin) 81 mg PO DAILY [facility] Last Admin: 02/26/18 08:16 Dose: 81 mg Atorvastatin Calcium (Lipitor) 40 mg PO DAILY [facility] Last Admin: 02/26/18 08:16 Dose: 40 mg Bisacodyl (Dulcolax Supp) 10 mg RECTAL DAILY PRN PRN Reason: SEVERE CONSITIPATION Enoxaparin Sodium (Lovenox Inj) 40 mg SQ Q24H [facility] Last Admin: 02/26/18 16:23 Dose: 40 mg Sodium Chloride (Ns Inj) 1,000 mls @ 84 mls/hr IV.CONT .[id number] [facility] Last Admin: 02/26/18 16:23 Dose: Not Given Clindamycin/Sodium Chloride (Cleocin 900 Mg/Ns Premix) 900 mg in 50 mls @ 100 mls/hr IV.SIG Q8H [facility] Last Admin: 02/26/18 21:19 Dose: 100 mls/hr Piperacillin/Tazobactam/Dextrose (Zosyn 4.5 Gm Premix) 4.5 gm in 100 mls @ 200 mls/hr IV.SIG Q8H [facility] Last Admin: 02/26/18 21:19 Dose: 100 mls/hr Ibuprofen (Motrin) 800 mg PO Q4H PRN PRN Reason: Pain 1-5 Last Admin: 02/25/18 15:14 Dose: 800 mg Insulin Aspart (Novolog Insulin Correctional Sugar Inj) [facility] Last Admin: 02/26/18 17:30 Dose: 10 unit Insulin Aspart (Novolog Insulin Correctional Sugar Inj) 0 unit SQ [facility]; Protocol Last Admin: 02/26/18 21:20 Dose: Not Given Insulin Detemir (Levemir Inj) 25 unit SQ BID [facility] Last Admin: 02/26/18 21:20 Dose: 25 unit Lactulose (Lactulose Liq) 30 ml PO DAILY PRN PRN Reason: SEVERE CONSITIPATION Lisinopril (Prinivil) 20 mg PO BID [facility] Last Admin: 02/26/18 21:21 Dose: 20 mg Loratadine (Claritin) 10 mg PO DAILY [facility] Last Admin: 02/26/18 08:15 Dose: 10 mg Metoclopramide HCl (Reglan Inj) 5 mg IV.PUSH Q6HR PRN; Protocol PRN Reason: Nausea Or Vomiting mod to pam Last Admin: 02/26/18 08:24 Dose: 5 mg Miscellaneous (Pill Splitter) 1 each OTHER [facility] Morphine Sulfate (Morphine Inj) 2 mg IV.PUSH Q4H PRN PRN Reason: breakthrough pain Last Admin: 02/26/18 17:30 Dose: 2 mg Oxycodone HCl (Roxicodone) 10 mg PO Q4H PRN PRN Reason: Pain 6-10 Last Admin: 02/26/18 21:21 Dose: 10 mg Prochlorperazine (Compazine Supp) 25 mg RECTAL Q12HR PRN PRN Reason: NAUSEA OR VOMITING Senna/Docusate Sodium (Lena-Colace) 1 tab PO BID [facility] Last Admin: 02/26/18 21:20 Dose: Not Given Sennosides (Senokot) 17.2 mg PO Q12H PRN PRN Reason: Moderate Constipation Sertraline HCl (Zoloft) 25 mg PO DAILY [facility] Last Admin: 02/26/18 08:16 Dose: 25 mg Temazepam (Restoril) 15 mg PO HS PRN PRN Reason: INSOMNIA Allergies Allergy/AdvReac Type Severity Reaction Status Date / Time vancomycin Allergy Severe ACUTE Verified 02/25/18 10:34 RENAL FAILURE tigecycline AdvReac Severe NAUSEA AND Verified 02/25/18 10:34 VOMITING Tetracyclines AdvReac Unknown Gastrointestinal Verified 02/25/18 10:34 Upset aquacel dressing Allergy Severe Bleeding Uncoded 12/29/14 14:35 regranex Allergy Severe Swelling Uncoded 12/29/14 14:35 Home Medications Medication Instructions Recorded Confirmed Type aspirin [Aspir-81] 81 mg PO DAILY 02/25/18 02/25/18 History ibuprofen 800 mg PO Q4H PRN 02/25/18 02/25/18 History insulin aspart U-100 [Novolog 1 sliding scale dose SUB-Q UD 02/25/18 02/25/18 History U-100 Insulin aspart] insulin aspart U-100 [Novolog 10 unit SUB-Q BIDAC 02/25/18 02/25/18 History U-100 Insulin aspart] insulin detemir U-100 [Levemir 25 unit SUB-Q BID 02/25/18 02/25/18 History U-100 Insulin] lisinopril 20 mg PO BID 02/25/18 02/25/18 History loratadine [Claritin] 10 mg PO DAILY 02/25/18 02/25/18 History oxycodone 10 mg PO Q4-6H PRN 02/25/18 02/25/18 History rosuvastatin [Crestor] 20 mg PO DAILY 02/25/18 02/25/18 History sertraline [Zoloft] 25 mg PO DAILY 02/25/18 02/25/18 History Results - Labs CBC & Chem 7: 02/26/18 07:36 02/26/18 07:36 Laboratory Results - last 24 hr 02/26/18 02/26/18 02/26/18 05:14 07:36 07:36 WBC 7.7 RBC 4.64 Hgb 13.7 D Hct 40.8 MCV 88.0 MCH 29.5 MCHC 33.6 RDW 13.9 Plt Count 237 MPV 7.9 Neut % (Auto) 63.0 Lymph % (Auto) 27.5 [place] % (Auto) 5.3 Eos % (Auto) 3.1 Baso % (Auto) 1.1 Neut # (Auto) 4.9 Lymph # (Auto) 2.1 [place] # (Auto) 0.4 Eos # (Auto) 0.2 Baso # (Auto) 0.1 WBC Differential . Differential Comment Auto diff final ESR Sodium 137 Potassium 4.4 Chloride 104 Carbon Dioxide 27.8 Anion Gap 5 BUN 13 Creatinine 0.88 Estimated GFR Greater than 89 POC Glucose 253 H Random Glucose 237 H D Calcium 8.9 C-Reactive Protein 02/26/18 02/26/18 02/26/18 07:53 11:40 11:40 WBC RBC Hgb Hct MCV MCH MCHC RDW Plt Count MPV Neut % (Auto) Lymph % (Auto) [place] % (Auto) Eos % (Auto) Baso % (Auto) Neut # (Auto) Lymph # (Auto) [place] # (Auto) Eos # (Auto) Baso # (Auto) WBC Differential Differential Comment ESR 31 H Sodium Potassium Chloride Carbon Dioxide Anion Gap BUN Creatinine Estimated GFR POC Glucose 262 H Random Glucose Calcium C-Reactive Protein Less than 0.29 02/26/18 02/26/18 11:46 16:22 WBC RBC Hgb Hct MCV MCH MCHC RDW Plt Count MPV Neut % (Auto) Lymph % (Auto) [place] % (Auto) Eos % (Auto) Baso % (Auto) Neut # (Auto) Lymph # (Auto) [place] # (Auto) Eos # (Auto) Baso # (Auto) WBC Differential Differential Comment ESR Sodium Potassium Chloride Carbon Dioxide Anion Gap BUN Creatinine Estimated GFR POC Glucose 259 H 207 H Random Glucose Calcium C-Reactive Protein Microbiology 02/25/18 10:53 Wound - Foot Gram Stain - Final 02/25/18 10:53 Wound - Foot Wound Culture - Preliminary gram negative rods Staphylococcus species 02/25/18 10:55 Blood - Peripheral Aerobic Blood Culture - Preliminary No growth in 1 day 02/25/18 10:55 Blood - Peripheral Anaerobic Blood Culture - Preliminary No growth in 1 day 02/25/18 10:50 Blood - Peripheral Aerobic Blood Culture - Preliminary No growth in 1 day 02/25/18 10:50 Blood - Peripheral Anaerobic Blood Culture - Preliminary No growth in 1 day Assessment and Plan - Plan 47 year old male with right foot ulceration Patient examined and evaluated with all questions answered Discussed bone scan with patient 3 phase bone scan ordered Continue with daily dressing changes
[2018-02-27] MEDS: Clindamycin 900 mg/NS Premix 900 MG/50 ML PIGGYBACK IV.SIG SCH ×3 (04:11→21:24)
[2018-02-27] MEDS: Piperacil/Tazo 4.5 GM Premix 4.5 GM/100 ML BAG IV.SIG SCH ×3 (04:11→21:24)
[2018-02-27] MEDS: Morphine Inj 4 MG/ML Vial IV.PUSH PRN ×4 (06:41→23:23)
[2018-02-27] MEDS: Sod Chloride 0.9% Inj 1,000 ML IV.CONT SCH ×2 (07:15→17:30)
[2018-02-27] MEDS: Loratadine 10 MG Tablet PO SCH (07:59)
[2018-02-27] MEDS: Sertraline 50 MG Tablet PO SCH (07:59)
[2018-02-27] MEDS: Lisinopril 20 MG Tablet PO SCH ×2 (07:59→21:25)
[2018-02-27] MEDS: Senna/Docusate Sodium 8.6/50 MG Tablet PO SCH ×2 (08:00→21:25)
[2018-02-27] MEDS: Insulin NovoLOG Aspart Correctional Sugar Inj SQ SCH ×6 (08:00→21:25)
[2018-02-27] MEDS: Insulin Detemir Inj 1,000 UNIT/10 ML Vial SQ SCH ×2 (08:00→21:25)
--- NOTE | 2018-02-27 11:00 | P.PN ---
Subjective Interval history: Nursing denies any deterioration since last night. Patient reports he is needing the IV morphine on top of his chronic pain medicine to control his pain. Physical Exam Vital signs: Vital Signs 02/26/18 12:00 02/26/18 16:00 02/26/18 20:00 Temperature 97.6 F 97.9 F 97.6 F Pulse Rate 91 H 80 83 Respiratory Rate 17 18 18 Blood Pressure 144/87 H 163/96 H 141/94 H Pulse Oximetry 98 99 98 02/27/18 00:00 02/27/18 04:00 02/27/18 08:00 Temperature 97.8 F 98.0 F 98.1 F Pulse Rate 86 78 72 Respiratory Rate 18 18 18 Blood Pressure 163/89 H 131/76 160/99 H Pulse Oximetry 100 99 97 Intake & Output 02/26/18 02/27/18 02/27/18 18:59 06:59 18:59 Intake Total 995 / 995 1150 / 1150 150 / 150 Balance 995 / 995 1150 / 1150 150 / 150 Intake: IV 300 / 300 1150 / 1150 150 / 150 NS Inj 1,000 ML @ 84 mls/hr IV. 1000 / 1000 CONT .[id number] [facility] Rx#:[id number] Cleocin 900 mg/NS Premix 900 mg 100 / 100 50 / 50 50 / 50 In 50 ml @ 100 mls/hr IV.SIG Q8H [facility] Rx#:[id number] Zosyn 4.5 GM Premix 4.5 gm In 200 / 200 100 / 100 100 / 100 100 ml @ 200 mls/hr IV.SIG Q8H [facility] Rx#:[id number] Oral 695 / 695 Other: # Voids 5 2 Date of Last Bowel Movement 02/25/18 02/25/18 02/26/18 # Bowel Movements 0 Narrative: Unchanged right plantar foot wound since yesterday, with some dried purulent drainage Lying in bed, awake, alert Results - Labs CBC & Chem 7: 02/26/18 07:36 02/26/18 07:36 Laboratory Results - last 24 hr 02/26/18 02/26/18 02/26/18 11:40 11:40 11:46 ESR 31 H POC Glucose 259 H C-Reactive Protein Less than 0.29 02/26/18 02/26/18 02/27/18 16:22 19:56 07:53 ESR POC Glucose 207 H 116 H 131 H C-Reactive Protein Microbiology 02/25/18 10:53 Wound - Foot Gram Stain - Final 02/25/18 10:53 Wound - Foot Wound Culture - Preliminary gram negative rods Staphylococcus species 02/25/18 10:55 Blood - Peripheral Aerobic Blood Culture - Preliminary No growth in 1 day 02/25/18 10:55 Blood - Peripheral Anaerobic Blood Culture - Preliminary No growth in 1 day 02/25/18 10:50 Blood - Peripheral Aerobic Blood Culture - Preliminary No growth in 1 day 02/25/18 10:50 Blood - Peripheral Anaerobic Blood Culture - Preliminary No growth in 1 day Assessment and Plan - Assessment (1) Sepsis Code(s): A41.9 - Sepsis, unspecified organism Status: Acute (2) Diabetic foot infection Code(s): E11.628 - Type 2 diabetes mellitus with other skin complications; L08.9 - Local infection of the skin and subcutaneous tissue, unspecified Status: Acute - Plan Sepsis - Blood cultures negative Infx DFU MRI suspicious for osteomyelitis. Bone scan ordered per podiatry - Continue current antibiotics; wound culture growing staph species. ID consultation pending. Diabetes mellitus Continue home Lantus SSI Monitor blood glucose Hypertension/hyperlipidemia Continue home medications holding pharmacologic anticoagulation secondary to possible operative intervention (1) Sepsis Qualifiers: Sepsis type: sepsis due to unspecified organism Qualified Code(s): A41.9 - Sepsis, unspecified organism
--- NOTE | 2018-02-27 14:46 | NM ---
EXAM DATE: 02/27/2018 2:19 PM EDT AGE/SEX: 47 years / Male INDICATIONS: Right foot ulceration. CLINICAL DATA: This is the patient's initial encounter. Patient reports that signs and symptoms have been present for 1 month and indicates a pain score of 2/10. MEDICAL/SURGICAL HISTORY: Diabetes mellitus type II. Left below the knee amputation. COMPARISON: No prior exams available for comparison. TECHNIQUE: Bone scan was performed in sagittal, axial and coronal planes. Attenuation correction was performed with computed tomography and both the attenuation correction and non-attenuation corrected data sets were reviewed. PRIOR BONE SCANS: Correlative bone scan available for comparison; DOSE: 30.2 mCi Tc99m MDP IV IMAGING: SPECT/CT imaging with fusion was performed. RADIATION DOSE: 2.66 CTDIvol(mGy) FINDINGS: There is chronic severe deformity involving the mid foot with chronic degenerative changes and postsu rgical type changes. There is some patchy uptake in the mid tarsal bones on the blood pool and delaye d images which is most likely related to the chronic bony deformities. There is a small focus of incr eased tracer activity involving the posterior lateral aspect of the mortise joint. There is focal upt lex at the level of the mortise joint suggest most likely arthritis. On the CT portion of the examina tion no evidence of any focal bony destruction or erosions are demonstrated. There is narrowing and s clerosis of the mortise joint which would go along with degenerative arthritis. CONCLUSION: 1. Severe chronic deformity involving the midfoot. 2. Focal area of increased activity is seen along the lateral mortise joint suggestive of chronic de generative-type changes. 3. Mild diffuse uptake involving the metatarsal bones most likely related to the severe deformity an d chronic changes. 4. If an inflammatory process is suspected, a gallium scan could be performed for bone gallium ratio 's.. Electronically signed by: Edmar Faith MD 02/27/2018 2:45 PM EDT
[2018-02-27] MEDS: Enoxaparin Inj 40 MG/0.4 ML Syringe SQ SCH (15:23)
--- NOTE | 2018-02-27 16:05 | P.PNPOD ---
Subjective Interval history: Pt is resting comfortably in a chair. He states he has some mild discomfort in the right foot, but other alarcon no complaints. He denies any n/v/f/h/c/sob. Physical Exam Vital signs: Vital Signs 02/26/18 20:00 02/27/18 00:00 02/27/18 04:00 Temperature 97.6 F 97.8 F 98.0 F Pulse Rate 83 86 78 Respiratory Rate 18 18 18 Blood Pressure 141/94 H 163/89 H 131/76 Pulse Oximetry 98 100 99 02/27/18 08:00 02/27/18 12:00 02/27/18 15:52 Temperature 98.1 F 98.5 F Pulse Rate 72 84 Respiratory Rate 18 Blood Pressure 160/99 H 137/84 Pulse Oximetry 97 99 Intake & Output 02/26/18 02/27/18 02/27/18 18:59 06:59 18:59 Intake Total 995 / 995 1150 / 1150 1300 / 1300 Balance 995 / 995 1150 / 1150 1300 / 1300 Intake: IV 300 / 300 1150 / 1150 1300 / 1300 NS Inj 1,000 ML @ 84 mls/hr IV. 1000 / 1000 1000 / 1000 CONT .[id number] [facility] Rx#:[id number] Cleocin 900 mg/NS Premix 900 mg 100 / 100 50 / 50 100 / 100 In 50 ml @ 100 mls/hr IV.SIG Q8H [facility] Rx#:[id number] Zosyn 4.5 GM Premix 4.5 gm In 200 / 200 100 / 100 200 / 200 100 ml @ 200 mls/hr IV.SIG Q8H [facility] Rx#:[id number] Oral 695 / 695 Other: # Voids 5 2 Date of Last Bowel Movement 02/25/18 02/25/18 02/26/18 # Bowel Movements 0 Narrative: Right plantar stable foot ulcer with no signs of acute infection or deep probing. Wound bed is granular with minimal drainage. 2.2cm x 1.5cm x 0.1cm Medications and Allergies Active Medications: Active Medications Acetaminophen (Tylenol) 650 mg PO Q4H PRN PRN Reason: Temp > 100.4 Al Hydroxide/Mg Hydroxide (Milk Of Magnesia Liq) 30 ml PO Q12H PRN PRN Reason: Mild Constipation Aspirin (Ecotrin) 81 mg PO DAILY [facility] Last Admin: 02/27/18 07:59 Dose: 81 mg Atorvastatin Calcium (Lipitor) 40 mg PO DAILY [facility] Last Admin: 02/27/18 07:59 Dose: 40 mg Bisacodyl (Dulcolax Supp) 10 mg RECTAL DAILY PRN PRN Reason: SEVERE CONSITIPATION Enoxaparin Sodium (Lovenox Inj) 40 mg SQ Q24H [facility] Last Admin: 02/27/18 15:23 Dose: 40 mg Sodium Chloride (Ns Inj) 1,000 mls @ 84 mls/hr IV.CONT .[id number] [facility] Last Infusion: 02/27/18 12:52 Dose: Infused Clindamycin/Sodium Chloride (Cleocin 900 Mg/Ns Premix) 900 mg in 50 mls @ 100 mls/hr IV.SIG Q8H [facility] Last Infusion: 02/27/18 13:43 Dose: Infused Piperacillin/Tazobactam/Dextrose (Zosyn 4.5 Gm Premix) 4.5 gm in 100 mls @ 200 mls/hr IV.SIG Q8H [facility] Last Infusion: 02/27/18 15:24 Dose: Infused Ibuprofen (Motrin) 800 mg PO Q4H PRN PRN Reason: Pain 1-5 Last Admin: 02/25/18 15:14 Dose: 800 mg Insulin Aspart (Novolog Insulin Correctional Sugar Inj) 10 unit SQ BIDAC [facility] Last Admin: 02/27/18 08:01 Dose: 10 unit Insulin Aspart (Novolog Insulin Correctional Sugar Inj) 0 unit SQ ACHS [facility]; Protocol Last Admin: 02/27/18 12:09 Dose: 3 unit Insulin Detemir (Levemir Inj) 25 unit SQ BID [facility] Last Admin: 02/27/18 08:00 Dose: 25 unit Lactulose (Lactulose Liq) 30 ml PO DAILY PRN PRN Reason: SEVERE CONSITIPATION Lisinopril (Prinivil) 20 mg PO BID [facility] Last Admin: 02/27/18 07:59 Dose: 20 mg Loratadine (Claritin) 10 mg PO DAILY [facility] Last Admin: 02/27/18 07:59 Dose: 10 mg Metoclopramide HCl (Reglan Inj) 5 mg IV.PUSH Q6HR PRN; Protocol PRN Reason: Nausea Or Vomiting mod to pam Last Admin: 02/26/18 08:24 Dose: 5 mg Miscellaneous (Pill Splitter) 1 each OTHER [facility] Morphine Sulfate (Morphine Inj) 2 mg IV.PUSH Q4H PRN PRN Reason: breakthrough pain Last Admin: 02/27/18 15:21 Dose: 2 mg Oxycodone HCl (Roxicodone) 10 mg PO Q4H PRN PRN Reason: Pain 6-10 Last Admin: 02/27/18 13:35 Dose: 10 mg Prochlorperazine (Compazine Supp) 25 mg RECTAL Q12HR PRN PRN Reason: NAUSEA OR VOMITING Senna/Docusate Sodium (Lena-Colace) 1 tab PO BID [facility] Last Admin: 02/27/18 08:00 Dose: Not Given Sennosides (Senokot) 17.2 mg PO Q12H PRN PRN Reason: Moderate Constipation Sertraline HCl (Zoloft) 25 mg PO DAILY [facility] Last Admin: 02/27/18 07:59 Dose: 25 mg Temazepam (Restoril) 15 mg PO HS PRN PRN Reason: INSOMNIA Allergies Allergy/AdvReac Type Severity Reaction Status Date / Time vancomycin Allergy Severe ACUTE Verified 02/25/18 10:34 RENAL FAILURE tigecycline AdvReac Severe NAUSEA AND Verified 02/25/18 10:34 VOMITING Tetracyclines AdvReac Unknown Gastrointestinal Verified 02/25/18 10:34 Upset aquacel dressing Allergy Severe Bleeding Uncoded 12/29/14 14:35 regranex Allergy Severe Swelling Uncoded 12/29/14 14:35 Home Medications Medication Instructions Recorded Confirmed Type aspirin [Aspir-81] 81 mg PO DAILY 02/25/18 02/25/18 History ibuprofen 800 mg PO Q4H PRN 02/25/18 02/25/18 History insulin aspart U-100 [Novolog 1 sliding scale dose SUB-Q UD 02/25/18 02/25/18 History U-100 Insulin aspart] insulin aspart U-100 [Novolog 10 unit SUB-Q BIDAC 02/25/18 02/25/18 History U-100 Insulin aspart] insulin detemir U-100 [Levemir 25 unit SUB-Q BID 02/25/18 02/25/18 History U-100 Insulin] lisinopril 20 mg PO BID 02/25/18 02/25/18 History loratadine [Claritin] 10 mg PO DAILY 02/25/18 02/25/18 History oxycodone 10 mg PO Q4-6H PRN 02/25/18 02/25/18 History rosuvastatin [Crestor] 20 mg PO DAILY 02/25/18 02/25/18 History sertraline [Zoloft] 25 mg PO DAILY 02/25/18 02/25/18 History Results - Labs CBC & Chem 7: 02/26/18 07:36 02/26/18 07:36 Laboratory Results - last 24 hr 02/26/18 02/26/18 02/27/18 16:22 19:56 07:53 POC Glucose 207 H 116 H 131 H 02/27/18 10:50 POC Glucose 222 H Microbiology 02/25/18 10:53 Wound - Foot Gram Stain - Final 02/25/18 10:53 Wound - Foot Wound Culture - Final Proteus mirabilis Pseudomonas aeruginosa Staphylococcus aureus 02/25/18 10:55 Blood - Peripheral Aerobic Blood Culture - Preliminary No growth in 2 days 02/25/18 10:55 Blood - Peripheral Anaerobic Blood Culture - Preliminary No growth in 2 days 02/25/18 10:50 Blood - Peripheral Aerobic Blood Culture - Preliminary No growth in 2 days 02/25/18 10:50 Blood - Peripheral Anaerobic Blood Culture - Preliminary No growth in 2 days - Imaging Impressions SPECT Scan-Bone NM 02/27/18 00:00 CONCLUSION: 1. Severe chronic deformity involving the midfoot. 2. Focal area of increased activity is seen along the lateral mortise joint suggestive of chronic degenerative-type changes. 3. Mild diffuse uptake involving the metatarsal bones most likely related to the severe deformity and chronic changes. 4. If an inflammatory process is suspected, a gallium scan could be performed for bone gallium ratio's.. Assessment and Plan - Assessment (1) Diabetic foot infection Code(s): E11.628 - Type 2 diabetes mellitus with other skin complications; L08.9 - Local infection of the skin and subcutaneous tissue, unspecified Status: Acute - Plan -bone scan negative, I do not recommend any surgical intervention at this time as pt shows not acute signs of infection or definitive OM -suggest d/c on broad spectrum PO abx for skin coverage -CAM boot ordered to aid ambulation -f/u with outside mechanic helper, , after d/c
--- NOTE | 2018-02-27 16:21 | P.CONID ---
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 presented again with 1 1/2 weeks of swelling redness, pain and draiange He had fever, chills On presentation no fever doc'd, ANC elevated to 9500 the fever now resolved clx grw out galvin S PSAE, Proteus and MSSA MRI + for osteo started on clindamycin Review of Systems All other systems reviewed negative except as stated in HPI PMFSH - History History Provided By: Patient - Medical History Medical History: Medical History (Last Updated 02/25/18 @ 22:42 by Yoselin Urrutia MD) Diabetes mellitus Osteomyelitis - Surgical History Surgical History: Surgical History (Last Updated 02/25/18 @ 22:43 by Yoselin Ururtia MD) History of left below knee amputation (Acute) - Family History Family History: Family History (Last Updated 02/25/18 @ 22:41 by Yoselin Urrutia MD) Other Diabetes - Tobacco History Second Hand Smoke Exposure: Yes Tobacco Use In Past 30 Days: Yes Smoking Status: Current every day smoker Tobacco Type: Cigarettes - Alcohol History How Often Do You Have a Drink Containing Alcohol: Monthly or less - Substance Use History Substance History: No History of Abuse - Travel History Recent Travel in the [place] Within the Last 8 Weeks: No Recent Travel Out of the Country Within the Last 8 Weeks: No - Immunization History Tetanus Immunization: Unsure Hx Influenza Vaccine This Season: No Medications and Allergies Active Medications: Active Medications Acetaminophen (Tylenol) 650 mg PO Q4H PRN PRN Reason: Temp > 100.4 Al Hydroxide/Mg Hydroxide (Milk Of Magnchris Liq) 30 ml PO Q12H PRN PRN Reason: Mild Constipation Aspirin (Ecotrin) 81 mg PO DAILY [facility] Last Admin: 02/27/18 07:59 Dose: 81 mg Atorvastatin Calcium (Lipitor) 40 mg PO DAILY [facility] Last Admin: 02/27/18 07:59 Dose: 40 mg Bisacodyl (Dulcolax Supp) 10 mg RECTAL DAILY PRN PRN Reason: SEVERE CONSITIPATION Enoxaparin Sodium (Lovenox Inj) 40 mg SQ Q24H [facility] Last Admin: 02/27/18 15:23 Dose: 40 mg Sodium Chloride (Ns Inj) 1,000 mls @ 84 mls/hr IV.CONT .[id number] [facility] Last Infusion: 02/27/18 12:52 Dose: Infused Clindamycin/Sodium Chloride (Cleocin 900 Mg/Ns Premix) 900 mg in 50 mls @ 100 mls/hr IV.SIG Q8H [facility] Last Infusion: 02/27/18 13:43 Dose: Infused Piperacillin/Tazobactam/Dextrose (Zosyn 4.5 Gm Premix) 4.5 gm in 100 mls @ 200 mls/hr IV.SIG Q8H [facility] Last Infusion: 02/27/18 15:24 Dose: Infused Ibuprofen (Motrin) 800 mg PO Q4H PRN PRN Reason: Pain 1-5 Last Admin: 02/25/18 15:14 Dose: 800 mg Insulin Aspart ([facility] Correctional [facility] Last Admin: 02/27/18 08:01 Dose: 10 unit Insulin Aspart (Novolog Insulin Correctional Sugar Inj) 0 unit SQ [facility]; Protocol Last Admin: 02/27/18 12:09 Dose: 3 unit Insulin Detemir (Levemir Inj) 25 unit SQ BID [facility] Last Admin: 02/27/18 08:00 Dose: 25 unit Lactulose (Lactulose Liq) 30 ml PO DAILY PRN PRN Reason: SEVERE CONSITIPATION Lisinopril (Prinivil) 20 mg PO BID [facility] Last Admin: 02/27/18 07:59 Dose: 20 mg Loratadine (Claritin) 10 mg PO DAILY [facility] Last Admin: 02/27/18 07:59 Dose: 10 mg Metoclopramide HCl (Reglan Inj) 5 mg IV.PUSH Q6HR PRN; Protocol PRN Reason: Nausea Or Vomiting mod to pam Last Admin: 02/26/18 08:24 Dose: 5 mg Miscellaneous (Pill Splitter) 1 each OTHER [facility] Morphine Sulfate (Morphine Inj) 2 mg IV.PUSH Q4H PRN PRN Reason: breakthrough pain Last Admin: 02/27/18 15:21 Dose: 2 mg Oxycodone HCl (Roxicodone) 10 mg PO Q4H PRN PRN Reason: Pain 6-10 Last Admin: 02/27/18 13:35 Dose: 10 mg Prochlorperazine (Compazine Supp) 25 mg RECTAL Q12HR PRN PRN Reason: NAUSEA OR VOMITING Senna/Docusate Sodium (Lena-Colace) 1 tab PO BID [facility] Last Admin: 02/27/18 08:00 Dose: Not Given Sennosides (Senokot) 17.2 mg PO Q12H PRN PRN Reason: Moderate Constipation Sertraline HCl (Zoloft) 25 mg PO DAILY [facility] Last Admin: 02/27/18 07:59 Dose: 25 mg Temazepam (Restoril) 15 mg PO HS PRN PRN Reason: INSOMNIA Allergies Allergy/AdvReac Type Severity Reaction Status Date / Time vancomycin Allergy Severe ACUTE Verified 02/25/18 10:34 RENAL FAILURE tigecycline AdvReac Severe NAUSEA AND Verified 02/25/18 10:34 VOMITING Tetracyclines AdvReac Unknown Gastrointestinal Verified 02/25/18 10:34 Upset aquacel dressing Allergy Severe Bleeding Uncoded 12/29/14 14:35 regranex Allergy Severe Swelling Uncoded 12/29/14 14:35 Home Medications Medication Instructions Recorded Confirmed Type aspirin [Aspir-81] 81 mg PO DAILY 02/25/18 02/25/18 History ibuprofen 800 mg PO Q4H PRN 02/25/18 02/25/18 History insulin aspart U-100 [Novolog 1 sliding scale dose SUB-Q UD 02/25/18 02/25/18 History U-100 Insulin aspart] insulin aspart U-100 [Novolog 10 unit SUB-Q BIDAC 02/25/18 02/25/18 History U-100 Insulin aspart] insulin detemir U-100 [Levemir 25 unit SUB-Q BID 02/25/18 02/25/18 History U-100 Insulin] lisinopril 20 mg PO BID 02/25/18 02/25/18 History loratadine [Claritin] 10 mg PO DAILY 02/25/18 02/25/18 History oxycodone 10 mg PO Q4-6H PRN 02/25/18 02/25/18 History rosuvastatin [Crestor] 20 mg PO DAILY 02/25/18 02/25/18 History sertraline [Zoloft] 25 mg PO DAILY 02/25/18 02/25/18 History Exam Vital signs: Vital Signs 02/26/18 20:00 02/27/18 00:00 02/27/18 04:00 Temperature 97.6 F 97.8 F 98.0 F Pulse Rate 83 86 78 Respiratory Rate 18 Blood Pressure 141/94 H 163/89 H 131/76 Pulse Oximetry 98 100 99 02/27/18 08:00 02/27/18 12:00 02/27/18 15:52 Temperature 98.1 F 98.5 F Pulse Rate 72 84 Respiratory Rate 18 Blood Pressure 160/99 H 137/84 Pulse Oximetry 97 99 02/27/18 16:00 Temperature 98.8 F Pulse Rate 81 Respiratory Rate 19 Blood Pressure 143/80 H Pulse Oximetry 98 Intake & Output 02/26/18 02/27/18 02/27/18 18:59 06:59 18:59 Intake Total 995 / 995 1150 / 1150 1300 / 1300 Balance 995 / 995 1150 / 1150 1300 / 1300 Intake: IV 300 / 300 1150 / 1150 1300 / 1300 NS Inj 1,000 ML @ 84 mls/hr IV. 1000 / 1000 1000 / 1000 CONT .[id number] [facility] Rx#:[id number] Cleocin 900 mg/NS Premix 900 mg 100 / 100 50 / 50 100 / 100 In 50 ml @ 100 mls/hr IV.SIG Q8H [facility] Rx#:[id number] Zosyn 4.5 GM Premix 4.5 gm In 200 / 200 100 / 100 200 / 200 100 ml @ 200 mls/hr IV.SIG Q8H [facility] Rx#:[id number] Oral 695 / 695 Other: # Voids 5 2 Date of Last Bowel Movement 02/25/18 02/25/18 02/26/18 # Bowel Movements 0 - Constitutional no acute distress, obese - Routine HEENT Exam Head: Present: normocephalic, atraumatic Eye: Present: EOMI, PERRL ENT: Present: mucous membranes moist, oropharynx clear - Routine Respiratory Exam Present: decreased breath sounds, CTA bilaterally - Routine Cardiovascular Exam Present: RRR, S1, S2 Comments: no murmurs - Routine Abdominal Exam Present: soft, normoactive bowel sounds Comments: no organopmegaly or masses - Routine Extremities Exam Present: amputation (L BKA, healing abrasion) Comments: R foot with prominent rocker bottom deformity and plantar clean based ulcerastion with serous greenish dc no odor no necrotics - Routine Skin Exam Present: intact, warm - Routine Neurological Exam Present: alert, oriented X3, CN II-XII intact, moving all extremities, vision grossly intact, hearing grossly intact - Routine Psychiatric Exam Present: normal affect, cooperative Results - Labs CBC & Chem 7: 02/26/18 07:36 02/26/18 07:36 Labs: Laboratory Results - last 24 hr 02/26/18 02/26/18 02/27/18 16:22 19:56 07:53 POC Glucose 207 H 116 H 131 H 02/27/18 10:50 POC Glucose 222 H - Imaging Impressions SPECT Scan-Bone NM 02/27/18 00:00 CONCLUSION: 1. Severe chronic deformity involving the midfoot. 2. Focal area of increased activity is seen along the lateral mortise joint suggestive of chronic degenerative-type changes. 3. Mild diffuse uptake involving the metatarsal bones most likely related to the severe deformity and chronic changes. 4. If an inflammatory process is suspected, a gallium scan could be performed for bone gallium ratio's.. Assessment and Plan - Plan DFI , suspected osteo R foot , bone scan neg. 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
[2018-02-28] MEDS: Clindamycin 900 mg/NS Premix 900 MG/50 ML PIGGYBACK IV.SIG SCH (04:54)
[2018-02-28] MEDS: Sod Chloride 0.9% Inj 1,000 ML IV.CONT SCH (04:58)
[2018-02-28] MEDS: Piperacil/Tazo 4.5 GM Premix 4.5 GM/100 ML BAG IV.SIG SCH (05:24)
[2018-02-28] MEDS: Morphine Inj 4 MG/ML Vial IV.PUSH PRN (09:13)
[2018-02-28] MEDS: Insulin Detemir Inj 1,000 UNIT/10 ML Vial SQ SCH (09:13)
[2018-02-28] MEDS: Sertraline 50 MG Tablet PO SCH (09:14)
[2018-02-28] MEDS: Lisinopril 20 MG Tablet PO SCH (09:14)
[2018-02-28] MEDS: Loratadine 10 MG Tablet PO SCH (09:15)
[2018-02-28] MEDS: Senna/Docusate Sodium 8.6/50 MG Tablet PO SCH (09:15)
--- NOTE | 2018-02-28 10:24 | P.PNIM ---
Subjective Interval history: Patient reports the pain is under control. Denies any chest pain shortness of breath. Reports loose stool, but denies any abdominal pain. Physical Exam Vital signs: Vital Signs 02/27/18 12:00 02/27/18 15:52 02/27/18 16:00 Temperature 98.5 F 98.8 F Pulse Rate 84 81 Respiratory Rate 18 18 19 Blood Pressure 137/84 143/80 H Pulse Oximetry 99 98 02/27/18 20:00 02/28/18 00:00 02/28/18 04:00 Temperature 97.1 F L 98.3 F 97.8 F Pulse Rate 75 82 74 Respiratory Rate 17 17 17 Blood Pressure 146/87 H 146/94 H 173/86 H Pulse Oximetry 98 98 99 02/28/18 08:00 Temperature 97.4 F L Pulse Rate 76 Respiratory Rate 19 Blood Pressure 157/93 H Pulse Oximetry 97 Intake & Output 02/27/18 02/28/18 02/28/18 18:59 06:59 18:59 Intake Total 2500 / 2500 1100 / 1100 Balance 2500 / 2500 1100 / 1100 Intake: IV 1300 / 1300 300 / 300 NS Inj 1,000 ML @ 84 mls/hr IV. 1000 / 1000 CONT .[id number] [facility] Rx#:[id number] Cleocin 900 mg/NS Premix 900 mg 100 / 100 100 / 100 In 50 ml @ 100 mls/hr IV.SIG Q8H [facility] Rx#:[id number] Zosyn 4.5 GM Premix 4.5 gm In 200 / 200 200 / 200 100 ml @ 200 mls/hr IV.SIG Q8H [facility] Rx#:[id number] Oral 1200 / 1200 800 / 800 Other: # Voids 4 2 Date of Last Bowel Movement 02/26/18 Narrative: GENERAL: Sitting up in bed. Appears comfortable. Alert and oriented 3. SKIN: Warm and dry. HEAD: Normocephalic. EYES: No scleral icterus. No injection or drainage. NECK: Supple, trachea midline. No JVD or lymphadenopathy. CARDIOVASCULAR: Regular rate and rhythm without murmurs, gallops, or rubs. RESPIRATORY: Breath sounds equal bilaterally. No accessory muscle use. GASTROINTESTINAL: Abdomen soft, non-tender, nondistended. MUSCULOSKELETAL: No cyanosis, or edema. Right foot dressed. Dressing clean dry and intact. BACK: Nontender without obvious deformity. No CVA tenderness. Results - Labs CBC & Chem 7: 02/26/18 07:36 02/26/18 07:36 Laboratory Results - last 24 hr 02/27/18 02/27/18 02/27/18 10:50 16:51 21:13 POC Glucose 222 H 186 H 248 H 02/28/18 07:39 POC Glucose 147 H Microbiology 02/25/18 10:53 Wound - Foot Gram Stain - Final 02/25/18 10:53 Wound - Foot Wound Culture - Final Proteus mirabilis Pseudomonas aeruginosa Staphylococcus aureus 02/25/18 10:55 Blood - Peripheral Aerobic Blood Culture - Preliminary No growth in 2 days 02/25/18 10:55 Blood - Peripheral Anaerobic Blood Culture - Preliminary No growth in 2 days 02/25/18 10:50 Blood - Peripheral Aerobic Blood Culture - Preliminary No growth in 2 days 02/25/18 10:50 Blood - Peripheral Anaerobic Blood Culture - Preliminary No growth in 2 days - Imaging Impressions SPECT Scan-Bone NM 02/27/18 00:00 CONCLUSION: 1. Severe chronic deformity involving the midfoot. 2. Focal area of increased activity is seen along the lateral mortise joint suggestive of chronic degenerative-type changes. 3. Mild diffuse uptake involving the metatarsal bones most likely related to the severe deformity and chronic changes. 4. If an inflammatory process is suspected, a gallium scan could be performed for bone gallium ratio's.. Assessment and Plan - Assessment (1) Sepsis Code(s): A41.9 - Sepsis, unspecified organism Status: Acute (2) Diabetic foot infection Code(s): E11.628 - Type 2 diabetes mellitus with other skin complications; L08.9 - Local infection of the skin and subcutaneous tissue, unspecified Status: Acute - Plan //Sepsis - Blood cultures negative //Diabetic foot ulcer //Osteomyelitis right foot MRI suspicious for osteomyelitis. Bone scan ordered per podiatry - Continue current antibiotics; wound culture growing staph species. ID consultation pending. = 02/28. Discussed with Dr. Timmons. Dr. Copeland would like to obtain a C. difficile PCR of stool prior to discharge. Otherwise if C. difficile is negative, patient can go on 3 week course of Levaquin and clindamycin. Appreciate ID assistance. //Diabetes mellitus Continue home Lantus SSI = Glucose acceptable. Continue to monitor. //Hypertension/hyperlipidemia Continue home medications holding pharmacologic anticoagulation secondary to possible operative intervention Discharge Planning: Pending C. difficile. -If C. difficile is negative, ID has cleared patient to go home on 3 week course of Levaquin and clindamycin. Follow-up with podiatry as outpatient(dr. Ravi). (1) Sepsis Qualifiers: Sepsis type: sepsis due to unspecified organism Qualified Code(s): A41.9 - Sepsis, unspecified organism
--- NOTE | 2018-02-28 10:42 | P.DS ---
Date of admission: 02/25/18 12:38 Primary care physician: SHANE Ko Brief History from admission: Pleasant 47-year-old male with PMH of previous osteo with BKA left leg, uncontrolled IDDM, came for evaluation of plantar foot wound. Patient with diabetes and reported uncontrolled blood sugars over the past week with increasing pain to patient was seen in the hospital in September at which time bone biopsy was performed and was negative for osteomyelitis Patient was discharged with wound VAC and he has been following up with Dr. Salinas in office. Recently he switched podiatrists and is in wound care. Patient reports associated nausea fever chills diarrhea on admission' Says he has meen on antibiotics 1 month prior. No h/o C diff however has a h/o MRSa left leg No uronary omplaints. no cp, sob He is noted tachycardic DS: Diagnosis - Discharge Diagnosis (1) Sepsis Status: Acute (2) Diabetic foot infection Status: Acute DS: Summary Hospital Course: MRI positive for osteomyelitis, however bone scan not entirely conclusive. Please see below. Wound culture was performed and positive for Proteus mirabilis, Pseudomonas, staph aureus. Infectious disease and podiatry were consulted. Patient was managed with IV antibiotics during admission, however has been cleared for discharge with by mouth antibiotics. Patient will need weekly labs performed while on by mouth antibiotics. Patient will need to follow-up with podiatry as outpatient for possible osteomyelitis. Patient reported loose stool prior to discharge, likely secondary to antibiotics. C. difficile ordered and pending prior to discharge however. For problem based summary from most recent progress note, please see below. //Sepsis - Blood cultures negative //Diabetic foot ulcer //Osteomyelitis right foot MRI suspicious for osteomyelitis. Bone scan ordered per podiatry - Continue current antibiotics; wound culture growing staph species. ID consultation pending. = 02/28. Discussed with Dr. Timmons. Dr. Copeland would like to obtain a C. difficile PCR of stool prior to discharge. Otherwise if C. difficile is negative, patient can go on 3 week course of Levaquin and clindamycin. Appreciate ID assistance. //Diabetes mellitus Continue home Lantus SSI = Glucose acceptable. Continue to monitor. //Hypertension/hyperlipidemia Continue home medications holding pharmacologic anticoagulation secondary to possible operative intervention Discharge Planning: Pending C. difficile. -If C. difficile is negative, ID has cleared patient to go home on 3 week course of Levaquin and clindamycin. Follow-up with podiatry as outpatient(dr. Ravi). - Time Spent with Patient Total time spent providing and/or coordinating discharge services: Greater than 30 minutes - Quality: VTE Deep Vein Thrombosis/Pulmonary Embolism Present on Admission: No Exam Vital signs: Vital Signs 02/27/18 12:00 02/27/18 15:52 02/27/18 16:00 Temperature 98.5 F 98.8 F Pulse Rate 84 81 Respiratory Rate 18 18 19 Blood Pressure 137/84 143/80 H Pulse Oximetry 99 98 02/27/18 20:00 02/28/18 00:00 02/28/18 04:00 Temperature 97.1 F L 98.3 F 97.8 F Pulse Rate 75 82 74 Respiratory Rate 17 17 17 Blood Pressure 146/87 H 146/94 H 173/86 H Pulse Oximetry 98 98 99 02/28/18 08:00 Temperature 97.4 F L Pulse Rate 76 Respiratory Rate 19 Blood Pressure 157/93 H Pulse Oximetry 97 Intake & Output 02/27/18 02/28/18 02/28/18 18:59 06:59 18:59 Intake Total 2500 / 2500 1100 / 1100 Balance 2500 / 2500 1100 / 1100 Intake: IV 1300 / 1300 300 / 300 NS Inj 1,000 ML @ 84 mls/hr IV. 1000 / 1000 CONT .[id number] WANDA Rx#:[id number] Cleocin 900 mg/NS Premix 900 mg 100 / 100 100 / 100 In 50 ml @ 100 mls/hr IV.SIG Q8H WANDA Rx#:[id number] Zosyn 4.5 GM Premix 4.5 gm In 200 / 200 200 / 200 100 ml @ 200 mls/hr IV.SIG Q8H WANDA Rx#:[id number] Oral 1200 / 1200 800 / 800 Other: # Voids 4 2 Date of Last Bowel Movement 02/26/18 Results Procedures completed during hospitalization: Wound biopsy. Labs on day of discharge: Labs from last 24 hours 02/28/18 02/27/18 02/27/18 07:39 21:13 16:51 POC Glucose 147 H 248 H 186 H 02/27/18 10:50 POC Glucose 222 H Preliminary micro results at discharge 02/25/18 10:55 Aerobic Blood Culture - Preliminary Blood - Peripheral No growth in 2 days Anaerobic Blood Culture - Preliminary No growth in 2 days 02/25/18 10:50 Aerobic Blood Culture - Preliminary Blood - Peripheral No growth in 2 days Anaerobic Blood Culture - Preliminary No growth in 2 days - Impressions ITS Impressions Foot MRI 02/25/18 00:00 CONCLUSION: 1. Marrow edema and enhancement on the lateral aspect of the foot around the fused residual cuboid and fifth metatarsal with surrounding edema and nonloculated fluid. There is an ulceration on the plantar aspect of the foot with a questionable sinus tract extending towards the area of suspected osteomyelitis. There is rocker-bottom deformity and numerous chronic deformities as listed above. Chest X-Ray 02/25/18 10:46 CONCLUSION: 1. No acute abnormality or significant interval change. Foot X-Ray 02/25/18 10:49 CONCLUSION: 1. Stable extensive right foot deformity. 2. Plantar soft tissue swelling/laceration without definitive evidence for acute osteomyelitis. SPECT Scan-Bone NM 02/27/18 00:00 CONCLUSION: 1. Severe chronic deformity involving the midfoot. 2. Focal area of increased activity is seen along the lateral mortise joint suggestive of chronic degenerative-type changes. 3. Mild diffuse uptake involving the metatarsal bones most likely related to the severe deformity and chronic changes. 4. If an inflammatory process is suspected, a gallium scan could be performed for bone gallium ratio's.. Discharge Plan - Discharge Disposition Patient Disposition: 01 Discharge Home - Discharge Condition Condition: Stable - Discharge Order Discharge Orders: Discharge Order (Routine); Ordered 02/28/18 Ordered By: Olman Rodas - Discharge Details Anticipated Discharge Date: 02/28/18 Discharge Comment: Okay for discharge home if C. difficile comes back negative - Physicians Team Primary Care Provider: Gill Jo Attending Provider: Olman Rodas Other Providers: Nitza Wesley DPM ; Geovanna Timmons MD ; Enoch Marrero, Agency
[2018-02-28] MEDS: Insulin NovoLOG Aspart Correctional Sugar Inj SQ SCH ×2 (11:22→11:23)
== END 2018-02-28 12:20 | disposition home or self-care (01) ==
LOC: NEPE 10:18 → NEDA 12:38 → N07 18:40
PROVIDERS: ADMIT Internal Medicine; ATTEND Internal Medicine

== ENCOUNTER 2018-04-15 07:54 | Inpatient (IN) ==
[2018-04-15 08:58] LABS: Baso # (Auto) 0.1 th/mm3 (0.0-0.2); Baso % (Auto) 0.8 % (0.0-2.0); Eos # (Auto) 0.1 th/mm3 (0.0-0.4); Eos % (Auto) 0.8 % (0.0-4.0); Hemoglobin 14.5 gm/dL (13.0-17.0); Lymph # (Auto) 1.8 th/mm3 (1.0-4.8); Lymph % (Auto) 17.3 % (9.0-44.0); Mean Corpuscular HGB Conc 34.5 % (32.0-36.0); Mean Corpuscular Hemoglobin 30.3 pg (27.0-34.0); Mean Corpuscular Volume 87.7 fL (80.0-100.0); Mean Platelet Volume 8.4 fL (7.0-11.0); Mono # (Auto) 0.5 th/mm3 (0.0-0.9); Mono % (Auto) 4.6 % (0.0-8.0); Neut # (Auto) 7.8 th/mm3 (1.8-7.7); Neut % (Auto) 76.5 % (16.0-70.0); Platelet Count 244 th/mm3 (150-450); Red Blood Count 4.79 mil/mm3 (4.50-5.90); Red Cell Distribution Width 13.7 % (11.6-17.2); White Blood Count 10.2 th/mm3 (4.0-11.0)
[2018-04-15] MEDS ORDERED: Morphine Inj 4 MG/ML Vial IV.PUSH ONE (09:20)
[2018-04-15 09:35] LABS: Alanine Aminotransferase 20 U/L (12-78); Albumin 3.5 g/dL (3.4-5.0); Alkaline Phosphatase 174 U/L (45-117); Anion Gap 9 meq/L (5-15); Aspartate Aminotransferase 14 U/L (15-37); Blood Urea Nitrogen 9 mg/dL (7-18); Calcium 9.1 mg/dL (8.5-10.1); Carbon Dioxide 26.7 meq/L (21.0-32.0); Chloride 97 meq/L (98-107); Glomerular Filtration Rate 76 mL/min (>89); Potassium 4.6 meq/L (3.5-5.1); Sodium 133 meq/L (136-145); Total Protein 7.5 g/dL (6.4-8.2)
[2018-04-15 09:39] LABS: Glucose,Random 605 mg/dL (74-106)
--- NOTE | 2018-04-15 11:27 | ED ---
HPI General Chief complaint: Skin/Abscess/Foreign Body Stated complaint: Wound on bottom of right foot Time Seen by Provider: 04/15/18 08:24 Source: patient Mode of arrival: ambulatory Limitations: no limitations History of Present Illness HPI narrative: Is a 48-year-old man presents to the emergency department complaining of a skin wound to his right foot. He is a history of diabetes. He is a wound to the bottom of the right foot for a year or so. Over the past week it has gotten more painful, more red, with increased drainage. His blood sugars which are normally reasonably well-controlled at been significantly elevated. He went to his see his wound care doctor who sent him to the emergency department. He follows with the wound care doctor before the hospital done a new [place]. Otherwise had been feeling generally well. He is a history of Charcot joint in that same foot. Some subjective chills recently. No other complaints. Related Data Home Medications Medication Instructions Recorded Confirmed aspirin [Aspir-81] 81 mg PO DAILY 02/25/18 04/15/18 ibuprofen 800 mg PO Q4H PRN 02/25/18 04/15/18 insulin aspart U-100 [Novolog 1 sliding scale dose SUB-Q UD 02/25/18 04/15/18 U-100 Insulin aspart] insulin aspart U-100 [Novolog 10 unit SUB-Q BIDAC 02/25/18 04/15/18 U-100 Insulin aspart] insulin detemir U-100 [Levemir 25 unit SUB-Q BID 02/25/18 04/15/18 U-100 Insulin] lisinopril 20 mg PO BID 02/25/18 04/15/18 loratadine [Claritin] 10 mg PO DAILY 02/25/18 04/15/18 oxycodone 10 mg PO Q4-6H PRN 02/25/18 04/15/18 rosuvastatin [Crestor] 20 mg PO DAILY 02/25/18 04/15/18 sertraline [Zoloft] 25 mg PO DAILY 02/25/18 04/15/18 Allergies Allergy/AdvReac Type Severity Reaction Status Date / Time vancomycin Allergy Severe ACUTE Verified 02/25/18 10:34 RENAL FAILURE becaplermin [From Regranex] Allergy Intermediate Swelling Verified 04/15/18 08: 48 tigecycline AdvReac Severe NAUSEA AND Verified 02/25/18 10:34 VOMITING Tetracyclines AdvReac Unknown Gastrointestinal Verified 02/25/18 10:34 Upset Review of Systems ROS: all other systems reviewed are negative [facility] Medical History Medical History Diabetes mellitus (Acute) Osteomyelitis (Acute) Surgical History Surgical History History of left below knee amputation (Acute) Family History Family History Other Diabetes Social History Social History Substance History: No History of Abuse Second Hand Smoke Exposure: Yes Smoking Status: Current every day smoker Tobacco Type: Cigarettes How Often Do You Have a Drink Containing Alcohol: Never Recent Travel in [facility] within the Last 8 Weeks: No Recent Out of Country Travel within the Last 8 Weeks: No Immunization History Tetanus Immunization: <5 Years Hx Influenza Vaccine This Season: No Exam Narrative Exam Narrative: GENERAL: Well-appearing 48-year-old man, no acute distress. SKIN: Focused skin assessment warm/dry. HEAD: Atraumatic. Normocephalic. EYES: Pupils equal and round. No scleral icterus. No injection or drainage. ENT: No nasal bleeding or discharge. Mucous membranes pink and moist. NECK: Trachea midline. No JVD. CARDIOVASCULAR: Regular rate and rhythm. No murmur appreciated. RESPIRATORY: No accessory muscle use. Clear to auscultation. Breath sounds equal bilaterally. GASTROINTESTINAL: Abdomen soft, non-tender, nondistended. Hepatic and splenic margins not palpable. MUSCULOSKELETAL: Obvious deformity to the right foot. Left below the knee amputation. Right foot with amputated toes and deformity related to Charcot joint. On the plantar aspect of the foot there is about a 3 cm diameter ulceration with some surrounding race wound edge. Wound base is pink. There is no obvious necrosis. There is no obvious purulence or draining fluid. There is some bogginess surrounding it. NEUROLOGICAL: Awake and alert. No obvious cranial nerve deficits. Motor grossly within normal limits. Normal speech. PSYCHIATRIC: Appropriate mood and affect; insight and judgment normal. Course Initial Documented Vital Signs Temperature 98.5 F 09/18/18 08:04 Pulse Rate 98 H 04/15/18 08:04 Respiratory Rate 16 04/15/18 08:04 Blood Pressure 174/88 H 04/15/18 08:04 Pulse Oximetry 98 04/15/18 08:04 Last Documented Vital Signs Temperature 98 F 04/15/18 10:10 Pulse Rate 95 H 04/15/18 10:10 Respiratory Rate 16 04/15/18 10:10 Blood Pressure 151/83 H 04/15/18 10:10 Pulse Oximetry 99 04/15/18 10:10 Medical Decision Making MDM Narrative Medical decision making narrative: 40-year-old man with severe diabetes, worsening lower extremity wound with concern for infection and osteomyelitis. Was seen in the emergency department yesterday and x-ray was done he was evaluated in triage only, never was fully evaluated and he left before being brought back. Labs today show mild elevation in inflammatory markers. Patient will be admitted for further evaluation, advanced imaging. Medical Screen Exam Complete: Yes Emergency Medical Condition: Yes Lab Data Result diagrams: 04/15/18 08:30 04/15/18 08:30 Lab Results 04/15/18 04/15/18 04/15/18 Range/Units 08:11 08:30 08:30 WBC 10.2 (4.0-11.0) th/mm3 RBC 4.79 (4.50-5.90) mil/mm3 Hgb 14.5 (13.0-17.0) gm/dL Hct 42.0 (39.0-51.0) % MCV 87.7 (80.0-100.0) fL MCH 30.3 (27.0-34.0) pg MCHC 34.5 (32.0-36.0) % RDW 13.7 (11.6-17.2) % Plt Count 244 (150-450) th/mm3 MPV 8.4 (7.0-11.0) fL Neut % (Auto) 76.5 H (16.0-70.0) % Lymph % (Auto) 17.3 (9.0-44.0) % [place] % (Auto) 4.6 (0.0-8.0) % Eos % (Auto) 0.8 (0.0-4.0) % Baso % (Auto) 0.8 (0.0-2.0) % Neut # (Auto) 7.8 H (1.8-7.7) th/mm3 Lymph # (Auto) 1.8 (1.0-4.8) th/mm3 [place] # (Auto) 0.5 (0.0-0.9) th/mm3 Eos # (Auto) 0.1 (0.0-0.4) th/mm3 Baso # (Auto) 0.1 (0.0-0.2) th/mm3 WBC Differential . Differential Comment Auto diff final ESR (0-15) mm/hr Sodium 133 L (136-145) meq/L Potassium 4.6 (3.5-5.1) meq/L Chloride 97 L (98-107) meq/L Carbon Dioxide 26.7 (21.0-32.0) meq/L Anion Gap 9 (5-15) meq/L BUN 9 (7-18) mg/dL Creatinine 1.04 (0.60-1.30) mg/dL Estimated GFR 76 L (>89) mL/min POC Glucose 586 H* (68-110) mg/dl Random Glucose 605 H* (74-106) mg/dL Lactic Acid (0.4-2.0) mmol/L Calcium 9.1 (8.5-10.1) mg/dL Total Bilirubin 0.6 (0.2-1.0) mg/dL AST 14 L (15-37) U/L ALT 20 (12-78) U/L Alkaline Phosphatase 174 H (45-117) U/L Total Protein 7.5 (6.4-8.2) g/dL Albumin 3.5 (3.4-5.0) g/dL 04/15/18 04/15/18 Range/Units 08:30 08:30 WBC (4.0-11.0) th/mm3 RBC (4.50-5.90) mil/mm3 Hgb (13.0-17.0) gm/dL Hct (39.0-51.0) % MCV (80.0-100.0) fL MCH (27.0-34.0) pg MCHC (32.0-36.0) % RDW (11.6-17.2) % Plt Count (150-450) th/mm3 MPV (7.0-11.0) fL Neut % (Auto) (16.0-70.0) % Lymph % (Auto) (9.0-44.0) % [place] % (Auto) (0.0-8.0) % Eos % (Auto) (0.0-4.0) % Baso % (Auto) (0.0-2.0) % Neut # (Auto) (1.8-7.7) th/mm3 Lymph # (Auto) (1.0-4.8) th/mm3 [place] # (Auto) (0.0-0.9) th/mm3 Eos # (Auto) (0.0-0.4) th/mm3 Baso # (Auto) (0.0-0.2) th/mm3 WBC Differential Differential Comment ESR 42 H (0-15) mm/hr Sodium (136-145) meq/L Potassium (3.5-5.1) meq/L Chloride (98-107) meq/L Carbon Dioxide (21.0-32.0) meq/L Anion Gap (5-15) meq/L BUN (7-18) mg/dL Creatinine (0.60-1.30) mg/dL Estimated GFR (>89) mL/min POC Glucose (68-110) mg/dl Random Glucose (74-106) mg/dL Lactic Acid 1.5 (0.4-2.0) mmol/L Calcium (8.5-10.1) mg/dL Total Bilirubin (0.2-1.0) mg/dL AST (15-37) U/L ALT (12-78) U/L Alkaline Phosphatase (45-117) U/L Total Protein (6.4-8.2) g/dL Albumin (3.4-5.0) g/dL Discharge Plan Discharge Order Discharge Orders: Discharge Order (Routine); Ordered 04/15/18 Ordered By: Haim Sandhu Physicians Team ED Provider: Haim Sandhu Primary Care Provider: Gill Jo Rxs /Orders / Referrals /Forms Prescriptions: No Action ibuprofen 800 mg Tablet 800 mg PO Q4H PRN (Reason: Pain) RF: 0 lisinopril 20 mg Tablet 20 mg PO BID RF: 0 aspirin [Aspir-81] 81 mg Tablet,Delayed Release (Dr/Ec) 81 mg PO DAILY RF: 0 insulin aspart U-100 [Novolog U-100 Insulin aspart] 100 unit/mL Solution 10 unit SUB-Q BIDAC RF: 0 insulin aspart U-100 [Novolog U-100 Insulin aspart] 100 unit/mL Solution 1 sliding scale dose SUB-Q UD RF: 0 sertraline [Zoloft] 25 mg Tablet 25 mg PO DAILY RF: 0 loratadine [Claritin] 10 mg Tablet 10 mg PO DAILY RF: 0 rosuvastatin [Crestor] 20 mg Tablet 20 mg PO DAILY RF: 0 insulin detemir U-100 [Levemir U-100 Insulin] 100 unit/mL Solution 25 unit SUB-Q BID RF: 0 oxycodone 10 mg Tablet 10 mg PO Q4-6H PRN (Reason: Pain) RF: 0 Discharge Interventions Interventions: Vital Signs Last Done: 04/15/18 10:10 Status ED Status: With Doctor
[2018-04-15] MEDS ORDERED: Dextrose 50% in Water 50 ML Vial IV.PUSH PRN (11:55)
[2018-04-15] MEDS ORDERED: Acetaminophen 325 MG Tablet PO PRN (12:02)
[2018-04-15] MEDS ORDERED: Naloxone Inj 0.4 MG/ML Vial IV.PUSH PRN (12:12)
[2018-04-15] MEDS: Sod Chloride 0.9% Inj 1,000 ML IV.CONT SCH ×2 (12:42→22:41)
[2018-04-15] MEDS: Insulin NovoLOG Aspart Correctional Sugar Inj SQ SCH ×3 (12:46→22:44)
[2018-04-15] MEDS ORDERED: Enoxaparin Inj 40 MG/0.4 ML Syringe SQ SCH (13:00)
[2018-04-15] MEDS ORDERED: Gadobutrol PF 10 MMOL/10 ML Vial (for RAD) IV.SIG ONE (15:40)
--- NOTE | 2018-04-15 18:23 | ECG ---
Date Performed: 04/15/2018 Time Performed: 08:23:23 PTAGE: 48 years EKG: Sinus rhythm POSSIBLE INFERIOR MYOCARDIAL INFARCTION Slight intraventricular conduction delay. When compared to p revious tracing, patient is no longer Tachycardic. ABNORMAL ECG PREVIOUS TRACING : 02/25/2018 11.32 DOCTOR: Nichole Cortez Interpretating Date/Time 04/15/2018 18:21:05
[2018-04-15] MEDS ORDERED: Insulin Detemir Inj 1,000 UNIT/10 ML Vial SQ SCH (21:00)
[2018-04-15] MEDS: Senna/Docusate Sodium 8.6/50 MG Tablet PO SCH (22:45)
[2018-04-15 23:08] LABS: Bilirubin,Urine Negative (Negative); Clarity,Urine Clear (Clear); Color,Urine Yellow (Yellw/Straw); Glucose,Urine (UA) 500 or Greater mg/dL (Negative); Hyaline Casts,Urine 5 /lpf (0-3); Leukocyte Esterase,Urine Negative (Negative); Mucus,Urine Few /lpf (Occasional); Nitrite,Urine Negative (Negative); Specific Gravity,Urine 1.035 (1.002-1.035); Squamous Epithelial Cell,Urine 1 /hpf (0-5)
[2018-04-16] MEDS: Piperacil/Tazo 4.5 GM Premix 4.5 GM/100 ML BAG IV.SIG SCH ×4 (02:01→18:27)
[2018-04-16] MEDS: DAPTOmycin Inj 750 MG in Sodium Chlor 0.9% Inj 100 ML IV.SIG SCH (02:44)
[2018-04-16] MEDS: Sod Chloride 0.9% Inj 1,000 ML IV.CONT SCH ×3 (03:07→21:17)
[2018-04-16 07:33] LABS: Hematocrit 39.5 % (39.0-51.0); Hemoglobin 13.6 gm/dL (13.0-17.0); Mean Corpuscular HGB Conc 34.4 % (32.0-36.0); Mean Corpuscular Volume 87.2 fL (80.0-100.0); Mean Platelet Volume 8.3 fL (7.0-11.0); Platelet Count 195 th/mm3 (150-450); Red Blood Count 4.52 mil/mm3 (4.50-5.90); Red Cell Distribution Width 13.6 % (11.6-17.2); White Blood Count 9.8 th/mm3 (4.0-11.0)
[2018-04-16 07:52] LABS: Anion Gap 9 meq/L (5-15); Blood Urea Nitrogen 12 mg/dL (7-18); Calcium 8.4 mg/dL (8.5-10.1); Carbon Dioxide 25.3 meq/L (21.0-32.0); Chloride 104 meq/L (98-107); Glomerular Filtration Rate Greater Than 89 mL/min (>89); Glucose,Random 220 mg/dL (74-106); Potassium 3.8 meq/L (3.5-5.1); Sodium 138 meq/L (136-145)
[2018-04-16] MEDS: Insulin NovoLOG Aspart Correctional Sugar Inj SQ SCH ×4 (09:22→21:26)
[2018-04-16] MEDS: Senna/Docusate Sodium 8.6/50 MG Tablet PO SCH ×2 (09:22→21:17)
[2018-04-16] MEDS: Loratadine 10 MG Tablet PO SCH (09:22)
[2018-04-16] MEDS: Sertraline 50 MG Tablet PO SCH (09:23)
[2018-04-16] MEDS: Insulin Detemir Inj 1,000 UNIT/10 ML Vial SQ SCH ×2 (09:23→21:20)
[2018-04-16] MEDS ORDERED: Ketorolac Inj 30 MG/ML (IVP) Vial IV.PUSH PRN (11:30)
[2018-04-16] MEDS: Heparin - SQ 10,000 UNITS/ML Vial SQ SCH ×2 (13:40→21:16)
[2018-04-16] MEDS ORDERED: Temazepam 15 MG Capsule PO PRN (21:00)
[2018-04-17] MEDS: Piperacil/Tazo 4.5 GM Premix 4.5 GM/100 ML BAG IV.SIG SCH ×5 (01:37→18:08)
[2018-04-17] MEDS: DAPTOmycin Inj 750 MG in Sodium Chlor 0.9% Inj 100 ML IV.SIG SCH (01:38)
[2018-04-17] MEDS: Heparin - SQ 10,000 UNITS/ML Vial SQ SCH ×3 (05:40→21:33)
[2018-04-17] MEDS: Sod Chloride 0.9% Inj 1,000 ML IV.CONT SCH (05:41)
[2018-04-17 07:16] LABS: Hematocrit 40.5 % (39.0-51.0); Hemoglobin 13.8 gm/dL (13.0-17.0)
[2018-04-17 07:36] LABS: Alanine Aminotransferase 14 U/L (12-78); Albumin 2.8 g/dL (3.4-5.0); Alkaline Phosphatase 112 U/L (45-117); Anion Gap 7 meq/L (5-15); Aspartate Aminotransferase 15 U/L (15-37); Blood Urea Nitrogen 15 mg/dL (7-18); Calcium 8.7 mg/dL (8.5-10.1); Carbon Dioxide 25.6 meq/L (21.0-32.0); Chloride 105 meq/L (98-107); Glomerular Filtration Rate Greater Than 89 mL/min (>89); Glucose,Random 163 mg/dL (74-106); Potassium 4.1 meq/L (3.5-5.1); Sodium 138 meq/L (136-145); Total Protein 6.3 g/dL (6.4-8.2)
[2018-04-17] MEDS: Insulin Detemir Inj 1,000 UNIT/10 ML Vial SQ SCH ×2 (09:05→21:50)
[2018-04-17] MEDS: Insulin NovoLOG Aspart Correctional Sugar Inj SQ SCH ×4 (09:14→21:50)
[2018-04-17] MEDS: Sertraline 50 MG Tablet PO SCH (09:54)
[2018-04-17] MEDS: Senna/Docusate Sodium 8.6/50 MG Tablet PO SCH ×2 (09:54→21:32)
[2018-04-17] MEDS: Loratadine 10 MG Tablet PO SCH (09:55)
[2018-04-17] MEDS: Ibuprofen 600 MG Tablet PO SCH ×2 (12:55→19:08)
[2018-04-17] MEDS: Lisinopril 20 MG Tablet PO SCH ×2 (15:14→21:33)
[2018-04-17] MEDS: Temazepam 15 MG Capsule PO SCH (21:32)
[2018-04-18] MEDS: Ibuprofen 600 MG Tablet PO SCH ×5 (00:20→18:15)
[2018-04-18] MEDS: Piperacil/Tazo 4.5 GM Premix 4.5 GM/100 ML BAG IV.SIG SCH ×5 (00:22→18:16)
[2018-04-18] MEDS: Heparin - SQ 10,000 UNITS/ML Vial SQ SCH ×5 (05:08→22:00)
[2018-04-18 06:29] LABS: Baso # (Auto) 0.1 th/mm3 (0.0-0.2); Eos # (Auto) 0.4 th/mm3 (0.0-0.4); Eos % (Auto) 5.5 % (0.0-4.0); Hematocrit 39.8 % (39.0-51.0); Hemoglobin 13.5 gm/dL (13.0-17.0); Lymph # (Auto) 2.7 th/mm3 (1.0-4.8); Lymph % (Auto) 40.9 % (9.0-44.0); Mean Corpuscular HGB Conc 33.8 % (32.0-36.0); Mean Corpuscular Hemoglobin 29.8 pg (27.0-34.0); Mean Corpuscular Volume 88.3 fL (80.0-100.0); Mean Platelet Volume 7.9 fL (7.0-11.0); Mono # (Auto) 0.3 th/mm3 (0.0-0.9); Mono % (Auto) 5.3 % (0.0-8.0); Neut # (Auto) 3.1 th/mm3 (1.8-7.7); Neut % (Auto) 47.3 % (16.0-70.0); Platelet Count 187 th/mm3 (150-450); Red Blood Count 4.51 mil/mm3 (4.50-5.90); Red Cell Distribution Width 13.6 % (11.6-17.2); White Blood Count 6.5 th/mm3 (4.0-11.0)
[2018-04-18 06:59] LABS: Anion Gap 8 meq/L (5-15); Blood Urea Nitrogen 11 mg/dL (7-18); Calcium 8.9 mg/dL (8.5-10.1); Chloride 106 meq/L (98-107); Glomerular Filtration Rate Greater Than 89 mL/min (>89); Glucose,Random 123 mg/dL (74-106); Potassium 4.2 meq/L (3.5-5.1); Sodium 140 meq/L (136-145)
[2018-04-18] MEDS: Insulin Detemir Inj 1,000 UNIT/10 ML Vial SQ SCH ×2 (08:48→20:31)
[2018-04-18] MEDS: Insulin NovoLOG Aspart Correctional Sugar Inj SQ SCH ×4 (08:49→20:41)
[2018-04-18] MEDS: Lisinopril 20 MG Tablet PO SCH ×2 (08:50→20:28)
[2018-04-18] MEDS: Senna/Docusate Sodium 8.6/50 MG Tablet PO SCH ×2 (08:50→20:32)
[2018-04-18] MEDS: Sertraline 50 MG Tablet PO SCH (08:51)
[2018-04-18] MEDS: Loratadine 10 MG Tablet PO SCH (08:51)
[2018-04-18] MEDS: Gabapentin 300 MG Capsule PO SCH (20:28)
[2018-04-19] MEDS: Temazepam 15 MG Capsule PO SCH ×2 (00:39→21:01)
[2018-04-19] MEDS: Ibuprofen 600 MG Tablet PO SCH ×7 (00:39→23:29)
[2018-04-19] MEDS: Piperacil/Tazo 4.5 GM Premix 4.5 GM/100 ML BAG IV.SIG SCH ×5 (00:39→18:21)
[2018-04-19] MEDS: Heparin - SQ 10,000 UNITS/ML Vial SQ SCH ×4 (04:48→23:29)
[2018-04-19 06:09] LABS: Anion Gap 8 meq/L (5-15); Blood Urea Nitrogen 9 mg/dL (7-18); Calcium 8.7 mg/dL (8.5-10.1); Carbon Dioxide 26.8 meq/L (21.0-32.0); Chloride 107 meq/L (98-107); Glomerular Filtration Rate Greater Than 89 mL/min (>89); Glucose,Random 103 mg/dL (74-106); Potassium 4.1 meq/L (3.5-5.1); Sodium 142 meq/L (136-145)
[2018-04-19] MEDS: Insulin Detemir Inj 1,000 UNIT/10 ML Vial SQ SCH ×2 (08:18→21:02)
[2018-04-19] MEDS: Sertraline 50 MG Tablet PO SCH (08:19)
[2018-04-19] MEDS: Gabapentin 300 MG Capsule PO SCH ×3 (08:19→21:01)
[2018-04-19] MEDS: Loratadine 10 MG Tablet PO SCH (08:19)
[2018-04-19] MEDS: Lisinopril 20 MG Tablet PO SCH ×2 (08:20→21:02)
[2018-04-19] MEDS: Insulin NovoLOG Aspart Correctional Sugar Inj SQ SCH ×4 (08:21→21:02)
[2018-04-19] MEDS: Senna/Docusate Sodium 8.6/50 MG Tablet PO SCH ×2 (08:21→21:00)
[2018-04-20] MEDS: Piperacil/Tazo 4.5 GM Premix 4.5 GM/100 ML BAG IV.SIG SCH ×2 (00:25→06:36)
[2018-04-20] MEDS: Ibuprofen 600 MG Tablet PO SCH ×2 (05:32→11:41)
[2018-04-20] MEDS: Heparin - SQ 10,000 UNITS/ML Vial SQ SCH (05:32)
[2018-04-20] MEDS: Loratadine 10 MG Tablet PO SCH (08:13)
[2018-04-20] MEDS: Sertraline 50 MG Tablet PO SCH (08:13)
[2018-04-20] MEDS: Lisinopril 20 MG Tablet PO SCH (08:14)
[2018-04-20] MEDS: Senna/Docusate Sodium 8.6/50 MG Tablet PO SCH (08:14)
[2018-04-20] MEDS: Insulin Detemir Inj 1,000 UNIT/10 ML Vial SQ SCH (08:15)
[2018-04-20] MEDS: Insulin NovoLOG Aspart Correctional Sugar Inj SQ SCH ×2 (08:15→11:50)
[2018-04-20] MEDS: Gabapentin 300 MG Capsule PO SCH ×2 (08:52→11:45)
[2018-04-20] MEDS ORDERED: levoFLOXacin 750 MG Tablet PO SCH (10:00)
== END 2018-04-20 12:07 | disposition home or self-care (01) ==
LOC: NEPE 07:54 → NEDA 11:21 → N07 17:00
PROVIDERS: ADMIT Family Medicine; ATTEND Family Medicine

== ENCOUNTER 2018-04-23 07:12 | Inpatient (IN) ==
--- NOTE | 2018-04-23 07:34 | ED ---
HPI General Chief complaint: Skin/Abscess/Foreign Body Stated complaint: R Foot Complaint Time Seen by Provider: 04/23/18 07:21 Source: patient and old records reviewed Mode of arrival: ambulatory Limitations: no limitations History of Present Illness HPI narrative: Patient is a 48-year-old male, past medical history significant for uncontrolled diabetes with chronic ulcer on the bottom of the right foot who presents with complaint of increased pain and drainage from the site. He also describes increased malaise, chills without fever and nausea but no vomiting. He does not believe his diabetes has been under more control. He was recently admitted to the hospital for this infection at which time he was started on oral Levaquin and clindamycin based on antimicrobial susceptibilities. MRI at that time did not show bony involvement. MD complaint: lesion Onset (ago): unknown Location: R foot Severity: moderate Quality: aching Pain Consistency: constant Relieving factors: none Exacerbating factors: palpation Context: recent antibiotic Associated symptoms: chills and malaise Treatments prior to arrival: antibiotic Related Data Home Medications Medication Instructions Recorded Confirmed aspirin [Aspir-81] 81 mg PO DAILY 02/25/18 04/23/18 ibuprofen 800 mg PO Q4H PRN 02/25/18 04/23/18 insulin aspart U-100 [Novolog 1 sliding scale dose SUB-Q QID 02/25/18 04/23/18 U-100 Insulin aspart] insulin aspart U-100 [Novolog 10 unit SUB-Q BIDAC 02/25/18 04/23/18 U-100 Insulin aspart] lisinopril 20 mg PO BID 02/25/18 04/23/18 loratadine [Claritin] 10 mg PO DAILY 02/25/18 04/23/18 oxycodone 10 mg PO Q4-6H PRN 02/25/18 04/23/18 rosuvastatin [Crestor] 20 mg PO DAILY 02/25/18 04/23/18 sertraline [Zoloft] 25 mg PO DAILY 02/25/18 04/23/18 gabapentin 1 cap BID 04/18/18 04/23/18 gabapentin 1 dose PO HS 04/18/18 04/23/18 Previous Rx's Medication Instructions Recorded clindamycin HCl [Cleocin HCl] 300 mg PO QID 14 Days #56 cap 04/19/18 insulin detemir U-100 [Levemir 25 unit SUB-Q HS #300 units 04/19/18 U-100 Insulin] insulin detemir U-100 [Levemir 28 unit SUB-Q DAILY #300 units 04/19/18 U-100 Insulin] levofloxacin [Levaquin] 750 mg PO DAILY 14 Days #14 tab 04/19/18 Allergies Allergy/AdvReac Type Severity Reaction Status Date / Time vancomycin Allergy Severe ACUTE Verified 04/23/18 08:10 RENAL FAILURE becaplermin [From Regranex] Allergy Intermediate Swelling Verified 04/23/18 08: 10 tigecycline AdvReac Severe NAUSEA AND Verified 04/23/18 08:10 VOMITING Tetracyclines AdvReac Intermediate Gastrointestinal Verified 04/23/18 08:10 Upset Review of Systems ROS: all other systems reviewed are negative [facility] Medical History Medical History Foot ulcer (Acute) HTN (hypertension) (Acute) High cholesterol (Acute) MRSA (methicillin resistant Staphylococcus aureus) infection (Acute) Neuropathy (Acute) Diabetes mellitus (Acute) Osteomyelitis (Acute) Surgical History Surgical History History of left below knee amputation (Acute) Family History Family History Other Diabetes Social History Social History Substance History: No History of Abuse Second Hand Smoke Exposure: Yes Smoking Status: Current every day smoker Tobacco Type: Cigarettes How Often Do You Have a Drink Containing Alcohol: Never Recent Travel in [facility] within the Last 8 Weeks: No Recent Out of Country Travel within the Last 8 Weeks: No Exam Narrative Exam Narrative: GENERAL: Well-appearing male in no acute distress SKIN: Focused skin assessment warm/dry. No rashes. Diabetic ulcer to the plantar aspect of the right foot no drainage elicited at this time. HEAD: Atraumatic. Normocephalic. EYES: Pupils equal and round. No scleral icterus. No injection or drainage. ENT: No nasal bleeding or discharge. Mucous membranes pink and moist. NECK: Trachea midline. No JVD. CARDIOVASCULAR: Regular rate and rhythm. No murmur appreciated. Intact and equal peripheral pulses. RESPIRATORY: No accessory muscle use. Clear to auscultation. Breath sounds equal bilaterally. GASTROINTESTINAL: Abdomen soft, non-tender, nondistended. Hepatic and splenic margins not palpable. MUSCULOSKELETAL:No clubbing. No cyanosis. No edema. Left lower extremity amputation with amputation of the right lower extremity toes. NEUROLOGICAL: Awake and alert. No obvious cranial nerve deficits. Motor grossly within normal limits. Normal speech. PSYCHIATRIC: Appropriate mood and affect; insight and judgment normal. Course Initial Documented Vital Signs Temperature 99.0 F 04/23/18 07:17 Pulse Rate 98 H 04/23/18 07:17 Respiratory Rate 16 04/23/18 07:17 Blood Pressure 174/94 H 04/23/18 07:17 Pulse Oximetry 99 04/23/18 07:17 Last Documented Vital Signs Temperature 99.0 F 04/23/18 07:17 Pulse Rate 73 04/23/18 09:00 Respiratory Rate 20 04/23/18 09:00 Blood Pressure 151/76 H 04/23/18 09:00 Pulse Oximetry 98 04/23/18 09:00 Medical Decision Making MDM Narrative Medical decision making narrative: Patient is a 48-year-old male, past medical history significant for uncontrolled diabetes, who presents with complaint of worsening of his chronic foot infection. He has been taking his Levaquin and clindamycin as prescribed but states he is starting to have drainage now. He denies any fevers. X-ray shows his chronic Charcot joint but is relatively unchanged from his most recent imaging. White blood cell count is within normal limits but is slightly elevated in comparison to the one on discharge. His glucose is markedly elevated despite taking his Levemir and regular insulin at home as he been prescribed. I spoke with both Dr. Sousa and Dr. Salinas, of podiatry, whom recommended admission with plan for MRI and further planning based on the results of that. The patient has been admitted to the resident service under Dr. Zuniga who will order the MRI and further manage his diabetes. Medical Screen Exam Complete: Yes Emergency Medical Condition: Yes Differential Diagnosis Differential Diagnosis: Differential diagnosis includes but is not limited to worsening of chronic infection, electrolyte abnormality, DKA. Medical Records Medical records reviewed: Yes I reviewed the patient's medical records. Lab Data Lab results reviewed: Yes I reviewed the patient's lab results. Result diagrams: 04/23/18 07:45 04/23/18 07:45 Lab Results 04/23/18 04/23/18 04/23/18 Range/Units 07:45 07:45 07:45 WBC 9.5 (4.0-11.0) th/mm3 RBC 4.82 (4.50-5.90) mil/mm3 Hgb 14.6 (13.0-17.0) gm/dL Hct 42.8 (39.0-51.0) % MCV 88.9 (80.0-100.0) fL MCH 30.2 (27.0-34.0) pg MCHC 34.0 (32.0-36.0) % RDW 14.1 (11.6-17.2) % Plt Count 191 (150-450) th/mm3 MPV 8.5 (7.0-11.0) fL Neut % (Auto) 76.8 H (16.0-70.0) % Lymph % (Auto) 17.2 (9.0-44.0) % [place] % (Auto) 4.6 (0.0-8.0) % Eos % (Auto) 0.7 (0.0-4.0) % Baso % (Auto) 0.7 (0.0-2.0) % Neut # (Auto) 7.3 (1.8-7.7) th/mm3 Lymph # (Auto) 1.6 (1.0-4.8) th/mm3 [place] # (Auto) 0.4 (0.0-0.9) th/mm3 Eos # (Auto) 0.1 (0.0-0.4) th/mm3 Baso # (Auto) 0.1 (0.0-0.2) th/mm3 WBC Differential . Differential Comment Auto diff final ESR (0-15) mm/hr Sodium 136 (136-145) meq/L Potassium 4.3 (3.5-5.1) meq/L Chloride 104 (98-107) meq/L Carbon Dioxide 21.8 (21.0-32.0) meq/L Anion Gap 10 (5-15) meq/L BUN 22 H (7-18) mg/dL Creatinine 1.04 (0.60-1.30) mg/dL Estimated GFR 76 L (>89) mL/min POC Glucose (68-110) mg/dl Random Glucose 492 H* (74-106) mg/dL Calcium 9.3 (8.5-10.1) mg/dL C-Reactive Protein (0.00-0.30) mg/dL Beta-Hydroxybutyric Acd 0.18 (0.00-0.39) mmol/L 04/23/18 04/23/18 04/23/18 Range/Units 07:45 07:45 09:07 WBC (4.0-11.0) th/mm3 RBC (4.50-5.90) mil/mm3 Hgb (13.0-17.0) gm/dL Hct (39.0-51.0) % MCV (80.0-100.0) fL MCH (27.0-34.0) pg MCHC (32.0-36.0) % RDW (11.6-17.2) % Plt Count (150-450) th/mm3 MPV (7.0-11.0) fL Neut % (Auto) (16.0-70.0) % Lymph % (Auto) (9.0-44.0) % [place] % (Auto) (0.0-8.0) % Eos % (Auto) (0.0-4.0) % Baso % (Auto) (0.0-2.0) % Neut # (Auto) (1.8-7.7) th/mm3 Lymph # (Auto) (1.0-4.8) th/mm3 [place] # (Auto) (0.0-0.9) th/mm3 Eos # (Auto) (0.0-0.4) th/mm3 Baso # (Auto) (0.0-0.2) th/mm3 WBC Differential Differential Comment ESR 33 H (0-15) mm/hr Sodium (136-145) meq/L Potassium (3.5-5.1) meq/L Chloride (98-107) meq/L Carbon Dioxide (21.0-32.0) meq/L Anion Gap (5-15) meq/L BUN (7-18) mg/dL Creatinine (0.60-1.30) mg/dL Estimated GFR (>89) mL/min POC Glucose 418 H (68-110) mg/dl Random Glucose (74-106) mg/dL Calcium (8.5-10.1) mg/dL C-Reactive Protein 0.33 H (0.00-0.30) mg/dL Beta-Hydroxybutyric Acd (0.00-0.39) mmol/L Imaging Data Attestation: I personally reviewed and interpreted this imaging study as follows : My impression: No acute fracture. Radiologist's impression: Foot X-Ray 04/23/18 07:30 CONCLUSION: 1. Severe Charcot foot deformity as detailed above. 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 Severe flatfoot deformity. 2. Configuration of the osseous deformities are stable with probable resection of the entire third digit and prior osteotomies of the second and fourth metatarsals. I do not see an acute fracture. 3. Superficial ulcer in the mid plantar tissues with no obvious associated osteomyelitis. Discharge Plan Discharge Disposition Patient Disposition: 30 Still Patient Discharge Condition Condition: Stable Discharge Details Diagnosis: Diabetic foot infection, Poorly controlled type 2 diabetes mellitus Physicians Team ED Provider: Cata Cruz Primary Care Provider: UNKNOWN, Attending Provider: Kim Zuniga Other Providers: Araseli Sousa Discharge Interventions Interventions: Vital Signs Last Done: 04/23/18 09:00 Status ED Status: Admitted Patient
[2018-04-23] MEDS: Sod Chloride 0.9% Inj 1,000 ML IV.SIG SCH ×2 (07:46→09:09)
--- NOTE | 2018-04-23 08:02 | XR ---
EXAM DATE: 04/23/2018 7:30 AM EDT AGE/SEX: 48 years / Male INDICATIONS: Painful ulcer bottom of foot 18mo. CLINICAL DATA: This is the patient's initial encounter. Patient reports that signs and symptoms have been present for > 1 year and indicates a pain score of 9/10. MEDICAL/SURGICAL HISTORY: Diabetes mellitus type II. . BKA left leg, partial amputation right t oes. [place] [facility] [place] 3[place]/2018. . FINDINGS: Again noted is extreme deformity of the left foot with prior surgical osteotomies or bony resorption of the second through fourth metatarsals. There may actually be complete absence of the third digit. In addition, there are severe degenerative changes in the midfoot with complete dislocation of the me dial and lateral cuneiforms are characteristic of a Charcot foot. Figuration is stable. I do not see an acute fracture. On the lateral, there does appear to be a soft tissue ulceration in the mid plantar surface. This is very superficial and I do not see an associated osteomyelitis. Severe flatfoot deformity. CONCLUSION: 1. Severe Charcot foot deformity as detailed above. I believe there is chronic dislocation of both m edial and lateral cuneiforms. Severe flatfoot deformity. 2. Configuration of the osseous deformities are stable with probable resection of the entire third d igit and prior osteotomies of the second and fourth metatarsals. I do not see an acute fracture. 3. Superficial ulcer in the mid plantar tissues with no obvious associated osteomyelitis. Electronically signed by: Jim Holt MD 04/23/2018 8:00 AM EDT
[2018-04-23 08:13] LABS: Baso # (Auto) 0.1 th/mm3 (0.0-0.2); Baso % (Auto) 0.7 % (0.0-2.0); Eos # (Auto) 0.1 th/mm3 (0.0-0.4); Eos % (Auto) 0.7 % (0.0-4.0); Hematocrit 42.8 % (39.0-51.0); Hemoglobin 14.6 gm/dL (13.0-17.0); Lymph # (Auto) 1.6 th/mm3 (1.0-4.8); Lymph % (Auto) 17.2 % (9.0-44.0); Mean Corpuscular Hemoglobin 30.2 pg (27.0-34.0); Mean Corpuscular Volume 88.9 fL (80.0-100.0); Mean Platelet Volume 8.5 fL (7.0-11.0); Mono # (Auto) 0.4 th/mm3 (0.0-0.9); Mono % (Auto) 4.6 % (0.0-8.0); Neut # (Auto) 7.3 th/mm3 (1.8-7.7); Neut % (Auto) 76.8 % (16.0-70.0); Platelet Count 191 th/mm3 (150-450); Red Blood Count 4.82 mil/mm3 (4.50-5.90); Red Cell Distribution Width 14.1 % (11.6-17.2); White Blood Count 9.5 th/mm3 (4.0-11.0)
[2018-04-23 08:42] LABS: Calcium 9.3 mg/dL (8.5-10.1); Carbon Dioxide 21.8 meq/L (21.0-32.0); Potassium 4.3 meq/L (3.5-5.1)
[2018-04-23] MEDS ORDERED: Dextrose 50% in Water 50 ML Vial IV.PUSH PRN (12:58)
[2018-04-23 13:28] LABS: Bilirubin,Urine Negative (Negative); Clarity,Urine Clear (Clear); Color,Urine Yellow (Yellw/Straw); Glucose,Urine (UA) 500 or Greater mg/dL (Negative); Leukocyte Esterase,Urine Negative (Negative); Nitrite,Urine Negative (Negative); Specific Gravity,Urine 1.028 (1.002-1.035); Squamous Epithelial Cell,Urine <1 /hpf (0-5)
[2018-04-23] MEDS: Gabapentin 300 MG Capsule PO SCH ×2 (13:40→21:15)
--- NOTE | 2018-04-23 16:09 | P.HPFP ---
History of Present Illness Primary Care Physician: UNKNOWN <UsmanmarleneKim R - 04/23/18 17:09> UNKNOWN <Monique Glover V 04/23/18 16:09> Chief Complaint: Foot ulcer <Monique Glover V 04/23/18 16:09> History of Present Illness: 48 yr old male with uncontrolled T2DM and L below the knee amputation, recently discharged from the hospital last Saturday due to a R foot ulcer, returning to the ED with complains of diarrhea, chills, night sweats, and increasing drainage from the ulcer. He states this ulcer has been present for 18 months but has been progressively improving. During prior hospitalization he did not have osteomyelitis and was treated with IV zosyn 4.5mg daily. His wound cultures grew Pseudomonas, Proteus, and Staph Aureus. He was discharged home on Levaquin 750mg Qday and Clindamycin 300 QID. Pt states taking mediation appropriately. He denies any fevers, he did vomited once, food. He denies any increased pain other than already present. Foot pain is located on the lateral side. He denies any swelling of his extremities, no new erythema or warmth. He states there is an increased fluid drainage of green color. <Monique Glover V 04/23/18 16:54> - Diagnosis (1) Diabetic foot infection (2) Poorly controlled type 2 diabetes mellitus (3) Hypertension (4) Neuropathy (5) History of left below knee amputation (6) Hyperlipidemia (7) Mood disorder (8) Nutrition, metabolism, and development symptoms <Kim Zuniga 04/23/18 17:09> (1) Diabetic foot infection (2) Poorly controlled type 2 diabetes mellitus (3) Hypertension (4) Neuropathy (5) History of left below knee amputation (6) Hyperlipidemia (7) Mood disorder (8) Nutrition, metabolism, and development symptoms <Monique Glover V 04/23/18 16:09> Inpatient Certification: I certify that the inpatient services were ordered in accordance with Medicare regulations governing the order. This includes certification that hospital inpatient services are reasonable and necessary and in the case of services not specified as inpatient-only under 42 CFR 419.22(n), that they are appropriately provided as inpatient services in accordance to with the 2-midnight benchmark under 43 CFR 412.3(e) <Kim Zuniga 04/23/18 17:09> I certify that the inpatient services were ordered in accordance with Medicare regulations governing the order. This includes certification that hospital inpatient services are reasonable and necessary and in the case of services not specified as inpatient-only under 42 CFR 419.22(n), that they are appropriately provided as inpatient services in accordance to with the 2-midnight benchmark under 43 CFR 412.3(e) <Monique Glover V 04/23/18 16:09> Estimated Total Length of Stay (Days): 3 <Monique Glover V 04/23/18 16: 09> Plans for Post Hospital Care: Not yet determined <Monique Glover V 16:09> Review of Systems Constitutional: Reports chills, Reports night sweats, Denies fever(s) <Sloan LeijaMonique Mccarty 04/23/18 16:54> Cardiovascular: Denies chest pain <Sloan LeijaMonique Mccarty 04/23/18 16:54> Gastrointestinal: Reports loose stools, Reports nausea, Reports vomiting, Denies abdominal pain, Denies vomiting blood <Monique Glover V 16:54> Comments: Pain in R lateral foot. Ulcer on R foot. <Monique Glover V 04/23/18 16:54> Musculoskeletal: Reports abnormal walking ( ), Reports back pain (Chronic) < Monique Glover V 04/23/18 16:54> PMF - History History Provided By: Patient <Monique Glover V 04/23/18 16:09> - Medical History Medical History: Medical History (Last Updated 04/23/18 @ 08:22 by [facility]) Foot ulcer HTN (hypertension) High cholesterol MRSA (methicillin resistant Staphylococcus aureus) infection Neuropathy Diabetes mellitus Osteomyelitis <Kim Zuniga 04/23/18 17:09> Medical History (Last Updated 04/23/18 @ 08:22 by [facility]) Foot ulcer HTN (hypertension) High cholesterol MRSA (methicillin resistant Staphylococcus aureus) infection Neuropathy Diabetes mellitus Osteomyelitis <Sloan LeijaMonique Mccarty 04/23/18 16:09> - Surgical History Surgical History: Surgical History (Last Reviewed 04/23/18 @ 08:22 by [facility]) History of left below knee amputation (Acute) <Kim Zuniga 04/23/18 17:09> Surgical History (Last Reviewed 04/23/18 @ 08:22 by [facility]) History of left below knee amputation (Acute) <Monique Glover V 04/23/18 16:09> - Family History Family History: Family History (Last Reviewed 04/23/18 @ 07:37 by Cata Cruz MD) Other Diabetes <Kim Zuniga 04/23/18 17:09> Family History (Last Reviewed 04/23/18 @ 07:37 by Cata Cruz MD) Other Diabetes <Monique Glover V 04/23/18 16:09> - Tobacco History Second Hand Smoke Exposure: Yes <Monique Glover V 04/23/18 16:09> Tobacco Use In Past 30 Days: Yes <Monique Glover V 04/23/18 16:09> Smoking Status: Current every day smoker <Monique Glover V 04/23/18 16: 09> Tobacco Type: Cigarettes <Monique Glover V 04/23/18 16:09> Cigarettes Per Day: 10 <Monique Glover V 04/23/18 16:54> - Alcohol History How Often Do You Have a Drink Containing Alcohol: Never <Monique Glover V 04/23/18 16:09> - Substance Use History Substance History: No History of Abuse <Sloan LeijaMonique Mccarty 04/23/18 16:09 > - Travel History Recent Travel in the [facility] Within the Last 8 Weeks: No <Monique Glover V 04/23/18 16:09> Recent Travel Out of the Country Within the Last 8 Weeks: No <Sloan Leija Monique Mccarty 04/23/18 16:09> - Immunization History Tetanus Immunization: <5 Years <Monique Glover V 04/23/18 16:09> Hx Influenza Vaccine This Season: No <Monique Glover V 04/23/18 16:09> Medications and Allergies Allergies Allergy/AdvReac Type Severity Reaction Status Date / Time vancomycin Allergy Severe ACUTE Verified 04/23/18 08:10 RENAL FAILURE becaplermin [From Regranex] Allergy Intermediate Swelling Verified 04/23/18 08: 10 tigecycline AdvReac Severe NAUSEA AND Verified 04/23/18 08:10 VOMITING Tetracyclines AdvReac Intermediate Gastrointestinal Verified 04/23/18 08:10 Upset <Kim Zuniga R - 04/23/18 17:09> Home Medications Medication Instructions Recorded Confirmed Type aspirin [Aspir-81] 81 mg PO DAILY 02/25/18 04/23/18 History ibuprofen 800 mg PO Q4H PRN 02/25/18 04/23/18 History insulin aspart U-100 [Novolog 1 sliding scale dose SUB-Q QID 02/25/18 04/23/18 History U-100 Insulin aspart] insulin aspart U-100 [Novolog 10 unit SUB-Q BIDAC 02/25/18 04/23/18 History U-100 Insulin aspart] lisinopril 20 mg PO BID 02/25/18 04/23/18 History loratadine [Claritin] 10 mg PO DAILY 02/25/18 04/23/18 History oxycodone 10 mg PO Q4-6H PRN 02/25/18 04/23/18 History rosuvastatin [Crestor] 20 mg PO DAILY 02/25/18 04/23/18 History sertraline [Zoloft] 25 mg PO DAILY 02/25/18 04/23/18 History gabapentin 1 cap BID 04/18/18 04/23/18 History gabapentin 1 dose PO HS 04/18/18 04/23/18 History <Kim Zuniga R - 04/23/18 17:09> Active Medications: Active Medications Al Hydroxide/Mg Hydroxide (Milk Of Magnesia Liq) 30 ml PO Q12H PRN PRN Reason: Mild Constipation Aspirin (Ecotrin) 81 mg PO DAILY [facility] Atorvastatin Calcium (Lipitor) 40 mg PO DAILY [facility] Dextrose (D50w Vial) 50 ml IV.PUSH UNSCH PRN PRN Reason: PER HYPOGLYCEMIA PROTOCOL Gabapentin (Neurontin) 300 mg PO BID@0900,1200 [facility] Last Admin: 04/23/18 13:40 Dose: 300 mg Gabapentin (Neurontin) 600 mg PO HS [facility] Glucagon (Glucagon Inj) 1 mg OTHER UNSCH PRN PRN Reason: for Hypoglycemia Protocol Heparin Sodium (Porcine) (Heparin Inj) 5,000 units SQ Q8H [facility] Sodium Chloride (Ns Inj) 1,000 mls @ 0 mls/hr IV.SIG BOLUS [facility] Stop: 04/24/18 07:46 Last Infusion: 04/23/18 10:15 Dose: Infused Piperacillin/Tazobactam/Dextrose (Zosyn 4.5 Gm Premix) 4.5 gm in 100 mls @ 200 mls/hr IV.SIG Q24HR [facility] Ibuprofen (Motrin) 800 mg PO Q8H PRN PRN Reason: Pain 1-10 Insulin Aspart (Novolog Insulin Correctional Sugar Inj) 0 unit SQ ACHS [facility]; Protocol Insulin Detemir (Levemir Inj) 28 unit SQ HS [facility] Insulin Detemir (Levemir Inj) 25 unit SQ DAILY [facility] Lisinopril (Prinivil) 20 mg PO BID [facility] Loratadine (Claritin) 10 mg PO DAILY [facility] Miscellaneous (Pill Splitter) 1 each OTHER UNSCH PRN PRN Reason: SEE LABEL COMMENTS Ondansetron HCl (Zofran Inj) 4 mg IV.PUSH Q6H PRN PRN Reason: NAUSEA OR VOMITING Oxycodone HCl (Roxicodone) 10 mg PO Q4H PRN PRN Reason: Pain 1-10 Last Admin: 04/23/18 13:34 Dose: 10 mg Senna/Docusate Sodium (Lena-Colace) 1 tab PO BID [facility] Sennosides (Senokot) 17.2 mg PO Q12H PRN PRN Reason: Moderate Constipation Sertraline HCl (Zoloft) 25 mg PO DAILY [facility] <Kim Zuniga R - 04/23/18 17:09> Active Medications Aspirin (Ecotrin) 81 mg PO DAILY [facility] Atorvastatin Calcium (Lipitor) 40 mg PO DAILY [facility] Dextrose (D50w Vial) 50 ml IV.PUSH UNSCH PRN PRN Reason: PER HYPOGLYCEMIA PROTOCOL Gabapentin (Neurontin) 300 mg PO BID@0900,1200 [facility] Last Admin: 04/23/18 13:40 Dose: 300 mg Gabapentin (Neurontin) 600 mg PO HS [facility] Glucagon (Glucagon Inj) 1 mg OTHER UNSCH PRN PRN Reason: for Hypoglycemia Protocol Sodium Chloride (Ns Inj) 1,000 mls @ 0 mls/hr IV.SIG BOLUS [facility] Stop: 04/24/18 07:46 Last Infusion: 04/23/18 10:15 Dose: Infused Piperacillin/Tazobactam/Dextrose (Zosyn 4.5 Gm Premix) 4.5 gm in 100 mls @ 200 mls/hr IV.SIG Q24HR [facility] Ibuprofen (Motrin) 800 mg PO Q8H PRN PRN Reason: Pain 1-10 Insulin Aspart (Novolog Insulin Correctional Sugar Inj) 0 unit SQ ACHS [facility]; Protocol Insulin Detemir (Levemir Inj) 28 unit SQ HS [facility] Insulin Detemir (Levemir Inj) 25 unit SQ DAILY [facility] Lisinopril (Prinivil) 20 mg PO BID [facility] Loratadine (Claritin) 10 mg PO DAILY [facility] Miscellaneous (Pill Splitter) 1 each OTHER UNSCH PRN PRN Reason: SEE LABEL COMMENTS Oxycodone HCl (Roxicodone) 10 mg PO Q4H PRN PRN Reason: Pain 1-10 Last Admin: 04/23/18 13:34 Dose: 10 mg Senna/Docusate Sodium (Lena-Colace) 1 tab PO BID [facility] Sertraline HCl (Zoloft) 25 mg PO DAILY [facility] <Monique Glover V - 04/23/18 16:09> Exam Vital signs: Vital Signs 04/23/18 07:17 04/23/18 07:56 04/23/18 09:00 Temperature 99.0 F Pulse Rate 98 H 82 73 Respiratory Rate 16 18 20 Blood Pressure 174/94 H 162/102 H 151/76 H Pulse Oximetry 99 97 98 04/23/18 16:00 Temperature 98.0 F Pulse Rate 75 Respiratory Rate 17 Blood Pressure 156/83 H Pulse Oximetry 98 Intake & Output 04/22/18 04/23/18 04/23/18 18:59 06:59 18:59 Intake Total 1999 Balance 1999 Weight 96.1 kg Intake: IV 1999 NS Inj 1,000 ML @ Wide Open IV. 1999 SIG BOLUS [facility] Rx#:[id number] Other: Weight On Admission 96.1 kg <Kim Zuniga R - 04/23/18 17:09> Vital Signs 04/23/18 07:17 04/23/18 07:56 04/23/18 09:00 Temperature 99.0 F Pulse Rate 98 H 82 73 Respiratory Rate 16 18 20 Blood Pressure 174/94 H 162/102 H 151/76 H Pulse Oximetry 99 97 98 Intake & Output 04/22/18 04/23/18 04/23/18 18:59 06:59 18:59 Intake Total 1999 Balance 1999 Weight 86.183 kg Intake: IV 1999 NS Inj 1,000 ML @ Wide Open IV. 1999 SIG BOLUS [facility] Rx#:[id number] <Monique Glover V - 04/23/18 16:09> Narrative: GENERAL: Well nourished.Comfortable andin no obvious distress during examination. HEENT: Normocephalic, atraumatic. Normal conjunctiva. No nasal drainage. Gross hearing intact bilaterally. No ear drainage. CARDIOVASCULAR: Regular rate and rhythm without murmurs, gallops, or rubs. RESPIRATORY: Breath sounds equal bilaterally. No accessory muscle use. GASTROINTESTINAL: Abdomen soft, non-tender, nondistended. MUSCULOSKELETAL: No cyanosis, or edema. EXTREMITIES: minimal peripheral edema of bilateral ankles. L below the knee amputation. R foot ulcer on plantar side. Approx 8x5cm. No drainage appreciated. Open and clean <Monique Glover V - 04/23/18 16:54> Results - Labs Result diagrams: 04/23/18 07:45 04/23/18 07:45 <Kim Zuniga R - 04/23/18 17:09> Abnormal lab results 04/23/18 04/23/18 04/23/18 Range/Units 07:45 07:45 07:45 Neut % (Auto) 76.8 H (16.0-70.0) % ESR (0-15) mm/hr BUN 22 H (7-18) mg/dL Estimated GFR 76 L (>89) mL/min POC Glucose (68-110) mg/dl Random Glucose 492 H* (74-106) mg/dL C-Reactive Protein 0.33 H (0.00-0.30) mg/dL Urine Protein (Neg-Trace) mg/dL 04/23/18 04/23/18 04/23/18 Range/Units 07:45 09:07 12:30 Neut % (Auto) (16.0-70.0) % ESR 33 H (0-15) mm/hr BUN (7-18) mg/dL Estimated GFR (>89) mL/min POC Glucose 418 H (68-110) mg/dl Random Glucose (74-106) mg/dL C-Reactive Protein (0.00-0.30) mg/dL Urine Protein 30 H (Neg-Trace) mg/dL Short CBC 04/23/18 Range/Units 07:45 WBC 9.5 (4.0-11.0) th/mm3 Hgb 14.6 (13.0-17.0) gm/dL Hct 42.8 (39.0-51.0) % Plt Count 191 (150-450) th/mm3 BMP 04/23/18 07:45 Sodium 136 Potassium 4.3 Chloride 104 Carbon Dioxide 21.8 BUN 22 H Creatinine 1.04 Calcium 9.3 Urine 04/23/18 Range/Units 12:30 Urine Color Yellow (Yellw/Straw) Urine Clarity Clear (Clear) Urine pH 5.0 (5.0-8.5) Ur Specific [place] 1.028 (1.002-1.035) Urine Protein 30 H (Neg-Trace) mg/dL Urine Glucose (UA) 500 or greater (Negative) mg/dL <Kim Zuniga - 04/23/18 17:09> Abnormal lab results 04/23/18 04/23/18 04/23/18 Range/Units 07:45 07:45 07:45 Neut % (Auto) 76.8 H (16.0-70.0) % ESR (0-15) mm/hr BUN 22 H (7-18) mg/dL Estimated GFR 76 L (>89) mL/min POC Glucose (68-110) mg/dl Random Glucose 492 H* (74-106) mg/dL C-Reactive Protein 0.33 H (0.00-0.30) mg/dL Urine Protein (Neg-Trace) mg/dL 04/23/18 04/23/18 04/23/18 Range/Units 07:45 09:07 12:30 Neut % (Auto) (16.0-70.0) % ESR 33 H (0-15) mm/hr BUN (7-18) mg/dL Estimated GFR (>89) mL/min POC Glucose 418 H (68-110) mg/dl Random Glucose (74-106) mg/dL C-Reactive Protein (0.00-0.30) mg/dL Urine Protein 30 H (Neg-Trace) mg/dL Short CBC 04/23/18 Range/Units 07:45 WBC 9.5 (4.0-11.0) th/mm3 Hgb 14.6 (13.0-17.0) gm/dL Hct 42.8 (39.0-51.0) % Plt Count 191 (150-450) th/mm3 BMP 04/23/18 07:45 Sodium 136 Potassium 4.3 Chloride 104 Carbon Dioxide 21.8 BUN 22 H Creatinine 1.04 Calcium 9.3 Urine 04/23/18 Range/Units 12:30 Urine Color Yellow (Yellw/Straw) Urine Clarity Clear (Clear) Urine pH 5.0 (5.0-8.5) Ur Specific [place] 1.028 (1.002-1.035) Urine Protein 30 H (Neg-Trace) mg/dL Urine Glucose (UA) 500 or greater (Negative) mg/dL <Monique Glover V - 04/23/18 16:09> - Imaging Impressions Foot X-Ray 04/23/18 07:30 CONCLUSION: 1. Severe Charcot foot deformity as detailed above. 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 Severe flatfoot deformity. 2. Configuration of the osseous deformities are stable with probable resection of the entire third digit and prior osteotomies of the second and fourth metatarsals. I do not see an acute fracture. 3. Superficial ulcer in the mid plantar tissues with no obvious associated osteomyelitis. <Kim Zuniga R - 04/23/18 17:09> Impressions Foot X-Ray 04/23/18 07:30 CONCLUSION: 1. Severe Charcot foot deformity as detailed above. 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 Severe flatfoot deformity. 2. Configuration of the osseous deformities are stable with probable resection of the entire third digit and prior osteotomies of the second and fourth metatarsals. I do not see an acute fracture. 3. Superficial ulcer in the mid plantar tissues with no obvious associated osteomyelitis. <Monique Glover V - 04/23/18 16:09> Caprini VTE Risk Assessment Caprini VTE Risk Assessment: No/Low Risk (score <= 1) <Monique Glover 04/23/18 16:54> Caprini Risk Assessment Model: Point Value = 1 Point Value = 2 Point Value = 3 Point Value = 5 Age 41-60 Minor surgery BMI > 25 kg/m2 Swollen legs Varicose veins or History of unexplained or recurrent spontaneous Oral contraceptives or hormone replacement Sepsis (< 1 month) Serious lung disease, including pneumonia (< 1 month) Abnormal pulmonary function Acute myocardial infarction Congestive heart failure (< 1 month) History of inflammatory bowel disease Medical patient at bed rest Age 61-74 Arthroscopic surgery Major open surgery (> 45 min) Laparoscopic surgery (> 45 min) Malignancy Confined to bed (> 72 hours) Immobilizing plaster cast Central venous access Age >= 75 History of VTE Family history of VTE Factor V Leiden Prothrombin [id number] Lupus anticoagulant Anticardiolipin antibodies Elevated serum homocysteine Heparin-induced thrombocytopenia Other congenital or acquired thrombophilia Stroke (< 1 month) Elective arthroplasty Hip, pelvis, or leg fracture Acute spinal cord injury (< 1 month) <Kim Zuniga R - 04/23/18 17:09> Point Value = 1 Point Value = 2 Point Value = 3 Point Value = 5 Age 41-60 Minor surgery BMI > 25 kg/m2 Swollen legs Varicose veins or History of unexplained or recurrent spontaneous Oral contraceptives or hormone replacement Sepsis (< 1 month) Serious lung disease, including pneumonia (< 1 month) Abnormal pulmonary function Acute myocardial infarction Congestive heart failure (< 1 month) History of inflammatory bowel disease Medical patient at bed rest Age 61-74 Arthroscopic surgery Major open surgery (> 45 min) Laparoscopic surgery (> 45 min) Malignancy Confined to bed (> 72 hours) Immobilizing plaster cast Central venous access Age >= 75 History of VTE Family history of VTE Factor V Leiden Prothrombin 19901A Lupus anticoagulant Anticardiolipin antibodies Elevated serum homocysteine Heparin-induced thrombocytopenia Other congenital or acquired thrombophilia Stroke (< 1 month) Elective arthroplasty Hip, pelvis, or leg fracture Acute spinal cord injury (< 1 month) <Monique Glover V 04/23/18 16:54> Prophylaxis Regimen: Total Risk Factor Score Risk Level Prophylaxis Regimen 0-1 Low Early ambulation 2 Moderate Order ONE of the following: *Sequential Compression Device (SCD) *Heparin 5000 units SQ BID 3-4 Higher Order ONE of the following medications: *Heparin 5000 units SQ TID *Enoxaparin/Lovenox 40 mg SQ daily (WT < 150 kg, CrCl > 30 mL/min) *Enoxaparin/Lovenox 30 mg SQ daily (WT < 150 kg, CrCl > 10-29 mL/min) *Enoxaparin/Lovenox 30 mg SQ BID (WT < 150 kg, CrCl > 30 mL/min) AND/OR *Sequential Compression Device (SCD) 5 or more Highest Order ONE of the following medications: *Heparin 5000 units SQ TID (Preferred with Epidurals) *Enoxaparin/Lovenox 40 mg SQ daily (WT < 150 kg, CrCl > 30 mL/min) *Enoxaparin/Lovenox 30 mg SQ daily (WT < 150 kg, CrCl > 10-29 mL/min) *Enoxaparin/Lovenox 30 mg SQ BID (WT < 150 kg, CrCl > 30 mL/min) AND *Sequential Compression Device (SCD) <Kim Zuniga R 04/23/18 17:09> Total Risk Factor Score Risk Level Prophylaxis Regimen 0-1 Low Early ambulation 2 Moderate Order ONE of the following: *Sequential Compression Device (SCD) *Heparin 5000 units SQ BID 3-4 Higher Order ONE of the following medications: *Heparin 5000 units SQ TID *Enoxaparin/Lovenox 40 mg SQ daily (WT < 150 kg, CrCl > 30 mL/min) *Enoxaparin/Lovenox 30 mg SQ daily (WT < 150 kg, CrCl > 10-29 mL/min) *Enoxaparin/Lovenox 30 mg SQ BID (WT < 150 kg, CrCl > 30 mL/min) AND/OR *Sequential Compression Device (SCD) 5 or more Highest Order ONE of the following medications: *Heparin 5000 units SQ TID (Preferred with Epidurals) *Enoxaparin/Lovenox 40 mg SQ daily (WT < 150 kg, CrCl > 30 mL/min) *Enoxaparin/Lovenox 30 mg SQ daily (WT < 150 kg, CrCl > 10-29 mL/min) *Enoxaparin/Lovenox 30 mg SQ BID (WT < 150 kg, CrCl > 30 mL/min) AND *Sequential Compression Device (SCD) <Monique Glover V 04/23/18 16:54> Assessment and Plan - Assessment (1) Diabetic foot infection Code(s): E11.628 - Type 2 diabetes mellitus with other skin complications; L08.9 - Local infection of the skin and subcutaneous tissue, unspecified Status: Acute (2) Poorly controlled type 2 diabetes mellitus Code(s): E11.65 - Type 2 diabetes mellitus with hyperglycemia Status: Acute (3) Hypertension Code(s): I10 - Essential (primary) hypertension Status: Acute (4) Neuropathy Code(s): G62.9 - Polyneuropathy, unspecified Status: Acute (5) History of left below knee amputation Code(s): Z89.512 - Acquired absence of left leg below knee Status: Acute (6) Hyperlipidemia Code(s): E78.5 - Hyperlipidemia, unspecified Status: Acute (7) Mood disorder Code(s): F39 - Unspecified mood [affective] disorder Status: Acute (8) Nutrition, metabolism, and development symptoms Code(s): R63.8 - Other symptoms and signs concerning food and fluid intake Status: Acute <Kim Zuniga - 04/23/18 17:09> (1) Diabetic foot infection Code(s): E11.628 - Type 2 diabetes mellitus with other skin complications; L08.9 - Local infection of the skin and subcutaneous tissue, unspecified Status: Acute Plan: Patient has history of MRSA growth and previous osteomyelitis. Negative MRI on prior recent hospitalization. -Zosyn 4.5 g daily IV -Wound cultures grew proteus, pseudomonas, and staph with good susceptibility to the current antibiotic regimen. -Blood cultures pending -Wound care consulted -Podiatry consulted and MRI foot ordered -Scheduled Ibuprofen 800mg PO Q8 hours for pain PRN, chronic pain medication of Oxycodone 10 mg every 4 hours as needed pain (2) Poorly controlled type 2 diabetes mellitus Code(s): E11.65 - Type 2 diabetes mellitus with hyperglycemia Status: Acute Plan: Pt presenting with BG of 492. States he took all his medicines this morning. -Continue home regimen of 28 units Levemir in a.m. and 25 units Levemir in p.m. -Medium dose sliding scale regular insulin -Diabetic diet -Repeat BMP in a.m. and continue point of care glucose checks (3) Hypertension Code(s): I10 - Essential (primary) hypertension Status: Acute Plan: States BP well controlled on current medications. Today's BP: 174/94, 162/102, 151/76. - Continue lisinopril 20 mg p.o. daily (4) Neuropathy Code(s): G62.9 - Polyneuropathy, unspecified Status: Acute Plan: Continue home gabapentin 600 mg nightly and 300 mg at 0900 and 1200 (5) History of left below knee amputation Code(s): Z89.512 - Acquired absence of left leg below knee Status: Acute (6) Hyperlipidemia Code(s): E78.5 - Hyperlipidemia, unspecified Status: Acute Plan: -Continue home atorvastatin 40mg PO daily (7) Mood disorder Code(s): F39 - Unspecified mood [affective] disorder Status: Acute Plan: Hx of mood disorder and hospitalization in [place]. - Continue taking Zoloft 25mg PO daily (8) Nutrition, metabolism, and development symptoms Code(s): R63.8 - Other symptoms and signs concerning food and fluid intake Status: Acute Plan: Diet: Diabetic 2000 ADA calories Fluids: s/p 2L on ED. PO fluids DVT prophylaxis: Heparin 5000 units subq every 8 hr <Monique Glover V - 04/23/18 16:09> - Assessment and Plan 48 yr old male with uncontrolled diabetes recently discharged from the hospital , presenting with chills, night sweats, nausea, diarrhea, and increased drainage from R foot ulcer. BG uncontrolled >400 on admission. MRI of foot pending, wound care and podiatry consulted. Pt DW Dr. Zuniga <Monique Glover V - 04/23/18 16:54> - Attending Attestation Patient seen and examined at 2:00pm. See resident documentation of the history as above. Patient reports no change in symptoms since admission at this time. Podiatry consult and imaging still pending at the time of my exam: Vitals are stable- - BP out of range slightly, afebrile GENERAL: SKIN: Warm and dry. HEAD: Normocephalic. EYES: No scleral icterus. No injection or drainage. NECK: Supple, trachea midline. No JVD or lymphadenopathy. CARDIOVASCULAR: Regular rate and rhythm without murmurs, gallops, or rubs. RESPIRATORY: Breath sounds equal bilaterally. No accessory muscle use. GASTROINTESTINAL: Abdomen soft, non-tender, nondistended. MUSCULOSKELETAL: right foot with Charcot deformity, large ulcerated lesion on the base of the foot with decrease sensation, nontender, non-draining, some possible edema, Left BKA BACK: Nontender without obvious deformity. No CVA tenderness. AP 1. Diabetic foot ulcer complicated with Charcot deformity -- restart IV antibiotics, MRI to rule out osteomyelitis, wound care and podiatry consult. Will attempt better control of his DM for better wound healing. This is concerning for worsening symptoms as patient may need further surgical intervention or even amputation. Patient wants to spare amputation if at all possible. <Kim Zuniga R - 04/23/18 17:09> H&P: Quality - VTE Deep Vein Thrombosis/Pulmonary Embolism Present on Admission: No <Monique Glover V - 04/23/18 16:09>
--- NOTE | 2018-04-23 17:15 | P.PNADD ---
Addendum to Inpatient Note Reason for Addendum: Additional Documentation Additional information: Discussed with pharmacy who was concerned for Staph coverage with just Zosyn. We will add Levaquin IV 750mg q24, which will also double cover him for Pseudomonas. Pt had a reaction to Vancomycin in the past, will consider adding Vancomycin if clinically necessary with renal dose per Pharmacy. Will adjust antibiotics as necessary pending MRI results and further clinical picture. D/w Don in Pharmacy.
[2018-04-23] MEDS ORDERED: Gadobutrol PF 10 MMOL/10 ML Vial (for RAD) IV.SIG ONE (17:39)
[2018-04-23] MEDS: Heparin - SQ 10,000 UNITS/ML Vial SQ SCH (17:59)
[2018-04-23] MEDS: Insulin NovoLOG Aspart Correctional Sugar Inj SQ SCH ×2 (17:59→21:16)
[2018-04-23] MEDS: Piperacil/Tazo 4.5 GM Premix 4.5 GM/100 ML BAG IV.SIG SCH (19:14)
[2018-04-23] MEDS: Senna/Docusate Sodium 8.6/50 MG Tablet PO SCH (21:15)
[2018-04-23] MEDS: Lisinopril 20 MG Tablet PO SCH (21:15)
[2018-04-23] MEDS: Insulin Detemir Inj 1,000 UNIT/10 ML Vial SQ SCH (21:16)
[2018-04-23] MEDS ORDERED: Temazepam 15 MG Capsule PO ONE (21:39)
--- NOTE | 2018-04-23 21:42 | P.CONPOD ---
History of Present Illness Service: Podiatry Consult date: 04/23/18 Reason for Consult: right foot wound with increased drainage Primary Care Provider: UNKNOWN Family Provider: SHANE Ko Chief Complaint: Foot ulcer History of Present Illness: Patient admitted for worsening wound right foot. He was discharged late last week and since developed increased drainage in spite of being on antibiotics. He was concerned due to having proximal amputation to left leg and concerned for limb salvage. Review of Systems All other systems reviewed negative except as stated in HPI [facility] - History History Provided By: Patient - Medical History Medical History: Medical History (Last Updated 04/23/18 @ 08:22 by Yext) Foot ulcer HTN (hypertension) High cholesterol MRSA (methicillin resistant Staphylococcus aureus) infection Neuropathy Diabetes mellitus Osteomyelitis - Surgical History Surgical History: Surgical History (Last Reviewed 04/23/18 @ 08:22 by Yext) History of left below knee amputation (Acute) - Family History Family History: Family History (Last Reviewed 04/23/18 @ 07:37 by Cata Cruz MD) Other Diabetes - Tobacco History Second Hand Smoke Exposure: Yes Tobacco Use In Past 30 Days: Yes Smoking Status: Current every day smoker Tobacco Type: Cigarettes Cigarettes Per Day: 10 - Alcohol History How Often Do You Have a Drink Containing Alcohol: Never - Substance Use History Substance History: No History of Abuse - Travel History Recent Travel in the [place] Within the Last 8 Weeks: No Recent Travel Out of the Country Within the Last 8 Weeks: No - Immunization History Tetanus Immunization: <5 Years Hx Influenza Vaccine This Season: No Medications and Allergies Active Medications: Active Medications Al Hydroxide/Mg Hydroxide (Milk Of Gennaro Raphael) 30 ml PO Q12H PRN PRN Reason: Mild Constipation Aspirin (Ecotrin) 81 mg PO DAILY [facility] Atorvastatin Calcium (Lipitor) 40 mg PO DAILY [facility] Dextrose (D50w Vial) 50 ml IV.PUSH UNSCH PRN PRN Reason: PER HYPOGLYCEMIA PROTOCOL Gabapentin (Neurontin) 300 mg PO BID@0900,1200 [facility] Last Admin: 04/23/18 13:40 Dose: 300 mg Gabapentin (Neurontin) 600 mg PO HS [facility] Last Admin: 04/23/18 21:15 Dose: 600 mg Glucagon (Glucagon Inj) 1 mg OTHER UNSCH PRN PRN Reason: for Hypoglycemia Protocol Heparin Sodium (Porcine) (Heparin Inj) 5,000 units SQ Q8H [facility] Last Admin: 04/23/18 17:59 Dose: 5,000 units Sodium Chloride (Ns Inj) 1,000 mls @ 0 mls/hr IV.SIG BOLUS WANDA Stop: 04/24/18 07:46 Last Infusion: 04/23/18 10:15 Dose: Infused Piperacillin/Tazobactam/Dextrose (Zosyn 4.5 Gm Premix) 4.5 gm in 100 mls @ 200 mls/hr IV.SIG Q6H [facility] Last Infusion: 04/23/18 19:19 Dose: Infused Levofloxacin/Dextrose (Levaquin 750 Mg Premix Inj) 150 mls @ 100 mls/hr IV.SIG Q24H [facility] Last Infusion: 04/23/18 19:19 Dose: Infused Ibuprofen (Motrin) 800 mg PO Q8H PRN PRN Reason: Pain 1-10 Insulin Aspart (Novolog Insulin Correctional Sugar Inj) 0 unit SQ ACHS [facility]; Protocol Last Admin: 04/23/18 21:16 Dose: 12 unit Insulin Detemir (Levemir Inj) 28 unit SQ HS [facility] Last Admin: 04/23/18 21:16 Dose: 28 unit Insulin Detemir (Levemir Inj) 25 unit SQ DAILY [facility] Lisinopril (Prinivil) 20 mg PO BID [facility] Last Admin: 04/23/18 21:15 Dose: 20 mg Loratadine (Claritin) 10 mg PO DAILY [facility] Miscellaneous (Pill Splitter) 1 each OTHER UNSCH PRN PRN Reason: SEE LABEL COMMENTS Ondansetron HCl (Zofran Inj) 4 mg IV.PUSH Q6H PRN PRN Reason: NAUSEA OR VOMITING Oxycodone HCl (Roxicodone) 10 mg PO Q4H PRN PRN Reason: Pain 1-10 Last Admin: 04/23/18 18:05 Dose: 10 mg Senna/Docusate Sodium (Lena-Colace) 1 tab PO BID [facility] Last Admin: 04/23/18 21:15 Dose: Not Given Sennosides (Senokot) 17.2 mg PO Q12H PRN PRN Reason: Moderate Constipation Sertraline HCl (Zoloft) 25 mg PO DAILY [facility] Temazepam (Restoril) 15 mg PO HS ONE Stop: 04/23/18 21:40 Allergies Allergy/AdvReac Type Severity Reaction Status Date / Time vancomycin Allergy Severe ACUTE Verified 04/23/18 08:10 RENAL FAILURE becaplermin [From Regranex] Allergy Intermediate Swelling Verified 04/23/18 08: 10 tigecycline AdvReac Severe NAUSEA AND Verified 04/23/18 08:10 VOMITING Tetracyclines AdvReac Intermediate Gastrointestinal Verified 04/23/18 08:10 Upset Home Medications Medication Instructions Recorded Confirmed Type aspirin [Aspir-81] 81 mg PO DAILY 02/25/18 04/23/18 History ibuprofen 800 mg PO Q4H PRN 02/25/18 04/23/18 History insulin aspart U-100 [Novolog 1 sliding scale dose SUB-Q QID 02/25/18 04/23/18 History U-100 Insulin aspart] insulin aspart U-100 [Novolog 10 unit SUB-Q BIDAC 02/25/18 04/23/18 History U-100 Insulin aspart] lisinopril 20 mg PO BID 02/25/18 04/23/18 History loratadine [Claritin] 10 mg PO DAILY 02/25/18 04/23/18 History oxycodone 10 mg PO Q4-6H PRN 02/25/18 04/23/18 History rosuvastatin [Crestor] 20 mg PO DAILY 02/25/18 04/23/18 History sertraline [Zoloft] 25 mg PO DAILY 02/25/18 04/23/18 History gabapentin 1 cap BID 04/18/18 04/23/18 History gabapentin 1 dose PO HS 04/18/18 04/23/18 History Physical Exam Vital signs: Vital Signs 04/23/18 07:17 04/23/18 07:56 04/23/18 09:00 Temperature 99.0 F Pulse Rate 98 H 82 73 Respiratory Rate 16 18 20 Blood Pressure 174/94 H 162/102 H 151/76 H Pulse Oximetry 99 97 98 04/23/18 16:00 Temperature 98.0 F Pulse Rate 75 Respiratory Rate 17 Blood Pressure 156/83 H Pulse Oximetry 98 Intake & Output 04/23/18 04/23/18 04/24/18 06:59 18:59 06:59 Intake Total 1999 250 / 250 Balance 1999 250 / 250 Weight 96.1 kg Intake: IV 1999 250 / 250 Levaquin 750 mg Premix Inj 150 150 / 150 ML @ 100 mls/hr IV.SIG Q24H WANDA Rx#:[id number] Zosyn 4.5 GM Premix 4.5 gm In 100 / 100 100 ml @ 200 mls/hr IV.SIG Q6H WANDA Rx#:[id number] NS Inj 1,000 ML @ Wide Open IV. 1999 SIG BOLUS WANDA Rx#:[id number] Other: Weight On Admission 96.1 kg Narrative: Right foot with plantar midfoot ulceration centrally with 80% granular tissue, 20% fibrotic tissue, moderate serous drainage, mild hyperkeratotic buildup to periphery. Measures roughly 4cm x 3cm x 1cm depth. Uncertain if there is probing to bone at this time. No erythema to periwound area, No gross edema, as foot is always somewhat edematous due to charcot. Rocker-bottom shape to R foot. Results - Labs CBC & Chem 7: 04/23/18 07:45 04/23/18 07:45 Laboratory Results - last 24 hr 04/23/18 04/23/18 04/23/18 07:45 07:45 07:45 WBC 9.5 RBC 4.82 Hgb 14.6 Hct 42.8 MCV 88.9 MCH 30.2 MCHC 34.0 RDW 14.1 Plt Count 191 MPV 8.5 Neut % (Auto) 76.8 H Lymph % (Auto) 17.2 [place] % (Auto) 4.6 Eos % (Auto) 0.7 Baso % (Auto) 0.7 Neut # (Auto) 7.3 Lymph # (Auto) 1.6 [place] # (Auto) 0.4 Eos # (Auto) 0.1 Baso # (Auto) 0.1 WBC Differential . Differential Comment Auto diff final ESR Sodium 136 Potassium 4.3 Chloride 104 Carbon Dioxide 21.8 Anion Gap 10 BUN 22 H Creatinine 1.04 Estimated GFR 76 L POC Glucose Random Glucose 492 H* Calcium 9.3 C-Reactive Protein Beta-Hydroxybutyric Acd 0.18 Urine Color Urine Clarity Urine pH Ur Specific [place] Urine Protein Urine Glucose (UA) Urine Ketones Urine Occult Blood Urine Nitrate Urine Bilirubin Urine Urobilinogen Ur Leukocyte Esterase Urine RBC Ur Squamous Epith Cells Micro UA Comment Ur Microscopic Review Urine Culture Comments 04/23/18 04/23/18 04/23/18 07:45 07:45 09:07 WBC RBC Hgb Hct MCV MCH MCHC RDW Plt Count MPV Neut % (Auto) Lymph % (Auto) [place] % (Auto) Eos % (Auto) Baso % (Auto) Neut # (Auto) Lymph # (Auto) [place] # (Auto) Eos # (Auto) Baso # (Auto) WBC Differential Differential Comment ESR 33 H Sodium Potassium Chloride Carbon Dioxide Anion Gap BUN Creatinine Estimated GFR POC Glucose 418 H Random Glucose Calcium C-Reactive Protein 0.33 H Beta-Hydroxybutyric Acd Urine Color Urine Clarity Urine pH Ur Specific [place] Urine Protein Urine Glucose (UA) Urine Ketones Urine Occult Blood Urine Nitrate Urine Bilirubin Urine Urobilinogen Ur Leukocyte Esterase Urine RBC Ur Squamous Epith Cells Micro UA Comment Ur Microscopic Review Urine Culture Comments 04/23/18 12:30 WBC RBC Hgb Hct MCV MCH MCHC RDW Plt Count MPV Neut % (Auto) Lymph % (Auto) [place] % (Auto) Eos % (Auto) Baso % (Auto) Neut # (Auto) Lymph # (Auto) [place] # (Auto) Eos # (Auto) Baso # (Auto) WBC Differential Differential Comment ESR Sodium Potassium Chloride Carbon Dioxide Anion Gap BUN Creatinine Estimated GFR POC Glucose Random Glucose Calcium C-Reactive Protein Beta-Hydroxybutyric Acd Urine Color Yellow Urine Clarity Clear Urine pH 5.0 Ur Specific [place] 1.028 Urine Protein 30 H Urine Glucose (UA) 500 or greater Urine Ketones Negative Urine Occult Blood Negative Urine Nitrate Negative Urine Bilirubin Negative Urine Urobilinogen Less than 2 Ur Leukocyte Esterase Negative Urine RBC 1 Ur Squamous Epith Cells <1 Micro UA Comment Culture not ind Ur Microscopic Review Not Reportable Urine Culture Comments Culture not ind - Imaging Impressions Foot X-Ray 04/23/18 07:30 CONCLUSION: 1. Severe Charcot foot deformity as detailed above. 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 Severe flatfoot deformity. 2. Configuration of the osseous deformities are stable with probable resection of the entire third digit and prior osteotomies of the second and fourth metatarsals. I do not see an acute fracture. 3. Superficial ulcer in the mid plantar tissues with no obvious associated osteomyelitis. Assessment and Plan - Assessment (1) Ulcer of right foot due to type 2 diabetes mellitus Code(s): E11.621 - Type 2 diabetes mellitus with foot ulcer; L97.519 - Non- pressure chronic ulcer of other part of right foot with unspecified severity Status: Acute (2) Diabetic foot infection Code(s): E11.628 - Type 2 diabetes mellitus with other skin complications; L08.9 - Local infection of the skin and subcutaneous tissue, unspecified Status: Acute - Plan Ordering material for bedside debridement and irrigation of ulcer and bone biopsy tomorrow. Ordered consent. Risks, benefits/complications explained to patient and he is willing to proceed.
--- NOTE | 2018-04-23 23:13 | MR ---
EXAM DATE: 04/23/2018 4:44 PM EDT AGE/SEX: 48 years / Male INDICATIONS: Abscess. Right foot osteomyelitis. CLINICAL DATA: This is the patient's sequela encounter. Patient reports that signs and symptoms have been present for > 1 year and indicates a pain score of 5/10. MEDICAL/SURGICAL HISTORY: Hypertension. Diabetes mellitus type II. . Left below knee amputatio n and right foot debridement. [place] [facility] [place] W/O [place]/15/2018. . TECHNIQUE: Multiplanar, multisequence MRI examination was performed without contrast and after th e intravenous administration of 8.6 ml Gadavist (gadobutrol) single exam dose. FINDINGS: Cutaneous ulceration is seen at the plantar aspect of the midfoot. There is adjacent superficial soft tissue edema and enhancement indicating cellulitis in the proper clinical setting. The extent of sof t tissue enhancement has increased when compared to the prior study. No peripheral enhancing fluid co llections identified in the soft tissues. Postsurgical findings are again identified at the midfoot and forefoot with evidence of prior resecti on of large portions of the second through fourth metatarsals. Bony fusion across all of the tarsomet atarsal joints is noted. Reactive bony change is again seen at the lateral aspect of the cuboid/fifth metatarsal base and plantar aspects of the metatarsal bases. No significant interval change. No evid ence of new bony edema. No confluent bone marrow signal abnormality on the precontrast T1-weighted im ages to suggest osteomyelitis. CONCLUSION: 1. Plantar ulceration of the midfoot again seen with increased soft tissue edema/cellulitis. 2. No evidence of abscess. No evidence of osteomyelitis. 3. Extensive bony postsurgical findings and chronic reactive bony findings. Electronically signed by: Elliot Sewell MD 04/23/2018 11:12 PM EDT
[2018-04-24] MEDS: Heparin - SQ 10,000 UNITS/ML Vial SQ SCH ×3 (01:25→17:29)
[2018-04-24] MEDS: Piperacil/Tazo 4.5 GM Premix 4.5 GM/100 ML BAG IV.SIG SCH ×4 (01:25→17:30)
[2018-04-24 07:50] LABS: Baso # (Auto) 0.1 th/mm3 (0.0-0.2); Baso % (Auto) 1.1 % (0.0-2.0); Eos # (Auto) 0.3 th/mm3 (0.0-0.4); Eos % (Auto) 3.5 % (0.0-4.0); Hematocrit 40.5 % (39.0-51.0); Hemoglobin 13.9 gm/dL (13.0-17.0); Lymph # (Auto) 2.2 th/mm3 (1.0-4.8); Lymph % (Auto) 28.6 % (9.0-44.0); Mean Corpuscular HGB Conc 34.3 % (32.0-36.0); Mean Corpuscular Hemoglobin 30.1 pg (27.0-34.0); Mean Corpuscular Volume 87.8 fL (80.0-100.0); Mean Platelet Volume 8.2 fL (7.0-11.0); Mono # (Auto) 0.5 th/mm3 (0.0-0.9); Mono % (Auto) 6.2 % (0.0-8.0); Neut # (Auto) 4.6 th/mm3 (1.8-7.7); Neut % (Auto) 60.6 % (16.0-70.0); Platelet Count 169 th/mm3 (150-450); Red Blood Count 4.62 mil/mm3 (4.50-5.90); Red Cell Distribution Width 13.8 % (11.6-17.2); White Blood Count 7.6 th/mm3 (4.0-11.0)
[2018-04-24 08:24] LABS: Erythrocyte Sedimentation Rate 25 mm/hr (0-15)
[2018-04-24 08:27] LABS: Alanine Aminotransferase 18 U/L (12-78); Albumin 3.1 g/dL (3.4-5.0); Alkaline Phosphatase 98 U/L (45-117); Anion Gap 8 meq/L (5-15); Aspartate Aminotransferase 11 U/L (15-37); Blood Urea Nitrogen 13 mg/dL (7-18); Calcium 9.1 mg/dL (8.5-10.1); Carbon Dioxide 23.9 meq/L (21.0-32.0); Chloride 106 meq/L (98-107); Glomerular Filtration Rate Greater Than 89 mL/min (>89); Glucose,Random 204 mg/dL (74-106); Potassium 3.8 meq/L (3.5-5.1); Sodium 138 meq/L (136-145); Total Protein 6.9 g/dL (6.4-8.2)
[2018-04-24] MEDS: Lisinopril 20 MG Tablet PO SCH ×2 (09:06→20:01)
[2018-04-24] MEDS: Sertraline 50 MG Tablet PO SCH (09:06)
[2018-04-24] MEDS: Loratadine 10 MG Tablet PO SCH (09:06)
[2018-04-24] MEDS: Senna/Docusate Sodium 8.6/50 MG Tablet PO SCH ×2 (09:06→20:01)
[2018-04-24] MEDS: Insulin Detemir Inj 1,000 UNIT/10 ML Vial SQ SCH ×2 (09:07→22:06)
[2018-04-24] MEDS: Gabapentin 300 MG Capsule PO SCH ×3 (09:12→20:01)
[2018-04-24] MEDS: Insulin NovoLOG Aspart Correctional Sugar Inj SQ SCH ×4 (09:53→22:06)
--- NOTE | 2018-04-24 11:05 | P.PNFP ---
Subjective Interval history: No acute events overnight. Patient seen and examined this AM. Remains afebrile, BPs ranging 130s-150s/70s-90s past 24 hours. Vitals otherwise stable. Patient has complaints of continued pain today of the right foot. Patient states his current pain medication of oxycodone helps with his back pain but has not been helping with the pain in his foot. He otherwise denies fevers or chills, or increased drainage. <Emiliano Salas - 04/24/18 12:05> Results - Labs Result diagrams: 04/24/18 07:03 04/24/18 07:03 <Kim Alonso - 04/24/18 15:18> Abnormal lab results 04/24/18 04/24/18 04/24/18 Range/Units 07:03 07:03 07:47 ESR 25 H (0-15) mm/hr POC Glucose 272 H (68-110) mg/dl Random Glucose 204 H D (74-106) mg/dL AST 11 L (15-37) U/L Albumin 3.1 L (3.4-5.0) g/dL 04/24/18 Range/Units 13:09 ESR (0-15) mm/hr POC Glucose 284 H (68-110) mg/dl Random Glucose (74-106) mg/dL AST (15-37) U/L Albumin (3.4-5.0) g/dL Short CBC 04/24/18 Range/Units 07:03 WBC 7.6 (4.0-11.0) th/mm3 Hgb 13.9 (13.0-17.0) gm/dL Hct 40.5 (39.0-51.0) % Plt Count 169 (150-450) th/mm3 [facility] 04/24/18 07:03 Sodium 138 Potassium 3.8 Chloride 106 Carbon Dioxide 23.9 BUN 13 Creatinine 0.71 Calcium 9.1 Liver Function 04/24/18 Range/Units 07:03 Total Bilirubin 0.6 (0.2-1.0) mg/dL AST 11 L (15-37) U/L ALT 18 (12-78) U/L Alkaline Phosphatase 98 (45-117) U/L Albumin 3.1 L (3.4-5.0) g/dL <Kim Alonso R - 04/24/18 15:18> Abnormal lab results 04/23/18 04/23/18 04/24/18 Range/Units 07:45 12:30 07:03 ESR 33 H 25 H (0-15) mm/hr POC Glucose (68-110) mg/dl Random Glucose (74-106) mg/dL AST (15-37) U/L Albumin (3.4-5.0) g/dL Urine Protein 30 H (Neg-Trace) mg/dL 04/24/18 04/24/18 Range/Units 07:03 07:47 ESR (0-15) mm/hr POC Glucose 272 H (68-110) mg/dl Random Glucose 204 H D (74-106) mg/dL AST 11 L (15-37) U/L Albumin 3.1 L (3.4-5.0) g/dL Urine Protein (Neg-Trace) mg/dL Short CBC 04/24/18 Range/Units 07:03 WBC 7.6 (4.0-11.0) th/mm3 Hgb 13.9 (13.0-17.0) gm/dL Hct 40.5 (39.0-51.0) % Plt Count 169 (150-450) th/mm3 BMP 04/24/18 07:03 Sodium 138 Potassium 3.8 Chloride 106 Carbon Dioxide 23.9 BUN 13 Creatinine 0.71 Calcium 9.1 Liver Function 04/24/18 Range/Units 07:03 Total Bilirubin 0.6 (0.2-1.0) mg/dL AST 11 L (15-37) U/L ALT 18 (12-78) U/L Alkaline Phosphatase 98 (45-117) U/L Albumin 3.1 L (3.4-5.0) g/dL Urine 04/23/18 Range/Units 12:30 Urine Color Yellow (Yellw/Straw) Urine Clarity Clear (Clear) Urine pH 5.0 (5.0-8.5) Ur Specific [place] 1.028 (1.002-1.035) Urine Protein 30 H (Neg-Trace) mg/dL Urine Glucose (UA) 500 or greater (Negative) mg/dL <Emiliano Salas - 04/24/18 11:05> - Imaging Impressions Foot MRI 04/23/18 00:00 CONCLUSION: 1. Plantar ulceration of the midfoot again seen with increased soft tissue edema/cellulitis. 2. No evidence of abscess. No evidence of osteomyelitis. 3. Extensive bony postsurgical findings and chronic reactive bony findings. <Kim Alonso - 04/24/18 15:18> Impressions Foot MRI 04/23/18 00:00 CONCLUSION: 1. Plantar ulceration of the midfoot again seen with increased soft tissue edema/cellulitis. 2. No evidence of abscess. No evidence of osteomyelitis. 3. Extensive bony postsurgical findings and chronic reactive bony findings. <JosueEmiliano - 04/24/18 11:05> Physical Exam Vital signs: Vital Signs 04/23/18 16:00 04/23/18 20:00 04/24/18 00:00 Temperature 98.0 F 96.2 F L 97.4 F L Pulse Rate 75 81 67 Respiratory Rate 17 18 17 Blood Pressure 156/83 H 147/88 H 132/81 Pulse Oximetry 98 99 99 04/24/18 04:00 04/24/18 08:00 04/24/18 12:00 Temperature 98.6 F 98.1 F 97.9 F Pulse Rate 71 73 80 Respiratory Rate 18 18 18 Blood Pressure 131/83 152/95 H Pulse Oximetry 93 L 99 100 04/24/18 14:05 Temperature Pulse Rate Respiratory Rate 4 L Blood Pressure Pulse Oximetry Intake & Output 04/23/18 04/24/18 04/24/18 18:59 06:59 18:59 Intake Total 1999 690 / 690 100 / 100 Balance 1999 690 / 690 100 / 100 Weight 96.1 kg Intake: IV 1999 450 / 450 100 / 100 Levaquin 750 mg Premix Inj 150 150 / 150 ML @ 100 mls/hr IV.SIG Q24H WANDA Rx#:[id number] Zosyn 4.5 GM Premix 4.5 gm In 300 / 300 100 / 100 100 ml @ 200 mls/hr IV.SIG Q6H WANDA Rx#:[id number] NS Inj 1,000 ML @ Wide Open IV. 1999 SIG BOLUS WANDA Rx#:[id number] Oral 240 / 240 Other: # Voids 2 Weight On Admission 96.1 kg <Kim Alonso - 04/24/18 15:18> Vital Signs 04/23/18 16:00 04/23/18 20:00 04/24/18 00:00 Temperature 98.0 F 96.2 F L 97.4 F L Pulse Rate 75 81 67 Respiratory Rate 17 18 17 Blood Pressure 156/83 H 147/88 H 132/81 Pulse Oximetry 98 99 99 04/24/18 04:00 04/24/18 08:00 Temperature 98.6 F 98.1 F Pulse Rate 71 73 Respiratory Rate 18 18 Blood Pressure 131/83 152/95 H Pulse Oximetry 93 L 99 Intake & Output 04/23/18 04/24/18 04/24/18 18:59 06:59 18:59 Intake Total 1999 690 / 690 Balance 1999 690 / 690 Weight 96.1 kg Intake: IV 1999 450 / 450 Levaquin 750 mg Premix Inj 150 150 / 150 ML @ 100 mls/hr IV.SIG Q24H WANDA Rx#:[id number] Zosyn 4.5 GM Premix 4.5 gm In 300 / 300 100 ml @ 200 mls/hr IV.SIG Q6H WANDA Rx#:[id number] NS Inj 1,000 ML @ Wide Open IV. 1999 SIG BOLUS WANDA Rx#:[id number] Oral 240 / 240 Other: # Voids 2 Weight On Admission 96.1 kg <Emiliano Salas - 04/24/18 11:05> Narrative: GENERAL: Well nourished. Comfortable andin no obvious distress during examination. HEENT: Normocephalic, atraumatic. Normal conjunctiva. No nasal drainage. Gross hearing intact bilaterally. No ear drainage. CARDIOVASCULAR: Regular rate and rhythm without murmurs, gallops, or rubs. RESPIRATORY: Breath sounds equal bilaterally. No accessory muscle use. GASTROINTESTINAL: Abdomen nondistended MUSCULOSKELETAL: No cyanosis, or edema. EXTREMITIES: minimal peripheral edema of bilateral ankles. L below the knee amputation. R foot ulcer on plantar side wrapped in dressing this AM, no drainage or bleeding noted. <Emiliano Salas - 04/24/18 12:05> Assessment and Plan - Assessment (1) Diabetic foot infection Code(s): E11.628 - Type 2 diabetes mellitus with other skin complications; L08.9 - Local infection of the skin and subcutaneous tissue, unspecified Status: Acute (2) Poorly controlled type 2 diabetes mellitus Code(s): E11.65 - Type 2 diabetes mellitus with hyperglycemia Status: Chronic (3) Hypertension Code(s): I10 - Essential (primary) hypertension Status: Chronic (4) Neuropathy Code(s): G62.9 - Polyneuropathy, unspecified Status: Chronic (5) History of left below knee amputation Code(s): Z89.512 - Acquired absence of left leg below knee Status: Chronic (6) Hyperlipidemia Code(s): E78.5 - Hyperlipidemia, unspecified Status: Chronic (7) Mood disorder Code(s): F39 - Unspecified mood [affective] disorder Status: Chronic (8) Nutrition, metabolism, and development symptoms Code(s): R63.8 - Other symptoms and signs concerning food and fluid intake Status: Acute <DevorahtaraKim - 04/24/18 15:18> (1) Diabetic foot infection Code(s): E11.628 - Type 2 diabetes mellitus with other skin complications; L08.9 - Local infection of the skin and subcutaneous tissue, unspecified Status: Acute Plan: Patient has history of MRSA growth and previous osteomyelitis. Negative MRI on prior recent hospitalization. -Continue Zosyn 4.5 gm IV Q6H -Continue levofloxacin 750 mg IV q24h -Previous wound cultures from 04/15 grew proteus, pseudomonas, and staph with good susceptibility to the current antibiotic regimen -Wound care consulted -Podiatry consulted, planning for bedside debridement and irrigation of ulcer today 04/24 and bone biopsy -Foot MRI showing plantar ulceration of the midfoot with increased soft tissue edema/cellulitis, no evidence of abscess or osteomyelitis -Scheduled Ibuprofen 800mg PO Q8 hours for pain PRN, chronic pain medication of Oxycodone 10 mg every 4 hours as needed pain -Added morphine 2 mg IV q4h prn breakthrough pain (2) Poorly controlled type 2 diabetes mellitus Code(s): E11.65 - Type 2 diabetes mellitus with hyperglycemia Status: Chronic Plan: -Continue home regimen of 28 units Levemir in a.m. and 25 units Levemir in p.m. -Medium dose sliding scale regular insulin -Diabetic diet -Continue Accuchecks (3) Hypertension Code(s): I10 - Essential (primary) hypertension Status: Chronic Plan: - Continue lisinopril 20 mg po once daily, consider increasing if BP inadequately controlled, likely elevated due to pain at this time (4) Neuropathy Code(s): G62.9 - Polyneuropathy, unspecified Status: Chronic Plan: Continue home gabapentin 600 mg nightly and 300 mg at 0900 and 1200 (5) History of left below knee amputation Code(s): Z89.512 - Acquired absence of left leg below knee Status: Chronic (6) Hyperlipidemia Code(s): E78.5 - Hyperlipidemia, unspecified Status: Chronic Plan: -Continue home atorvastatin 40 mg po daily (7) Mood disorder Code(s): F39 - Unspecified mood [affective] disorder Status: Chronic Plan: Hx of mood disorder and hospitalization in [place] - Continue Zoloft 25 mg PO daily (8) Nutrition, metabolism, and development symptoms Code(s): R63.8 - Other symptoms and signs concerning food and fluid intake Status: Acute Plan: Diet: Diabetic 2000 ADA calories Fluids: per PO DVT prophylaxis: Heparin 5000 units subq q8h <Emiliano Salas - 04/24/18 11:30> - Assessment and Plan 48 yr old male with uncontrolled diabetes recently discharged from the hospital , admitted with diabetic right foot ulcer. Podiatry consulted, planning for bedside debridement and irrigation today with bone biopsy. <Emiliano Salas - 04/24/18 12:05> - Attending Attestation The exam, history, and the medical decision-making described in the above note were completed with the assistance of the resident physician. I reviewed and agree with the findings presented. I attest that I had a [id number] encounter with the patient on the same day, and personally performed and documented my assessment and findings in the medical record. <Kim Alonso - 04/24/18 15:18>
[2018-04-24] MEDS: Morphine Sulfate Inj 2 MG/ML Vial IV.PUSH PRN ×3 (13:05→22:05)
--- NOTE | 2018-04-24 15:16 | P.PNPOD ---
Subjective Interval history: Patient with right foot charcot and chronic ulceration, which by patients account has worsened despite abx. He states that he has some pain in the foot but it is tolerable. He has signed the consent and is agreeable for a bone biopsy at bedside today. He denies any n/v/f/h/c/sob. Physical Exam Vital signs: Vital Signs 04/23/18 16:00 04/23/18 20:00 04/24/18 00:00 Temperature 98.0 F 96.2 F L 97.4 F L Pulse Rate 75 81 67 Respiratory Rate 17 18 17 Blood Pressure 156/83 H 147/88 H 132/81 Pulse Oximetry 98 99 99 04/24/18 04:00 04/24/18 08:00 04/24/18 12:00 Temperature 98.6 F 98.1 F 97.9 F Pulse Rate 71 73 80 Respiratory Rate 18 18 18 Blood Pressure 131/83 152/95 H Pulse Oximetry 93 L 99 100 04/24/18 14:05 Temperature Pulse Rate Respiratory Rate 4 L Blood Pressure Pulse Oximetry Intake & Output 04/23/18 04/24/18 04/24/18 18:59 06:59 18:59 Intake Total 1999 690 / 690 100 / 100 Balance 1999 690 / 690 100 / 100 Weight 96.1 kg Intake: IV 1999 450 / 450 100 / 100 Levaquin 750 mg Premix Inj 150 150 / 150 ML @ 100 mls/hr IV.SIG Q24H [facility] Rx#:[id number] Zosyn 4.5 GM Premix 4.5 gm In 300 / 300 100 / 100 100 ml @ 200 mls/hr IV.SIG Q6H [facility] Rx#:[id number] NS Inj 1,000 ML @ Wide Open IV. 1999 SIG BOLUS [facility] Rx#:[id number] Oral 240 / 240 Other: # Voids 2 Weight On Admission 96.1 kg Narrative: Right foot plantar ulceration granular and unchanged from consultation note. Medications and Allergies Active Medications: Active Medications Al Hydroxide/Mg Hydroxide (Milk Of Magnchris Liq) 30 ml PO Q12H PRN PRN Reason: Mild Constipation Aspirin (Ecotrin) 81 mg PO DAILY [facility] Last Admin: 04/24/18 10:20 Dose: 81 mg Atorvastatin Calcium (Lipitor) 40 mg PO DAILY [facility] Last Admin: 04/24/18 09:05 Dose: 40 mg Dextrose (D50w Vial) 50 ml IV.PUSH UNSCH PRN PRN Reason: PER HYPOGLYCEMIA PROTOCOL Gabapentin (Neurontin) 300 mg PO BID@0900,1200 [facility] Last Admin: 04/24/18 13:01 Dose: 300 mg Gabapentin (Neurontin) 600 mg PO HS [facility] Last Admin: 04/23/18 21:15 Dose: 600 mg Glucagon (Glucagon Inj) 1 mg OTHER UNSCH PRN PRN Reason: for Hypoglycemia Protocol Heparin Sodium (Porcine) (Heparin Inj) 5,000 units SQ Q8H [facility] Last Admin: 04/24/18 10:20 Dose: 5,000 units Piperacillin/Tazobactam/Dextrose (Zosyn 4.5 Gm Premix) 4.5 gm in 100 mls @ 200 mls/hr IV.SIG Q6H [facility] Last Infusion: 04/24/18 13:11 Dose: Infused Levofloxacin/Dextrose (Levaquin 750 Mg Premix Inj) 150 mls @ 100 mls/hr IV.SIG Q24H [facility] Last Infusion: 04/23/18 19:19 Dose: Infused Ibuprofen (Motrin) 800 mg PO Q8HR [facility] Last Admin: 04/24/18 14:04 Dose: 800 mg Insulin Aspart (Novolog Insulin Correctional Sugar Inj) 0 unit SQ [facility]; Protocol Last Admin: 04/24/18 13:15 Dose: 7 unit Insulin Detemir (Levemir Inj) 28 unit SQ [facility] Last Admin: 04/23/18 21:16 Dose: 28 unit Insulin Detemir (Levemir Inj) 25 unit SQ DAILY [facility] Last Admin: 04/24/18 09:07 Dose: 25 unit Lisinopril (Prinivil) 20 mg PO BID [facility] Last Admin: 04/24/18 09:06 Dose: 20 mg Loratadine (Claritin) 10 mg PO DAILY [facility] Last Admin: 04/24/18 09:06 Dose: 10 mg Miscellaneous (Pill Splitter) 1 each OTHER UNSCH PRN PRN Reason: SEE LABEL COMMENTS Morphine Sulfate (Morphine Inj) 2 mg IV.PUSH Q4H PRN PRN Reason: BREAKTHROUGH PAIN Last Admin: 04/24/18 13:05 Dose: 2 mg Ondansetron HCl (Zofran Inj) 4 mg IV.PUSH Q6H PRN PRN Reason: NAUSEA OR VOMITING Oxycodone HCl (Roxicodone) 10 mg PO Q4H PRN PRN Reason: Pain 1-10 Last Admin: 04/24/18 10:55 Dose: 10 mg Senna/Docusate Sodium (Lena-Colace) 1 tab PO BID [facility] Last Admin: 04/24/18 09:06 Dose: Not Given Sennosides (Senokot) 17.2 mg PO Q12H PRN PRN Reason: Moderate Constipation Sertraline HCl (Zoloft) 25 mg PO DAILY [facility] Last Admin: 04/24/18 09:06 Dose: 25 mg Temazepam (Restoril) 15 mg PO HS PRN PRN Reason: INSOMNIA Allergies Allergy/AdvReac Type Severity Reaction Status Date / Time vancomycin Allergy Severe ACUTE Verified 04/23/18 08:10 RENAL FAILURE becaplermin [From Regranex] Allergy Intermediate Swelling Verified 04/23/18 08: 10 tigecycline AdvReac Severe NAUSEA AND Verified 04/23/18 08:10 VOMITING Tetracyclines AdvReac Intermediate Gastrointestinal Verified 04/23/18 08:10 Upset Home Medications Medication Instructions Recorded Confirmed Type aspirin [Aspir-81] 81 mg PO DAILY 02/25/18 04/23/18 History ibuprofen 800 mg PO Q4H PRN 02/25/18 04/23/18 History insulin aspart U-100 [Novolog 1 sliding scale dose SUB-Q QID 02/25/18 04/23/18 History U-100 Insulin aspart] insulin aspart U-100 [Novolog 10 unit SUB-Q BIDAC 02/25/18 04/23/18 History U-100 Insulin aspart] lisinopril 20 mg PO BID 02/25/18 04/23/18 History loratadine [Claritin] 10 mg PO DAILY 02/25/18 04/23/18 History oxycodone 10 mg PO Q4-6H PRN 02/25/18 04/23/18 History rosuvastatin [Crestor] 20 mg PO DAILY 02/25/18 04/23/18 History sertraline [Zoloft] 25 mg PO DAILY 02/25/18 04/23/18 History gabapentin 1 cap BID 04/18/18 04/23/18 History gabapentin 1 dose PO HS 04/18/18 04/23/18 History Results - Labs CBC & Chem 7: 04/24/18 07:03 04/24/18 07:03 Laboratory Results - last 24 hr 04/24/18 04/24/18 04/24/18 07:03 07:03 07:47 WBC 7.6 RBC 4.62 Hgb 13.9 Hct 40.5 MCV 87.8 MCH 30.1 MCHC 34.3 RDW 13.8 Plt Count 169 MPV 8.2 Neut % (Auto) 60.6 Lymph % (Auto) 28.6 [place] % (Auto) 6.2 Eos % (Auto) 3.5 Baso % (Auto) 1.1 Neut # (Auto) 4.6 Lymph # (Auto) 2.2 [place] # (Auto) 0.5 Eos # (Auto) 0.3 Baso # (Auto) 0.1 WBC Differential . Differential Comment Auto diff final ESR 25 H Sodium 138 Potassium 3.8 Chloride 106 Carbon Dioxide 23.9 Anion Gap 8 BUN 13 Creatinine 0.71 Estimated GFR Greater than 89 POC Glucose 272 H Random Glucose 204 H D Calcium 9.1 Total Bilirubin 0.6 AST 11 L ALT 18 Alkaline Phosphatase 98 Total Protein 6.9 Albumin 3.1 L 04/24/18 13:09 WBC RBC Hgb Hct MCV MCH MCHC RDW Plt Count MPV Neut % (Auto) Lymph % (Auto) [place] % (Auto) Eos % (Auto) Baso % (Auto) Neut # (Auto) Lymph # (Auto) [place] # (Auto) Eos # (Auto) Baso # (Auto) WBC Differential Differential Comment ESR Sodium Potassium Chloride Carbon Dioxide Anion Gap BUN Creatinine Estimated GFR POC Glucose 284 H Random Glucose Calcium Total Bilirubin AST ALT Alkaline Phosphatase Total Protein Albumin - Imaging Impressions Foot MRI 04/23/18 00:00 CONCLUSION: 1. Plantar ulceration of the midfoot again seen with increased soft tissue edema/cellulitis. 2. No evidence of abscess. No evidence of osteomyelitis. 3. Extensive bony postsurgical findings and chronic reactive bony findings. Assessment and Plan - Assessment (1) Ulcer of right foot due to type 2 diabetes mellitus Code(s): E11.621 - Type 2 diabetes mellitus with foot ulcer; L97.519 - Non- pressure chronic ulcer of other part of right foot with unspecified severity Status: Acute (2) Diabetic foot infection Code(s): E11.628 - Type 2 diabetes mellitus with other skin complications; L08.9 - Local infection of the skin and subcutaneous tissue, unspecified Status: Acute - Plan -bone biopsy (micro and path) pending -cont iv abx, will make changes according to bx results -NWBing RLE -daily wound care as ordered Procedures: Time out was performed and consent was obtained. No guarantees were given. The right foot was prepped in sterile fashion. A small incision was made on the periphery of the wound and deepened to bone. A sterile JimSheedy needle was used to extract a small portion of bone. This sample was divided in half with half being sent to microbiology and half being sent to pathology. Proper bandaging was applied. CFT was maintained through out the procedure.
[2018-04-24] MEDS ORDERED: Temazepam 15 MG Capsule PO PRN (21:00)
[2018-04-25] MEDS: Piperacil/Tazo 4.5 GM Premix 4.5 GM/100 ML BAG IV.SIG SCH ×4 (00:10→17:31)
[2018-04-25] MEDS: Heparin - SQ 10,000 UNITS/ML Vial SQ SCH ×3 (02:28→17:40)
[2018-04-25] MEDS: Morphine Sulfate Inj 2 MG/ML Vial IV.PUSH PRN ×2 (04:09→08:15)
[2018-04-25 08:11] LABS: Baso # (Auto) 0.1 th/mm3 (0.0-0.2); Baso % (Auto) 1.3 % (0.0-2.0); Eos # (Auto) 0.2 th/mm3 (0.0-0.4); Hematocrit 38.2 % (39.0-51.0); Lymph % (Auto) 33.2 % (9.0-44.0); Mean Corpuscular Volume 88.3 fL (80.0-100.0); Mean Platelet Volume 8.2 fL (7.0-11.0); Mono # (Auto) 0.4 th/mm3 (0.0-0.9); Mono % (Auto) 6.8 % (0.0-8.0); Neut # (Auto) 3.4 th/mm3 (1.8-7.7); Neut % (Auto) 54.7 % (16.0-70.0); Platelet Count 143 th/mm3 (150-450); Red Blood Count 4.33 mil/mm3 (4.50-5.90); Red Cell Distribution Width 14.1 % (11.6-17.2); White Blood Count 6.2 th/mm3 (4.0-11.0)
[2018-04-25] MEDS: Lisinopril 20 MG Tablet PO SCH ×2 (08:12→21:00)
[2018-04-25] MEDS: Sertraline 50 MG Tablet PO SCH (08:14)
[2018-04-25] MEDS: Loratadine 10 MG Tablet PO SCH (08:14)
[2018-04-25] MEDS: Insulin Detemir Inj 1,000 UNIT/10 ML Vial SQ SCH ×2 (08:21→21:01)
[2018-04-25] MEDS: Senna/Docusate Sodium 8.6/50 MG Tablet PO SCH ×2 (08:24→21:00)
[2018-04-25] MEDS: Gabapentin 300 MG Capsule PO SCH ×3 (08:24→21:00)
[2018-04-25] MEDS: Insulin NovoLOG Aspart Correctional Sugar Inj SQ SCH ×4 (09:22→21:02)
--- NOTE | 2018-04-25 10:17 | P.PN ---
Subjective Interval history: Pt seen and evaluated this morning. He is doing well, resting comfortably on recliner. He has no complains today, and understands the plan of care. Drinking and earing ok. Sugars not well controlled. Discussed importance of getting and tourist information assistant appointment upon discharge, as discussed in prior admission. He denies N/V/D. No chest pain, no SOB, no fever, no chills. He complains of "foggy " vision on R eye, not improved with saline drops. Denies DENISE, double vision. Last eye exam in October 2016. Discussed importance of yearly diabetic eye exam. Physical Exam Vital signs: Vital Signs 04/24/18 12:00 04/24/18 14:05 04/24/18 16:00 Temperature 97.9 F 97.8 F Pulse Rate 80 77 Respiratory Rate 18 4 L 18 Blood Pressure 124/85 Pulse Oximetry 100 100 04/24/18 20:00 04/25/18 00:00 04/25/18 04:00 Temperature 97.9 F 97.5 F L 97.8 F Pulse Rate 85 69 71 Respiratory Rate 20 18 18 Blood Pressure 120/91 H 128/86 160/96 H Pulse Oximetry 100 99 100 Intake & Output 04/24/18 04/25/18 04/25/18 18:59 06:59 18:59 Intake Total 1160 / 1160 350 / 350 Balance 1160 / 1160 350 / 350 Weight 96.6 kg Intake: IV 200 / 200 350 / 350 Levaquin 750 mg Premix Inj 150 150 / 150 ML @ 100 mls/hr IV.SIG Q24H [facility] Rx#:[id number] Zosyn 4.5 GM Premix 4.5 gm In 200 / 200 200 / 200 100 ml @ 200 mls/hr IV.SIG Q6H [facility] Rx#:[id number] Oral 960 / 960 Other: # Voids 4 4 # Bowel Movements 2 Narrative: GENERAL: Well nourished. Comfortable andin no obvious distress during examination. HEENT: Normocephalic, atraumatic. Normal conjunctiva. No nasal drainage. Gross hearing intact bilaterally. No ear drainage. Clear sclerae, no erythema, no jaundice, no drainage from bilateral eye. Able to cover L eye and see through R (affected) eye. Does not see double. Just "foggy" CARDIOVASCULAR: Regular rate and rhythm without murmurs, gallops, or rubs. RESPIRATORY: Breath sounds equal bilaterally. No accessory muscle use. GASTROINTESTINAL: Abdomen nondistended MUSCULOSKELETAL: No cyanosis, or edema. EXTREMITIES: minimal peripheral edema of bilateral ankles. L below the knee amputation. R foot ulcer on plantar side wrapped in dressing this AM, no drainage or bleeding noted. Results - Labs CBC & Chem 7: 04/25/18 06:07 04/24/18 07:03 Laboratory Results - last 24 hr 04/24/18 04/24/18 04/24/18 13:09 17:41 20:10 WBC RBC Hgb Hct MCV MCH MCHC RDW Plt Count MPV Neut % (Auto) Lymph % (Auto) [place] % (Auto) Eos % (Auto) Baso % (Auto) Neut # (Auto) Lymph # (Auto) [place] # (Auto) Eos # (Auto) Baso # (Auto) WBC Differential Differential Comment POC Glucose 284 H 333 H 270 H 04/25/18 04/25/18 06:07 07:28 WBC 6.2 RBC 4.33 L Hgb 13.0 Hct 38.2 L MCV 88.3 MCH 30.0 MCHC 34.0 RDW 14.1 Plt Count 143 L MPV 8.2 Neut % (Auto) 54.7 Lymph % (Auto) 33.2 [place] % (Auto) 6.8 Eos % (Auto) 4.0 Baso % (Auto) 1.3 Neut # (Auto) 3.4 Lymph # (Auto) 2.0 [place] # (Auto) 0.4 Eos # (Auto) 0.2 Baso # (Auto) 0.1 WBC Differential . Differential Comment Auto diff final POC Glucose 267 H Microbiology 04/24/18 15:00 Wound - Foot Gram Stain - Final Assessment and Plan - Assessment (1) Diabetic foot infection Code(s): E11.628 - Type 2 diabetes mellitus with other skin complications; L08.9 - Local infection of the skin and subcutaneous tissue, unspecified Status: Acute (2) Soft tissue infection of foot Code(s): L08.9 - Local infection of the skin and subcutaneous tissue, unspecified Status: Acute (3) Poorly controlled type 2 diabetes mellitus Code(s): E11.65 - Type 2 diabetes mellitus with hyperglycemia Status: Chronic (4) Hypertension Code(s): I10 - Essential (primary) hypertension Status: Chronic (5) Neuropathy Code(s): G62.9 - Polyneuropathy, unspecified Status: Chronic (6) History of left below knee amputation Code(s): Z89.512 - Acquired absence of left leg below knee Status: Chronic (7) Hyperlipidemia Code(s): E78.5 - Hyperlipidemia, unspecified Status: Chronic (8) Mood disorder Code(s): F39 - Unspecified mood [affective] disorder Status: Chronic (9) Nutrition, metabolism, and development symptoms Code(s): R63.8 - Other symptoms and signs concerning food and fluid intake Status: Acute - Plan 48 yr old male with uncontrolled diabetes discharged from the hospital last Saturday (04/20), admitted with worsening diabetic right foot ulcer infection. Previous positive wound culture on 04/15 (last hospitalization) grew Pseudomonas , Proteus, and Staph (see report for details). Podiatry performed bedside debridement and irrigation yesterday with bone biopsy. At this time patient is stable, no leukocytosis, no fevers, and wound cultures with negative Gram Stain. Wound care is on board and following closely. I discussed with Podiatry and Pathology regarding his hospitalization needs. Biopsy results are due to return Saturday afternoon, and in the event this is in fact osteomyelitis, he will need a IV access for continuation of treatment. This patient has had multiple hospitalizations for this same infection, and is a high risk for readmission if discharge at this time. We anticipate DC Saturday evening or Saturday pending biopsy results. 04/25: - Awaiting bone biopsy results- likely by Saturday - Wound culture with negative Gram Stain. Will DC Levaquin at this time - Continue IV antibiotic with Zosyn due to soft tissue infection with + cultures 04/15. Pending 04/23 biopsy results for possible osteomyelitis. - Continue wound care and pain control. Will decrease the frequency of morphine to q6hr. - Continue diabetic management: increase Levemir to 30 U AM and PM, continue Sliding Scale, and Accuchecks. - Continue Diabetic diet, PO hydration, and Heparin for DVT prophylaxis. - Chronic medical conditions stable. Continue management as before. - Attending Attestation The exam, history, and the medical decision-making described in the above note were completed with the assistance of the resident physician. I reviewed and agree with the findings presented. I attest that I had a [id number] encounter with the patient on the same day.
[2018-04-25] MEDS: Morphine Inj 4 MG/ML Vial IV.PUSH PRN (17:28)
[2018-04-26] MEDS: Piperacil/Tazo 4.5 GM Premix 4.5 GM/100 ML BAG IV.SIG SCH ×4 (00:19→17:32)
[2018-04-26] MEDS: Morphine Inj 4 MG/ML Vial IV.PUSH PRN ×4 (00:21→22:27)
[2018-04-26] MEDS: Heparin - SQ 10,000 UNITS/ML Vial SQ SCH ×3 (01:40→17:32)
[2018-04-26 04:42] LABS: Hematocrit 37.1 % (39.0-51.0); Hemoglobin 12.8 gm/dL (13.0-17.0); Mean Corpuscular HGB Conc 34.5 % (32.0-36.0); Mean Corpuscular Hemoglobin 30.3 pg (27.0-34.0); Mean Platelet Volume 7.9 fL (7.0-11.0); Platelet Count 154 th/mm3 (150-450); Red Blood Count 4.22 mil/mm3 (4.50-5.90); White Blood Count 6.7 th/mm3 (4.0-11.0)
[2018-04-26 05:15] LABS: Anion Gap 8 meq/L (5-15); Blood Urea Nitrogen 15 mg/dL (7-18); Calcium 8.2 mg/dL (8.5-10.1); Carbon Dioxide 25.8 meq/L (21.0-32.0); Chloride 106 meq/L (98-107); Glomerular Filtration Rate Greater Than 89 mL/min (>89); Glucose,Random 274 mg/dL (74-106); Potassium 3.9 meq/L (3.5-5.1); Sodium 140 meq/L (136-145)
[2018-04-26] MEDS: Senna/Docusate Sodium 8.6/50 MG Tablet PO SCH ×2 (09:20→20:19)
[2018-04-26] MEDS: Lisinopril 20 MG Tablet PO SCH ×2 (09:20→20:19)
[2018-04-26] MEDS: Sertraline 50 MG Tablet PO SCH (09:21)
[2018-04-26] MEDS: Loratadine 10 MG Tablet PO SCH (09:21)
[2018-04-26] MEDS: Insulin Detemir Inj 1,000 UNIT/10 ML Vial SQ SCH ×2 (09:21→20:18)
[2018-04-26] MEDS: Insulin NovoLOG Aspart Correctional Sugar Inj SQ SCH ×4 (09:21→20:18)
[2018-04-26] MEDS: Gabapentin 300 MG Capsule PO SCH ×3 (09:31→20:18)
--- NOTE | 2018-04-26 12:49 | P.PN ---
Subjective Interval history: Pt is doing well this morning. We discussed his sugars being high and the possibility of adding metformin to his regimen, benefits and side effects were explained and pt agrees with starting new med. He complains about his IV morphine being decreased in frequency (from 4 to 6 hrs). I discussed the reasoning why we are decreasing his IV morphine frequency and why we have it as PRN, not scheduled. He denies any N/V/D, headache, SOB, chest pain, fevers or chills. Physical Exam Vital signs: Vital Signs 04/25/18 14:01 04/25/18 16:00 04/25/18 20:00 Temperature 98.4 F 97.3 F L Pulse Rate 97 H 85 Respiratory Rate 20 20 18 Blood Pressure 130/79 174/94 H Pulse Oximetry 97 98 04/26/18 00:00 04/26/18 04:00 04/26/18 08:00 Temperature 97.3 F L 97.3 F L 98.2 F Pulse Rate 79 76 80 Respiratory Rate 18 18 18 Blood Pressure 157/92 H 167/81 H 124/85 Pulse Oximetry 98 97 98 Intake & Output 04/25/18 04/26/18 04/26/18 18:59 06:59 18:59 Intake Total 920 / 920 200 / 200 Output Total 3 / 3 Balance 920 / 920 197 / 197 Weight 97.8 kg Intake: IV 200 / 200 200 / 200 Zosyn 4.5 GM Premix 4.5 gm In 200 / 200 200 / 200 100 ml @ 200 mls/hr IV.SIG Q6H [facility] Rx#:[id number] Oral 720 / 720 Output: Urine 3 / 3 Other: # Voids 4 Date of Last Bowel Movement 04/25/18 Narrative: GENERAL: Well nourished. Comfortable, in no acute distress during examination. HEENT: Normocephalic, atraumatic. Normal conjunctiva. No nasal drainage. Clear sclerae, no erythema, no jaundice. CARDIOVASCULAR: Regular rate and rhythm without murmurs, gallops, or rubs. RESPIRATORY: Breath sounds equal bilaterally. No accessory muscle use. GASTROINTESTINAL: Abdomen nondistended MUSCULOSKELETAL: No cyanosis, or edema. EXTREMITIES: minimal peripheral edema of bilateral ankles. L below the knee amputation. R foot ulcer on plantar side wrapped in dressing, no drainage or bleeding noted. Results - Labs CBC & Chem 7: 09/29/18 04:31 04/26/18 04:31 Laboratory Results - last 24 hr 04/25/18 04/25/18 04/26/18 12:43 20:57 04:31 WBC 6.7 RBC 4.22 L Hgb 12.8 L Hct 37.1 L MCV 88.0 MCH 30.3 MCHC 34.5 RDW 14.0 Plt Count 154 MPV 7.9 Sodium Potassium Chloride Carbon Dioxide Anion Gap BUN Creatinine Estimated GFR POC Glucose 294 H 279 H Random Glucose Calcium 04/26/18 04/26/18 04:31 08:10 WBC RBC Hgb Hct MCV MCH MCHC RDW Plt Count MPV Sodium 140 Potassium 3.9 Chloride 106 Carbon Dioxide 25.8 Anion Gap 8 BUN 15 Creatinine 0.86 Estimated GFR Greater than 89 POC Glucose 367 H Random Glucose 274 H Calcium 8.2 L D Microbiology 04/24/18 15:00 Wound - Foot Gram Stain - Final 04/24/18 15:00 Wound - Foot Wound Culture - Preliminary Assessment and Plan - Assessment (1) Diabetic foot infection Code(s): E11.628 - Type 2 diabetes mellitus with other skin complications; L08.9 - Local infection of the skin and subcutaneous tissue, unspecified Status: Acute (2) Soft tissue infection of foot Code(s): L08.9 - Local infection of the skin and subcutaneous tissue, unspecified Status: Acute (3) Poorly controlled type 2 diabetes mellitus Code(s): E11.65 - Type 2 diabetes mellitus with hyperglycemia Status: Chronic (4) Hypertension Code(s): I10 - Essential (primary) hypertension Status: Chronic (5) Neuropathy Code(s): G62.9 - Polyneuropathy, unspecified Status: Chronic (6) History of left below knee amputation Code(s): Z89.512 - Acquired absence of left leg below knee Status: Chronic (7) Hyperlipidemia Code(s): E78.5 - Hyperlipidemia, unspecified Status: Chronic (8) Mood disorder Code(s): F39 - Unspecified mood [affective] disorder Status: Chronic (9) Nutrition, metabolism, and development symptoms Code(s): R63.8 - Other symptoms and signs concerning food and fluid intake Status: Acute - Plan 48 yr old male with uncontrolled diabetes discharged from the hospital last Saturday (04/20), admitted with worsening diabetic right foot ulcer infection. Previous positive wound culture on 04/15 (last hospitalization) grew Pseudomonas , Proteus, and Staph (see report for details). Podiatry performed bedside debridement and irrigation yesterday with bone biopsy. At this time patient is stable, no leukocytosis, no fevers, and wound cultures with negative Gram Stain. Wound care is on board and following closely. I discussed with Podiatry and Pathology regarding his hospitalization needs. Biopsy results are due to return Saturday afternoon, and in the event this is in fact osteomyelitis, he will need a IV access for continuation of treatment. This patient has had multiple hospitalizations for this same infection, and is a high risk for readmission if discharge at this time. We anticipate DC Saturday evening or Saturday pending biopsy results. Plan: - Awaiting bone biopsy results- likely by Saturday - Continue IV antibiotic with Zosyn due to soft tissue infection with positive cultures 04/15. Pending 04/23 biopsy results for possible osteomyelitis. - Continue wound care and pain control. - Increase Levemir to 35 U AM and PM, continue Sliding Scale, and Accuchecks. Add metformin 500mg BID - Continue Diabetic diet, PO hydration, and Heparin for DVT prophylaxis. - Chronic medical conditions stable. Continue management as before. - Attending Attestation The exam, history, and the medical decision-making described in the above note were completed with the assistance of the resident physician. I reviewed and agree with the findings presented. I attest that I had a [id number] encounter with the patient on the same day, and personally performed and documented my assessment and findings in the medical record.
[2018-04-27] MEDS: Piperacil/Tazo 4.5 GM Premix 4.5 GM/100 ML BAG IV.SIG SCH ×4 (00:57→17:10)
[2018-04-27] MEDS: Heparin - SQ 10,000 UNITS/ML Vial SQ SCH ×3 (01:00→17:10)
[2018-04-27] MEDS: Morphine Inj 4 MG/ML Vial IV.PUSH PRN (03:56)
[2018-04-27] MEDS: Lisinopril 20 MG Tablet PO SCH ×2 (09:13→21:11)
[2018-04-27] MEDS: Gabapentin 300 MG Capsule PO SCH ×3 (09:13→21:11)
[2018-04-27] MEDS: Sertraline 50 MG Tablet PO SCH (09:14)
[2018-04-27] MEDS: Insulin NovoLOG Aspart Correctional Sugar Inj SQ SCH ×4 (09:14→21:12)
[2018-04-27] MEDS: Loratadine 10 MG Tablet PO SCH (09:14)
[2018-04-27] MEDS: Senna/Docusate Sodium 8.6/50 MG Tablet PO SCH ×2 (09:15→21:11)
[2018-04-27] MEDS: Insulin Detemir Inj 1,000 UNIT/10 ML Vial SQ SCH ×2 (09:15→21:12)
[2018-04-27] MEDS ORDERED: Morphine Inj 4 MG/ML Vial IV.PUSH PRN (10:53)
--- NOTE | 2018-04-27 12:03 | P.PN ---
Subjective Interval history: Pt doing well this morning, only complaining about not getting his PRN morphine on time. He denies new onset diarrhea, or cramping, given we started metformin yesterday. He has no new symptoms. He denies N/V, shortness of breath, chest pain, fevers or chills. Discussed plan on spacing morphine to every 8 hr as agreed yesterday. Physical Exam Vital signs: Vital Signs 04/26/18 16:00 04/26/18 20:00 04/26/18 23:55 Temperature 98 F 97.4 F L 97.5 F L Pulse Rate 99 H 93 H 81 Respiratory Rate 18 18 18 Blood Pressure 154/91 H 135/80 164/83 H Pulse Oximetry 99 98 98 04/27/18 04:00 04/27/18 08:00 Temperature 97.3 F L 98.5 F Pulse Rate 77 75 Respiratory Rate 19 18 Blood Pressure 150/88 H 165/95 H Pulse Oximetry 98 98 Intake & Output 04/26/18 04/27/18 04/27/18 18:59 06:59 18:59 Intake Total 1040 / 1040 680 / 680 Balance 1040 / 1040 680 / 680 Weight 97.8 kg Intake: IV 200 / 200 200 / 200 Zosyn 4.5 GM Premix 4.5 gm In 200 / 200 200 / 200 100 ml @ 200 mls/hr IV.SIG Q6H [facility] Rx#:[id number] Oral 840 / 840 480 / 480 Other: # Voids 5 2 # Bowel Movements 1 Narrative: GENERAL: Well nourished. Comfortable, in no acute distress during examination. HEENT: Normocephalic, atraumatic. Normal conjunctiva. No nasal drainage. Clear sclerae, no erythema, no jaundice. CARDIOVASCULAR: Regular rate and rhythm without murmurs, gallops, or rubs. RESPIRATORY: Breath sounds equal bilaterally. No accessory muscle use. GASTROINTESTINAL: Abdomen nondistended, positive BS in all quadrants. EXTREMITIES: minimal peripheral edema of bilateral ankles. L below the knee amputation. R foot ulcer on plantar side wrapped in dressing w/ dry blood. Unwrapped ulcer looks improved since admission, no purulence, no drainage, no blood at that time. Results - Labs CBC & Chem 7: 04/26/18 04:31 04/26/18 04:31 Laboratory Results - last 24 hr 04/27/18 07:44 POC Glucose 183 H Microbiology 04/24/18 15:00 Wound - Foot Gram Stain - Final 04/24/18 15:00 Wound - Foot Wound Culture - Final Assessment and Plan - Assessment (1) Diabetic foot infection Code(s): E11.628 - ; L08.9 - Status: Acute (2) Soft tissue infection of foot Code(s): L08.9 - Status: Acute (3) Poorly controlled type 2 diabetes mellitus Code(s): E11.65 - Status: Chronic (4) Hypertension Code(s): I10 - Status: Chronic (5) Neuropathy Code(s): G62.9 - Status: Chronic (6) History of left below knee amputation Code(s): Z89.512 - Status: Chronic (7) Hyperlipidemia Code(s): E78.5 - Status: Chronic (8) Mood disorder Code(s): F39 - Status: Chronic (9) Nutrition, metabolism, and development symptoms Code(s): R63.8 - Status: Acute - Plan 48 yr old male with uncontrolled diabetes discharged from the hospital last Saturday (04/20), admitted with worsening diabetic right foot ulcer infection. Previous positive wound culture on 04/15 (last hospitalization) grew Pseudomonas , Proteus, and Staph (see report for details). Podiatry performed bedside debridement and irrigation yesterday with bone biopsy. At this time patient is stable, no leukocytosis, no fevers, and wound cultures with negative Gram Stain. Wound care is on board and following closely. I discussed with Podiatry and Pathology regarding his hospitalization needs. Biopsy results are due to return Saturday afternoon, and in the event this is in fact osteomyelitis, he will need a IV access for continuation of treatment. This patient has had multiple hospitalizations for this same infection, and is a high risk for readmission if discharge at this time. We anticipate DC Saturday evening or Saturday pending biopsy results. We conitnue to adjust his diabetic medications, since his BG are still high. Plan: - Awaiting bone biopsy results- likely by Saturday - Continue IV antibiotic with Zosyn due to soft tissue infection with positive cultures 04/15. Pending 04/23 biopsy results for possible osteomyelitis. - Continue wound care and pain control. Decrease IV morphine 2g PRN to q8hs - Continue Levemir to 35 U AM and PM, Sliding Scale, and metformin 500mg BID - Continue Diabetic diet, PO hydration, and Heparin for DVT prophylaxis. - Chronic medical conditions stable. Continue management as before. Pt seen with Dr. Law and discussed with Dr. Alonso. - Attending Attestation The exam, history, and the medical decision-making described in the above note were completed with the assistance of the resident physician. I reviewed and agree with the findings presented. I attest that I had a [id number] encounter with the patient on the same day, and personally performed and documented my assessment and findings in the medical record.
[2018-04-27] MEDS: Morphine Sulfate Inj 2 MG/ML Vial IV.PUSH PRN (19:23)
[2018-04-28] MEDS: Piperacil/Tazo 4.5 GM Premix 4.5 GM/100 ML BAG IV.SIG SCH ×4 (01:34→17:26)
[2018-04-28] MEDS: Heparin - SQ 10,000 UNITS/ML Vial SQ SCH ×3 (01:34→17:25)
[2018-04-28 06:56] LABS: Hematocrit 38.3 % (39.0-51.0); Hemoglobin 13.2 gm/dL (13.0-17.0); Mean Corpuscular HGB Conc 34.5 % (32.0-36.0); Mean Corpuscular Hemoglobin 30.4 pg (27.0-34.0); Mean Corpuscular Volume 88.2 fL (80.0-100.0); Mean Platelet Volume 8.2 fL (7.0-11.0); Platelet Count 156 th/mm3 (150-450); Red Blood Count 4.34 mil/mm3 (4.50-5.90); Red Cell Distribution Width 14.1 % (11.6-17.2)
[2018-04-28 07:24] LABS: Anion Gap 8 meq/L (5-15); Blood Urea Nitrogen 10 mg/dL (7-18); Calcium 8.6 mg/dL (8.5-10.1); Carbon Dioxide 27.4 meq/L (21.0-32.0); Chloride 106 meq/L (98-107); Glomerular Filtration Rate Greater Than 89 mL/min (>89); Glucose,Random 214 mg/dL (74-106); Potassium 3.9 meq/L (3.5-5.1); Sodium 141 meq/L (136-145)
[2018-04-28] MEDS: Loratadine 10 MG Tablet PO SCH (08:02)
[2018-04-28] MEDS: Gabapentin 300 MG Capsule PO SCH ×2 (08:02→11:38)
[2018-04-28] MEDS: Sertraline 50 MG Tablet PO SCH (08:03)
[2018-04-28] MEDS: Senna/Docusate Sodium 8.6/50 MG Tablet PO SCH (08:03)
[2018-04-28] MEDS: Lisinopril 20 MG Tablet PO SCH (08:04)
[2018-04-28] MEDS: Morphine Sulfate Inj 2 MG/ML Vial IV.PUSH PRN (08:05)
[2018-04-28] MEDS: Insulin NovoLOG Aspart Correctional Sugar Inj SQ SCH ×3 (08:06→17:25)
[2018-04-28] MEDS: Insulin Detemir Inj 1,000 UNIT/10 ML Vial SQ SCH (08:07)
[2018-04-28 08:41] VITALS: RESP 20; O2SAT 98
--- NOTE | 2018-04-28 11:45 | P.PN ---
Subjective Interval history: Pt seen and evaluated this morning. He has no new complaints. He was seen returning from the cafe when we arrived to his room, with a bottle of to[place]. We had a discussion on the importance of NOT drinking sugary drinks, specially with a condition like his. He seems to have poor insight on the severity of his illness despite having an amputation already. We will deferred his diabetes management to PCP. He has no complains today, no N/V/D, no Fevers or chills, no chest pain or shortness of breath. Physical Exam Vital signs: Vital Signs 04/27/18 12:00 04/27/18 16:00 04/27/18 20:00 Temperature 98.4 F 98.2 F 97.5 F L Pulse Rate 89 88 89 Respiratory Rate 20 18 21 Blood Pressure 136/80 148/80 H 156/84 H Pulse Oximetry 97 98 98 04/28/18 00:00 04/28/18 04:00 04/28/18 08:00 Temperature 97.7 F 98.0 F 97.8 F Pulse Rate 77 75 89 Respiratory Rate 18 18 20 Blood Pressure 148/77 H 168/82 H 165/95 H Pulse Oximetry 98 97 98 Intake & Output 04/27/18 04/28/18 04/28/18 18:59 06:59 18:59 Intake Total 1038 / 1038 440 / 440 Balance 1038 / 1038 440 / 440 Intake: IV 200 / 200 200 / 200 Zosyn 4.5 GM Premix 4.5 gm In 200 / 200 200 / 200 100 ml @ 200 mls/hr IV.SIG Q6H [facility] Rx#:[id number] Oral 838 / 838 240 / 240 Other: # Voids 4 2 Narrative: GENERAL: Well nourished. Comfortable, in no acute distress during examination. HEENT: Normocephalic, atraumatic. Normal conjunctiva. No nasal drainage. Clear sclerae, no erythema, no jaundice. CARDIOVASCULAR: Regular rate and rhythm without murmurs, gallops, or rubs. RESPIRATORY: Breath sounds equal bilaterally. No accessory muscle use. GASTROINTESTINAL: Abdomen nondistended, positive BS in all quadrants. EXTREMITIES: minimal peripheral edema of bilateral ankles. L below the knee amputation. R foot ulcer on plantar side wrapped in dressing. Results - Labs CBC & Chem 7: 04/28/18 05:23 04/28/18 05:23 Laboratory Results - last 24 hr 04/28/18 04/28/18 05:23 05:23 WBC 7.0 RBC 4.34 L Hgb 13.2 Hct 38.3 L MCV 88.2 MCH 30.4 MCHC 34.5 RDW 14.1 Plt Count 156 MPV 8.2 Sodium 141 Potassium 3.9 Chloride 106 Carbon Dioxide 27.4 Anion Gap 8 BUN 10 Creatinine 0.79 Estimated GFR Greater than 89 Random Glucose 214 H Calcium 8.6 Microbiology 04/24/18 15:00 Wound - Foot Gram Stain - Final 04/24/18 15:00 Wound - Foot Wound Culture - Final Assessment and Plan - Assessment (1) Diabetic foot infection Code(s): E11.628 - Type 2 diabetes mellitus with other skin complications; L08.9 - Local infection of the skin and subcutaneous tissue, unspecified Status: Acute (2) Soft tissue infection of foot Code(s): L08.9 - Local infection of the skin and subcutaneous tissue, unspecified Status: Acute (3) Poorly controlled type 2 diabetes mellitus Code(s): E11.65 - Type 2 diabetes mellitus with hyperglycemia Status: Chronic (4) Hypertension Code(s): I10 - Essential (primary) hypertension Status: Chronic (5) Neuropathy Code(s): G62.9 - Polyneuropathy, unspecified Status: Chronic (6) History of left below knee amputation Code(s): Z89.512 - Status: Chronic (7) Hyperlipidemia Code(s): E78.5 - Hyperlipidemia, unspecified Status: Chronic (8) Mood disorder Code(s): F39 - Unspecified mood [affective] disorder Status: Chronic (9) Nutrition, metabolism, and development symptoms Code(s): R63.8 - Other symptoms and signs concerning food and fluid intake Status: Acute - Plan 48 yr old male with uncontrolled diabetes discharged from the hospital last Saturday (04/20), admitted with worsening diabetic right foot ulcer infection. Previous positive wound culture on 04/15 (last hospitalization) grew Pseudomonas , Proteus, and Staph (see report for details). Podiatry performed bedside debridement and irrigation yesterday with bone biopsy. At this time patient is stable, no leukocytosis, no fevers, and wound cultures with negative Gram Stain. Wound care is on board and following closely. I discussed with Podiatry and Pathology regarding his hospitalization needs. Biopsy results are due to return Saturday afternoon, and in the event this is in fact osteomyelitis, he will need a IV access for continuation of treatment. This patient has had multiple hospitalizations for this same infection, and is a high risk for readmission if discharge at this time. Pathology anticipates a reading by 3 pm this evening. I will reach out to them at that time. Plan: - Awaiting bone biopsy results- likely today by 3 pm - Continue IV antibiotic with Zosyn due to soft tissue infection with positive cultures 04/15. Pending 04/23 biopsy results for possible osteomyelitis. - Continue wound care and pain control. Stop IV morphine 2g PRN to q8hs - Continue Levemir to 35 U AM and PM, Sliding Scale, and metformin 500mg BID. Pt non compliant with diet. Drinking regular soda this morning. Will defer further insulin adjustment to his PCP. - Continue Diabetic diet, PO hydration, and Heparin for DVT prophylaxis. - Chronic medical conditions stable. Continue management as before. Pt seen and discussed with Dr. Alonso. - Attending Attestation The exam, history, and the medical decision-making described in the above note were completed with the assistance of the resident physician. I reviewed and agree with the findings presented. I attest that I had a [id number] encounter with the patient on the same day, and personally performed and documented my assessment and findings in the medical record.
[2018-04-28 16:50] VITALS: BP 159/91; PULSE 88; TEMP 97.5
--- NOTE | 2018-04-28 21:37 | P.PNPOD ---
Subjective Interval history: s/p Right foot bone biopsy Dr Fitzgerald 04/24/18 In NAD this am. Physical Exam Vital signs: Vital Signs 04/28/18 00:00 04/28/18 04:00 04/28/18 08:00 Temperature 97.7 F 98.0 F 97.8 F Pulse Rate 77 75 89 Respiratory Rate 18 18 20 Blood Pressure 148/77 H 168/82 H 165/95 H Pulse Oximetry 98 97 98 04/28/18 12:00 04/28/18 16:00 Temperature 97.7 F 97.5 F L Pulse Rate 82 88 Respiratory Rate 20 20 Blood Pressure 131/81 159/91 H Pulse Oximetry 98 98 Intake & Output 04/28/18 04/28/18 04/29/18 06:59 18:59 06:59 Intake Total 440 / 440 940 / 940 Balance 440 / 440 940 / 940 Intake: IV 200 / 200 100 / 100 Zosyn 4.5 GM Premix 4.5 gm In 200 / 200 100 / 100 100 ml @ 200 mls/hr IV.SIG Q6H [facility] Rx#:[id number] Oral 240 / 240 840 / 840 Other: # Voids 2 4 Narrative: RLE Intact dressing and no strikethrough. Medications and Allergies Active Medications: Active Medications Al Hydroxide/Mg Hydroxide (Milk Of Gennaro Liq) 30 ml PO Q12H PRN PRN Reason: Mild Constipation Aspirin (Ecotrin) 81 mg PO DAILY [facility] Last Admin: 04/28/18 08:02 Dose: 81 mg Atorvastatin Calcium (Lipitor) 40 mg PO DAILY [facility] Last Admin: 04/28/18 08:05 Dose: 40 mg Dextrose (D50w Vial) 50 ml IV.PUSH UNSCH PRN PRN Reason: PER HYPOGLYCEMIA PROTOCOL Gabapentin (Neurontin) 300 mg PO BID@0900,1200 [facility] Last Admin: 04/28/18 11:38 Dose: 300 mg Gabapentin (Neurontin) 600 mg PO HS [facility] Last Admin: 04/27/18 21:11 Dose: 600 mg Gentamicin Sulfate (Gentamicin 0.1% Oint) 1 applicatio TOPICAL DAILY [facility] Last Admin: 04/28/18 08:07 Dose: 1 applicatio Glucagon (Glucagon Inj) 1 mg OTHER UNSCH PRN PRN Reason: for Hypoglycemia Protocol Heparin Sodium (Porcine) (Heparin Inj) 5,000 units SQ Q8H [facility] Last Admin: 04/28/18 17:25 Dose: Not Given Piperacillin/Tazobactam/Dextrose (Zosyn 4.5 Gm Premix) 4.5 gm in 100 mls @ 200 mls/hr IV.SIG Q6H [facility] Last Admin: 04/28/18 17:26 Dose: Not Given Ibuprofen (Motrin) 800 mg PO Q8HR [facility] Last Admin: 04/28/18 13:32 Dose: 800 mg Insulin Aspart (Novolog Insulin Correctional Sugar Inj) 0 unit SQ ACHS [facility]; Protocol Last Admin: 04/28/18 17:25 Dose: Not Given Insulin Detemir (Levemir Inj) 35 unit SQ BID [facility] Last Admin: 04/28/18 08:07 Dose: 35 unit Lisinopril (Prinivil) 20 mg PO BID [facility] Last Admin: 04/28/18 08:04 Dose: 20 mg Loratadine (Claritin) 10 mg PO DAILY [facility] Last Admin: 04/28/18 08:02 Dose: 10 mg Metformin HCl (Glucophage) 500 mg PO BIDPC [facility] Last Admin: 04/28/18 17:18 Dose: 500 mg Miscellaneous (Pill Splitter) 1 each OTHER UNSCH PRN PRN Reason: SEE LABEL COMMENTS Ondansetron HCl (Zofran Inj) 4 mg IV.PUSH Q6H PRN PRN Reason: NAUSEA OR VOMITING Oxycodone HCl (Roxicodone) 10 mg PO Q4H PRN PRN Reason: Pain 1-10 Last Admin: 04/28/18 17:50 Dose: 10 mg Senna/Docusate Sodium (Lena-Colace) 1 tab PO BID [facility] Last Admin: 04/28/18 08:03 Dose: Not Given Sennosides (Senokot) 17.2 mg PO Q12H PRN PRN Reason: Moderate Constipation Sertraline HCl (Zoloft) 25 mg PO DAILY [facility] Last Admin: 04/28/18 08:03 Dose: 25 mg Temazepam (Restoril) 15 mg PO HS PRN PRN Reason: INSOMNIA Last Admin: 04/25/18 00:09 Dose: 15 mg Allergies Allergy/AdvReac Type Severity Reaction Status Date / Time vancomycin Allergy Severe ACUTE Verified 04/23/18 08:10 RENAL FAILURE becaplermin [From Regranex] Allergy Intermediate Swelling Verified 04/23/18 08: 10 tigecycline AdvReac Severe NAUSEA AND Verified 04/23/18 08:10 VOMITING Tetracyclines AdvReac Intermediate Gastrointestinal Verified 04/23/18 08:10 Upset Home Medications Medication Instructions Recorded Confirmed Type aspirin [Aspir-81] 81 mg PO DAILY 02/25/18 04/23/18 History ibuprofen 800 mg PO Q4H PRN 02/25/18 04/23/18 History insulin aspart U-100 [Novolog 1 sliding scale dose SUB-Q QID 02/25/18 04/23/18 History U-100 Insulin aspart] insulin aspart U-100 [Novolog 10 unit SUB-Q BIDAC 02/25/18 04/23/18 History U-100 Insulin aspart] lisinopril 20 mg PO BID 02/25/18 04/23/18 History loratadine [Claritin] 10 mg PO DAILY 02/25/18 04/23/18 History oxycodone 10 mg PO Q4-6H PRN 02/25/18 04/23/18 History rosuvastatin [Crestor] 20 mg PO DAILY 02/25/18 04/23/18 History sertraline [Zoloft] 25 mg PO DAILY 02/25/18 04/23/18 History gabapentin 1 cap BID 04/18/18 04/23/18 History gabapentin 1 dose PO HS 04/18/18 04/23/18 History Results - Labs CBC & Chem 7: 04/28/18 05:23 04/28/18 05:23 Laboratory Results - last 24 hr 04/28/18 04/28/18 04/28/18 05:23 05:23 12:49 WBC 7.0 RBC 4.34 L Hgb 13.2 Hct 38.3 L MCV 88.2 MCH 30.4 MCHC 34.5 RDW 14.1 Plt Count 156 MPV 8.2 Sodium 141 Potassium 3.9 Chloride 106 Carbon Dioxide 27.4 Anion Gap 8 BUN 10 Creatinine 0.79 Estimated GFR Greater than 89 POC Glucose 230 H Random Glucose 214 H Calcium 8.6 Assessment and Plan - Assessment (1) Ulcer of right foot due to type 2 diabetes mellitus Code(s): E11.621 - Type 2 diabetes mellitus with foot ulcer; L97.519 - Non- pressure chronic ulcer of other part of right foot with unspecified severity Status: Acute (2) Diabetic foot infection Code(s): E11.628 - Type 2 diabetes mellitus with other skin complications; L08.9 - Local infection of the skin and subcutaneous tissue, unspecified Status: Acute - Plan OK to d/c f/u Dr Fitzgerald Negative OM Abx per Dr Jauregui
--- NOTE | 2018-05-09 12:20 | P.DS ---
Date of admission: 04/23/18 11:02 Primary care physician: UNKNOWN Brief History from admission: 48 yr old male with uncontrolled T2DM and L below the knee amputation, recently discharged from the hospital last Saturday due to a R foot ulcer, returning to the ED with complains of diarrhea, chills, night sweats, and increasing drainage from the ulcer. He states this ulcer has been present for 18 months but has been progressively improving. During prior hospitalization he did not have osteomyelitis and was treated with IV zosyn 4.5mg daily. His wound cultures grew Pseudomonas, Proteus, and Staph Aureus. He was discharged home on Levaquin 750mg Qday and Clindamycin 300 QID. Pt states taking mediation appropriately. He denies any fevers, he did vomited once, food. He denies any increased pain other than already present. Foot pain is located on the lateral side. He denies any swelling of his extremities, no new erythema or warmth. He states there is an increased fluid drainage of green color. DS: Diagnosis - Discharge Diagnosis (1) Diabetic foot infection Status: Chronic (2) Soft tissue infection of foot Status: Chronic (3) Poorly controlled type 2 diabetes mellitus Status: Chronic (4) Hypertension Status: Chronic (5) Neuropathy Status: Chronic (6) History of left below knee amputation Status: Chronic (7) Hyperlipidemia Status: Chronic (8) Mood disorder Status: Chronic (9) Nutrition, metabolism, and development symptoms Status: Acute DS: Medications - Discharge Medications Prescriptions: insulin detemir U-100 [Levemir U-100 Insulin] 35 unit SUBCUT BID 30 Days #21 ml metformin [Glucophage] 500 mg PO BIDPC 30 Days tab DS: Summary Hospital Course: During this hospitalization Podiatry performed a bedside debridement and bone biopsy. While awaiting for biopsy results, pt was placed on IV Levaquin and Zosyn for 8 days. Bone biopsy returned to be negative for osteomyelitis. pt's diabetes medications were significantly adjusted due to poorly control blood sugars. At the same time, pt was found to be non compliant with his diabetic diet, even while in the hospital. Pt has poor insight on the severity of his illness despite having had a limb amputation already. Pt was discharged home on a stable condition. - Time Spent with Patient Total time spent providing and/or coordinating discharge services: Greater than 30 minutes - Quality: VTE Deep Vein Thrombosis/Pulmonary Embolism Present on Admission: No Exam Narrative: GENERAL: Well nourished. Comfortable, in no acute distress during examination. CARDIOVASCULAR: Regular rate and rhythm without murmurs, gallops, or rubs. RESPIRATORY: Breath sounds equal bilaterally. No accessory muscle use. GASTROINTESTINAL: Abdomen nondistended, positive BS in all quadrants. EXTREMITIES: minimal peripheral edema of bilateral ankles. L below the knee amputation. R foot ulcer on plantar side wrapped in dressing. No drainage observed. Results Procedures completed during hospitalization: Bone debridement and biopsy - Impressions ITS Impressions Foot MRI 04/23/18 00:00 CONCLUSION: 1. Plantar ulceration of the midfoot again seen with increased soft tissue edema/cellulitis. 2. No evidence of abscess. No evidence of osteomyelitis. 3. Extensive bony postsurgical findings and chronic reactive bony findings. Foot X-Ray 04/23/18 07:30 CONCLUSION: 1. Severe Charcot foot deformity as detailed above. 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 Severe flatfoot deformity. 2. Configuration of the osseous deformities are stable with probable resection of the entire third digit and prior osteotomies of the second and fourth metatarsals. I do not see an acute fracture. 3. Superficial ulcer in the mid plantar tissues with no obvious associated osteomyelitis. Discharge Plan - Discharge Disposition Patient Disposition: Discharge Home - Discharge Condition Condition: Stable - Discharge Order Discharge Orders: Discharge Order (Routine); Ordered 04/28/18 Ordered By: Monique Leija - Physicians Team Primary Care Provider: UNKNOWN, Attending Provider: Kim Alonso Other Providers: Araseli Sousa DPM ; Nay Oreilly MD
== END 2018-04-28 18:14 | disposition home or self-care (01) ==
LOC: NEPC 07:12 → NEDA 11:02 → N04 14:15
PROVIDERS: ADMIT Family Medicine; ATTEND Family Medicine

== ENCOUNTER 2018-05-16 08:54 | Inpatient (IN) ==
--- NOTE | 2018-05-16 09:52 | ED ---
HPI General Chief complaint: Nausea/Vomiting/Diarrhea Stated complaint: Confusion Complaint Time Seen by Provider: 05/16/18 09:22 Source: patient Mode of arrival: ambulatory Limitations: no limitations History of Present Illness HPI Narrative: Patient is a 48-year-old male with history of hypertension, hyperlipidemia and diabetes currently taking insulin for this who presents to the emergency room with complaints of nausea, vomiting and diarrhea which has been ongoing for the past few days. Patient reports that he has not been feeling well, reports that he has not eaten anything in 24 hours, reports that he has been having problems keeping anything down. Patient reports that he has been noncompliant with his insulin as well. Patient reports that along with his nausea, vomiting and diarrhea, he is also been having some lower abdominal pain as well as pains to his lower back. Patient reports that nothing makes pain better or worse mom reports that patient appeared just unsteady and confused today and made him come to the emergency room for evaluation despite his resistance to his mom. Related Data Home Medications Medication Instructions Recorded Confirmed aspirin [Aspir-81] 81 mg PO DAILY 02/25/18 05/16/18 ibuprofen 800 mg PO Q4H PRN 02/25/18 04/23/18 insulin aspart U-100 [Novolog 1 sliding scale dose SUB-Q QID 02/25/18 04/23/18 U-100 Insulin aspart] insulin aspart U-100 [Novolog 10 unit SUB-Q BIDAC 02/25/18 04/23/18 U-100 Insulin aspart] lisinopril 20 mg PO BID 02/25/18 05/16/18 loratadine [Claritin] 10 mg PO DAILY 02/25/18 05/16/18 rosuvastatin [Crestor] 10 mg PO HS 02/25/18 05/16/18 sertraline [Zoloft] 25 mg PO DAILY 02/25/18 05/16/18 gabapentin 400 mg PO BID 05/16/18 05/16/18 gabapentin 800 mg PO HS 05/16/18 05/16/18 Previous Rx's Medication Instructions Recorded insulin detemir U-100 [Levemir 25 unit SUB-Q HS #300 units 04/19/18 U-100 Insulin] insulin detemir U-100 [Levemir 28 unit SUB-Q DAILY #300 units 04/19/18 U-100 Insulin] insulin detemir U-100 [Levemir 35 unit SUBCUT BID 30 Days #21 ml 04/28/18 U-100 Insulin] metformin [Glucophage] 500 mg PO BIDPC 30 Days tab 04/28/18 Allergies Allergy/AdvReac Type Severity Reaction Status Date / Time vancomycin Allergy Severe ACUTE Verified 04/23/18 08:10 RENAL FAILURE becaplermin [From Regranex] Allergy Intermediate Swelling Verified 04/23/18 08: 10 tigecycline AdvReac Severe NAUSEA AND Verified 04/23/18 08:10 VOMITING Tetracyclines AdvReac Intermediate Gastrointestinal Verified 04/23/18 08:10 Upset Review of Systems ROS: all other systems reviewed are negative [facility] Medical History Medical History Diabetes mellitus (Acute) Foot ulcer (Acute) HTN (hypertension) (Acute) High cholesterol (Acute) MRSA (methicillin resistant Staphylococcus aureus) infection (Acute) Neuropathy (Acute) Osteomyelitis (Acute) Surgical History Surgical History History of left below knee amputation (Chronic) Family History Family History Other Diabetes Social History Social History Substance History: No History of Abuse Second Hand Smoke Exposure: No Smoking Status: Current every day smoker Tobacco Type: Cigarettes Cigarettes Per Day: 10 How Often Do You Have a Drink Containing Alcohol: Monthly or less Recent Travel in [facility] within the Last 8 Weeks: No Recent Out of Country Travel within the Last 8 Weeks: No Immunization History Tetanus Immunization: Unsure Exam Narrative Exam Narrative: GENERAL: Moderate distress SKIN: Focused skin assessment warm/dry. HEAD: Atraumatic. Normocephalic. EYES: Pupils equal and round. No scleral icterus. No injection or drainage. ENT: No nasal bleeding or discharge. Mucous membranes pink and moist. NECK: Trachea midline. No JVD. CARDIOVASCULAR: Tachycardic. No murmur appreciated. RESPIRATORY: No accessory muscle use. Clear to auscultation. Breath sounds equal bilaterally. GASTROINTESTINAL: Abdomen soft, tender to lower abdomen, nondistended. Hepatic and splenic margins not palpable. MUSCULOSKELETAL: No obvious deformities. No clubbing. No cyanosis. No edema. NEUROLOGICAL: Awake and alert. No obvious cranial nerve deficits. Motor grossly within normal limits. Normal speech. PSYCHIATRIC: Flat mood and affect; insight and judgment normal. Course Initial Documented Vital Signs Temperature 98.8 F 05/16/18 09:01 Pulse Rate 110 H 05/16/18 09:01 Respiratory Rate 20 05/16/18 09:01 Blood Pressure 165/99 H 05/16/18 09:01 Pulse Oximetry 98 05/16/18 09:01 Last Documented Vital Signs Temperature 98.8 F 05/16/18 09:01 Pulse Rate 110 H 05/16/18 09:01 Respiratory Rate 20 05/16/18 09:01 Blood Pressure 165/99 H 05/16/18 09:01 Pulse Oximetry 98 05/16/18 09:01 Medical Decision Making MDM Narrative Medical decision making narrative: During the course of the patients emergency department visit, the patients history, examination, and differential diagnosis were reviewed with the patient. The patient was placed on a patient monitor with oximetry and frequent blood pressure monitoring. The patient had an IV access obtained and blood work sent for analysis. The patient was initially provided IVF as well as IV zofran Patient EKG was reviewed, patient with sinus tachycardia at 102 bpm, QT/QTc 332/ 391, patient with a concerning EKG, he has had previous EKGs which show similar elevations in the inferior lead. Patient's research staff member is Dr. Adair, I did talk to Dr. Spears who was able to review his previous EKGs at the office - EKG's are similar to today's ekg. Patient also with no chest pain Patient's blood sugar was 568, 10 units of insulin was ordered as well as 2 L of IV fluid. Radiology studies were reviewed and remarkable for CTA which was neg for aortic dissection or aneuysm BS now 482 after 2 liter of IVF as well as SQ insulin, plan to admit to hospital for BS control as well as to trend trops Medical Screen Exam Complete: Yes Emergency Medical Condition: Yes Differential Diagnosis Differential Diagnosis: ACS, arrhythmia, gastritis, gastroenteritis, diverticulitis, aortic dissection, DKA Lab Data Result diagrams: 05/16/18 09:40 05/16/18 09:40 Lab Results 05/16/18 05/16/18 05/16/18 Range/Units 09:40 09:40 09:40 WBC 8.8 (4.0-11.0) th/mm3 RBC 5.34 (4.50-5.90) mil/mm3 Hgb 16.1 (13.0-17.0) gm/dL Hct 48.1 (39.0-51.0) % MCV 90.1 (80.0-100.0) fL MCH 30.1 (27.0-34.0) pg MCHC 33.4 (32.0-36.0) % RDW 14.3 (11.6-17.2) % Plt Count 232 D (150-450) th/mm3 MPV 8.9 (7.0-11.0) fL Neut % (Auto) 75.9 H (16.0-70.0) % Lymph % (Auto) 17.8 (9.0-44.0) % [place] % (Auto) 4.3 (0.0-8.0) % Eos % (Auto) 1.5 (0.0-4.0) % Baso % (Auto) 0.5 (0.0-2.0) % Neut # (Auto) 6.7 (1.8-7.7) th/mm3 Lymph # (Auto) 1.6 (1.0-4.8) th/mm3 [place] # (Auto) 0.4 (0.0-0.9) th/mm3 Eos # (Auto) 0.1 (0.0-0.4) th/mm3 Baso # (Auto) 0.0 (0.0-0.2) th/mm3 WBC Differential . Differential Comment Auto diff final PT 10.3 (9.8-11.6) sec INR 1.0 Ratio APTT (24.3-30.1) sec D-Dimer Quant (PE/DVT) 1.20 H (0.00-0.50) mg/L FEU Sodium 131 L (136-145) meq/L Potassium 5.1 (3.5-5.1) meq/L Chloride 97 L (98-107) meq/L Carbon Dioxide 26.6 (21.0-32.0) meq/L Anion Gap 7 (5-15) meq/L BUN 16 (7-18) mg/dL Creatinine 1.11 (0.60-1.30) mg/dL Estimated GFR 71 L (>89) mL/min POC Glucose (68-110) mg/dl Random Glucose 510 H* (74-106) mg/dL Calcium 9.1 (8.5-10.1) mg/dL Magnesium (1.5-2.5) mg/dL Total Bilirubin 0.9 (0.2-1.0) mg/dL AST 19 (15-37) U/L ALT 23 (12-78) U/L Alkaline Phosphatase 133 H (45-117) U/L Total Creatine Kinase 45 (39-308) U/L Troponin I Less than 0.02 L (0.02-0.05) ng/mL B-Natriuretic Peptide (0-100) pg/mL Total Protein 7.5 (6.4-8.2) g/dL Albumin 3.7 (3.4-5.0) g/dL Lipase 49 L (73-393) U/L 05/16/18 05/16/18 05/16/18 Range/Units 09:40 09:40 09:40 WBC (4.0-11.0) th/mm3 RBC (4.50-5.90) mil/mm3 Hgb (13.0-17.0) gm/dL Hct (39.0-51.0) % MCV (80.0-100.0) fL MCH (27.0-34.0) pg MCHC (32.0-36.0) % RDW (11.6-17.2) % Plt Count (150-450) th/mm3 MPV (7.0-11.0) fL Neut % (Auto) (16.0-70.0) % Lymph % (Auto) (9.0-44.0) % [place] % (Auto) (0.0-8.0) % Eos % (Auto) (0.0-4.0) % Baso % (Auto) (0.0-2.0) % Neut # (Auto) (1.8-7.7) th/mm3 Lymph # (Auto) (1.0-4.8) th/mm3 [place] # (Auto) (0.0-0.9) th/mm3 Eos # (Auto) (0.0-0.4) th/mm3 Baso # (Auto) (0.0-0.2) th/mm3 WBC Differential Differential Comment PT (9.8-11.6) sec INR Ratio APTT 25.1 (24.3-30.1) sec D-Dimer Quant (PE/DVT) (0.00-0.50) mg/L FEU Sodium (136-145) meq/L Potassium (3.5-5.1) meq/L Chloride (98-107) meq/L Carbon Dioxide (21.0-32.0) meq/L Anion Gap (5-15) meq/L BUN (7-18) mg/dL Creatinine (0.60-1.30) mg/dL Estimated GFR (>89) mL/min POC Glucose (68-110) mg/dl Random Glucose (74-106) mg/dL Calcium (8.5-10.1) mg/dL Magnesium 1.9 (1.5-2.5) mg/dL Total Bilirubin (0.2-1.0) mg/dL AST (15-37) U/L ALT (12-78) U/L Alkaline Phosphatase (45-117) U/L Total Creatine Kinase (39-308) U/L Troponin I (0.02-0.05) ng/mL B-Natriuretic Peptide 17 (0-100) pg/mL Total Protein (6.4-8.2) g/dL Albumin (3.4-5.0) g/dL Lipase (73-393) U/L 18 Range/Units 12:35 WBC (4.0-11.0) th/mm3 RBC (4.50-5.90) mil/mm3 Hgb (13.0-17.0) gm/dL Hct (39.0-51.0) % MCV (80.0-100.0) fL MCH (27.0-34.0) pg MCHC (32.0-36.0) % RDW (11.6-17.2) % Plt Count (150-450) th/mm3 MPV (7.0-11.0) fL Neut % (Auto) (16.0-70.0) % Lymph % (Auto) (9.0-44.0) % [place] % (Auto) (0.0-8.0) % Eos % (Auto) (0.0-4.0) % Baso % (Auto) (0.0-2.0) % Neut # (Auto) (1.8-7.7) th/mm3 Lymph # (Auto) (1.0-4.8) th/mm3 [place] # (Auto) (0.0-0.9) th/mm3 Eos # (Auto) (0.0-0.4) th/mm3 Baso # (Auto) (0.0-0.2) th/mm3 WBC Differential Differential Comment PT (9.8-11.6) sec INR Ratio APTT (24.3-30.1) sec D-Dimer Quant (PE/DVT) (0.00-0.50) mg/L FEU Sodium (136-145) meq/L Potassium (3.5-5.1) meq/L Chloride (98-107) meq/L Carbon Dioxide (21.0-32.0) meq/L Anion Gap (5-15) meq/L BUN (7-18) mg/dL Creatinine (0.60-1.30) mg/dL Estimated GFR (>89) mL/min POC Glucose 422 H (68-110) mg/dl Random Glucose (74-106) mg/dL Calcium (8.5-10.1) mg/dL Magnesium (1.5-2.5) mg/dL Total Bilirubin (0.2-1.0) mg/dL AST (15-37) U/L ALT (12-78) U/L Alkaline Phosphatase (45-117) U/L Total Creatine Kinase (39-308) U/L Troponin I (0.02-0.05) ng/mL B-Natriuretic Peptide (0-100) pg/mL Total Protein (6.4-8.2) g/dL Albumin (3.4-5.0) g/dL Lipase (73-393) U/L Imaging Data Radiologist's impression: Chest X-Ray 05/16/18 09:37 CONCLUSION: Negative examination. Thoracic Aorta CT 05/16/18 09:37 CONCLUSION: 1. No evidence for aortic dissection or aneurysm. Scattered atherosclerotic plaquing. 2. No acute findings. Discharge Plan Discharge Disposition Patient Disposition: 30 Still Patient Discharge Condition Condition: Fair Discharge Details Diagnosis: Acute hyperglycemia, Increased nausea and vomiting Physicians Team ED Provider: Zahraa Benz Primary Care Provider: Adrián Pineda Rxs /Orders / Referrals /Forms Prescriptions: No Action ibuprofen 800 mg Tablet 800 mg PO Q4H PRN (Reason: Pain) RF: 0 lisinopril 20 mg Tablet 20 mg PO BID RF: 0 aspirin [Aspir-81] 81 mg Tablet,Delayed Release (Dr/Ec) 81 mg PO DAILY RF: 0 insulin aspart U-100 [Novolog U-100 Insulin aspart] 100 unit/mL Solution 10 unit SUB-Q BIDAC RF: 0 insulin aspart U-100 [Novolog U-100 Insulin aspart] 100 unit/mL Solution 1 sliding scale dose SUB-Q QID RF: 0 sertraline [Zoloft] 25 mg Tablet 25 mg PO DAILY RF: 0 loratadine [Claritin] 10 mg Tablet 10 mg PO DAILY RF: 0 rosuvastatin [Crestor] 20 mg Tablet 10 mg PO HS RF: 0 metformin [Glucophage] 500 mg Tablet 500 mg PO BIDPC 30 Days RF: 0 insulin detemir U-100 [Levemir U-100 Insulin] 100 unit/mL Solution 35 unit subcut BID 30 Days Qty: 21 RF: 0 insulin detemir U-100 [Levemir U-100 Insulin] 100 unit/mL Solution 25 unit Sub-Q HS Qty: 300 RF: 0 insulin detemir U-100 [Levemir U-100 Insulin] 100 unit/mL Solution 28 unit Sub-Q DAILY Qty: 300 RF: 0 gabapentin 400 mg Capsule 400 mg PO BID RF: 0 gabapentin 400 mg Capsule 800 mg PO HS RF: 0 Status ED Status: With Doctor
[2018-05-16] MEDS: Sod Chloride 0.9% Inj 1,000 ML IV.SIG SCH ×2 (10:16→10:42)
[2018-05-16 10:17] LABS: Baso % (Auto) 0.5 % (0.0-2.0); Eos # (Auto) 0.1 th/mm3 (0.0-0.4); Eos % (Auto) 1.5 % (0.0-4.0); Hematocrit 48.1 % (39.0-51.0); Hemoglobin 16.1 gm/dL (13.0-17.0); Lymph # (Auto) 1.6 th/mm3 (1.0-4.8); Lymph % (Auto) 17.8 % (9.0-44.0); Mean Corpuscular HGB Conc 33.4 % (32.0-36.0); Mean Corpuscular Hemoglobin 30.1 pg (27.0-34.0); Mean Corpuscular Volume 90.1 fL (80.0-100.0); Mean Platelet Volume 8.9 fL (7.0-11.0); Mono # (Auto) 0.4 th/mm3 (0.0-0.9); Mono % (Auto) 4.3 % (0.0-8.0); Neut # (Auto) 6.7 th/mm3 (1.8-7.7); Neut % (Auto) 75.9 % (16.0-70.0); Platelet Count 232 th/mm3 (150-450); Red Blood Count 5.34 mil/mm3 (4.50-5.90); Red Cell Distribution Width 14.3 % (11.6-17.2); White Blood Count 8.8 th/mm3 (4.0-11.0)
[2018-05-16 10:23] LABS: Prothrombin Time 10.3 sec (9.8-11.6)
--- NOTE | 2018-05-16 10:23 | XR ---
EXAM DATE: 05/16/2018 9:37 AM EDT AGE/SEX: 48 years / Male INDICATIONS: Chest pain and shortness of breath. CLINICAL DATA: This is the patient's initial encounter. Patient reports that signs and symptoms have been present for 1 day and indicates a pain score of 4/10. MEDICAL/SURGICAL HISTORY: Hypertension. Diabetes mellitus type II. None. [place] [facility] [place]. . FINDINGS: A single AP view of the chest demonstrates the lungs to be symmetrically aerated without evidence of mass, infiltrate or effusion. The cardiomediastinal contours are unremarkable. Osseous structures a re intact. CONCLUSION: Negative examination. Electronically signed by: Rom Gardner MD 05/16/2018 10:21 AM EDT
[2018-05-16 10:24] LABS: D-Dimer 1.2 mg/L FEU (0.00-0.50)
[2018-05-16 10:42] LABS: Alanine Aminotransferase 23 U/L (12-78); Albumin 3.7 g/dL (3.4-5.0); Alkaline Phosphatase 133 U/L (45-117); Anion Gap 7 meq/L (5-15); Aspartate Aminotransferase 19 U/L (15-37); Blood Urea Nitrogen 16 mg/dL (7-18); Calcium 9.1 mg/dL (8.5-10.1); Carbon Dioxide 26.6 meq/L (21.0-32.0); Chloride 97 meq/L (98-107); Glomerular Filtration Rate 71 mL/min (>89); Lipase 49 U/L (73-393); Potassium 5.1 meq/L (3.5-5.1); Sodium 131 meq/L (136-145); Total Protein 7.5 g/dL (6.4-8.2)
[2018-05-16 10:45] LABS: Creatine Kinase 45 U/L (39-308); Glucose,Random 510 mg/dL (74-106)
--- NOTE | 2018-05-16 12:13 | CT ---
EXAM DATE: 05/16/2018 9:47 AM EDT AGE/SEX: 48 years / Male INDICATIONS: Nausea, vomiting for two days. CLINICAL DATA: This is the patient's initial encounter. Patient reports that signs and symptoms have been present for 2 days and indicates a pain score of 5/10. MEDICAL/SURGICAL HISTORY: Diabetes. Hypertension. neuropathy, sepsis . left BKA RADIATION DOSE: 17.11 CTDI (mGy) COMPARISON: [facility] [place] – [place] ABDOMEN & PELVIS W CONTRAST, 05/22/2014. . TECHNIQUE: Volumetric scanning was performed using a multi-row detector CT scanner during bolus infu sammy of 95 ml Omnipaque 350 (iohexol) nonionic water-soluble contrast as a single exam dose. The da ta was post processed with a variety of visualization algorithms including full volume maximum intens ity projection, multi-planar sliding thin slab reformation, curved planar reformation, and surface re ndering techniques. Using automated exposure control and adjustment of the mA and/or kV according to patient size, radiation dose was kept as low as reasonably achievable to obtain optimal diagnostic q uality images. DICOM format image data is available electronically for review and comparison. FINDINGS: Lungs are clear. Small pericardial effusion. Fat-containing hernia measuring 4.8 cm in transverse dim ension. Remote fracture deformity of the left proximal femur and bilateral inferior pubic rami and pu bic symphysis. Scattered atherosclerotic calcifications of the aorta are noted. There is no evidence for aortic dissection, high-grade stenosis or aneurysm. Celiac, superior mesenteric, and inferior mes enteric arteries are patent. The gallbladder is distended and there is cholelithiasis. Small bowel, l arge bowel, appendix are normal. No adenopathy. Pancreas, kidneys, adrenals, spleen and liver are nor mal. CONCLUSION: 1. No evidence for aortic dissection or aneurysm. Scattered atherosclerotic plaquing. 2. No acute findings. Electronically signed by: Rom Gardner MD 05/16/2018 12:12 PM EDT
[2018-05-16] MEDS ORDERED: Morphine Inj 4 MG/ML Vial IV.PUSH ONE (12:31)
[2018-05-16 13:58] LABS: Creatine Kinase 38 U/L (39-308)
[2018-05-16] MEDS ORDERED: Insulin Regular (For Infusion) 100 UNIT in Sodium Chlor 0.9% Inj 99 ML IV.CONT PRN (14:13)
[2018-05-16] MEDS ORDERED: Acetaminophen 325 MG Tablet PO PRN (14:20)
--- NOTE | 2018-05-16 14:34 | P.HPIM ---
History of Present Illness Primary Care Physician: Adrián Pineda MD History of Present Illness: This patient is a 48-year-old obese male with a diagnosis of hypertension, dyslipidemia, uncontrolled diabetes on insulin. The patient also has multiple complications from diabetes including a left BKA and currently has a wound on the sole of his right foot that is being cared for by his hitcher. The patient presented with complaints of nausea, vomiting that has been ongoing over the past few days. The patient has not been able to tolerate a p.o. diet or his medications prior to arrival at our facility. He denied having any chest pain or shortness of breath. As per the patient's mother he has also been confused over the past day and he was brought in for evaluation and care. He denies having any diarrhea, mild abdominal pain that he attributes to the nausea and vomiting. He does not have any other complaints. Past medical history hypertension, dyslipidemia, uncontrolled diabetes Past surgical history status post left BKA, incision and drainage for a wound on the sole of his right foot. Family history significant for diabetes Social history the patient admits to tobacco smoking approximately half a pack per day that has been ongoing over the past year. He also admits to smoking tobacco in his 20s on and off for several years. [facility] - History History Provided By: Patient - Medical History Medical History: Medical History (Last Reviewed 05/16/18 @ 09:57 by Zahraa Benz) Diabetes mellitus Foot ulcer HTN (hypertension) High cholesterol MRSA (methicillin resistant Staphylococcus aureus) infection Neuropathy Osteomyelitis - Surgical History Surgical History: Surgical History (Last Reviewed 05/16/18 @ 09:57 by Zahraa Benz) History of left below knee amputation (Chronic) - Family History Family History: Family History (Last Reviewed 05/16/18 @ 09:57 by Zahraa Benz) Other Diabetes - Tobacco History Second Hand Smoke Exposure: No Tobacco Use In Past 30 Days: No Smoking Status: Current every day smoker Tobacco Type: Cigarettes Cigarettes Per Day: 10 - Alcohol History How Often Do You Have a Drink Containing Alcohol: Monthly or less - Substance Use History Substance History: No History of Abuse - Travel History Recent Travel in the [place] Within the Last 8 Weeks: No Recent Travel Out of the Country Within the Last 8 Weeks: No - Immunization History Tetanus Immunization: Unsure Medications and Allergies Active Medications: Active Medications Acetaminophen (Tylenol) 650 mg PO Q4H PRN PRN Reason: PAIN SCALE 1 TO 10 Aspirin (Aspirin) 325 mg PO ONCE ONE Stop: 05/16/18 14:21 Aspirin (Aspirin Chew) 81 mg PO DAILY WANDA Atorvastatin Calcium (Lipitor) 20 mg PO DAILY WANDA Sodium Chloride (Ns Inj) 1,000 mls @ 0 mls/hr IV.SIG BOLUS WANDA Stop: 05/17/18 09:46 Last Infusion: 05/16/18 12:01 Dose: Infused Insulin Human Regular 100 unit (/ Sodium Chloride) 100 mls @ 8 mls/hr IV.CONT TITRATE PRN; Protocol PRN Reason: See protocol Lisinopril (Prinivil) 20 mg PO DAILY WANDA Sertraline HCl (Zoloft) 25 mg PO DAILY WANDA Sodium Chloride (Ns Flush) 2 ml IV.FLUSH UNSCH PRN PRN Reason: FLUSH AFTER USING IV ACCESS Allergies Allergy/AdvReac Type Severity Reaction Status Date / Time vancomycin Allergy Severe ACUTE Verified 04/23/18 08:10 RENAL FAILURE becaplermin [From Regranex] Allergy Intermediate Swelling Verified 04/23/18 08: 10 tigecycline AdvReac Severe NAUSEA AND Verified 04/23/18 08:10 VOMITING Tetracyclines AdvReac Intermediate Gastrointestinal Verified 04/23/18 08:10 Upset Home Medications Medication Instructions Recorded Confirmed Type aspirin [Aspir-81] 81 mg PO DAILY 02/25/18 05/16/18 History ibuprofen 800 mg PO Q4H PRN 02/25/18 04/23/18 History insulin aspart U-100 [Novolog 1 sliding scale dose SUB-Q QID 02/25/18 04/23/18 History U-100 Insulin aspart] insulin aspart U-100 [Novolog 10 unit SUB-Q BIDAC 02/25/18 04/23/18 History U-100 Insulin aspart] lisinopril 20 mg PO BID 02/25/18 05/16/18 History loratadine [Claritin] 10 mg PO DAILY 02/25/18 05/16/18 History rosuvastatin [Crestor] 10 mg PO HS 02/25/18 05/16/18 History sertraline [Zoloft] 25 mg PO DAILY 02/25/18 05/16/18 History gabapentin 400 mg PO BID 05/16/18 05/16/18 History gabapentin 800 mg PO HS 05/16/18 05/16/18 History Exam Vital signs: Vital Signs 05/16/18 09:01 05/16/18 13:18 Temperature 98.8 F Pulse Rate 110 H Respiratory Rate 20 16 Blood Pressure 165/99 H Pulse Oximetry 98 Intake & Output 05/15/18 05/16/18 05/16/18 18:59 06:59 18:59 Intake Total 1999 Balance 1999 Weight 81.647 kg Intake: IV 1999 NS Inj 1,000 ML @ Wide Open IV. 1999 SIG BOLUS WANDA Rx#:[id number] Narrative: General patient complains of nausea. No chest pain, no shortness of breath HEENT extraocular movements are intact, clear oropharyngeal mucosa, no JVD Cardiovascular S1-S2 audible, no chest pain Respiratory clear to auscultation bilaterally Abdomen soft, nontender, nondistended, normal bowel sounds Extremities status post left BKA, approximately 4 x 3 cm ulceration on the sole the right foot wound appears clean no signs of infection. Neuro no neurological deficits patient moves all 4 extremities and sensation is intact bilaterally Results - Labs CBC & Chem 7: 05/16/18 09:40 05/16/18 09:40 Labs: Short CBC 05/16/18 Range/Units 09:40 WBC 8.8 (4.0-11.0) th/mm3 Hgb 16.1 (13.0-17.0) gm/dL Hct 48.1 (39.0-51.0) % Plt Count 232 D (150-450) th/mm3 BMP 05/16/18 09:40 Sodium 131 L Potassium 5.1 Chloride 97 L Carbon Dioxide 26.6 BUN 16 Creatinine 1.11 Calcium 9.1 Cardiac Enzymes 05/16/18 05/16/18 Range/Units 09:40 13:00 Total Creatine Kinase 45 38 L (39-308) U/L Troponin I Less than 0.02 L Less than 0.02 L (0.02-0.05) ng/mL Liver Function 05/16/18 Range/Units 09:40 Total Bilirubin 0.9 (0.2-1.0) mg/dL AST 19 (15-37) U/L ALT 23 (12-78) U/L Alkaline Phosphatase 133 H (45-117) U/L Albumin 3.7 (3.4-5.0) g/dL - Imaging Impressions Chest X-Ray 05/16/18 09:37 CONCLUSION: Negative examination. Thoracic Aorta CT 05/16/18 09:37 CONCLUSION: 1. No evidence for aortic dissection or aneurysm. Scattered atherosclerotic plaquing. 2. No acute findings. Caprini VTE Risk Assessment Caprini VTE Risk Assessment: Moderate/High Risk (score >= 2) (Heparin for DVT prophylaxis) Caprini Risk Assessment Model: Point Value = 1 Point Value = 2 Point Value = 3 Point Value = 5 Age 41-60 Minor surgery BMI > 25 kg/m2 Swollen legs Varicose veins or History of unexplained or recurrent spontaneous Oral contraceptives or hormone replacement Sepsis (< 1 month) Serious lung disease, including pneumonia (< 1 month) Abnormal pulmonary function Acute myocardial infarction Congestive heart failure (< 1 month) History of inflammatory bowel disease Medical patient at bed rest Age 61-74 Arthroscopic surgery Major open surgery (> 45 min) Laparoscopic surgery (> 45 min) Malignancy Confined to bed (> 72 hours) Immobilizing plaster cast Central venous access Age >= 75 History of VTE Family history of VTE Factor V Leiden Prothrombin [id number] Lupus anticoagulant Anticardiolipin antibodies Elevated serum homocysteine Heparin-induced thrombocytopenia Other congenital or acquired thrombophilia Stroke (< 1 month) Elective arthroplasty Hip, pelvis, or leg fracture Acute spinal cord injury (< 1 month) Prophylaxis Regimen: Total Risk Factor Score Risk Level Prophylaxis Regimen 0-1 Low Early ambulation 2 Moderate Order ONE of the following: *Sequential Compression Device (SCD) *Heparin 5000 units SQ BID 3-4 Higher Order ONE of the following medications: *Heparin 5000 units SQ TID *Enoxaparin/Lovenox 40 mg SQ daily (WT < 150 kg, CrCl > 30 mL/min) *Enoxaparin/Lovenox 30 mg SQ daily (WT < 150 kg, CrCl > 10-29 mL/min) *Enoxaparin/Lovenox 30 mg SQ BID (WT < 150 kg, CrCl > 30 mL/min) AND/OR *Sequential Compression Device (SCD) 5 or more Highest Order ONE of the following medications: *Heparin 5000 units SQ TID (Preferred with Epidurals) *Enoxaparin/Lovenox 40 mg SQ daily (WT < 150 kg, CrCl > 30 mL/min) *Enoxaparin/Lovenox 30 mg SQ daily (WT < 150 kg, CrCl > 10-29 mL/min) *Enoxaparin/Lovenox 30 mg SQ BID (WT < 150 kg, CrCl > 30 mL/min) AND *Sequential Compression Device (SCD) Assessment and Plan - Plan This patient is a 48-year-old obese male with a diagnosis of hypertension, dyslipidemia, uncontrolled diabetes on insulin. The patient also has multiple complications from diabetes including a left BKA and currently has a wound on the sole of his right foot that is being cared for by his hitcher. The patient presented with complaints of nausea, vomiting that has been ongoing over the past few days. The patient has not been able to tolerate a p.o. diet or his medications prior to arrival at our facility. He denied having any chest pain or shortness of breath. As per the patient's mother he has also been confused over the past day and he was brought in for evaluation and care. 1. Acute encephalopathy likely secondary to HHS 2. Uncontrolled diabetes The patient presented with an elevated blood sugar above 500. Initially he was also altered according to the patient's mother. On my evaluation the patient's mental status has improved he is currently alert and oriented x3 and responding to my questions and commands appropriately. He received multiple pushes of IV insulin in the emergency department however his blood sugars are still above 450. He will be started on an insulin drip and admitted to the critical care unit. He still having some nausea however says he feels better after the initiation of IV fluids. He will be kept n.p.o., once his blood sugars are under control he will be transitioned to basal insulin and a sliding scale. After his appetite has improved he will also be started on a diabetic diet. 3. Concerning changes on EKG Initial EKG in the emergency department shows sinus rhythm slight ST segment elevations in the inferior leads. As per Dr. Benz in the emergency department the EKGs were discussed with Dr. Spears from cardiology and his previous EKGs were reviewed at the patient's clinic and showed similar changes. The patient currently does not have any complaints of shortness of breath or chest pain. 2 sets of cardiac enzymes and troponins are negative I will follow-up with third set. The patient was given aspirin in the emergency department he will be continued on aspirin, and a statin. 4. Right foot ulceration The patient has a significant ulceration on the bottom of his right foot. The wound currently looks clean no signs of infection. The patient has been receiving wound care for the ulceration. 5. Hypertension The patient's antihypertensives will be restarted. His nausea has improved and he should be able to tolerate p.o. medications. Heparin for DVT prophylaxis.
[2018-05-16] MEDS ORDERED: Aspirin 325 MG Tablet PO ONE (15:15)
[2018-05-16] MEDS ORDERED: Dextrose 50% in Water 50 ML Vial IV.PUSH PRN (16:07)
[2018-05-16 17:51] LABS: Creatine Kinase 29 U/L (39-308)
[2018-05-16] MEDS: Morphine Inj 4 MG/ML Vial IV.PUSH PRN ×2 (18:01→23:51)
--- NOTE | 2018-05-16 18:14 | ECG ---
Date Performed: 05/16/2018 Time Performed: 09:25:08 PTAGE: 48 years EKG: SINUS TACHYCARDIA POSSIBLE ANTERIOR MYOCARDIAL INFARCTION ST ELEVATION, CONSIDER INFERIOR I NJURY OF UNDETERMINED AGE, BUT PROBABLY OLDER SLIGHT ST ELEVATION ANTEROLATERALLY, THIS HAS APPEARANC E OF EARLY REPOLARIZATION VERSUS PREVIOUS INFEROLATERAL INJURY Since the PREVIOUS TRACING , no significant change noted Clinical correlation is recommended PREVIO US TRACIN04/15/2018 08.23 DOCTOR: Denton Yip Interpretating Date/Time 05/16/2018 18:13:53
[2018-05-16] MEDS: Insulin NovoLOG Aspart Correctional Sugar Inj SQ SCH ×2 (18:27→22:01)
[2018-05-16] MEDS: Insulin Detemir Inj 1,000 UNIT/10 ML Vial SQ SCH (21:59)
[2018-05-16] MEDS: Heparin - SQ 10,000 UNITS/ML Vial SQ SCH (22:01)
[2018-05-16] MEDS: Lisinopril 20 MG Tablet PO SCH (22:05)
[2018-05-17] MEDS: Morphine Inj 4 MG/ML Vial IV.PUSH PRN ×3 (06:00→20:38)
[2018-05-17] MEDS ORDERED: Sertraline 50 MG Tablet PO SCH (09:00)
[2018-05-17] MEDS ORDERED: Lisinopril 20 MG Tablet PO SCH (09:00)
[2018-05-17] MEDS ORDERED: Gabapentin 400 MG Capsule PO SCH ×2 (09:00→21:00)
[2018-05-17] MEDS: Heparin - SQ 10,000 UNITS/ML Vial SQ SCH ×2 (09:11→20:38)
[2018-05-17] MEDS: Gabapentin 400 MG Capsule PO SCH ×2 (09:12→18:05)
[2018-05-17] MEDS: Sertraline 50 MG Tablet PO SCH (09:12)
[2018-05-17] MEDS: Insulin NovoLOG Aspart Correctional Sugar Inj SQ SCH ×4 (09:13→22:08)
[2018-05-17] MEDS: Loratadine 10 MG Tablet PO SCH (09:13)
[2018-05-17] MEDS: Insulin Detemir Inj 1,000 UNIT/10 ML Vial SQ SCH (09:14)
[2018-05-17] MEDS: Lisinopril 20 MG Tablet PO SCH ×2 (09:14→20:38)
--- NOTE | 2018-05-17 09:50 | P.PN ---
Subjective Interval history: Follow-up diabetes mellitus. States he is feeling much better. Yesterday he was confused because of hypoglycemia. Confirms he takes Levemir 30 6 in the morning and 38 units at bedtime and metformin. Physical Exam Vital signs: Vital Signs 05/16/18 13:18 05/16/18 18:00 05/16/18 18:28 Temperature 97.9 F Pulse Rate 88 Respiratory Rate 16 16 18 Blood Pressure 137/96 H Pulse Oximetry 99 05/16/18 20:00 05/16/18 21:00 05/17/18 00:00 Temperature 99.2 F 97.7 F Pulse Rate 74 76 81 Respiratory Rate 16 17 Blood Pressure 153/99 H 151/98 H Pulse Oximetry 99 98 05/17/18 04:00 05/17/18 08:00 05/17/18 09:00 Temperature 98.2 F 98.4 F Pulse Rate 74 78 72 Respiratory Rate 16 16 Blood Pressure 146/80 H 165/99 H Pulse Oximetry 97 100 Intake & Output 05/16/18 05/17/18 05/17/18 18:59 06:59 18:59 Intake Total 1999 360 / 360 Output Total 0 / 0 Balance 1999 360 / 360 Weight 81.647 kg 81.6 kg Intake: IV 1999 NS Inj 1,000 ML @ Wide Open IV. 1999 SIG BOLUS WANDA Rx#:[id number] Oral 0 / 0 360 / 360 Output: Urine 0 / 0 Other: Post Void Residual 0 # Voids 2 # Urine Diapers 0 Date of Last Bowel Movement 05/16/18 05/16/18 05/16/18 Narrative: General well-developed and well-nourished HEENT extraocular movements are intact, clear oropharyngeal mucosa, no JVD Cardiovascular S1-S2 audible, no chest pain Respiratory clear to auscultation bilaterally Abdomen soft, nontender, nondistended, normal bowel sounds Extremities status post left BKA, approximately 4 x 3 cm ulceration on the sole the right foot wound appears clean no signs of infection. Neuro no neurological deficits patient moves all 4 extremities and sensation is intact bilaterally Results - Labs CBC & Chem 7: 05/16/18 09:40 05/16/18 09:40 Laboratory Results - last 24 hr 05/16/18 05/16/18 05/16/18 09:40 09:40 09:40 WBC 8.8 RBC 5.34 Hgb 16.1 Hct 48.1 MCV 90.1 MCH 30.1 MCHC 33.4 RDW 14.3 Plt Count 232 D MPV 8.9 Neut % (Auto) 75.9 H Lymph % (Auto) 17.8 Bond % (Auto) 4.3 Eos % (Auto) 1.5 Baso % (Auto) 0.5 Neut # (Auto) 6.7 Lymph # (Auto) 1.6 Bond # (Auto) 0.4 Eos # (Auto) 0.1 Baso # (Auto) 0.0 WBC Differential . Differential Comment Auto diff final PT 10.3 INR 1.0 APTT D-Dimer Quant (PE/DVT) 1.20 H Sodium 131 L Potassium 5.1 Chloride 97 L Carbon Dioxide 26.6 Anion Gap 7 BUN 16 Creatinine 1.11 Estimated GFR 71 L POC Glucose Random Glucose 510 H* Calcium 9.1 Magnesium Total Bilirubin 0.9 AST 19 ALT 23 Alkaline Phosphatase 133 H Total Creatine Kinase 45 Troponin I Less than 0.02 L B-Natriuretic Peptide Total Protein 7.5 Albumin 3.7 Lipase 49 L 05/16/18 05/16/18 05/16/18 09:40 09:40 09:40 WBC RBC Hgb Hct MCV MCH MCHC RDW Plt Count MPV Neut % (Auto) Lymph % (Auto) Bond % (Auto) Eos % (Auto) Baso % (Auto) Neut # (Auto) Lymph # (Auto) Bond # (Auto) Eos # (Auto) Baso # (Auto) WBC Differential Differential Comment PT INR APTT 25.1 D-Dimer Quant (PE/DVT) Sodium Potassium Chloride Carbon Dioxide Anion Gap BUN Creatinine Estimated GFR POC Glucose Random Glucose Calcium Magnesium 1.9 Total Bilirubin AST ALT Alkaline Phosphatase Total Creatine Kinase Troponin I B-Natriuretic Peptide 17 Total Protein Albumin Lipase 05/16/18 05/16/18 05/16/18 12:35 13:00 15:59 WBC RBC Hgb Hct MCV MCH MCHC RDW Plt Count MPV Neut % (Auto) Lymph % (Auto) Bond % (Auto) Eos % (Auto) Baso % (Auto) Neut # (Auto) Lymph # (Auto) Bond # (Auto) Eos # (Auto) Baso # (Auto) WBC Differential Differential Comment PT INR APTT D-Dimer Quant (PE/DVT) Sodium Potassium Chloride Carbon Dioxide Anion Gap BUN Creatinine Estimated GFR POC Glucose 422 H 287 H Random Glucose Calcium Magnesium Total Bilirubin AST ALT Alkaline Phosphatase Total Creatine Kinase 38 L Troponin I Less than 0.02 L B-Natriuretic Peptide Total Protein Albumin Lipase 05/16/18 05/16/18 05/16/18 16:40 17:09 21:58 WBC RBC Hgb Hct MCV MCH MCHC RDW Plt Count MPV Neut % (Auto) Lymph % (Auto) Bond % (Auto) Eos % (Auto) Baso % (Auto) Neut # (Auto) Lymph # (Auto) Bond # (Auto) Eos # (Auto) Baso # (Auto) WBC Differential Differential Comment PT INR APTT D-Dimer Quant (PE/DVT) Sodium Potassium Chloride Carbon Dioxide Anion Gap BUN Creatinine Estimated GFR POC Glucose 283 H 280 H Random Glucose Calcium Magnesium Total Bilirubin AST ALT Alkaline Phosphatase Total Creatine Kinase 29 L Troponin I Less than 0.02 L B-Natriuretic Peptide Total Protein Albumin Lipase 05/17/18 07:59 WBC RBC Hgb Hct MCV MCH MCHC RDW Plt Count MPV Neut % (Auto) Lymph % (Auto) Bond % (Auto) Eos % (Auto) Baso % (Auto) Neut # (Auto) Lymph # (Auto) Bond # (Auto) Eos # (Auto) Baso # (Auto) WBC Differential Differential Comment PT INR APTT D-Dimer Quant (PE/DVT) Sodium Potassium Chloride Carbon Dioxide Anion Gap BUN Creatinine Estimated GFR POC Glucose 358 H Random Glucose Calcium Magnesium Total Bilirubin AST ALT Alkaline Phosphatase Total Creatine Kinase Troponin I B-Natriuretic Peptide Total Protein Albumin Lipase - Imaging ITS Impressions Chest X-Ray 05/16/18 09:37 CONCLUSION: Negative examination. Thoracic Aorta CT 05/16/18 09:37 CONCLUSION: 1. No evidence for aortic dissection or aneurysm. Scattered atherosclerotic plaquing. 2. No acute findings. Assessment and Plan - Plan This patient is a 48-year-old obese male with a diagnosis of hypertension, dyslipidemia, uncontrolled diabetes on insulin. 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 The patient presented with complaints of nausea, vomiting that has been ongoing over the past few days. The patient has not been able to tolerate a p.o. diet or his medications prior to arrival at our facility. He denied having any chest pain or shortness of breath. As per the patient's mother he has also been confused over the past day and he was brought in for evaluation and care. 1. Acute encephalopathy likely secondary to HHS. Resolved 2. Uncontrolled diabetes. Patient noncompliant refuse long-acting insulin last night. Counseled. Continue long-acting insulin and restart metformin and IV hydration. Monitor fingersticks with sliding scale coverage. Diabetic education 3. Concerning changes on EKG Initial EKG in the emergency department shows sinus rhythm slight ST segment elevations in the inferior leads. As per Dr. Benz in the emergency department the EKGs were discussed with Dr. Spears from cardiology and his previous EKGs were reviewed at the patient's clinic and showed similar changes. The patient currently does not have any complaints of shortness of breath or chest pain. Patient ruled out for [place] he will be continued on aspirin, and a statin. 4. Right foot ulceration The patient has a significant ulceration on the bottom of his right foot. The wound currently looks clean no signs of infection. The patient has been receiving wound care for the ulceration. 5. Hypertension The patient's antihypertensives will be restarted. His nausea has improved and he should be able to tolerate p.o. medications. Heparin for DVT prophylaxis. Discharge Planning: Home in 1-2 days
[2018-05-17] MEDS ORDERED: Dextrose 50% in Water 50 ML Vial IV.PUSH PRN (09:56)
[2018-05-17] MEDS ORDERED: Naloxone Inj 0.4 MG/ML Vial IV.PUSH PRN (11:03)
[2018-05-17] MEDS: oxyCODONE/Acetaminophen 10/325 Tablet PO PRN ×2 (11:43→18:01)
[2018-05-17] MEDS: Sod Chloride 0.9% Inj 1,000 ML IV.CONT SCH ×2 (11:43→21:45)
--- NOTE | 2018-05-17 15:23 | P.DCO ---
- Diagnosis (1) Acute hyperglycemia Status: Acute (2) Increased nausea and vomiting Status: Acute - Physical Therapy Order: Evaluate and treat, Improve ambulation, Strength and gait training - Home Health Nursing Order: Medical education, Diabetic education, Medication education-adverse effect, Nursing assessment with vital signs - Case Management Consult Yes - Certification I have seen patient Juventino Weller on 05/17/18. My clinical findings support the need for the requested home health care services because: Deconditioned with increased weakness I certify that my clinical findings support that this patient is homebound because: Unsteady gait/balance
--- NOTE | 2018-05-17 20:12 | ECG ---
Date Performed: 05/16/2018 Time Performed: 20:44:31 PTAGE: 48 years EKG: Sinus rhythm DIFFUSE ST ELEVATION, PROBABLY EARLY REPOLARIZATION BORDERLINE ECG PREVIOUS TRACING : 05/16/2018 09.25 Since the previous tracing, no significant change noted DOCTOR: Kiya Donnelly Interpretating Date/Time 05/17/2018 20:10:40
[2018-05-17] MEDS ORDERED: Insulin Detemir Inj 1,000 UNIT/10 ML Vial SQ SCH (21:00)
[2018-05-18] MEDS: oxyCODONE/Acetaminophen 10/325 Tablet PO PRN ×3 (01:00→13:33)
[2018-05-18] MEDS: Morphine Inj 4 MG/ML Vial IV.PUSH PRN ×2 (03:05→09:11)
[2018-05-18] MEDS: Sod Chloride 0.9% Inj 1,000 ML IV.CONT SCH (06:10)
[2018-05-18 08:33] VITALS: O2SAT 99
[2018-05-18] MEDS ORDERED: Insulin Detemir Inj 1,000 UNIT/10 ML Vial SQ SCH (09:00)
--- NOTE | 2018-05-18 09:11 | P.PN ---
Subjective Interval history: Follow-up diabetes mellitus. He is doing okay. Fingersticks improving. Blood pressure suboptimal agrees to be started on beta-jordan. Physical Exam Vital signs: Vital Signs 05/17/18 12:00 05/17/18 16:00 05/17/18 16:45 Temperature 98.6 F 98.0 F 98.0 F Pulse Rate 90 81 81 Respiratory Rate 18 18 18 Blood Pressure 137/84 148/87 H 148/87 H Pulse Oximetry 99 95 95 05/17/18 20:00 05/18/18 00:00 05/18/18 04:00 Temperature 98.1 F 97.7 F 97.2 F L Pulse Rate 80 76 75 Respiratory Rate 16 16 16 Blood Pressure 139/94 H 120/69 150/93 H Pulse Oximetry 99 98 97 05/18/18 08:00 Temperature 98.5 F Pulse Rate 89 Respiratory Rate 17 Blood Pressure 159/93 H Pulse Oximetry 99 Intake & Output 05/17/18 05/18/18 05/18/18 18:59 06:59 18:59 Intake Total 1000 / 1000 Output Total 1500 / 1500 1125 / 1125 Balance -1500 / -1500 -125 / -125 Weight 81.2 kg Intake: IV 1000 / 1000 NS Inj 1,000 ML @ 100 mls/hr IV 1000 / 1000 .CONT .Q10H WANDA Rx#:[id number] Output: Urine 1500 / 1500 1125 / 1125 Other: Date of Last Bowel Movement 05/16/18 05/16/18 05/16/18 Narrative: General well-developed and well-nourished HEENT extraocular movements are intact, clear oropharyngeal mucosa, no JVD Cardiovascular S1-S2 audible, no chest pain Respiratory clear to auscultation bilaterally Abdomen soft, nontender, nondistended, normal bowel sounds Extremities status post left BKA, approximately 4 x 3 cm ulceration on the sole the right foot wound appears clean no signs of infection. Neuro no neurological deficits patient moves all 4 extremities and sensation is intact bilaterally Results - Labs CBC & Chem 7: 05/16/18 09:40 05/16/18 09:40 Laboratory Results - last 24 hr 05/17/18 05/17/18 05/17/18 11:52 16:47 22:01 POC Glucose 390 H 323 H 168 H 05/18/18 08:22 POC Glucose 183 H Microbiology 05/16/18 09:45 Blood - Peripheral Aerobic Blood Culture - Preliminary No growth in 1 day 05/16/18 09:45 Blood - Peripheral Anaerobic Blood Culture - Preliminary No growth in 1 day 05/16/18 09:40 Blood - Peripheral Aerobic Blood Culture - Preliminary No growth in 1 day 05/16/18 09:40 Blood - Peripheral Anaerobic Blood Culture - Preliminary No growth in 1 day Assessment and Plan - Assessment (1) Acute hyperglycemia Code(s): R73.9 - Hyperglycemia, unspecified Status: Acute (2) Increased nausea and vomiting Code(s): R11.2 - Nausea with vomiting, unspecified Status: Acute - Plan This patient is a 48-year-old obese male with a diagnosis of hypertension, dyslipidemia, uncontrolled diabetes on insulin. 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 The patient presented with complaints of nausea, vomiting that has been ongoing over the past few days. The patient has not been able to tolerate a p.o. diet or his medications prior to arrival at our facility. He denied having any chest pain or shortness of breath. As per the patient's mother he has also been confused over the past day and he was brought in for evaluation and care. 1. Acute encephalopathy likely secondary to HHS. Resolved 2. Uncontrolled diabetes. Improving. Continue long-acting insulin and metformin s/p IV hydration. Monitor fingersticks with sliding scale coverage. Diabetic education 3. Concerning changes on EKG Initial EKG in the emergency department shows sinus rhythm slight ST segment elevations in the inferior leads. As per Dr. Benz in the emergency department the EKGs were discussed with Dr. Spears from cardiology and his previous EKGs were reviewed at the patient's clinic and showed similar changes. The patient currently does not have any complaints of shortness of breath or chest pain. Patient ruled out for [place] he will be continued on aspirin, and statin. Start beta-jordan. Outpatient follow 4. Right foot ulceration The patient has a significant ulceration on the bottom of his right foot. The wound currently looks clean no signs of infection. The patient has been receiving wound care for the ulceration. 5. Hypertension. Continue Norvasc. Add beta-jordan for better control. Heparin for DVT prophylaxis. Discharge Planning: Stable for discharge today Discharge patient to home Condition on discharge: Improved Regular Diet as tolerated Ad Iliana activity Rx written: Yaya Follow-up with primary care physician
[2018-05-18] MEDS: Heparin - SQ 10,000 UNITS/ML Vial SQ SCH (09:12)
[2018-05-18] MEDS: Gabapentin 400 MG Capsule PO SCH (09:12)
[2018-05-18] MEDS: Sertraline 50 MG Tablet PO SCH (09:12)
[2018-05-18] MEDS: Lisinopril 20 MG Tablet PO SCH (09:13)
[2018-05-18] MEDS: Insulin NovoLOG Aspart Correctional Sugar Inj SQ SCH ×2 (09:13→12:49)
[2018-05-18] MEDS: Loratadine 10 MG Tablet PO SCH (09:13)
[2018-05-18] MEDS ORDERED: Metoprolol Tartrate 25 MG Tablet PO SCH (11:30)
[2018-05-18 12:05] VITALS: BP 146/87; PULSE 82; RESP 18; TEMP 98.4
--- NOTE | 2018-05-18 14:21 | P.DS ---
Date of admission: 05/16/18 14:24 Primary care physician: Adrián Pineda MD Brief History from admission: This patient is a 48-year-old obese male with a diagnosis of hypertension, dyslipidemia, uncontrolled diabetes on insulin. 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 The patient presented with complaints of nausea, vomiting that has been ongoing over the past few days. The patient has not been able to tolerate a p.o. diet or his medications prior to arrival at our facility. He denied having any chest pain or shortness of breath. As per the patient's mother he has also been confused over the past day and he was brought in for evaluation and care. He denies having any diarrhea, mild abdominal pain that he attributes to the nausea and vomiting. He does not have any other complaints. Past medical history hypertension, dyslipidemia, uncontrolled diabetes Past surgical history status post left BKA, incision and drainage for a wound on the sole of his right foot. Family history significant for diabetes Social history the patient admits to tobacco smoking approximately half a pack per day that has been ongoing over the past year. He also admits to smoking tobacco in his 20s on and off for several years. DS: Diagnosis - Discharge Diagnosis (1) Acute hyperglycemia Status: Acute (2) Increased nausea and vomiting Status: Acute DS: Medications - Discharge Medications Prescriptions: metoprolol tartrate 25 mg PO BID #60 tab DS: Summary Hospital Course: This patient is a 48-year-old obese male with a diagnosis of hypertension, dyslipidemia, uncontrolled diabetes on insulin. 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 The patient presented with complaints of nausea, vomiting that has been ongoing over the past few days. The patient has not been able to tolerate a p.o. diet or his medications prior to arrival at our facility. He denied having any chest pain or shortness of breath. As per the patient's mother he has also been confused over the past day and he was brought in for evaluation and care. 1. Acute encephalopathy likely secondary to HHS. Resolved 2. Uncontrolled diabetes. Improving. Continue long-acting insulin and metformin s/p IV hydration. Monitor fingersticks with sliding scale coverage. Diabetic education 3. Concerning changes on EKG Initial EKG in the emergency department shows sinus rhythm slight ST segment elevations in the inferior leads. As per Dr. Benz in the emergency department the EKGs were discussed with Dr. Spears from cardiology and his previous EKGs were reviewed at the patient's clinic and showed similar changes. The patient currently does not have any complaints of shortness of breath or chest pain. Patient ruled out for MD he will be continued on aspirin, and statin. Start beta-jordan. Outpatient follow 4. Right foot ulceration The patient has a significant ulceration on the bottom of his right foot. The wound currently looks clean no signs of infection. The patient has been receiving wound care for the ulceration. 5. Hypertension. Continue Norvasc. Add beta-jordan for better control. Heparin for DVT prophylaxis. - Time Spent with Patient Total time spent providing and/or coordinating discharge services: Greater than 30 minutes - Quality: VTE Deep Vein Thrombosis/Pulmonary Embolism Present on Admission: No Exam Vital signs: Vital Signs 05/17/18 16:00 05/17/18 16:45 05/17/18 20:00 Temperature 98.0 F 98.0 F 98.1 F Pulse Rate 81 81 80 Respiratory Rate 18 18 16 Blood Pressure 148/87 H 148/87 H 139/94 H Pulse Oximetry 95 95 99 05/18/18 00:00 05/18/18 04:00 05/18/18 08:00 Temperature 97.7 F 97.2 F L 98.5 F Pulse Rate 76 75 89 Respiratory Rate 16 16 17 Blood Pressure 120/69 150/93 H 159/93 H Pulse Oximetry 98 97 99 05/18/18 09:00 05/18/18 12:00 Temperature 98.4 F Pulse Rate 81 82 Respiratory Rate 18 Blood Pressure 146/87 H Pulse Oximetry 99 Intake & Output 05/17/18 05/18/18 05/18/18 18:59 06:59 18:59 Intake Total 1000 / 1000 200 / 200 Output Total 1500 / 1500 1125 / 1125 1200 / 1200 Balance -1500 / -1500 -125 / -125 -1000 / -1000 Weight 81.2 kg Intake: IV 1000 / 1000 200 / 200 NS Inj 1,000 ML @ 100 mls/hr IV 1000 / 1000 200 / 200 .CONT .Q10H WANDA Rx#:[id number] Output: Urine 1500 / 1500 1125 / 1125 1200 / 1200 Other: Date of Last Bowel Movement 05/16/18 05/16/18 05/16/18 Narrative: General well-developed and well-nourished HEENT extraocular movements are intact, clear oropharyngeal mucosa, no JVD Cardiovascular S1-S2 audible, no chest pain Respiratory clear to auscultation bilaterally Abdomen soft, nontender, nondistended, normal bowel sounds Extremities status post left BKA, approximately 4 x 3 cm ulceration on the sole the right foot wound appears clean no signs of infection. Neuro no neurological deficits patient moves all 4 extremities and sensation is intact bilaterally Results Procedures completed during hospitalization: none Labs on day of discharge: Labs from last 24 hours 05/18/18 05/18/18 05/17/18 12:33 08:22 22:01 POC Glucose 231 H 183 H 168 H 05/17/18 16:47 POC Glucose 323 H Preliminary micro results at discharge 05/16/18 09:45 Aerobic Blood Culture - Preliminary Blood - Peripheral No growth in 2 days Anaerobic Blood Culture - Preliminary No growth in 2 days 05/16/18 09:40 Aerobic Blood Culture - Preliminary Blood - Peripheral No growth in 2 days Anaerobic Blood Culture - Preliminary No growth in 2 days - Impressions ITS Impressions Chest X-Ray 05/16/18 09:37 CONCLUSION: Negative examination. Thoracic Aorta CT 05/16/18 09:37 CONCLUSION: 1. No evidence for aortic dissection or aneurysm. Scattered atherosclerotic plaquing. 2. No acute findings. Discharge Plan - Discharge Disposition Patient Disposition: Disch W/Home Health Service - Discharge Condition Condition: Fair - Discharge Order Discharge Orders: Discharge Order (Routine); Ordered 05/18/18 Ordered By: Corey Martinez - Discharge Details Discharge Comment: dc after seen by me today - Physicians Team Primary Care Provider: Adrián Pineda Attending Provider: Corey Martinez
== END 2018-05-18 14:09 | disposition home or self-care (01) ==
LOC: NEPE 08:54 → NEDA 14:24 → N06 16:49
PROVIDERS: ADMIT Internal Medicine; ATTEND Internal Medicine

== ENCOUNTER 2018-06-26 07:15 | Inpatient (IN) ==
[2018-06-26] MEDS ORDERED: Sod Chloride 0.9% Inj 1,000 ML IV.SIG SCH (07:45)
--- NOTE | 2018-06-26 07:49 | ED ---
HPI General Chief complaint: Nausea/Vomiting/Diarrhea Stated complaint: Blood Sugar/Nausea/Vomitting Complaint Time Seen by Provider: 06/26/18 07:34 Source: patient Mode of arrival: ambulatory Limitations: no limitations History of Present Illness HPI Narrative: Patient is 48 years old and complains of nausea vomiting for the past 24 hours or so. He was seen here yesterday and workup revealed hyperglycemia which resolved after IV fluids and insulin. The patient went home with Zofran which he states was initially helpful. Nausea vomiting has since returned. Emesis is nonbloody. No diarrhea. Generalized constant abdominal pain is reported. The patient states he has been unable to take his Percocet as he normally does due to nausea vomiting. Compliance with insulin is reported. She recently underwent skin graft done by Dr. Salinas of podiatry. He saw Dr. Salinas yesterday in the office and was started on penicillin due to an elevation in white blood cell count however overall the foot appeared appropriate postoperatively. Related Data Home Medications Medication Instructions Recorded Confirmed aspirin [Aspir-81] 81 mg PO DAILY 02/25/18 06/26/18 insulin aspart U-100 [Novolog 1 sliding scale dose SUB-Q ACHS 02/25/18 06/26/18 U-100 Insulin aspart] insulin aspart U-100 [Novolog 10 unit SUB-Q ACHS 02/25/18 06/26/18 U-100 Insulin aspart] lisinopril 20 mg PO BID 02/25/18 06/26/18 loratadine [Claritin] 10 mg PO DAILY 02/25/18 06/26/18 rosuvastatin [Crestor] 10 mg PO HS 02/25/18 06/26/18 sertraline [Zoloft] 25 mg PO DAILY 02/25/18 06/26/18 gabapentin 800 mg PO TID 05/16/18 06/26/18 Voltaren TOPICAL QID 05/17/18 naproxen 500 mg PO BID 05/17/18 05/17/18 Previous Rx's Medication Instructions Recorded insulin detemir U-100 [Levemir 36 unit SUBCUT DAILY ml 05/17/18 U-100 Insulin] insulin detemir U-100 [Levemir 38 unit SUBCUT HS ml 05/17/18 U-100 Insulin] oxycodone-acetaminophen 1 tab PO Q6H PRN tab 05/17/18 metoprolol tartrate 25 mg PO BID #60 tab 05/18/18 ondansetron [Zofran ODT] 4 mg PO Q6H PRN #10 tab 06/25/18 Allergies Allergy/AdvReac Type Severity Reaction Status Date / Time vancomycin Allergy Severe ACUTE Verified 06/25/18 07:33 RENAL FAILURE becaplermin [From Regranex] Allergy Intermediate Swelling Verified 06/25/18 07: 33 tigecycline AdvReac Severe NAUSEA AND Verified 06/25/18 07:33 VOMITING Tetracyclines AdvReac Intermediate Gastrointestinal Verified 06/25/18 07:33 Upset Review of Systems ROS: all other systems reviewed are negative [facility] Social History Social History Substance History: No History of Abuse Second Hand Smoke Exposure: Yes Smoking Status: Former smoker Tobacco Type: Cigarettes Cigarettes Per Day: 10 How Often Do You Have a Drink Containing Alcohol: Never Recent Travel in [facility] within the Last 8 Weeks: No Recent Out of Country Travel within the Last 8 Weeks: No Immunization History Tetanus Immunization: <5 Years Tetanus Immunization Year if Known: 2016 Exam Narrative Exam Narrative: GENERAL: 48 yo M, WNWD, NAD SKIN: Focused skin assessment warm/dry. HEAD: Atraumatic. Normocephalic. EYES: Pupils equal and round. No scleral icterus. No injection or drainage. ENT: No nasal bleeding or discharge. Mucous membranes pink and moist. NECK: Trachea midline. No JVD. CARDIOVASCULAR: Regular rate and rhythm. No murmur appreciated. RESPIRATORY: No accessory muscle use. Clear to auscultation. Breath sounds equal bilaterally. GASTROINTESTINAL: Abdomen soft, non-tender, nondistended. Hepatic and splenic margins not palpable. MUSCULOSKELETAL: L BKA. Dressing R foot. NEUROLOGICAL: Awake and alert. No obvious cranial nerve deficits. Motor grossly within normal limits. Normal speech. PSYCHIATRIC: Appropriate mood and affect; insight and judgment normal. Course Initial Documented Vital Signs Temperature 98.9 F 06/26/18 07:19 Pulse Rate 78 06/26/18 07:19 Respiratory Rate 14 06/26/18 07:19 Blood Pressure 207/99 H 06/26/18 07:19 Pulse Oximetry 98 06/26/18 07:19 Last Documented Vital Signs Temperature 98.9 F 06/26/18 07:19 Pulse Rate 74 06/26/18 07:20 Respiratory Rate 18 06/26/18 07:20 Blood Pressure 217/109 H 06/26/18 07:20 Pulse Oximetry 100 06/26/18 07:20 Medical Decision Making [facility] Narrative Medical Screen Exam Complete: Yes Emergency Medical Condition: Yes Differential Diagnosis Differential Diagnosis: Gastritis, pancreatitis, appendicitis, acute cholecystitis, ascending cholangitis, AAA, perforated viscous, mesenteric ischemia, hepatitis, cystitis, hydronephrosis/hydroureter/nephroureter calculus , mesenteric adenitis, biliary colic Lab Data Lab Results 06/26/18 Range/Units 07:35 POC Glucose 391 H (68-110) mg/dl Discharge Plan Discharge Disposition Patient Disposition: 01 Discharge Home Physicians Team ED Provider: Tim Aly Rxs /Orders / Referrals /Forms Prescriptions: No Action lisinopril 20 mg Tablet 20 mg PO BID RF: 0 aspirin [Aspir-81] 81 mg Tablet,Delayed Release (Dr/Ec) 81 mg PO DAILY RF: 0 insulin aspart U-100 [Novolog U-100 Insulin aspart] 100 unit/mL Solution 10 unit SUB-Q ACHS RF: 0 insulin aspart U-100 [Novolog U-100 Insulin aspart] 100 unit/mL Solution 1 sliding scale dose SUB-Q ACHS RF: 0 sertraline [Zoloft] 25 mg Tablet 25 mg PO DAILY RF: 0 loratadine [Claritin] 10 mg Tablet 10 mg PO DAILY RF: 0 rosuvastatin [Crestor] 20 mg Tablet 10 mg PO HS RF: 0 ondansetron [Zofran ODT] 4 mg tablet,disintegrating 4 mg PO Q6H PRN (Reason: nausea and vomiting) Qty: 10 RF: 0 gabapentin 400 mg Capsule 800 mg PO TID RF: 0 naproxen 500 mg 500 mg PO BID RF: 0 Voltaren ointment Topical QID RF: 0 oxycodone-acetaminophen 10-325 mg Tablet 1 tab PO Q6H PRN (Reason: Pain Scale 6 To 10) RF: 0 insulin detemir U-100 [Levemir U-100 Insulin] 100 unit/mL Solution 36 unit subcut DAILY RF: 0 insulin detemir U-100 [Levemir U-100 Insulin] 100 unit/mL Solution 38 unit subcut HS RF: 0 metoprolol tartrate 25 mg Tablet 25 mg PO BID Qty: 60 RF: 0 Discharge Interventions Interventions: Vital Signs Last Done: 06/26/18 07:20 Status ED Status: With Doctor
[2018-06-26 08:08] LABS: Baso # (Auto) 0.1 th/mm3 (0.0-0.2); Eos # (Auto) 0.2 th/mm3 (0.0-0.4); Eos % (Auto) 1.5 % (0.0-4.0); Hematocrit 43.9 % (39.0-51.0); Hemoglobin 15.6 gm/dL (13.0-17.0); Lymph # (Auto) 2.1 th/mm3 (1.0-4.8); Lymph % (Auto) 20.9 % (9.0-44.0); Mean Corpuscular HGB Conc 35.5 % (32.0-36.0); Mean Corpuscular Hemoglobin 31.1 pg (27.0-34.0); Mean Corpuscular Volume 87.5 fL (80.0-100.0); Mean Platelet Volume 8.3 fL (7.0-11.0); Mono # (Auto) 0.5 th/mm3 (0.0-0.9); Mono % (Auto) 4.9 % (0.0-8.0); Neut % (Auto) 71.7 % (16.0-70.0); Platelet Count 196 th/mm3 (150-450); Red Blood Count 5.01 mil/mm3 (4.50-5.90); Red Cell Distribution Width 14.1 % (11.6-17.2); White Blood Count 9.8 th/mm3 (4.0-11.0)
[2018-06-26 08:29] LABS: Alanine Aminotransferase 26 U/L (12-78); Albumin 3.9 g/dL (3.4-5.0); Alkaline Phosphatase 101 U/L (45-117); Anion Gap 6 meq/L (5-15); Aspartate Aminotransferase 26 U/L (15-37); Beta Hydroxybutyric Acid 0.58 mmol/L (0.00-0.39); Blood Urea Nitrogen 15 mg/dL (7-18); Calcium 9.3 mg/dL (8.5-10.1); Carbon Dioxide 24.9 meq/L (21.0-32.0); Chloride 101 meq/L (98-107); Glomerular Filtration Rate Greater Than 89 mL/min (>89); Glucose,Random 383 mg/dL (74-106); Magnesium 1.6 mg/dL (1.5-2.5); Sodium 132 meq/L (136-145); Total Protein 7.3 g/dL (6.4-8.2)
[2018-06-26 08:41] LABS: Potassium 4.6 meq/L (3.5-5.1)
[2018-06-26] MEDS: Sod Chloride 0.9% Inj 1,000 ML IV.SIG SCH ×2 (08:45→10:45)
--- NOTE | 2018-06-26 11:50 | P.HPFP ---
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 Patient had a R foot skin graft performed 9 days ago and states he had been feeling well until 5 days ago when he developed nausea and vomiting. He states that his blood glucose at that time was in the 400's. He came to the Emergency room yesterday and was given Zofran and 6 units IV and was discharged home. Patient saw his sql report developer Dr. Salinas after leaving the ED was told that his skin graft was healing well with no signs of infection. Patient states he felt better for the rest of the day but then his symptoms recurred that night. He states he has been unable to keep anything down including liquids. He states his blood sugar has been as high as 385 today. Normal insulin regimen: Levemir 36 in the AM, 34 HS, Novolog sliding scale 10 w/ meals. He also endorses chest pain on and off for last 2 weeks, substernal doesn't radiate, lasts for 4-6 hours at least, no alleviating factors, no exertional component, not associated with eating. Never had chest discomfort like this before. No cardiac history. Tried prilosec but did not improve symptoms. No history of GERD No fevers, chills, cough, sore throat, SOB, wheezing, no abdominal pain, no dysuria or urinary frequency Has had loose stools for several days. Roughly 3-4 bowel movements per day. No blood or mucous No sick contacts PCP is Dr. Pineda PMH: DM, HTN, HLD, osteo of L ankle s/ amputation (2016) Psurgical hx: L BKA, I&D on R foot Family hx: HTN in father Social hx: Lives with parents, disabled. Quit smoking 1 week ago, used to smoke .5 ppd for 25 years, no alcohol, no drugs <Justin Mc B - 06/26/18 13:33> - Diagnosis (1) Nausea & vomiting (2) Diabetes (3) Chest pain (4) Hypertensive urgency (5) Hyperlipidemia (6) Chronic pain (7) Neuropathy (8) Hypertension (9) Nutrition, metabolism, and development symptoms <Kim Alonso 06/26/18 20:33> (1) Nausea & vomiting (2) Diabetes (3) Chest pain (4) Hypertensive urgency (5) Hyperlipidemia (6) Chronic pain (7) Neuropathy (8) Hypertension (9) Nutrition, metabolism, and development symptoms <Justin Mc 06/26/18 13:41> Inpatient Certification: I certify that the inpatient services were ordered in accordance with Medicare regulations governing the order. This includes certification that hospital inpatient services are reasonable and necessary and in the case of services not specified as inpatient-only under 42 CFR 419.22(n), that they are appropriately provided as inpatient services in accordance to with the 2-midnight benchmark under 43 CFR 412.3(e) <Kim Alonso 06/26/18 20:33> I certify that the inpatient services were ordered in accordance with Medicare regulations governing the order. This includes certification that hospital inpatient services are reasonable and necessary and in the case of services not specified as inpatient-only under 42 CFR 419.22(n), that they are appropriately provided as inpatient services in accordance to with the 2-midnight benchmark under 43 CFR 412.3(e) <Justin Mc 06/26/18 11:50> Review of Systems All other systems reviewed negative except as stated in HPI <Justin Mc 06/26/18 13:33> PMFSH - History History Provided By: Patient <Justin Mc 06/26/18 11:50> - Medical History Medical History: Medical History (Last Reviewed 06/26/18 @ 07:33 by Sneha Moore, JAXON) Diabetes mellitus Foot ulcer HTN (hypertension) High cholesterol MRSA (methicillin resistant Staphylococcus aureus) infection Neuropathy Osteomyelitis <Kim Alonso 06/26/18 20:33> Medical History (Last Reviewed 06/26/18 @ 07:33 by Sneha Moore, RN) Diabetes mellitus Foot ulcer HTN (hypertension) High cholesterol MRSA (methicillin resistant Staphylococcus aureus) infection Neuropathy Osteomyelitis <Justin Mc 06/26/18 11:50> - Surgical History Surgical History: Surgical History (Last Reviewed 06/26/18 @ 07:33 by Sneha Moore RN) History of left below knee amputation (Chronic) Hx of skin graft <Kim Alonso 06/26/18 20:33> Surgical History (Last Reviewed 06/26/18 @ 07:33 by Sneha Moore RN) History of left below knee amputation (Chronic) Hx of skin graft <Justin Mc 06/26/18 11:50> - Family History Family History: Family History (Last Reviewed 05/16/18 @ 09:57 by Zahraa Benz) Other Diabetes <Kim Alonso 06/26/18 20:33> Family History (Last Reviewed 05/16/18 @ 09:57 by Zahraa Benz) Other Diabetes <Justin Mc 06/26/18 11:50> - Tobacco History Second Hand Smoke Exposure: Yes <Justin Mc 06/26/18 11:50> Tobacco Use In Past 30 Days: Yes <Justin Mc 06/26/18 11:50> Smoking Status: Former smoker <Justin Mc 06/26/18 11:50> Tobacco Type: Cigarettes <Justin Mc 06/26/18 11:50> Cigarettes Per Day: 10 <Justin Mc 06/26/18 11:50> - Alcohol History How Often Do You Have a Drink Containing Alcohol: Never <Justin Mc 11:50> - Substance Use History Substance History: No History of Abuse <Justin Mc 06/26/18 11:50> - Travel History Recent Travel in the [facility] Within the Last 8 Weeks: No <Justin Mc 06/26 11:50> Recent Travel Out of the Country Within the Last 8 Weeks: No <Justin Mc 06/26/18 11:50> - Immunization History Tetanus Immunization: <5 Years <Justin Mc 06/26/18 11:50> Tetanus Immunization Year if Known: 2015 <AlexandroJustin Orellana 06/26/18 11:50> Medications and Allergies Allergies Allergy/AdvReac Type Severity Reaction Status Date / Time vancomycin Allergy Severe ACUTE Verified 06/25/18 07:33 RENAL FAILURE becaplermin [From Regranex] Allergy Intermediate Swelling Verified 06/25/18 07: 33 tigecycline AdvReac Severe NAUSEA AND Verified 06/25/18 07:33 VOMITING Tetracyclines AdvReac Intermediate Gastrointestinal Verified 06/25/18 07:33 Upset <Kim Alonso R - 06/26/18 20:33> Home Medications Medication Instructions Recorded Confirmed Type aspirin [Aspir-81] 81 mg PO DAILY 02/25/18 06/26/18 History insulin aspart U-100 [Novolog 1 sliding scale dose SUB-Q ACHS 02/25/18 06/26/18 History U-100 Insulin aspart] insulin aspart U-100 [Novolog 10 unit SUB-Q [facility] 02/25/18 06/26/18 History U-100 Insulin aspart] lisinopril 20 mg PO BID 02/25/18 06/26/18 History loratadine [Claritin] 10 mg PO DAILY 02/25/18 06/26/18 History rosuvastatin [Crestor] 10 mg PO HS 02/25/18 06/26/18 History sertraline [Zoloft] 25 mg PO DAILY 02/25/18 06/26/18 History gabapentin 800 mg PO TID 05/16/18 06/26/18 History Voltaren TOPICAL QID 05/17/18 History naproxen 500 mg PO BID 05/17/18 05/17/18 History <Kim Alonso R - 06/26/18 20:33> Active Medications: Active Medications Acetaminophen (Tylenol) 650 mg PO Q4H PRN PRN Reason: Temp > 100.4 Acetaminophen (Tylenol) 650 mg PO Q6HR PRN PRN Reason: PAIN SCALE 1 TO 2 Aspirin (Ecotrin) 81 mg PO DAILY [facility] Atorvastatin Calcium (Lipitor) 20 mg PO HS [facility] Last Admin: 06/26/18 20:06 Dose: 20 mg Dextrose (D50w Vial) 50 ml IV.PUSH UNSCH PRN PRN Reason: PER HYPOGLYCEMIA PROTOCOL Enalaprilat (Vasotec Inj) 1.25 mg IV.PUSH Q6H PRN PRN Reason: SEE LABEL COMMENTS Last Admin: 06/26/18 12:51 Dose: 1.25 mg Enoxaparin Sodium (Lovenox Inj) 40 mg SQ Q24H [facility] Gabapentin (Neurontin) 800 mg PO TID [facility] Last Admin: 06/26/18 17:10 Dose: 800 mg Glucagon (Glucagon Inj) 1 mg OTHER PRN PRN PRN Reason: for Hypoglycemia Protocol Sodium Chloride (Ns Inj) 1,000 mls @ 120 mls/hr IV.CONT .Q8H20M [facility] Last Admin: 06/26/18 15:05 Dose: 120 mls/hr Insulin Aspart (Novolog Insulin Correctional Sugar Inj) 0 unit SQ ACHS [facility]; Protocol Last Admin: 06/26/18 18:12 Dose: Not Given Lisinopril (Prinivil) 20 mg PO BID [facility] Metoclopramide HCl (Reglan Inj) 5 mg IV.PUSH Q8H [facility]; Protocol Last Admin: 06/26/18 20:02 Dose: 5 mg Metoprolol Tartrate (Lopressor) 25 mg PO BID [facility] Last Admin: 06/26/18 20:07 Dose: 25 mg Morphine Sulfate (Morphine Inj) 1 mg IV.PUSH Q3H PRN PRN Reason: PAIN 3-5; IF UABLE TO TAKE PO Last Admin: 06/26/18 20:22 Dose: 1 mg Morphine Sulfate (Morphine Inj) 4 mg IV.PUSH Q3H PRN PRN Reason: BREAKTHROUGH PAIN Last Admin: 06/26/18 14:07 Dose: 4 mg Morphine Sulfate (Morphine Inj) 2 mg IV.PUSH Q3H PRN PRN Reason: PAIN 6-10;IF UNABLE TO TAKE PO Last Admin: 06/26/18 16:45 Dose: 2 mg Naloxone HCl (Narcan Inj) 0.4 mg IV.PUSH UNSCH PRN PRN Reason: SEE LABEL COMMENTS Ondansetron HCl (Zofran Inj) 4 mg IV.PUSH Q6H PRN PRN Reason: NAUSEA OR VOMITING Last Admin: 06/26/18 14:07 Dose: 4 mg Promethazine HCl (Phenergan Supp) 25 mg RECTAL Q6H PRN PRN Reason: NAUSEA OR VOMITING Sertraline HCl (Zoloft) 25 mg PO DAILY [facility] Sodium Chloride (Ns Flush) 2 ml IV.FLUSH PRN PRN PRN Reason: FLUSH AFTER USING IV ACCESS Sodium Chloride (Ns Flush) 2 ml IV.FLUSH BID [facility] Last Admin: 06/26/18 20:07 Dose: 2 ml Sodium Chloride (Ns Flush) 2 ml IV.FLUSH PRN PRN PRN Reason: FLUSH AFTER USING IV ACCESS <Kim Alonso R - 06/26/18 20:33> Active Medications Sodium Chloride (Ns Flush) 2 ml IV.FLUSH PRN PRN PRN Reason: FLUSH AFTER USING IV ACCESS <Justin Mc B - 06/26/18 11:50> Exam Vital signs: Vital Signs 06/26/18 07:19 06/26/18 07:20 06/26/18 07:42 Temperature 98.9 F Pulse Rate 78 74 69 Respiratory Rate 14 18 Blood Pressure 207/99 H 217/109 H Pulse Oximetry 98 100 98 06/26/18 11:30 06/26/18 12:21 06/26/18 13:46 Temperature Pulse Rate 72 66 66 Respiratory Rate 18 18 18 Blood Pressure 198/97 H 219/107 H 193/113 H Pulse Oximetry 06/26/18 14:10 06/26/18 14:17 Temperature Pulse Rate 75 Respiratory Rate 18 18 Blood Pressure 169/91 H Pulse Oximetry Intake & Output 06/26/18 06/26/18 06/27/18 06:59 18:59 06:59 Intake Total 3000 / 3000 Balance 3000 / 3000 Weight 59 kg Intake: IV 3000 / 3000 NS Inj 1,000 ML @ 1000 mls/hr 1999 / 1999 IV.SIG .Q1H [facility] Rx#:[id number] Other: Weight On Admission 59 kg <Kim Alonso R - 06/26/18 20:33> Vital Signs 06/26/18 07:19 06/26/18 07:20 Temperature 98.9 F Pulse Rate 78 74 Respiratory Rate 14 18 Blood Pressure 207/99 H 217/109 H Pulse Oximetry 98 100 Intake & Output 06/25/18 06/26/18 06/26/18 18:59 06:59 18:59 Intake Total 1000 / 1000 Balance 1000 / 1000 Weight 86.183 kg Intake: IV 1000 / 1000 NS Inj 1,000 ML @ 1000 mls/hr 1000 / 1000 IV.SIG .Q1H [facility] Rx#:[id number] <Justin Mc B - 06/26/18 11:50> Narrative: GENERAL: Well-developed, well-nourished male laying in bed in no acute distress. Speaking in full sentences and answering questions appropriately. SKIN: Warm and dry. HEAD: Atraumatic. Normocephalic. EYES: Pupils equal and round. No scleral icterus. No injection or drainage. ENT: No nasal bleeding or discharge. Mucous membranes pink and moist. NECK: Trachea midline. No JVD. CARDIOVASCULAR: Regular rate and rhythm. No chest wall tenderness to palpation RESPIRATORY: No accessory muscle use. Clear to auscultation. Breath sounds equal bilaterally. GASTROINTESTINAL: Abdomen soft, non-tender, nondistended. Hepatic and splenic margins not palpable. MUSCULOSKELETAL: Extremities without clubbing, cyanosis, or edema. Left BKA stump appears well-healed with no overlying erythema, warmth or signs of infection. His left ankle/foot is in a Berhane bandage wrap with the splint. No proximal calf tenderness, toes appear benign with normal capillary refill. NEUROLOGICAL: Awake and alert. No obvious cranial nerve deficits. Motor grossly within normal limits. Normal speech. PSYCHIATRIC: Appropriate mood and affect; insight and judgment normal. <Justin Mc B - 06/26/18 13:33> Results - Labs Result diagrams: 06/26/18 07:50 06/26/18 07:50 <Kim Alonso R - 06/26/18 20:33> Abnormal lab results 06/26/18 06/26/18 06/26/18 Range/Units 07:35 07:50 07:50 Neut % (Auto) 71.7 H (16.0-70.0) % Sodium 132 L (136-145) meq/L POC Glucose 391 H (68-110) mg/dl Random Glucose 383 H (74-106) mg/dL Total Bilirubin 1.4 H (0.2-1.0) mg/dL Troponin I (0.02-0.05) ng/mL Beta-Hydroxybutyric Acd 0.58 H (0.00-0.39) mmol/L 06/26/18 06/26/18 06/26/18 Range/Units 08:44 10:01 16:35 Neut % (Auto) (16.0-70.0) % Sodium (136-145) meq/L POC Glucose 349 H 284 H 220 H (68-110) mg/dl Random Glucose (74-106) mg/dL Total Bilirubin (0.2-1.0) mg/dL Troponin I (0.02-0.05) ng/mL Beta-Hydroxybutyric Acd (0.00-0.39) mmol/L 06/26/18 Range/Units 16:40 Neut % (Auto) (16.0-70.0) % Sodium (136-145) meq/L POC Glucose (68-110) mg/dl Random Glucose (74-106) mg/dL Total Bilirubin (0.2-1.0) mg/dL Troponin I Less than 0.02 L (0.02-0.05) ng/mL Beta-Hydroxybutyric Acd (0.00-0.39) mmol/L Short CBC 06/26/18 Range/Units 07:50 WBC 9.8 (4.0-11.0) th/mm3 Hgb 15.6 (13.0-17.0) gm/dL Hct 43.9 (39.0-51.0) % Plt Count 196 (150-450) th/mm3 BMP 06/26/18 07:50 Sodium 132 L Potassium 4.6 Chloride 101 Carbon Dioxide 24.9 BUN 15 Creatinine 0.88 Calcium 9.3 Cardiac Enzymes 06/26/18 Range/Units 16:40 Troponin I Less than 0.02 L (0.02-0.05) ng/mL Liver Function 06/26/18 Range/Units 07:50 Total Bilirubin 1.4 H (0.2-1.0) mg/dL AST 26 (15-37) U/L ALT 26 (12-78) U/L Alkaline Phosphatase 101 (45-117) U/L Albumin 3.9 (3.4-5.0) g/dL <Kim Alonso - 06/26/18 20:33> Abnormal lab results 06/26/18 06/26/18 06/26/18 Range/Units 07:35 07:50 07:50 Neut % (Auto) 71.7 H (16.0-70.0) % Sodium 132 L (136-145) meq/L POC Glucose 391 H (68-110) mg/dl Random Glucose 383 H (74-106) mg/dL Total Bilirubin 1.4 H (0.2-1.0) mg/dL Beta-Hydroxybutyric Acd 0.58 H (0.00-0.39) mmol/L 06/26/18 06/26/18 Range/Units 08:44 10:01 Neut % (Auto) (16.0-70.0) % Sodium (136-145) meq/L POC Glucose 349 H 284 H (68-110) mg/dl Random Glucose (74-106) mg/dL Total Bilirubin (0.2-1.0) mg/dL Beta-Hydroxybutyric Acd (0.00-0.39) mmol/L Short CBC 06/26/18 Range/Units 07:50 WBC 9.8 (4.0-11.0) th/mm3 Hgb 15.6 (13.0-17.0) gm/dL Hct 43.9 (39.0-51.0) % Plt Count 196 (150-450) th/mm3 BMP 06/26/18 07:50 Sodium 132 L Potassium 4.6 Chloride 101 Carbon Dioxide 24.9 BUN 15 Creatinine 0.88 Calcium 9.3 Liver Function 06/26/18 Range/Units 07:50 Total Bilirubin 1.4 H (0.2-1.0) mg/dL AST 26 (15-37) U/L ALT 26 (12-78) U/L Alkaline Phosphatase 101 (45-117) U/L Albumin 3.9 (3.4-5.0) g/dL <Justin Mc B - 06/26/18 11:50> - Imaging Impressions Chest X-Ray 06/26/18 00:00 CONCLUSION: 1. No acute abnormality or significant interval change. <Kim Alonso R - 06/26/18 20:33> Caprini VTE Risk Assessment Caprini VTE Risk Assessment: Moderate/High Risk (score >= 2) <Justin Mc - 06/26/18 13:33> Caprini Risk Assessment Model: Point Value = 1 Point Value = 2 Point Value = 3 Point Value = 5 Age 41-60 Minor surgery BMI > 25 kg/m2 Swollen legs Varicose veins or History of unexplained or recurrent spontaneous Oral contraceptives or hormone replacement Sepsis (< 1 month) Serious lung disease, including pneumonia (< 1 month) Abnormal pulmonary function Acute myocardial infarction Congestive heart failure (< 1 month) History of inflammatory bowel disease Medical patient at bed rest Age 61-74 Arthroscopic surgery Major open surgery (> 45 min) Laparoscopic surgery (> 45 min) Malignancy Confined to bed (> 72 hours) Immobilizing plaster cast Central venous access Age >= 75 History of VTE Family history of VTE Factor V Leiden Prothrombin 52650I Lupus anticoagulant Anticardiolipin antibodies Elevated serum homocysteine Heparin-induced thrombocytopenia Other congenital or acquired thrombophilia Stroke (< 1 month) Elective arthroplasty Hip, pelvis, or leg fracture Acute spinal cord injury (< 1 month) <Kim Alonso R - 06/26/18 20:33> Point Value = 1 Point Value = 2 Point Value = 3 Point Value = 5 Age 41-60 Minor surgery BMI > 25 kg/m2 Swollen legs Varicose veins or History of unexplained or recurrent spontaneous Oral contraceptives or hormone replacement Sepsis (< 1 month) Serious lung disease, including pneumonia (< 1 month) Abnormal pulmonary function Acute myocardial infarction Congestive heart failure (< 1 month) History of inflammatory bowel disease Medical patient at bed rest Age 61-74 Arthroscopic surgery Major open surgery (> 45 min) Laparoscopic surgery (> 45 min) Malignancy Confined to bed (> 72 hours) Immobilizing plaster cast Central venous access Age >= 75 History of VTE Family history of VTE Factor V Leiden Prothrombin [id number] Lupus anticoagulant Anticardiolipin antibodies Elevated serum homocysteine Heparin-induced thrombocytopenia Other congenital or acquired thrombophilia Stroke (< 1 month) Elective arthroplasty Hip, pelvis, or leg fracture Acute spinal cord injury (< 1 month) <Justin Mc B - 06/26/18 11:50> Prophylaxis Regimen: Total Risk Factor Score Risk Level Prophylaxis Regimen 0-1 Low Early ambulation 2 Moderate Order ONE of the following: *Sequential Compression Device (SCD) *Heparin 5000 units SQ BID 3-4 Higher Order ONE of the following medications: *Heparin 5000 units SQ TID *Enoxaparin/Lovenox 40 mg SQ daily (WT < 150 kg, CrCl > 30 mL/min) *Enoxaparin/Lovenox 30 mg SQ daily (WT < 150 kg, CrCl > 10-29 mL/min) *Enoxaparin/Lovenox 30 mg SQ BID (WT < 150 kg, CrCl > 30 mL/min) AND/OR *Sequential Compression Device (SCD) 5 or more Highest Order ONE of the following medications: *Heparin 5000 units SQ TID (Preferred with Epidurals) *Enoxaparin/Lovenox 40 mg SQ daily (WT < 150 kg, CrCl > 30 mL/min) *Enoxaparin/Lovenox 30 mg SQ daily (WT < 150 kg, CrCl > 10-29 mL/min) *Enoxaparin/Lovenox 30 mg SQ BID (WT < 150 kg, CrCl > 30 mL/min) AND *Sequential Compression Device (SCD) <Kim Alonso - 06/26/18 20:33> Total Risk Factor Score Risk Level Prophylaxis Regimen 0-1 Low Early ambulation 2 Moderate Order ONE of the following: *Sequential Compression Device (SCD) *Heparin 5000 units SQ BID 3-4 Higher Order ONE of the following medications: *Heparin 5000 units SQ TID *Enoxaparin/Lovenox 40 mg SQ daily (WT < 150 kg, CrCl > 30 mL/min) *Enoxaparin/Lovenox 30 mg SQ daily (WT < 150 kg, CrCl > 10-29 mL/min) *Enoxaparin/Lovenox 30 mg SQ BID (WT < 150 kg, CrCl > 30 mL/min) AND/OR *Sequential Compression Device (SCD) 5 or more Highest Order ONE of the following medications: *Heparin 5000 units SQ TID (Preferred with Epidurals) *Enoxaparin/Lovenox 40 mg SQ daily (WT < 150 kg, CrCl > 30 mL/min) *Enoxaparin/Lovenox 30 mg SQ daily (WT < 150 kg, CrCl > 10-29 mL/min) *Enoxaparin/Lovenox 30 mg SQ BID (WT < 150 kg, CrCl > 30 mL/min) AND *Sequential Compression Device (SCD) <Justin Mc B - 06/26/18 11:50> Assessment and Plan - Assessment (1) Nausea & vomiting Code(s): R11.2 - Nausea with vomiting, unspecified Status: Acute (2) Diabetes Code(s): E11.9 - Type 2 diabetes mellitus without complications Status: Acute (3) Chest pain Code(s): R07.9 - Chest pain, unspecified Status: Acute (4) Hypertensive urgency Code(s): I16.0 - Hypertensive urgency Status: Acute (5) Hyperlipidemia Code(s): E78.5 - Hyperlipidemia, unspecified Status: Chronic (6) Chronic pain Code(s): G89.29 - Other chronic pain Status: Acute (7) Neuropathy Code(s): G62.9 - Polyneuropathy, unspecified Status: Chronic (8) Hypertension Code(s): I10 - Essential (primary) hypertension Status: Chronic (9) Nutrition, metabolism, and development symptoms Code(s): R63.8 - Other symptoms and signs concerning food and fluid intake Status: Acute <Kim Alonso R - 06/26/18 20:33> (1) Nausea & vomiting Code(s): R11.2 - Nausea with vomiting, unspecified Status: Acute Plan: Patient coming in with a several day history of persistent nausea vomiting Was evaluated in the emergency room yesterday and was given Zofran and an insulin bolus to lower his blood glucose Today patient has received Zofran, Phenergan, Compazine as well as another insulin bolus At time of evaluation, patient did recently receive the Compazine and was doing well Received 3 L of normal saline bolus in the ED CMP shows a closed anion gap, glucose went from 349-284 after the insulin bolus Lipase a day before admission was 341 Low suspicion for DKA/HHS, pancreatitis, electrolyte abnormalities as the etiology At this time suspect viral gastroenteritis as patient is also having loose stools Will continue to give IV fluid, Zofran, Phenergan as needed and will schedule Reglan as patient is high risk for gastroparesis Repeat CMP in the morning (2) Diabetes Code(s): E11.9 - Type 2 diabetes mellitus without complications Status: Acute Plan: Known history of poorly controlled type 2 diabetes Typically takes Levemir 36 units in the morning, 34 units at night and a NovoLog sliding scale starting with 10 units with meals Received Novolin 10 units x1 in the ED, next glucose was 24 Will start patient on a low-dose sliding scale while patient is having nausea vomiting Consider restarting Levemir once patient begins eating (3) Chest pain Code(s): R07.9 - Chest pain, unspecified Status: Acute Plan: Patient reports 2-week history of off and on substernal chest pain that lasts for several hours. No exertional component EKG on admission shows sinus rhythm Patient had troponins on the day prior to admission that were negative Differential includes ACS as patient has multiple risk factors, esophageal abnormalities/mass, pneumothorax, pneumonia, hypertensive urgency/emergency Ordering chest x-ray Patient is hypertensive on admission to 219/107, see hypertension plan below We will continue ACS rule out with trending EKGs, troponins Will consider ordering a barium swallow once patient's nausea vomiting has resolved (4) Hypertensive urgency Code(s): I16.0 - Hypertensive urgency Status: Acute Plan: Patient with a known history of hypertension typically takes lisinopril 20 twice daily, metoprolol tartrate 25 twice daily He has not tolerated these medications with his persistent nausea vomiting Blood pressure is elevated is 217/109 in the ED Ordering hydralazine 10 mg IV x1, Vasotec 1.25 mg IV as needed every 6 hours for systolic blood pressure over 180, diastolic over 100 ED physician ordered Lopressor 25 mg p.o. once Lab work does not show any sign of endorgan damage Will continue to monitor and will resume patient's home blood pressure medications as tolerated (5) Hyperlipidemia Code(s): E78.5 - Hyperlipidemia, unspecified Status: Chronic Plan: Continue home Crestor (6) Chronic pain Code(s): G89.29 - Other chronic pain Status: Acute Plan: Known history of chronic back pain has been on Percocet 10 every 8 hours While not tolerating p.o., will order a morphine pain scale (7) Neuropathy Code(s): G62.9 - Polyneuropathy, unspecified Status: Chronic Plan: Continue home gabapentin (8) Hypertension Code(s): I10 - Essential (primary) hypertension Status: Chronic Plan: Patient with a known history of hypertension and typically takes lisinopril 20 g twice daily, metoprolol tartrate 25 mg twice daily Patient has not tolerated his home medications with the persistent nausea vomiting See above plan for hypertensive urgency (9) Nutrition, metabolism, and development symptoms Code(s): R63.8 - Other symptoms and signs concerning food and fluid intake Status: Acute Plan: Clear liquid diet Normal saline at 120 mL/h Lovenox for DVT prophylaxis starting on hospital day 2 <Justin Mc - 06/26/18 13:41> - Assessment and Plan 48-year-old male with a history of hypertension, diabetes with left BKA and right foot wound status post skin graft, HLD presented to the ED with persistent nausea and vomiting. Patient also complaining of substernal chest pain. Significantly elevated blood pressures on admission. Will admit for control of his nausea vomiting, control his blood pressure, improve his blood glucose, ACS rule out. <Justin Mc - 06/26/18 14:12> - Attending Attestation Patient seen and dw the resident team. Patient seen by me around 12:30. No vomiting but still complaining of nausea. Patient is known to me from previous admission. Some fatigue, no cp or sob. GENERAL: SKIN: Warm and dry. HEAD: Atraumatic. Normocephalic. EYES: Pupils equal and round. No scleral icterus. No injection or drainage. ENT: No nasal bleeding or discharge. Mucous membranes pink and moist. NECK: Trachea midline. No JVD. CARDIOVASCULAR: Regular rate and rhythm. RESPIRATORY: No accessory muscle use. Clear to auscultation. Breath sounds equal bilaterally. GASTROINTESTINAL: Abdomen soft, non-tender, nondistended. Hepatic and splenic margins not palpable. MUSCULOSKELETAL: Extremities without clubbing, cyanosis, or edema. No obvious deformities. NEUROLOGICAL: Awake and alert. No obvious cranial nerve deficits. Motor grossly within normal limits. Five out of 5 muscle strength in the arms and legs. Normal speech. PSYCHIATRIC: Appropriate mood and affect; insight and judgment normal. AP 1. Nausea/vomiting -- intractable at the time of the admission. Consider possible viral illness, possible gastroparesis, other GI pathology. Start clears as tolerated, Reglan prior to meals. Consider barium swallow eval., GI workup. Will need all meds via IV until he is able to keep PO pills down. <Kim Alonso R - 06/26/18 20:33>
[2018-06-26] MEDS ORDERED: Naloxone Inj 0.4 MG/ML Vial IV.PUSH PRN (12:17)
[2018-06-26] MEDS ORDERED: Acetaminophen 325 MG Tablet PO PRN ×2 (12:17)
[2018-06-26] MEDS ORDERED: Morphine Inj 4 MG/ML Vial IV.PUSH PRN (12:17)
[2018-06-26] MEDS ORDERED: Promethazine 25 MG Supp RECTAL PRN (12:23)
[2018-06-26] MEDS ORDERED: Lisinopril 20 MG Tablet PO ONE ×2 (12:28→17:33)
[2018-06-26] MEDS ORDERED: Metoprolol Tartrate 25 MG Tablet PO ONE (12:28)
[2018-06-26] MEDS ORDERED: Dextrose 50% in Water 50 ML Vial IV.PUSH PRN (12:54)
--- NOTE | 2018-06-26 13:39 | XR ---
EXAM DATE: 06/26/2018 1:33 PM EST AGE/SEX: 48 years / Male INDICATIONS: . Chest pain, nausea, vomiting, and diarrhea. CLINICAL DATA: This is the patient's sequela encounter. Patient reports that signs and symptoms have been present for 4 - 6 days and indicates a pain score of 7/10. MEDICAL/SURGICAL HISTORY: . Hypertension. Diabetes mellitus type II. None. COMPARISON: [facility] – [place], CHEST 1V SINGLE AP, 06/25/2018. . FINDINGS: AP and lateral views of the chest demonstrate the lungs to be symmetrically aerated without evidence of mass, infiltrate or effusion. The cardiomediastinal contours are unremarkable. Osseous structure s are intact. CONCLUSION: 1. No acute abnormality or significant interval change. Electronically signed by: Rey Lazo MD 06/26/2018 1:38 PM EST
[2018-06-26] MEDS ORDERED: Morphine Sulfate Inj 2 MG/ML Vial IV.PUSH PRN (13:45)
[2018-06-26] MEDS ORDERED: hydrALAZINE HCl Inj 20 MG/ML Vial IV.PUSH ONE (14:00)
[2018-06-26] MEDS: Sod Chloride 0.9% Inj 1,000 ML IV.CONT SCH (15:05)
[2018-06-26] MEDS: Gabapentin 400 MG Capsule PO SCH (17:10)
[2018-06-26] MEDS: Insulin NovoLOG Aspart Correctional Sugar Inj SQ SCH (18:12)
[2018-06-26] MEDS: Metoprolol Tartrate 25 MG Tablet PO SCH (20:07)
[2018-06-26] MEDS: Morphine Sulfate Inj 2 MG/ML Vial IV.PUSH PRN (20:22)
[2018-06-26] MEDS ORDERED: Lisinopril 20 MG Tablet PO SCH (21:00)
[2018-06-27] MEDS: Sod Chloride 0.9% Inj 1,000 ML IV.CONT SCH ×3 (00:10→13:06)
[2018-06-27] MEDS: Insulin NovoLOG Aspart Correctional Sugar Inj SQ SCH ×3 (00:11→13:08)
[2018-06-27] MEDS: Morphine Sulfate Inj 2 MG/ML Vial IV.PUSH PRN (04:21)
[2018-06-27 07:19] LABS: Baso # (Auto) 0.1 th/mm3 (0.0-0.2); Baso % (Auto) 0.7 % (0.0-2.0); Eos # (Auto) 0.2 th/mm3 (0.0-0.4); Eos % (Auto) 1.6 % (0.0-4.0); Hemoglobin 14.2 gm/dL (13.0-17.0); Lymph # (Auto) 3.2 th/mm3 (1.0-4.8); Lymph % (Auto) 29.2 % (9.0-44.0); Mean Corpuscular HGB Conc 35.4 % (32.0-36.0); Mean Corpuscular Hemoglobin 30.9 pg (27.0-34.0); Mean Corpuscular Volume 87.3 fL (80.0-100.0); Mean Platelet Volume 7.5 fL (7.0-11.0); Mono # (Auto) 0.6 th/mm3 (0.0-0.9); Mono % (Auto) 5.2 % (0.0-8.0); Neut # (Auto) 6.9 th/mm3 (1.8-7.7); Neut % (Auto) 63.3 % (16.0-70.0); Platelet Count 168 th/mm3 (150-450); Red Blood Count 4.58 mil/mm3 (4.50-5.90); Red Cell Distribution Width 13.7 % (11.6-17.2); White Blood Count 10.9 th/mm3 (4.0-11.0)
[2018-06-27 07:55] LABS: Alanine Aminotransferase 19 U/L (12-78); Anion Gap 8 meq/L (5-15); Aspartate Aminotransferase 14 U/L (15-37); Blood Urea Nitrogen 10 mg/dL (7-18); Calcium 7.9 mg/dL (8.5-10.1); Carbon Dioxide 23.8 meq/L (21.0-32.0); Chloride 106 meq/L (98-107); Glomerular Filtration Rate Greater Than 89 mL/min (>89); Glucose,Random 212 mg/dL (74-106); Potassium 4.1 meq/L (3.5-5.1); Sodium 138 meq/L (136-145)
[2018-06-27 08:00] LABS: Alkaline Phosphatase 75 U/L (45-117); Total Protein 5.9 g/dL (6.4-8.2); Troponin I 0.02 ng/mL (0.02-0.05)
[2018-06-27] MEDS: oxyCODONE/Acetaminophen 10/325 Tablet PO PRN ×2 (08:28→14:41)
[2018-06-27] MEDS: Gabapentin 400 MG Capsule PO SCH ×2 (08:28→12:08)
[2018-06-27] MEDS: Metoprolol Tartrate 25 MG Tablet PO SCH (08:29)
[2018-06-27] MEDS ORDERED: Sertraline 50 MG Tablet PO SCH (09:00)
[2018-06-27] MEDS ORDERED: Lisinopril 20 MG Tablet PO SCH (09:00)
--- NOTE | 2018-06-27 11:12 | P.PNFP ---
Subjective Interval history: No acute events overnight. Patient's nausea and vomiting resolved after starting Reglan and he has tolerated clear liquid diet since yesterday. Patient 's abdominal pain as well as chest pain have significantly improved. Patient's vital signs were stable and his blood pressure improved to 150's/80's. <Justin Mc Reyna - 06/27/18 11:27> Results - Labs Result diagrams: 06/27/18 06:38 06/27/18 06:38 <Kim Alonso - 06/28/18 09:12> Abnormal lab results 06/27/18 Range/Units 11:45 POC Glucose 356 H (68-110) mg/dl <Kim Alonso - 06/28/18 09:12> Abnormal lab results 06/26/18 06/26/18 06/26/18 Range/Units 16:35 16:40 22:43 POC Glucose 220 H 232 H (68-110) mg/dl Random Glucose (74-106) mg/dL Calcium (8.5-10.1) mg/dL Total Bilirubin (0.2-1.0) mg/dL AST (15-37) U/L Troponin I Less than 0.02 L (0.02-0.05) ng/mL Total Protein (6.4-8.2) g/dL Albumin (3.4-5.0) g/dL 06/27/18 06/27/18 Range/Units 06:38 08:11 POC Glucose 244 H (68-110) mg/dl Random Glucose 212 H D (74-106) mg/dL Calcium 7.9 L D (8.5-10.1) mg/dL Total Bilirubin 1.6 H (0.2-1.0) mg/dL AST 14 L (15-37) U/L Troponin I (0.02-0.05) ng/mL Total Protein 5.9 L D (6.4-8.2) g/dL Albumin 3.0 L D (3.4-5.0) g/dL Short CBC 06/27/18 Range/Units 06:38 WBC 10.9 (4.0-11.0) th/mm3 Hgb 14.2 (13.0-17.0) gm/dL Hct 40.0 (39.0-51.0) % Plt Count 168 (150-450) th/mm3 BMP 06/27/18 06:38 Sodium 138 Potassium 4.1 Chloride 106 Carbon Dioxide 23.8 BUN 10 Creatinine 0.66 Calcium 7.9 L D Cardiac Enzymes 06/26/18 06/26/18 06/27/18 Range/Units 16:40 20:35 06:38 Troponin I Less than 0.02 L 0.03 0.02 (0.02-0.05) ng/mL Liver Function 06/27/18 Range/Units 06:38 Total Bilirubin 1.6 H (0.2-1.0) mg/dL AST 14 L (15-37) U/L ALT 19 (12-78) U/L Alkaline Phosphatase 75 (45-117) U/L Albumin 3.0 L D (3.4-5.0) g/dL <Justin cM - 06/27/18 11:12> - Imaging Impressions Chest X-Ray 06/26/18 00:00 CONCLUSION: 1. No acute abnormality or significant interval change. <Justin Mc - 06/27/18 11:12> Physical Exam Vital signs: Vital Signs 06/27/18 12:00 06/27/18 12:04 Temperature 98.8 F Pulse Rate 76 Respiratory Rate 17 Blood Pressure 151/102 H Pulse Oximetry 97 98 Intake & Output 06/27/18 06/28/18 06/28/18 18:59 06:59 18:59 Intake Total 1100 / 1100 Balance 1100 / 1100 Intake: IV 1100 / 1100 NS Inj 1,000 ML @ 120 mls/hr IV 1100 / 1100 .CONT .Q8H20M [facility] Rx#:[id number] <Kim Alonso - 06/28/18 09:12> Vital Signs 06/26/18 11:30 06/26/18 12:21 06/26/18 13:46 Temperature Pulse Rate 72 66 66 Respiratory Rate 18 18 18 Blood Pressure 198/97 H 219/107 H 193/113 H Pulse Oximetry 06/26/18 14:10 06/26/18 14:17 06/26/18 20:00 Temperature 98.3 F Pulse Rate 75 79 Respiratory Rate 18 18 18 Blood Pressure 169/91 H 133/83 Pulse Oximetry 98 06/26/18 23:56 06/27/18 00:00 06/27/18 04:00 Temperature 97.8 F 98.1 F Pulse Rate 67 67 67 Respiratory Rate 18 18 Blood Pressure 135/84 150/86 H Pulse Oximetry 97 98 06/27/18 08:32 Temperature 98.7 F Pulse Rate 71 Respiratory Rate 17 Blood Pressure 159/95 H Pulse Oximetry Intake & Output 06/26/18 06/27/18 06/27/18 18:59 06:59 18:59 Intake Total 3000 / 3000 1840 / 1840 Output Total 900 / 900 Balance 3000 / 3000 940 / 940 Weight 59 kg 56.5 kg Intake: IV 3000 / 3000 1600 / 1600 NS Inj 1,000 ML @ 120 mls/hr IV 1600 / 1600 .CONT .Q8H20M [facility] Rx#:[id number] NS Inj 1,000 ML @ 1000 mls/hr 1999 / 1999 IV.SIG .Q1H [facility] Rx#:[id number] Oral 240 / 240 Output: Urine 900 / 900 Other: # Bowel Movements 0 Weight On Admission 59 kg <Justin Mc - 06/27/18 11:12> Narrative: GENERAL: Well-developed, well-nourished male laying in bed in no acute distress. Speaking in full sentences and answering questions appropriately. SKIN: Warm and dry. HEAD: Atraumatic. Normocephalic. EYES: Pupils equal and round. No scleral icterus. No injection or drainage. ENT: No nasal bleeding or discharge. Mucous membranes pink and moist. NECK: Trachea midline. No JVD. CARDIOVASCULAR: Regular rate and rhythm. No chest wall tenderness to palpation RESPIRATORY: No accessory muscle use. Clear to auscultation. Breath sounds equal bilaterally. GASTROINTESTINAL: Abdomen soft, non-tender, nondistended. Hepatic and splenic margins not palpable. MUSCULOSKELETAL: Extremities without clubbing, cyanosis, or edema. Left BKA stump appears well-healed with no overlying erythema, warmth or signs of infection. His left ankle/foot is in a [place] bandage wrap with the splint. No proximal calf tenderness, toes appear benign with normal capillary refill. NEUROLOGICAL: Awake and alert. No obvious cranial nerve deficits. Motor grossly within normal limits. Normal speech. PSYCHIATRIC: Appropriate mood and affect; insight and judgment normal. <Justin Mc - 06/27/18 11:27> Assessment and Plan - Assessment (1) Nausea & vomiting Code(s): R11.2 - Nausea with vomiting, unspecified Status: Acute (2) Diabetes Code(s): E11.9 - Type 2 diabetes mellitus without complications Status: Acute (3) Chest pain Code(s): R07.9 - Chest pain, unspecified Status: Acute (4) Hypertensive urgency Code(s): I16.0 - Hypertensive urgency Status: Acute (5) Hyperlipidemia Code(s): E78.5 - Hyperlipidemia, unspecified Status: Chronic (6) Chronic pain Code(s): G89.29 - Other chronic pain Status: Acute (7) Neuropathy Code(s): G62.9 - Polyneuropathy, unspecified Status: Chronic (8) Hypertension Code(s): I10 - Essential (primary) hypertension Status: Chronic (9) Nutrition, metabolism, and development symptoms Code(s): R63.8 - Other symptoms and signs concerning food and fluid intake Status: Acute <Kim Alonso R - 06/28/18 09:12> (1) Nausea & vomiting Code(s): R11.2 - Nausea with vomiting, unspecified Status: Acute Plan: Patient coming in with a several day history of persistent nausea vomiting On day of admission, patient has received Zofran, Phenergan, Compazine as well as another insulin bolus Lipase a day before admission was 341 Patient was started on p.o. Reglan and his symptoms have dramatically improved Patient has multiple risk factors for diabetic gastroparesis We will plan for patient to ultimately be discharged on Reglan and follow-up with PCP for future gastric emptying studies (2) Diabetes Code(s): E11.9 - Type 2 diabetes mellitus without complications Status: Acute Plan: Known history of poorly controlled type 2 diabetes Typically takes Levemir 36 units in the morning, 34 units at night and a NovoLog sliding scale starting with 10 units with meals Received Novolin 10 units x1 in the ED Patient on a low-dose sliding scale Restarting home Levemir now that patient is tolerating diet Levemir 20 units at lunch, resuming Levemir 30 units at night, 35 units in the morning if patient stays another day (3) Chest pain Code(s): R07.9 - Chest pain, unspecified Status: Acute Plan: Patient reports 2-week history of off and on substernal chest pain that lasts for several hours. No exertional component EKG on admission shows sinus rhythm ACS workup was negative Chest x-ray on admission was negative Suspect to be secondary to gastroparesis at this time, will need further workup as an outpatient (4) Hypertensive urgency Code(s): I16.0 - Hypertensive urgency Status: Acute Plan: Patient presented with blood pressures as high as 217/109 and not been tolerating his p.o. blood pressure medications due to nausea and vomiting Gave IV hydralazine, Vasotec on day of admission and resumed his home blood pressure medications on the night of admission Blood pressure now elevated to 151/102 Patient never had any signs of endorgan damage on his lab work Hypertensive urgency resolved (5) Hyperlipidemia Code(s): E78.5 - Hyperlipidemia, unspecified Status: Chronic Plan: Continue home Crestor (6) Chronic pain Code(s): G89.29 - Other chronic pain Status: Acute Plan: Known history of chronic back pain has been on Percocet 10 every 8 hours Initially started on morphine pain scale due to nausea vomiting Resume home Percocet today (7) Neuropathy Code(s): G62.9 - Polyneuropathy, unspecified Status: Chronic Plan: Continue home gabapentin (8) Hypertension Code(s): I10 - Essential (primary) hypertension Status: Chronic Plan: Patient with a known history of hypertension and typically takes lisinopril 20 g twice daily, metoprolol tartrate 25 mg twice daily Resuming home blood pressure medications as patient is now tolerating p.o. 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 Patient also complaining of substernal chest pain. Significantly elevated blood pressures on admission. ACS was ruled out, blood pressures improved on as needed medications and was restarted on his home p.o. blood pressure medications. Patient's nausea vomiting significantly improved on Reglan, patient has multiple risk factors for diabetic gastroparesis. Will need further workup as an outpatient. Possibly discharge today if patient continues to tolerate p.o. feeds <Justin Mc B - 06/27/18 13:45> - Attending Attestation The exam, history, and the medical decision-making described in the above note were completed with the assistance of the resident physician. I reviewed and agree with the findings presented. I attest that I had a [id number] encounter with the patient on the same day, and personally performed and documented my assessment and findings in the medical record. <Kim Alonso - 06/28/18 09:12>
[2018-06-27] MEDS ORDERED: Insulin Detemir Inj 1,000 UNIT/10 ML Vial SQ ONE (13:38)
--- NOTE | 2018-06-27 13:41 | ECG ---
Date Performed: 06/26/2018 Time Performed: 19:59:42 PTAGE: 48 years EKG: Sinus rhythm . Possible anterior infarct - age undetermined Abnormal ECG Since the PREVIOUS TRACING , no significant change noted PREVIOUS TRACIN06/26/2018 08.13 DOCTOR: Esvin Reza Interpretating Date/Time 06/27/2018 13:39:03
--- NOTE | 2018-06-27 15:16 | ECG ---
Date Performed: 06/26/2018 Time Performed: 08:13:45 PTAGE: 48 years EKG: Sinus rhythm Loss of R wave in the anterior precordium, but markedly Unchanged from prior tracing. Previously see n Q wavesare now replaced with small R waves. Clinical correlation is recommended ABNORMAL ECG PREVIOUS TRACING : 06/25/2018 07.55 DOCTOR: Esvin Reza Interpretating Date/Time 06/27/2018 15:15:07
[2018-06-27] MEDS ORDERED: Enoxaparin Inj 40 MG/0.4 ML Syringe SQ SCH (16:00)
[2018-06-27] MEDS ORDERED: Insulin Detemir Inj 1,000 UNIT/10 ML Vial SQ SCH (21:00)
[2018-06-28] MEDS ORDERED: Insulin Detemir Inj 1,000 UNIT/10 ML Vial SQ SCH (09:00)
== END 2018-06-27 16:01 | disposition home or self-care (01) ==
LOC: NEPE 07:15 → NEDA 11:17 → N04 15:41
PROVIDERS: ADMIT Family Medicine; ATTEND Family Medicine

== ENCOUNTER 2018-07-19 08:24 | Inpatient (IN) ==
[2018-07-19] MEDS ORDERED: Labetalol HCl Inj 100 MG/20 ML Vial IV.PUSH ONE ×2 (09:04→10:20)
--- NOTE | 2018-07-19 09:08 | ED ---
HPI General Chief Complaint: Chest Pain Stated Complaint: Vomiting Complaint/Chest pain/SOB Time Seen by Provider: 07/19/18 08:45 History of Present Illness HPI narrative: This 48-year-old male with history of diabetes, high blood pressure, above-knee amputation on the left, presented to emergency room complaining of chest pain since 6 AM, constant, nausea, indigestion. His sugar at home was over than 500, blood pressure systolic is over than 200. Patient denies fever, cough. Related Data Home Medications Medication Instructions Recorded Confirmed aspirin [Aspir-81] 81 mg PO DAILY 02/25/18 07/19/18 insulin aspart U-100 [Novolog 1 sliding scale dose SUB-Q ACHS 02/25/18 07/19/18 U-100 Insulin aspart] insulin aspart U-100 [Novolog 10 unit SUB-Q ACHS 02/25/18 07/19/18 U-100 Insulin aspart] lisinopril 20 mg PO BID 02/25/18 07/19/18 loratadine [Claritin] 10 mg PO DAILY 02/25/18 07/19/18 rosuvastatin [Crestor] 10 mg PO HS 02/25/18 07/19/18 sertraline [Zoloft] 25 mg PO DAILY 02/25/18 07/19/18 gabapentin 800 mg PO TID 05/16/18 07/19/18 naproxen 500 mg PO BID 05/17/18 07/19/18 diclofenac sodium [Voltaren] 2 g TOPICAL QID 07/19/18 07/19/18 Previous Rx's Medication Instructions Recorded insulin detemir U-100 [Levemir 36 unit SUBCUT DAILY ml 05/17/18 U-100 Insulin] insulin detemir U-100 [Levemir 38 unit SUBCUT HS ml 05/17/18 U-100 Insulin] oxycodone-acetaminophen 1 tab PO Q6H PRN tab 05/17/18 metoprolol tartrate 25 mg PO BID #60 tab 05/18/18 ondansetron [Zofran ODT] 4 mg PO Q6H PRN #10 tab 06/25/18 metoclopramide HCl [Reglan] 5 mg PO TID #90 tab 06/27/18 Allergies Allergy/AdvReac Type Severity Reaction Status Date / Time vancomycin Allergy Severe ACUTE Verified 06/28/18 08:46 RENAL FAILURE becaplermin [From Regranex] Allergy Intermediate Swelling Verified 06/28/18 08: 46 tigecycline AdvReac Severe NAUSEA AND Verified 06/28/18 08:46 VOMITING Tetracyclines AdvReac Intermediate Gastrointestinal Verified 06/28/18 08:46 Upset Review of Systems ROS: all other systems reviewed are negative Cardiovascular Reports chest pain Gastrointestinal Reports nausea PMFSH Social History Social History Substance History: No History of Abuse Second Hand Smoke Exposure: No Smoking Status: Unknown if ever smoked Tobacco Type: Cigarettes Cigarettes Per Day: 10 How Often Do You Have a Drink Containing Alcohol: Never Recent Travel in [place] within the Last 8 Weeks: No Recent Out of Country Travel within the Last 8 Weeks: No Immunization History Tetanus Immunization Year if Known: 2016 Exam Narrative Exam Narrative: GENERAL: 48-year-old male in no apparent distress. SKIN: Focused skin assessment warm/dry. HEAD: Atraumatic. Normocephalic. EYES: Pupils equal and round. No scleral icterus. No injection or drainage. ENT: No nasal bleeding or discharge. Mucous membranes pink and moist. NECK: Trachea midline. No JVD. CARDIOVASCULAR: Regular rate and rhythm. No murmur appreciated. RESPIRATORY: No accessory muscle use. Clear to auscultation. Breath sounds equal bilaterally. GASTROINTESTINAL: Abdomen soft, non-tender, nondistended. Hepatic and splenic margins not palpable. MUSCULOSKELETAL: No obvious deformities. No clubbing. No cyanosis. No edema. NEUROLOGICAL: Awake and alert. No obvious cranial nerve deficits. Motor grossly within normal limits. Normal speech. PSYCHIATRIC: Appropriate mood and affect; insight and judgment normal. Course Initial Documented Vital Signs Temperature 98.3 F 07/19/18 08:31 Pulse Rate 90 07/19/18 08:31 Respiratory Rate 15 07/19/18 08:31 Blood Pressure 209/112 H 07/19/18 08:31 Pulse Oximetry 99 07/19/18 08:31 Last Documented Vital Signs Temperature 98.3 F 07/19/18 08:31 Pulse Rate 85 07/19/18 11:52 Respiratory Rate 18 07/19/18 11:52 Blood Pressure 209/117 H 07/19/18 11:52 Pulse Oximetry 98 07/19/18 11:52 Medical Decision Making MDM Narrative Medical decision making narrative: Patient was blood sugar, high blood pressure , chest pain. Cardiac workup, blood pressure blood sugar medications given. Reevaluation is pending. 1330: Labs noted, patient feels better. First set of cardiac enzymes is negative, nausea improved patient has blood sugar level, after 12 units of insulin blood sugar still over than 400 he was placed on a drip. Blood pressure was treated with labetalol 20 mg and hydralazine 20 mg with no significant improvement, he was placed on nicardipine drip. Due to my malignant hypertension and hyperglycemia patient is admitted under Dr. Mooney service to medicine. Medical Screen Exam Complete: Yes Emergency Medical Condition: Yes Lab Data Result diagrams: 07/19/18 09:20 07/19/18 09:20 Lab Results 07/19/18 07/19/18 07/19/18 Range/Units 09:20 09:20 09:20 WBC 13.9 H (4.0-11.0) th/mm3 RBC 5.39 (4.50-5.90) mil/mm3 Hgb 16.9 (13.0-17.0) gm/dL Hct 47.8 (39.0-51.0) % MCV 88.7 (80.0-100.0) fL MCH 31.4 (27.0-34.0) pg MCHC 35.4 (32.0-36.0) % RDW 14.6 (11.6-17.2) % Plt Count 219 (150-450) th/mm3 MPV 8.6 (7.0-11.0) fL Neut % (Auto) 80.5 H (16.0-70.0) % Lymph % (Auto) 15.6 (9.0-44.0) % [place] % (Auto) 3.2 (0.0-8.0) % Eos % (Auto) 0.1 (0.0-4.0) % Baso % (Auto) 0.6 (0.0-2.0) % Neut # (Auto) 11.2 H (1.8-7.7) th/mm3 Lymph # (Auto) 2.2 (1.0-4.8) th/mm3 [place] # (Auto) 0.4 (0.0-0.9) th/mm3 Eos # (Auto) 0.0 (0.0-0.4) th/mm3 Baso # (Auto) 0.1 (0.0-0.2) th/mm3 WBC Differential . Differential Comment Auto diff final Sodium 131 L (136-145) meq/L Potassium 4.7 (3.5-5.1) meq/L Chloride 97 L (98-107) meq/L Carbon Dioxide 22.7 (21.0-32.0) meq/L Anion Gap 11 (5-15) meq/L BUN 42 H (7-18) mg/dL Creatinine 1.43 H (0.60-1.30) mg/dL Estimated GFR 53 L (>89) mL/min POC Glucose (68-110) mg/dl Random Glucose 493 H* (74-106) mg/dL Osmolality (275-295) mosm/kg Calcium 9.3 (8.5-10.1) mg/dL Total Bilirubin 1.8 H (0.2-1.0) mg/dL AST 18 (15-37) U/L ALT 24 (12-78) U/L Alkaline Phosphatase 111 (45-117) U/L Troponin I 0.04 (0.02-0.05) ng/mL Total Protein 7.7 (6.4-8.2) g/dL Albumin 4.1 (3.4-5.0) g/dL Beta-Hydroxybutyric Acd (0.00-0.39) mmol/L Urine Color (Yellw/Straw) Urine Clarity (Clear) Urine pH (5.0-8.5) Ur Specific [place] (1.002-1.035) Urine Protein (Neg-Trace) mg/dL Urine Glucose (UA) (Negative) mg/dL Urine Ketones (Negative) mg/dL Urine Occult Blood (Negative) Urine Nitrate (Negative) Urine Bilirubin (Negative) Urine Urobilinogen (Less than 2) mg/dL Ur Leukocyte Esterase (Negative) Urine RBC (0-3) /hpf Ur Squamous Epith Cells (0-5) /hpf Hyaline Casts (0-3) /lpf Micro UA Comment Ur Microscopic Review Urine Culture Comments Urine Opiates Screen (Neg) Ur Barbiturates Screen (Neg) Ur Amphetamines Screen (Neg) U Benzodiazepines Scrn (Neg) Urine Cocaine Screen (Neg) U Cannabinoids Screen (Neg) Serum Alcohol Less than 3 (0-5) mg/dL 07/19/18 07/19/18 07/19/18 Range/Units 09:20 09:20 10:48 WBC (4.0-11.0) th/mm3 RBC (4.50-5.90) mil/mm3 Hgb (13.0-17.0) gm/dL Hct (39.0-51.0) % MCV (80.0-100.0) fL MCH (27.0-34.0) pg MCHC (32.0-36.0) % RDW (11.6-17.2) % Plt Count (150-450) th/mm3 MPV (7.0-11.0) fL Neut % (Auto) (16.0-70.0) % Lymph % (Auto) (9.0-44.0) % [place] % (Auto) (0.0-8.0) % Eos % (Auto) (0.0-4.0) % Baso % (Auto) (0.0-2.0) % Neut # (Auto) (1.8-7.7) th/mm3 Lymph # (Auto) (1.0-4.8) th/mm3 [place] # (Auto) (0.0-0.9) th/mm3 Eos # (Auto) (0.0-0.4) th/mm3 Baso # (Auto) (0.0-0.2) th/mm3 WBC Differential Differential Comment Sodium (136-145) meq/L Potassium (3.5-5.1) meq/L Chloride (98-107) meq/L Carbon Dioxide (21.0-32.0) meq/L Anion Gap (5-15) meq/L BUN (7-18) mg/dL Creatinine (0.60-1.30) mg/dL Estimated GFR (>89) mL/min POC Glucose 500 H* (68-110) mg/dl Random Glucose (74-106) mg/dL Osmolality 314 H (275-295) mosm/kg Calcium (8.5-10.1) mg/dL Total Bilirubin (0.2-1.0) mg/dL AST (15-37) U/L ALT (12-78) U/L Alkaline Phosphatase (45-117) U/L Troponin I (0.02-0.05) ng/mL Total Protein (6.4-8.2) g/dL Albumin (3.4-5.0) g/dL Beta-Hydroxybutyric Acd 1.42 H (0.00-0.39) mmol/L Urine Color (Yellw/Straw) Urine Clarity (Clear) Urine pH (5.0-8.5) Ur Specific [place] (1.002-1.035) Urine Protein (Neg-Trace) mg/dL Urine Glucose (UA) (Negative) mg/dL Urine Ketones (Negative) mg/dL Urine Occult Blood (Negative) Urine Nitrate (Negative) Urine Bilirubin (Negative) Urine Urobilinogen (Less than 2) mg/dL Ur Leukocyte Esterase (Negative) Urine RBC (0-3) /hpf Ur Squamous Epith Cells (0-5) /hpf Hyaline Casts (0-3) /lpf Micro UA Comment Ur Microscopic Review Urine Culture Comments Urine Opiates Screen (Neg) Ur Barbiturates Screen (Neg) Ur Amphetamines Screen (Neg) U Benzodiazepines Scrn (Neg) Urine Cocaine Screen (Neg) U Cannabinoids Screen (Neg) Serum Alcohol (0-5) mg/dL 07/19/18 07/19/18 07/19/18 Range/Units 11:15 11:15 12:47 WBC (4.0-11.0) th/mm3 RBC (4.50-5.90) mil/mm3 Hgb (13.0-17.0) gm/dL Hct (39.0-51.0) % MCV (80.0-100.0) fL MCH (27.0-34.0) pg MCHC (32.0-36.0) % RDW (11.6-17.2) % Plt Count (150-450) th/mm3 MPV (7.0-11.0) fL Neut % (Auto) (16.0-70.0) % Lymph % (Auto) (9.0-44.0) % [place] % (Auto) (0.0-8.0) % Eos % (Auto) (0.0-4.0) % Baso % (Auto) (0.0-2.0) % Neut # (Auto) (1.8-7.7) th/mm3 Lymph # (Auto) (1.0-4.8) th/mm3 [place] # (Auto) (0.0-0.9) th/mm3 Eos # (Auto) (0.0-0.4) th/mm3 Baso # (Auto) (0.0-0.2) th/mm3 WBC Differential Differential Comment Sodium (136-145) meq/L Potassium (3.5-5.1) meq/L Chloride (98-107) meq/L Carbon Dioxide (21.0-32.0) meq/L Anion Gap (5-15) meq/L BUN (7-18) mg/dL Creatinine (0.60-1.30) mg/dL Estimated GFR (>89) mL/min POC Glucose 436 H (68-110) mg/dl Random Glucose (74-106) mg/dL Osmolality (275-295) mosm/kg Calcium (8.5-10.1) mg/dL Total Bilirubin (0.2-1.0) mg/dL AST (15-37) U/L ALT (12-78) U/L Alkaline Phosphatase (45-117) U/L Troponin I (0.02-0.05) ng/mL Total Protein (6.4-8.2) g/dL Albumin (3.4-5.0) g/dL Beta-Hydroxybutyric Acd (0.00-0.39) mmol/L Urine Color Yellow (Yellw/Straw) Urine Clarity Clear (Clear) Urine pH 5.0 (5.0-8.5) Ur Specific [place] 1.024 (1.002-1.035) Urine Protein 100 H (Neg-Trace) mg/dL Urine Glucose (UA) 500 or greater (Negative) mg/dL Urine Ketones Trace H (Negative) mg/dL Urine Occult Blood Negative (Negative) Urine Nitrate Negative (Negative) Urine Bilirubin Negative (Negative) Urine Urobilinogen Less than 2 (Less than 2) mg/dL Ur Leukocyte Esterase Negative (Negative) Urine RBC Less than 1 (0-3) /hpf Ur Squamous Epith Cells <1 (0-5) /hpf Hyaline Casts 1 (0-3) /lpf Micro UA Comment Culture not ind Ur Microscopic Review Not Reportable Urine Culture Comments Culture not ind Urine Opiates Screen Neg (Neg) Ur Barbiturates Screen Neg (Neg) Ur Amphetamines Screen Neg (Neg) U Benzodiazepines Scrn Neg (Neg) Urine Cocaine Screen Neg (Neg) U Cannabinoids Screen Pos H (Neg) Serum Alcohol (0-5) mg/dL Imaging Data Radiologist's impression: Chest X-Ray 07/19/18 08:54 CONCLUSION: No acute cardiopulmonary process. ECG Data EKG Prior to Arrival: No Attestation: I personally reviewed and interpreted this ECG as follows: Prior ECG tracings: available for review Interpretation: Normal sinus rhythm at rate [address] elevation nonspecific ST changes. Discharge Plan Discharge Disposition Patient Disposition: ED Admit(ED Internal Use Only) Discharge Condition Condition: Serious Discharge Order Discharge Orders: ED Use Only Admit Order (Routine); Ordered 07/19/18 Ordered By: Forrest Bustamante Physicians Team ED Provider: Forrest Bustamante Primary Care Provider: Adrián Pineda Rxs /Orders / Referrals /Forms Prescriptions: No Action lisinopril 20 mg Tablet 20 mg PO BID RF: 0 aspirin [Aspir-81] 81 mg Tablet,Delayed Release (Dr/Ec) 81 mg PO DAILY RF: 0 insulin aspart U-100 [Novolog U-100 Insulin aspart] 100 unit/mL Solution 10 unit SUB-Q ACHS RF: 0 insulin aspart U-100 [Novolog U-100 Insulin aspart] 100 unit/mL Solution 1 sliding scale dose SUB-Q ACHS RF: 0 sertraline [Zoloft] 25 mg Tablet 25 mg PO DAILY RF: 0 loratadine [Claritin] 10 mg Tablet 10 mg PO DAILY RF: 0 rosuvastatin [Crestor] 20 mg Tablet 10 mg PO HS RF: 0 ondansetron [Zofran ODT] 4 mg tablet,disintegrating 4 mg PO Q6H PRN (Reason: nausea and vomiting) Qty: 10 RF: 0 diclofenac sodium [Voltaren] 1 % Gel 2 g TOPICAL QID RF: 0 gabapentin 400 mg Capsule 800 mg PO TID RF: 0 naproxen 500 mg 500 mg PO BID RF: 0 oxycodone-acetaminophen 10-325 mg Tablet 1 tab PO Q6H PRN (Reason: Pain Scale 6 To 10) RF: 0 insulin detemir U-100 [Levemir U-100 Insulin] 100 unit/mL Solution 36 unit subcut DAILY RF: 0 insulin detemir U-100 [Levemir U-100 Insulin] 100 unit/mL Solution 38 unit subcut HS RF: 0 metoprolol tartrate 25 mg Tablet 25 mg PO BID Qty: 60 RF: 0 metoclopramide HCl [Reglan] 5 mg Tablet 5 mg PO TID Qty: 90 RF: 0 Discharge Instructions Patient Printed Instructions: Chest Pain (ED) Discharge Interventions Interventions: Vital Signs Last Done: 07/19/18 09:37 Status ED Status: Admitted Patient
--- NOTE | 2018-07-19 09:47 | XR ---
EXAM DATE: 07/19/2018 9:42 AM EST AGE/SEX: 48 years / Male INDICATIONS: Chest Pain. CLINICAL DATA: This is the patient's initial encounter. Patient reports that signs and symptoms have been present for 1 day and indicates a pain score of 6/10. MEDICAL/SURGICAL HISTORY: . Hypertension. Diabetes. None. COMPARISON: [facility] – [place], CHEST 1V SINGLE AP, 06/28/2018. . FINDINGS: A single AP view of the chest demonstrates the lungs to be symmetrically aerated without evidence of mass, infiltrate or effusion. The cardiomediastinal contours are unremarkable. Osseous structures a re intact. CONCLUSION: No acute cardiopulmonary process. Electronically signed by: Juventino Ballard MD Board Certified Radiologist 07/19/2018 9:46 AM EST
[2018-07-19] MEDS ORDERED: Sodium Chlor 0.9% Inj 500 ML IV.SIG SCH (10:00)
[2018-07-19 10:06] LABS: Baso # (Auto) 0.1 th/mm3 (0.0-0.2); Baso % (Auto) 0.6 % (0.0-2.0); Eos % (Auto) 0.1 % (0.0-4.0); Hematocrit 47.8 % (39.0-51.0); Hemoglobin 16.9 gm/dL (13.0-17.0); Lymph # (Auto) 2.2 th/mm3 (1.0-4.8); Lymph % (Auto) 15.6 % (9.0-44.0); Mean Corpuscular HGB Conc 35.4 % (32.0-36.0); Mean Corpuscular Hemoglobin 31.4 pg (27.0-34.0); Mean Corpuscular Volume 88.7 fL (80.0-100.0); Mean Platelet Volume 8.6 fL (7.0-11.0); Mono # (Auto) 0.4 th/mm3 (0.0-0.9); Mono % (Auto) 3.2 % (0.0-8.0); Neut # (Auto) 11.2 th/mm3 (1.8-7.7); Neut % (Auto) 80.5 % (16.0-70.0); Platelet Count 219 th/mm3 (150-450); Red Blood Count 5.39 mil/mm3 (4.50-5.90); Red Cell Distribution Width 14.6 % (11.6-17.2); White Blood Count 13.9 th/mm3 (4.0-11.0)
[2018-07-19] MEDS ORDERED: Morphine Sulfate Inj 2 MG/ML Vial IV.PUSH ONE (10:10)
[2018-07-19 10:45] LABS: Alanine Aminotransferase 24 U/L (12-78); Albumin 4.1 g/dL (3.4-5.0); Alkaline Phosphatase 111 U/L (45-117); Anion Gap 11 meq/L (5-15); Aspartate Aminotransferase 18 U/L (15-37); Blood Urea Nitrogen 42 mg/dL (7-18); Calcium 9.3 mg/dL (8.5-10.1); Carbon Dioxide 22.7 meq/L (21.0-32.0); Chloride 97 meq/L (98-107); Glomerular Filtration Rate 53 mL/min (>89); Potassium 4.7 meq/L (3.5-5.1); Sodium 131 meq/L (136-145); Total Protein 7.7 g/dL (6.4-8.2); Troponin I 0.04 ng/mL (0.02-0.05)
[2018-07-19 10:48] LABS: Glucose,Random 493 mg/dL (74-106)
[2018-07-19 11:48] LABS: Bilirubin,Urine Negative (Negative); Clarity,Urine Clear (Clear); Color,Urine Yellow (Yellw/Straw); Glucose,Urine (UA) 500 or Greater mg/dL (Negative); Hyaline Casts,Urine 1 /lpf (0-3); Leukocyte Esterase,Urine Negative (Negative); Nitrite,Urine Negative (Negative); Specific Gravity,Urine 1.024 (1.002-1.035); Squamous Epithelial Cell,Urine <1 /hpf (0-5)
[2018-07-19 11:57] LABS: Amphetamine Screen,Urine Neg (Neg); Barbiturate Screen,Urine Neg (Neg); Cannabinoid Screen,Urine Pos (Neg); Cocaine Screen,Urine Neg (Neg)
[2018-07-19 11:59] LABS: Opiate Screen,Urine Neg (Neg)
[2018-07-19] MEDS ORDERED: hydrALAZINE HCl Inj 20 MG/ML Vial IV.PUSH ONE (12:12)
[2018-07-19] MEDS ORDERED: Metoclopramide Inj 10 MG in Sodium Chlor 0.9% Inj 50 ML IV.SIG ONE (12:40)
[2018-07-19] MEDS ORDERED: Morphine Inj 4 MG/ML Vial IV.PUSH ONE (12:40)
[2018-07-19] MEDS ORDERED: Insulin Human-R 100 UNIT/100ML 100 UNIT/100 ML BAG IV.CONT ONE (13:12)
[2018-07-19] MEDS ORDERED: niCARdipine Inj 25 MG in Sodium Chlor 0.9% Inj 240 ML IV.CONT PRN (13:26)
[2018-07-19] MEDS ORDERED: Acetaminophen 325 MG Tablet PO PRN (14:43)
--- NOTE | 2018-07-19 15:45 | P.HP ---
History of Present Illness Primary Care Physician: Adrián Pineda MD Chief Complaint: Intractable nausea and vomiting associated with chest pain History of Present Illness: 48-year-old male with a history of nonhealing diabetic right foot ulcer, hypertension, hyperlipidemia, left BKA comes to the ED for evaluation of 3-4 days history of intractable nausea and vomiting associated with chest pain. While in the ED, patient had elevated blood pressure with systolic above 200s. He also had blood glucose of over 400s for which she was started on insulin drip. Patient states over the past 4 days, he has been able to take his medication secondary to nausea and vomiting. Denies any GI bleed. He has no other issues. Inpatient Certification: I certify that the inpatient services were ordered in accordance with Medicare regulations governing the order. This includes certification that hospital inpatient services are reasonable and necessary and in the case of services not specified as inpatient-only under 42 CFR 419.22(n), that they are appropriately provided as inpatient services in accordance to with the 2-midnight benchmark under 43 CFR 412.3(e) Estimated Total Length of Stay (Days): 2 Plans for Post Hospital Care: Not yet determined Review of Systems All other systems reviewed negative except as stated in HPI PMFSH - History History Provided By: Patient - Medical History Medical History: Medical History (Last Reviewed 06/28/18 @ 08:58 by Ermelinda Becerril) Diabetes mellitus Foot ulcer HTN (hypertension) High cholesterol MRSA (methicillin resistant Staphylococcus aureus) infection Neuropathy Osteomyelitis - Surgical History Surgical History: Surgical History (Last Reviewed 06/28/18 @ 08:58 by Ermelinda Becerril) History of left below knee amputation (Chronic) Hx of skin graft - Family History Family History: Family History (Last Reviewed 05/16/18 @ 09:57 by Zahraa Benz) Other Diabetes - Tobacco History Second Hand Smoke Exposure: No Smoking Status: Unknown if ever smoked Tobacco Type: Cigarettes Cigarettes Per Day: 10 - Alcohol History How Often Do You Have a Drink Containing Alcohol: Never - Substance Use History Substance History: No History of Abuse - Travel History Recent Travel in the [place] Within the Last 8 Weeks: No Recent Travel Out of the Country Within the Last 8 Weeks: No - Immunization History Tetanus Immunization: <5 Years Tetanus Immunization Year if Known: 2016 Medications and Allergies Active Medications: Active Medications Acetaminophen (Tylenol) 650 mg PO Q4H PRN PRN Reason: Temp > 100.4 Al Hydroxide/Mg Hydroxide (Milk Of Gennaro Raphael) 30 ml PO Q12H PRN PRN Reason: Mild Constipation Aspirin (Ecotrin) 81 mg PO DAILY WANDA Atorvastatin Calcium (Lipitor) 20 mg PO HS WANDA Enoxaparin Sodium (Lovenox Inj) 30 mg SQ Q24H WANDA Insulin Human Regular (Novolin-R 100 Units/Ns 100 Ml (For Ed)) 100 unit in 100 mls @ 9 mls/hr IV.CONT TITRATE ONE; Protocol Stop: 07/20/18 00:18 Last Titration: 07/19/18 15:01 Dose: 4 units/hr, 4 mls/hr Nicardipine HCl 25 mg/ Sodium (Chloride) 250 mls @ 50 mls/hr IV.CONT TITRATE PRN; Protocol PRN Reason: Per Protocol Last Admin: 07/19/18 15:35 Dose: 5 mg/hr, 50 mls/hr Miscellaneous (Pill Splitter) 1 each OTHER UNSCH PRN PRN Reason: SEE LABEL COMMENTS Ondansetron HCl (Zofran Inj) 4 mg IV.PUSH Q6H PRN PRN Reason: NAUSEA OR VOMITING Sertraline HCl (Zoloft) 25 mg PO DAILY WANDA Sodium Chloride (Ns Flush) 2 ml IV.FLUSH BID WANDA Sodium Chloride (Ns Flush) 2 ml IV.FLUSH PRN PRN PRN Reason: FLUSH AFTER USING IV ACCESS Allergies Allergy/AdvReac Type Severity Reaction Status Date / Time vancomycin Allergy Severe ACUTE Verified 06/28/18 08:46 RENAL FAILURE becaplermin [From Regranex] Allergy Intermediate Swelling Verified 06/28/18 08: 46 tigecycline AdvReac Severe NAUSEA AND Verified 06/28/18 08:46 VOMITING Tetracyclines AdvReac Intermediate Gastrointestinal Verified 06/28/18 08:46 Upset Home Medications Medication Instructions Recorded Confirmed Type aspirin [Aspir-81] 81 mg PO DAILY 02/25/18 07/19/18 History insulin aspart U-100 [Novolog 1 sliding scale dose SUB-Q ACHS 02/25/18 07/19/18 History U-100 Insulin aspart] insulin aspart U-100 [Novolog 10 unit SUB-Q ACHS 02/25/18 07/19/18 History U-100 Insulin aspart] lisinopril 20 mg PO BID 02/25/18 07/19/18 History loratadine [Claritin] 10 mg PO DAILY 02/25/18 07/19/18 History rosuvastatin [Crestor] 10 mg PO HS 02/25/18 07/19/18 History sertraline [Zoloft] 25 mg PO DAILY 02/25/18 07/19/18 History gabapentin 800 mg PO TID 05/16/18 07/19/18 History naproxen 500 mg PO BID 05/17/18 07/19/18 History diclofenac sodium [Voltaren] 2 g TOPICAL QID 07/19/18 07/19/18 History Exam Vital signs: Vital Signs 07/19/18 08:31 07/19/18 08:37 07/19/18 08:54 Temperature 98.3 F Pulse Rate 90 84 85 Respiratory Rate 15 18 Blood Pressure 209/112 H 213/110 H 212/105 H Pulse Oximetry 99 100 98 07/19/18 09:37 07/19/18 11:52 07/19/18 13:58 Temperature Pulse Rate 86 85 96 H Respiratory Rate 20 18 Blood Pressure 194/110 H 209/117 H 172/105 H Pulse Oximetry 96 98 97 07/19/18 14:44 07/19/18 15:32 Temperature Pulse Rate 92 H 102 H Respiratory Rate 18 20 Blood Pressure 156/94 H 182/103 H Pulse Oximetry 98 98 Intake & Output 07/18/18 07/19/18 07/19/18 18:59 06:59 18:59 Intake Total 552 / 552 Balance 552 / 552 Weight 86.183 kg Intake: IV 552 / 552 Reglan Inj 10 MG In NS Inj 50 52 / 52 ML @ 104 mls/hr IV.SIG ONCE ONE Rx#:[id number] NS Inj 500 ML @ 1000 mls/hr IV. 500 / 500 SIG BOLUS WANDA Rx#:[id number] Narrative: GENERAL: NAD SKIN: Warm and dry. HEAD: Atraumatic. Normocephalic. EYES: Pupils equal and round. No scleral icterus. No injection or drainage. ENT: No nasal bleeding or discharge. Mucous membranes pink and moist. NECK: Trachea midline. No JVD. CARDIOVASCULAR: Regular rate and rhythm. RESPIRATORY: No accessory muscle use. Clear to auscultation. Breath sounds equal bilaterally. GASTROINTESTINAL: Abdomen soft, non-tender, nondistended. Hepatic and splenic margins not palpable. MUSCULOSKELETAL: Extremities without clubbing, cyanosis, or edema. No obvious deformities. Left BKA; chronic nonhealing right foot ulcer NEUROLOGICAL: Awake and alert. No obvious cranial nerve deficits. Motor grossly within normal limits. Normal speech. PSYCHIATRIC: Appropriate mood and affect; insight and judgment normal. Results - Labs CBC & Chem 7: 07/19/18 09:20 07/19/18 09:20 Labs: Laboratory Results - last 24 hr 07/19/18 07/19/18 07/19/18 09:20 09:20 09:20 WBC 13.9 H RBC 5.39 Hgb 16.9 Hct 47.8 MCV 88.7 MCH 31.4 MCHC 35.4 RDW 14.6 Plt Count 219 MPV 8.6 Neut % (Auto) 80.5 H Lymph % (Auto) 15.6 [place] % (Auto) 3.2 Eos % (Auto) 0.1 Baso % (Auto) 0.6 Neut # (Auto) 11.2 H Lymph # (Auto) 2.2 [place] # (Auto) 0.4 Eos # (Auto) 0.0 Baso # (Auto) 0.1 WBC Differential . Differential Comment Auto diff final Sodium 131 L Potassium 4.7 Chloride 97 L Carbon Dioxide 22.7 Anion Gap 11 BUN 42 H Creatinine 1.43 H Estimated GFR 53 L POC Glucose Random Glucose 493 H* Osmolality Calcium 9.3 Total Bilirubin 1.8 H AST 18 ALT 24 Alkaline Phosphatase 111 Troponin I 0.04 Total Protein 7.7 Albumin 4.1 Beta-Hydroxybutyric Acd Urine Color Urine Clarity Urine pH Ur Specific [place] Urine Protein Urine Glucose (UA) Urine Ketones Urine Occult Blood Urine Nitrate Urine Bilirubin Urine Urobilinogen Ur Leukocyte Esterase Urine RBC Ur Squamous Epith Cells Hyaline Casts Micro UA Comment Ur Microscopic Review Urine Culture Comments Urine Opiates Screen Ur Barbiturates Screen Ur Amphetamines Screen U Benzodiazepines Scrn Urine Cocaine Screen U Cannabinoids Screen Serum Alcohol Less than 3 07/19/18 07/19/18 07/19/18 09:20 09:20 10:48 WBC RBC Hgb Hct MCV MCH MCHC RDW Plt Count MPV Neut % (Auto) Lymph % (Auto) [place] % (Auto) Eos % (Auto) Baso % (Auto) Neut # (Auto) Lymph # (Auto) [place] # (Auto) Eos # (Auto) Baso # (Auto) WBC Differential Differential Comment Sodium Potassium Chloride Carbon Dioxide Anion Gap BUN Creatinine Estimated GFR POC Glucose 500 H* Random Glucose Osmolality 314 H Calcium Total Bilirubin AST ALT Alkaline Phosphatase Troponin I Total Protein Albumin Beta-Hydroxybutyric Acd 1.42 H Urine Color Urine Clarity Urine pH Ur Specific [place] Urine Protein Urine Glucose (UA) Urine Ketones Urine Occult Blood Urine Nitrate Urine Bilirubin Urine Urobilinogen Ur Leukocyte Esterase Urine RBC Ur Squamous Epith Cells Hyaline Casts Micro UA Comment Ur Microscopic Review Urine Culture Comments Urine Opiates Screen Ur Barbiturates Screen Ur Amphetamines Screen U Benzodiazepines Scrn Urine Cocaine Screen U Cannabinoids Screen Serum Alcohol 07/19/18 07/19/18 07/19/18 11:15 11:15 12:47 WBC RBC Hgb Hct MCV MCH MCHC RDW Plt Count MPV Neut % (Auto) Lymph % (Auto) [place] % (Auto) Eos % (Auto) Baso % (Auto) Neut # (Auto) Lymph # (Auto) [place] # (Auto) Eos # (Auto) Baso # (Auto) WBC Differential Differential Comment Sodium Potassium Chloride Carbon Dioxide Anion Gap BUN Creatinine Estimated GFR POC Glucose 436 H Random Glucose Osmolality Calcium Total Bilirubin AST ALT Alkaline Phosphatase Troponin I Total Protein Albumin Beta-Hydroxybutyric Acd Urine Color Yellow Urine Clarity Clear Urine pH 5.0 Ur Specific [place] 1.024 Urine Protein 100 H Urine Glucose (UA) 500 or greater Urine Ketones Trace H Urine Occult Blood Negative Urine Nitrate Negative Urine Bilirubin Negative Urine Urobilinogen Less than 2 Ur Leukocyte Esterase Negative Urine RBC Less than 1 Ur Squamous Epith Cells <1 Hyaline Casts 1 Micro UA Comment Culture not ind Ur Microscopic Review Not Reportable Urine Culture Comments Culture not ind Urine Opiates Screen Neg Ur Barbiturates Screen Neg Ur Amphetamines Screen Neg U Benzodiazepines Scrn Neg Urine Cocaine Screen Neg U Cannabinoids Screen Pos H Serum Alcohol 07/19/18 14:58 WBC RBC Hgb Hct MCV MCH MCHC RDW Plt Count MPV Neut % (Auto) Lymph % (Auto) [place] % (Auto) Eos % (Auto) Baso % (Auto) Neut # (Auto) Lymph # (Auto) [place] # (Auto) Eos # (Auto) Baso # (Auto) WBC Differential Differential Comment Sodium Potassium Chloride Carbon Dioxide Anion Gap BUN Creatinine Estimated GFR POC Glucose 370 H Random Glucose Osmolality Calcium Total Bilirubin AST ALT Alkaline Phosphatase Troponin I Total Protein Albumin Beta-Hydroxybutyric Acd Urine Color Urine Clarity Urine pH Ur Specific [place] Urine Protein Urine Glucose (UA) Urine Ketones Urine Occult Blood Urine Nitrate Urine Bilirubin Urine Urobilinogen Ur Leukocyte Esterase Urine RBC Ur Squamous Epith Cells Hyaline Casts Micro UA Comment Ur Microscopic Review Urine Culture Comments Urine Opiates Screen Ur Barbiturates Screen Ur Amphetamines Screen U Benzodiazepines Scrn Urine Cocaine Screen U Cannabinoids Screen Serum Alcohol - Imaging Impressions Chest X-Ray 07/19/18 08:54 CONCLUSION: No acute cardiopulmonary process. Caprini VTE Risk Assessment Caprini VTE Risk Assessment: No/Low Risk (score <= 1) Caprini Risk Assessment Model: Point Value = 1 Point Value = 2 Point Value = 3 Point Value = 5 Age 41-60 Minor surgery BMI > 25 kg/m2 Swollen legs Varicose veins or History of unexplained or recurrent spontaneous Oral contraceptives or hormone replacement Sepsis (< 1 month) Serious lung disease, including pneumonia (< 1 month) Abnormal pulmonary function Acute myocardial infarction Congestive heart failure (< 1 month) History of inflammatory bowel disease Medical patient at bed rest Age 61-74 Arthroscopic surgery Major open surgery (> 45 min) Laparoscopic surgery (> 45 min) Malignancy Confined to bed (> 72 hours) Immobilizing plaster cast Central venous access Age >= 75 History of VTE Family history of VTE Factor V Leiden Prothrombin [id number] Lupus anticoagulant Anticardiolipin antibodies Elevated serum homocysteine Heparin-induced thrombocytopenia Other congenital or acquired thrombophilia Stroke (< 1 month) Elective arthroplasty Hip, pelvis, or leg fracture Acute spinal cord injury (< 1 month) Prophylaxis Regimen: Total Risk Factor Score Risk Level Prophylaxis Regimen 0-1 Low Early ambulation 2 Moderate Order ONE of the following: *Sequential Compression Device (SCD) *Heparin 5000 units SQ BID 3-4 Higher Order ONE of the following medications: *Heparin 5000 units SQ TID *Enoxaparin/Lovenox 40 mg SQ daily (WT < 150 kg, CrCl > 30 mL/min) *Enoxaparin/Lovenox 30 mg SQ daily (WT < 150 kg, CrCl > 10-29 mL/min) *Enoxaparin/Lovenox 30 mg SQ BID (WT < 150 kg, CrCl > 30 mL/min) AND/OR *Sequential Compression Device (SCD) 5 or more Highest Order ONE of the following medications: *Heparin 5000 units SQ TID (Preferred with Epidurals) *Enoxaparin/Lovenox 40 mg SQ daily (WT < 150 kg, CrCl > 30 mL/min) *Enoxaparin/Lovenox 30 mg SQ daily (WT < 150 kg, CrCl > 10-29 mL/min) *Enoxaparin/Lovenox 30 mg SQ BID (WT < 150 kg, CrCl > 30 mL/min) AND *Sequential Compression Device (SCD) Assessment and Plan - Plan 48-year-old man with Malignant hypertension Will start patient on Cardene drip and admit in ICU for close monitoring Hydralazine IV as needed Diabetes type 2 uncontrolled Currently on insulin drip Hold oral antihypertensive medication Beta hydroxybutyrate noted and check hemoglobin A1c Intractable nausea and vomiting Secondary to gastroparesis Treatment as an above Continue antiemetic Gastroparesis Resume Reglan Atypical chest pain Due to intractable nausea and vomiting Initial cardiac enzyme and EKG unremarkable Treat as an above Nonhealing chronic right foot ulcer Patient to follow outpatient with podiatry Chronic pain syndrome Resume outpatient pain medications Leukocytosis Stress reactive Continue to monitor DVT prophylaxis: Lovenox
[2018-07-19] MEDS ORDERED: Dextrose 50% in Water 50 ML Vial IV.PUSH PRN (15:47)
[2018-07-19] MEDS: Enoxaparin Inj 30 MG/0.3 ML Syringe SQ SCH (16:15)
[2018-07-19] MEDS ORDERED: hydrALAZINE HCl Inj 20 MG/ML Vial IV.PUSH PRN (17:00)
[2018-07-19] MEDS: Metoclopramide 10 MG Tablet PO SCH (17:35)
[2018-07-19] MEDS: oxyCODONE/Acetaminophen 10/325 Tablet PO PRN (17:36)
[2018-07-19] MEDS: Gabapentin 400 MG Capsule PO SCH ×2 (18:07→18:14)
[2018-07-19] MEDS: Insulin NovoLOG Aspart Correctional Sugar Inj SQ SCH ×2 (18:12→21:22)
[2018-07-20] MEDS: oxyCODONE/Acetaminophen 10/325 Tablet PO PRN ×3 (00:01→12:19)
[2018-07-20] MEDS ORDERED: Chlorhexidine Gluconate 2% 1 Pack (2 Cloths) TOPICAL SCH (04:00)
[2018-07-20] MEDS ORDERED: Chlorhexidine Gluconate 2% 1 Pack (2 Cloths) TOPICAL PRN (04:00)
[2018-07-20 05:23] LABS: Baso # (Auto) 0.1 th/mm3 (0.0-0.2); Baso % (Auto) 0.4 % (0.0-2.0); Eos # (Auto) 0.1 th/mm3 (0.0-0.4); Eos % (Auto) 0.7 % (0.0-4.0); Hematocrit 41.9 % (39.0-51.0); Hemoglobin 14.9 gm/dL (13.0-17.0); Lymph # (Auto) 4.9 th/mm3 (1.0-4.8); Lymph % (Auto) 30.5 % (9.0-44.0); Mean Corpuscular HGB Conc 35.6 % (32.0-36.0); Mean Corpuscular Hemoglobin 30.9 pg (27.0-34.0); Mean Corpuscular Volume 86.8 fL (80.0-100.0); Mean Platelet Volume 7.8 fL (7.0-11.0); Neut # (Auto) 10.1 th/mm3 (1.8-7.7); Neut % (Auto) 62.4 % (16.0-70.0); Platelet Count 236 th/mm3 (150-450); Red Blood Count 4.82 mil/mm3 (4.50-5.90); Red Cell Distribution Width 14.2 % (11.6-17.2); White Blood Count 16.2 th/mm3 (4.0-11.0)
[2018-07-20 05:49] LABS: Alanine Aminotransferase 19 U/L (12-78); Albumin 3.5 g/dL (3.4-5.0); Alkaline Phosphatase 82 U/L (45-117); Anion Gap 10 meq/L (5-15); Aspartate Aminotransferase 17 U/L (15-37); Blood Urea Nitrogen 31 mg/dL (7-18); Calcium 8.7 mg/dL (8.5-10.1); Carbon Dioxide 25.6 meq/L (21.0-32.0); Chloride 101 meq/L (98-107); Glomerular Filtration Rate 87 mL/min (>89); Glucose,Random 209 mg/dL (74-106); Potassium 3.8 meq/L (3.5-5.1); Sodium 137 meq/L (136-145); Total Protein 6.7 g/dL (6.4-8.2)
[2018-07-20] MEDS: Gabapentin 400 MG Capsule PO SCH ×2 (08:58→12:18)
[2018-07-20] MEDS: Metoclopramide 10 MG Tablet PO SCH ×2 (08:59→12:18)
[2018-07-20] MEDS ORDERED: Pantoprazole Inj 40 MG Vial IV.PUSH SCH (09:00)
[2018-07-20] MEDS ORDERED: Sertraline 50 MG Tablet PO SCH (09:00)
[2018-07-20] MEDS ORDERED: Loratadine 10 MG Tablet PO SCH (09:00)
[2018-07-20] MEDS: Insulin NovoLOG Aspart Correctional Sugar Inj SQ SCH ×2 (09:07→12:19)
--- NOTE | 2018-07-20 10:22 | P.PN ---
Subjective Interval history: Follow-up malignant hypertension/poorly controlled blood glucose/intractable nausea and vomiting July 20, 2018-patient seen and examined, SBP 156, and patient denies any chest pain or shortness of breath. Denies any more nausea and vomiting since admission. Blood glucose still labile. Physical Exam Vital signs: Vital Signs 07/19/18 11:52 07/19/18 13:58 07/19/18 14:44 Temperature Pulse Rate 85 96 H 92 H Respiratory Rate 18 18 18 Blood Pressure 209/117 H 172/105 H 156/94 H Pulse Oximetry 98 97 98 07/19/18 15:32 07/19/18 16:50 07/19/18 18:04 Temperature Pulse Rate 102 H 112 H 120 H Respiratory Rate 20 18 18 Blood Pressure 182/103 H 106/75 96/75 L Pulse Oximetry 98 98 98 07/19/18 18:39 07/19/18 19:14 07/19/18 20:00 Temperature Pulse Rate 112 H 95 H 107 H Respiratory Rate 18 14 14 Blood Pressure 115/72 171/98 H 120/74 Pulse Oximetry 98 98 96 07/19/18 20:19 07/19/18 20:35 07/19/18 21:00 Temperature 98.6 F Pulse Rate 103 H 98 H 96 H Respiratory Rate 19 14 21 Blood Pressure 107/72 107/71 116/72 Pulse Oximetry 96 97 97 07/19/18 21:32 07/19/18 22:00 07/19/18 23:21 Temperature Pulse Rate 96 H 89 Respiratory Rate Blood Pressure Pulse Oximetry 96 07/20/18 00:00 07/20/18 01:13 07/20/18 02:00 Temperature 97.9 F Pulse Rate 91 H 87 Respiratory Rate 20 20 Blood Pressure 119/80 Pulse Oximetry 97 07/20/18 04:00 07/20/18 06:00 07/20/18 06:17 Temperature 97.2 F L Pulse Rate 91 H 87 Respiratory Rate 16 20 Blood Pressure 152/94 H Pulse Oximetry 96 Intake & Output 07/19/18 07/20/18 07/20/18 18:59 06:59 18:59 Intake Total 552 / 552 285.3 / 285.3 Output Total 600 / 600 Balance 552 / 552 -314.7 / -314.7 Weight 86.183 kg 87.5 kg Intake: IV 552 / 552 45.3 / 45.3 NovoLIN-R 100 UNITS/NS 100 ML ( 45.3 / 45.3 for ED) 100 unit In 100 ml @ 9 UNITS/HR 9 mls/hr IV.CONT TITRATE ONE Rx#:[id number] Reglan Inj 10 MG In NS Inj 50 52 / 52 ML @ 104 mls/hr IV.SIG ONCE ONE Rx#:[id number] NS Inj 500 ML @ 1000 mls/hr IV. 500 / 500 SIG BOLUS WANDA Rx#:[id number] Oral 240 / 240 Output: Urine 600 / 600 Other: # Voids 1 # Bowel Movements 0 Weight On Admission 88.6 kg Narrative: GENERAL: NAD SKIN: Warm and dry. HEAD: Atraumatic. Normocephalic. EYES: Pupils equal and round. No scleral icterus. No injection or drainage. ENT: No nasal bleeding or discharge. Mucous membranes pink and moist. NECK: Trachea midline. No JVD. CARDIOVASCULAR: Regular rate and rhythm. RESPIRATORY: No accessory muscle use. Clear to auscultation. Breath sounds equal bilaterally. GASTROINTESTINAL: Abdomen soft, non-tender, nondistended. Hepatic and splenic margins not palpable. MUSCULOSKELETAL: Extremities without clubbing, cyanosis, or edema. No obvious deformities. Left BKA; chronic nonhealing right foot ulcer NEUROLOGICAL: Awake and alert. No obvious cranial nerve deficits. Motor grossly within normal limits. Normal speech. PSYCHIATRIC: Appropriate mood and affect; insight and judgment normal. Results - Labs CBC & Chem 7: 07/20/18 04:39 07/20/18 04:39 Laboratory Results - last 24 hr 07/19/18 07/19/18 07/19/18 09:20 09:20 09:20 WBC RBC Hgb Hct MCV MCH MCHC RDW Plt Count MPV Neut % (Auto) Lymph % (Auto) [place] % (Auto) Eos % (Auto) Baso % (Auto) Neut # (Auto) Lymph # (Auto) [place] # (Auto) Eos # (Auto) Baso # (Auto) WBC Differential Differential Comment Sodium 131 L Potassium 4.7 Chloride 97 L Carbon Dioxide 22.7 Anion Gap 11 BUN 42 H Creatinine 1.43 H Estimated GFR 53 L POC Glucose Random Glucose 493 H* Osmolality Calcium 9.3 Total Bilirubin 1.8 H AST 18 ALT 24 Alkaline Phosphatase 111 Troponin I 0.04 Total Protein 7.7 Albumin 4.1 Beta-Hydroxybutyric Acd 1.42 H Urine Color Urine Clarity Urine pH Ur Specific [place] Urine Protein Urine Glucose (UA) Urine Ketones Urine Occult Blood Urine Nitrate Urine Bilirubin Urine Urobilinogen Ur Leukocyte Esterase Urine RBC Ur Squamous Epith Cells Hyaline Casts Micro UA Comment Ur Microscopic Review Urine Culture Comments Nasal Screen MRSA (PCR) Urine Opiates Screen Ur Barbiturates Screen Ur Amphetamines Screen U Benzodiazepines Scrn Urine Cocaine Screen U Cannabinoids Screen Serum Alcohol Less than 3 07/19/18 07/19/18 07/19/18 09:20 10:48 11:15 WBC RBC Hgb Hct MCV MCH MCHC RDW Plt Count MPV Neut % (Auto) Lymph % (Auto) [place] % (Auto) Eos % (Auto) Baso % (Auto) Neut # (Auto) Lymph # (Auto) [place] # (Auto) Eos # (Auto) Baso # (Auto) WBC Differential Differential Comment Sodium Potassium Chloride Carbon Dioxide Anion Gap BUN Creatinine Estimated GFR POC Glucose 500 H* Random Glucose Osmolality 314 H Calcium Total Bilirubin AST ALT Alkaline Phosphatase Troponin I Total Protein Albumin Beta-Hydroxybutyric Acd Urine Color Urine Clarity Urine pH Ur Specific [place] Urine Protein Urine Glucose (UA) Urine Ketones Urine Occult Blood Urine Nitrate Urine Bilirubin Urine Urobilinogen Ur Leukocyte Esterase Urine RBC Ur Squamous Epith Cells Hyaline Casts Micro UA Comment Ur Microscopic Review Urine Culture Comments Nasal Screen MRSA (PCR) Urine Opiates Screen Neg Ur Barbiturates Screen Neg Ur Amphetamines Screen Neg U Benzodiazepines Scrn Neg Urine Cocaine Screen Neg U Cannabinoids Screen Pos H Serum Alcohol 07/19/18 07/19/18 07/19/18 11:15 12:47 14:58 WBC RBC Hgb Hct MCV MCH MCHC RDW Plt Count MPV Neut % (Auto) Lymph % (Auto) [place] % (Auto) Eos % (Auto) Baso % (Auto) Neut # (Auto) Lymph # (Auto) [place] # (Auto) Eos # (Auto) Baso # (Auto) WBC Differential Differential Comment Sodium Potassium Chloride Carbon Dioxide Anion Gap BUN Creatinine Estimated GFR POC Glucose 436 H 370 H Random Glucose Osmolality Calcium Total Bilirubin AST ALT Alkaline Phosphatase Troponin I Total Protein Albumin Beta-Hydroxybutyric Acd Urine Color Yellow Urine Clarity Clear Urine pH 5.0 Ur Specific [place] 1.024 Urine Protein 100 H Urine Glucose (UA) 500 or greater Urine Ketones Trace H Urine Occult Blood Negative Urine Nitrate Negative Urine Bilirubin Negative Urine Urobilinogen Less than 2 Ur Leukocyte Esterase Negative Urine RBC Less than 1 Ur Squamous Epith Cells <1 Hyaline Casts 1 Micro UA Comment Culture not ind Ur Microscopic Review Not Reportable Urine Culture Comments Culture not ind Nasal Screen MRSA (PCR) Urine Opiates Screen Ur Barbiturates Screen Ur Amphetamines Screen U Benzodiazepines Scrn Urine Cocaine Screen U Cannabinoids Screen Serum Alcohol 07/19/18 07/19/18 07/19/18 16:14 16:50 18:06 WBC RBC Hgb Hct MCV MCH MCHC RDW Plt Count MPV Neut % (Auto) Lymph % (Auto) [place] % (Auto) Eos % (Auto) Baso % (Auto) Neut # (Auto) Lymph # (Auto) [place] # (Auto) Eos # (Auto) Baso # (Auto) WBC Differential Differential Comment Sodium Potassium Chloride Carbon Dioxide Anion Gap BUN Creatinine Estimated GFR POC Glucose 336 H 355 H 290 H Random Glucose Osmolality Calcium Total Bilirubin AST ALT Alkaline Phosphatase Troponin I Total Protein Albumin Beta-Hydroxybutyric Acd Urine Color Urine Clarity Urine pH Ur Specific [place] Urine Protein Urine Glucose (UA) Urine Ketones Urine Occult Blood Urine Nitrate Urine Bilirubin Urine Urobilinogen Ur Leukocyte Esterase Urine RBC Ur Squamous Epith Cells Hyaline Casts Micro UA Comment Ur Microscopic Review Urine Culture Comments Nasal Screen MRSA (PCR) Urine Opiates Screen Ur Barbiturates Screen Ur Amphetamines Screen U Benzodiazepines Scrn Urine Cocaine Screen U Cannabinoids Screen Serum Alcohol 07/19/18 07/19/18 07/19/18 20:13 21:00 21:21 WBC RBC Hgb Hct MCV MCH MCHC RDW Plt Count MPV Neut % (Auto) Lymph % (Auto) [place] % (Auto) Eos % (Auto) Baso % (Auto) Neut # (Auto) Lymph # (Auto) [place] # (Auto) Eos # (Auto) Baso # (Auto) WBC Differential Differential Comment Sodium Potassium Chloride Carbon Dioxide Anion Gap BUN Creatinine Estimated GFR POC Glucose 258 H 226 H Random Glucose Osmolality Calcium Total Bilirubin AST ALT Alkaline Phosphatase Troponin I Total Protein Albumin Beta-Hydroxybutyric Acd Urine Color Urine Clarity Urine pH Ur Specific [place] Urine Protein Urine Glucose (UA) Urine Ketones Urine Occult Blood Urine Nitrate Urine Bilirubin Urine Urobilinogen Ur Leukocyte Esterase Urine RBC Ur Squamous Epith Cells Hyaline Casts Micro UA Comment Ur Microscopic Review Urine Culture Comments Nasal Screen MRSA (PCR) Not detected Urine Opiates Screen Ur Barbiturates Screen Ur Amphetamines Screen U Benzodiazepines Scrn Urine Cocaine Screen U Cannabinoids Screen Serum Alcohol 07/19/18 07/19/18 07/19/18 21:59 23:01 23:59 WBC RBC Hgb Hct MCV MCH MCHC RDW Plt Count MPV Neut % (Auto) Lymph % (Auto) [place] % (Auto) Eos % (Auto) Baso % (Auto) Neut # (Auto) Lymph # (Auto) [place] # (Auto) Eos # (Auto) Baso # (Auto) WBC Differential Differential Comment Sodium Potassium Chloride Carbon Dioxide Anion Gap BUN Creatinine Estimated GFR POC Glucose 224 H 217 H 221 H Random Glucose Osmolality Calcium Total Bilirubin AST ALT Alkaline Phosphatase Troponin I Total Protein Albumin Beta-Hydroxybutyric Acd Urine Color Urine Clarity Urine pH Ur Specific [place] Urine Protein Urine Glucose (UA) Urine Ketones Urine Occult Blood Urine Nitrate Urine Bilirubin Urine Urobilinogen Ur Leukocyte Esterase Urine RBC Ur Squamous Epith Cells Hyaline Casts Micro UA Comment Ur Microscopic Review Urine Culture Comments Nasal Screen MRSA (PCR) Urine Opiates Screen Ur Barbiturates Screen Ur Amphetamines Screen U Benzodiazepines Scrn Urine Cocaine Screen U Cannabinoids Screen Serum Alcohol 07/20/18 07/20/18 07/20/18 01:10 02:01 03:17 WBC RBC Hgb Hct MCV MCH MCHC RDW Plt Count MPV Neut % (Auto) Lymph % (Auto) [place] % (Auto) Eos % (Auto) Baso % (Auto) Neut # (Auto) Lymph # (Auto) [place] # (Auto) Eos # (Auto) Baso # (Auto) WBC Differential Differential Comment Sodium Potassium Chloride Carbon Dioxide Anion Gap BUN Creatinine Estimated GFR POC Glucose 224 H 183 H 187 H Random Glucose Osmolality Calcium Total Bilirubin AST ALT Alkaline Phosphatase Troponin I Total Protein Albumin Beta-Hydroxybutyric Acd Urine Color Urine Clarity Urine pH Ur Specific [place] Urine Protein Urine Glucose (UA) Urine Ketones Urine Occult Blood Urine Nitrate Urine Bilirubin Urine Urobilinogen Ur Leukocyte Esterase Urine RBC Ur Squamous Epith Cells Hyaline Casts Micro UA Comment Ur Microscopic Review Urine Culture Comments Nasal Screen MRSA (PCR) Urine Opiates Screen Ur Barbiturates Screen Ur Amphetamines Screen U Benzodiazepines Scrn Urine Cocaine Screen U Cannabinoids Screen Serum Alcohol 07/20/18 07/20/18 07/20/18 04:39 04:39 09:06 WBC 16.2 H RBC 4.82 Hgb 14.9 D Hct 41.9 MCV 86.8 MCH 30.9 MCHC 35.6 RDW 14.2 Plt Count 236 MPV 7.8 Neut % (Auto) 62.4 Lymph % (Auto) 30.5 [place] % (Auto) 6.0 Eos % (Auto) 0.7 Baso % (Auto) 0.4 Neut # (Auto) 10.1 H Lymph # (Auto) 4.9 H [place] # (Auto) 1.0 H Eos # (Auto) 0.1 Baso # (Auto) 0.1 WBC Differential . Differential Comment Auto diff final Sodium 137 Potassium 3.8 D Chloride 101 Carbon Dioxide 25.6 Anion Gap 10 BUN 31 H Creatinine 0.93 Estimated GFR 87 L POC Glucose 309 H Random Glucose 209 H D Osmolality Calcium 8.7 Total Bilirubin 1.7 H AST 17 ALT 19 Alkaline Phosphatase 82 Troponin I Total Protein 6.7 D Albumin 3.5 D Beta-Hydroxybutyric Acd Urine Color Urine Clarity Urine pH Ur Specific [place] Urine Protein Urine Glucose (UA) Urine Ketones Urine Occult Blood Urine Nitrate Urine Bilirubin Urine Urobilinogen Ur Leukocyte Esterase Urine RBC Ur Squamous Epith Cells Hyaline Casts Micro UA Comment Ur Microscopic Review Urine Culture Comments Nasal Screen MRSA (PCR) Urine Opiates Screen Ur Barbiturates Screen Ur Amphetamines Screen U Benzodiazepines Scrn Urine Cocaine Screen U Cannabinoids Screen Serum Alcohol - Procedures None Assessment and Plan - Plan 48-year-old man with Malignant hypertension-resolved Discontinue Cardene drip Restart lisinopril 20 mg twice daily, Lopressor 25 mg twice daily Hydralazine IV as needed Diabetes type 2 uncontrolled-improving insulin drip has been discontinued overnight Resume Levemir Hold oral antihypertensive medication Beta hydroxybutyrate noted hemoglobin A1c pending Intractable nausea and vomiting-improving Secondary to gastroparesis Treatment as an above Continue antiemetic Gastroparesis Continue Reglan Atypical chest pain-resolved Due to intractable nausea and vomiting Initial cardiac enzyme and EKG unremarkable Treat as an above Nonhealing chronic right foot ulcer Patient to follow outpatient with podiatry Chronic pain syndrome Continue outpatient pain medications Leukocytosis Stress reactive Continue to monitor DVT prophylaxis: Lovenox
[2018-07-20] MEDS ORDERED: Metoprolol Tartrate 25 MG Tablet PO SCH (10:30)
[2018-07-20] MEDS ORDERED: Lisinopril 20 MG Tablet PO SCH (10:30)
[2018-07-20] MEDS ORDERED: Insulin Detemir Inj 1,000 UNIT/10 ML Vial SQ SCH ×2 (10:30→21:00)
--- NOTE | 2018-07-20 14:04 | P.DS ---
Date of admission: 07/19/18 13:50 Primary care physician: Adrián Pineda MD Brief History from admission: 48-year-old male with a history of nonhealing diabetic right foot ulcer, hypertension, hyperlipidemia, left BKA comes to the ED for evaluation of 3-4 days history of intractable nausea and vomiting associated with chest pain. While in the ED, patient had elevated blood pressure with systolic above 200s. He also had blood glucose of over 400s for which she was started on insulin drip. Patient states over the past 4 days, he has been able to take his medication secondary to nausea and vomiting. Denies any GI bleed. He has no other issues. DS: Summary Hospital Course: Patient admitted secondary to malignant hypertension for which she was started initially on Cardene drip and admitted in ICU. Also on admission patient was found to have poorly controlled diabetes for which he was started on IV insulin drip which was subsequently switched to sliding scale insulin and his home regiment restarted when patient blood glucose improved. Cardene drip was discontinued as patient blood pressure improved and home medications were resumed. Patient's complaints of nausea and vomiting improving he tolerated p.o. DVT and GI prophylaxis were provided. Prior to discharge, patient conditions improved and vitals remained stable. - Time Spent with Patient Total time spent providing and/or coordinating discharge services: Less than 30 minutes - Quality: VTE Deep Vein Thrombosis/Pulmonary Embolism Present on Admission: No Exam Vital signs: Vital Signs 07/19/18 14:44 07/19/18 15:32 07/19/18 16:50 Temperature Pulse Rate 92 H 102 H 112 H Respiratory Rate 18 20 18 Blood Pressure 156/94 H 182/103 H 106/75 Pulse Oximetry 98 98 98 07/19/18 18:04 07/19/18 18:39 07/19/18 19:14 Temperature Pulse Rate 120 H 112 H 95 H Respiratory Rate 18 18 14 Blood Pressure 96/75 L 115/72 171/98 H Pulse Oximetry 98 98 98 07/19/18 20:00 07/19/18 20:19 07/19/18 20:35 Temperature Pulse Rate 107 H 103 H 98 H Respiratory Rate 14 19 14 Blood Pressure 120/74 107/72 107/71 Pulse Oximetry 96 96 97 07/19/18 21:00 07/19/18 21:32 12/22/18 22:00 Temperature 98.6 F Pulse Rate 96 H 96 H 89 Respiratory Rate 21 Blood Pressure 116/72 Pulse Oximetry 97 07/19/18 23:21 07/20/18 00:00 07/20/18 01:13 Temperature 97.9 F Pulse Rate 91 H Respiratory Rate 20 20 Blood Pressure 119/80 Pulse Oximetry 96 97 07/20/18 02:00 07/20/18 04:00 07/20/18 06:00 Temperature 97.2 F L Pulse Rate 87 91 H 87 Respiratory Rate 16 Blood Pressure 152/94 H Pulse Oximetry 96 07/20/18 06:17 07/20/18 07:00 07/20/18 07:20 Temperature Pulse Rate 106 H 104 H Respiratory Rate 20 14 13 Blood Pressure 125/79 143/89 H Pulse Oximetry 96 95 07/20/18 07:40 07/20/18 08:00 07/20/18 08:20 Temperature 97.9 F Pulse Rate 109 H 109 H 105 H Respiratory Rate 14 21 14 Blood Pressure 129/81 128/84 144/93 H Pulse Oximetry 97 97 96 07/20/18 08:40 07/20/18 09:00 07/20/18 09:20 Temperature Pulse Rate 108 H 108 H 110 H Respiratory Rate 15 18 26 H Blood Pressure 154/97 H 142/100 H 130/83 Pulse Oximetry 96 97 97 07/20/18 09:40 07/20/18 10:00 07/20/18 10:01 Temperature Pulse Rate 108 H 113 H 107 H Respiratory Rate 12 38 H 20 Blood Pressure 135/86 121/88 Pulse Oximetry 96 96 97 07/20/18 10:20 Temperature Pulse Rate 108 H Respiratory Rate 22 Blood Pressure 142/87 H Pulse Oximetry 96 Intake & Output 07/19/18 07/20/18 07/20/18 18:59 06:59 18:59 Intake Total 552 / 552 285.3 / 285.3 Output Total 600 / 600 Balance 552 / 552 -314.7 / -314.7 Weight 86.183 kg 87.5 kg Intake: IV 552 / 552 45.3 / 45.3 NovoLIN-R 100 UNITS/NS 100 ML ( 45.3 / 45.3 for ED) 100 unit In 100 ml @ 9 UNITS/HR 9 mls/hr IV.CONT TITRATE ONE Rx#:[id number] Reglan Inj 10 MG In NS Inj 50 52 / 52 ML @ 104 mls/hr IV.SIG ONCE ONE Rx#:[id number] NS Inj 500 ML @ 1000 mls/hr IV. 500 / 500 SIG BOLUS WANDA Rx#:[id number] Oral 240 / 240 Output: Urine 600 / 600 Other: # Voids 1 # Bowel Movements 0 Weight On Admission 88.6 kg Narrative: GENERAL: NAD SKIN: Warm and dry. HEAD: Atraumatic. Normocephalic. EYES: Pupils equal and round. No scleral icterus. No injection or drainage. ENT: No nasal bleeding or discharge. Mucous membranes pink and moist. NECK: Trachea midline. No JVD. CARDIOVASCULAR: Regular rate and rhythm. RESPIRATORY: No accessory muscle use. Clear to auscultation. Breath sounds equal bilaterally. GASTROINTESTINAL: Abdomen soft, non-tender, nondistended. Hepatic and splenic margins not palpable. MUSCULOSKELETAL: Extremities without clubbing, cyanosis, or edema. No obvious deformities. Left BKA; chronic nonhealing right foot ulcer NEUROLOGICAL: Awake and alert. No obvious cranial nerve deficits. Motor grossly within normal limits. Normal speech. PSYCHIATRIC: Appropriate mood and affect; insight and judgment normal. Results Procedures completed during hospitalization: None Labs on day of discharge: Labs from last 24 hours 07/20/18 07/20/18 07/20/18 12:18 09:06 04:39 WBC RBC Hgb Hct MCV MCH MCHC RDW Plt Count MPV Neut % (Auto) Lymph % (Auto) [place] % (Auto) Eos % (Auto) Baso % (Auto) Neut # (Auto) Lymph # (Auto) [place] # (Auto) Eos # (Auto) Baso # (Auto) WBC Differential Differential Comment Sodium Potassium Chloride Carbon Dioxide Anion Gap BUN Creatinine Estimated GFR POC Glucose 243 H 309 H Random Glucose Hemoglobin A1c Pending Calcium Total Bilirubin AST ALT Alkaline Phosphatase Total Protein Albumin Nasal Screen MRSA (PCR) 07/20/18 07/20/18 07/20/18 04:39 04:39 03:17 WBC 16.2 H RBC 4.82 Hgb 14.9 D Hct 41.9 MCV 86.8 MCH 30.9 MCHC 35.6 RDW 14.2 Plt Count 236 MPV 7.8 Neut % (Auto) 62.4 Lymph % (Auto) 30.5 [place] % (Auto) 6.0 Eos % (Auto) 0.7 Baso % (Auto) 0.4 Neut # (Auto) 10.1 H Lymph # (Auto) 4.9 H [place] # (Auto) 1.0 H Eos # (Auto) 0.1 Baso # (Auto) 0.1 WBC Differential . Differential Comment Auto diff final Sodium 137 Potassium 3.8 D Chloride 101 Carbon Dioxide 25.6 Anion Gap 10 BUN 31 H Creatinine 0.93 Estimated GFR 87 L POC Glucose 187 H Random Glucose 209 H D Hemoglobin A1c Calcium 8.7 Total Bilirubin 1.7 H AST 17 ALT 19 Alkaline Phosphatase 82 Total Protein 6.7 D Albumin 3.5 D Nasal Screen MRSA (PCR) 07/20/18 07/20/18 07/19/18 02:01 01:10 23:59 WBC RBC Hgb Hct MCV MCH MCHC RDW Plt Count MPV Neut % (Auto) Lymph % (Auto) [place] % (Auto) Eos % (Auto) Baso % (Auto) Neut # (Auto) Lymph # (Auto) [place] # (Auto) Eos # (Auto) Baso # (Auto) WBC Differential Differential Comment Sodium Potassium Chloride Carbon Dioxide Anion Gap BUN Creatinine Estimated GFR POC Glucose 183 H 224 H 221 H Random Glucose Hemoglobin A1c Calcium Total Bilirubin AST ALT Alkaline Phosphatase Total Protein Albumin Nasal Screen MRSA (PCR) 07/19/18 07/19/18 07/19/18 23:01 21:59 21:21 WBC RBC Hgb Hct MCV MCH MCHC RDW Plt Count MPV Neut % (Auto) Lymph % (Auto) [place] % (Auto) Eos % (Auto) Baso % (Auto) Neut # (Auto) Lymph # (Auto) [place] # (Auto) Eos # (Auto) Baso # (Auto) WBC Differential Differential Comment Sodium Potassium Chloride Carbon Dioxide Anion Gap BUN Creatinine Estimated GFR POC Glucose 217 H 224 H 226 H Random Glucose Hemoglobin A1c Calcium Total Bilirubin AST ALT Alkaline Phosphatase Total Protein Albumin Nasal Screen MRSA (PCR) 07/19/18 07/19/18 07/19/18 21:00 20:13 18:06 WBC RBC Hgb Hct MCV MCH MCHC RDW Plt Count MPV Neut % (Auto) Lymph % (Auto) [place] % (Auto) Eos % (Auto) Baso % (Auto) Neut # (Auto) Lymph # (Auto) [place] # (Auto) Eos # (Auto) Baso # (Auto) WBC Differential Differential Comment Sodium Potassium Chloride Carbon Dioxide Anion Gap BUN Creatinine Estimated GFR POC Glucose 258 H 290 H Random Glucose Hemoglobin A1c Calcium Total Bilirubin AST ALT Alkaline Phosphatase Total Protein Albumin Nasal Screen MRSA (PCR) Not detected 07/19/18 07/19/18 07/19/18 16:50 16:14 14:58 WBC RBC Hgb Hct MCV MCH MCHC RDW Plt Count MPV Neut % (Auto) Lymph % (Auto) [place] % (Auto) Eos % (Auto) Baso % (Auto) Neut # (Auto) Lymph # (Auto) [place] # (Auto) Eos # (Auto) Baso # (Auto) WBC Differential Differential Comment Sodium Potassium Chloride Carbon Dioxide Anion Gap BUN Creatinine Estimated GFR POC Glucose 355 H 336 H 370 H Random Glucose Hemoglobin A1c Calcium Total Bilirubin AST ALT Alkaline Phosphatase Total Protein Albumin Nasal Screen MRSA (PCR) - Impressions ITS Impressions Chest X-Ray 07/19/18 08:54 CONCLUSION: No acute cardiopulmonary process. Discharge Plan - Discharge Disposition Patient Disposition: 01 Discharge Home - Discharge Condition Condition: Fair - Discharge Order Discharge Orders: Discharge Order (Routine); Ordered 07/20/18 Ordered By: Alexsander Mooney - Physicians Team Primary Care Provider: Adrián Pineda Attending Provider: Alexsander Mooney
[2018-07-20 16:03] VITALS: TEMP 98.6
[2018-07-20] MEDS: Enoxaparin Inj 30 MG/0.3 ML Syringe SQ SCH (16:24)
[2018-07-20 17:52] VITALS: BP 102/69; PULSE 91; RESP 16; O2SAT 96
--- NOTE | 2018-07-21 01:13 | ECG ---
Date Performed: 07/19/2018 Time Performed: 09:13:08 PTAGE: 48 years EKG: Sinus rhythm POSSIBLE ANTERIOR MYOCARDIAL INFARCTION, POSSIBLE NORMAL VARIANT ABNORMAL ECG PREVIOUS TRACING : 06/28/2018 08.40 Since the previous tracing, no significant change noted DOCTOR: Bogdan Aly Interpretating Date/Time 07/21/2018 01:12:41
[2018-07-21 07:58] LABS: Hemoglobin A1c 12.1 % (4.3-6.0)
== END 2018-07-20 18:40 | disposition home or self-care (01) ==
LOC: NEPC 08:24 → NEDA 13:50 → HIMC 20:50
PROVIDERS: ADMIT Hospitalist; ATTEND Hospitalist